=== PATIENT | female | born 1985 | race Caucasian/White ===

== ENCOUNTER 2022-12-09 09:26 | Outpatient (CLI) | payer OTHER, SELFPAY ==
[2022-12-09 10:37] LABS: Hematocrit 34.1 % (37.0-47.0); Hemoglobin 10.4 g/dL (12.0-15.0); Mean Corpuscular HGB Conc 30.5 g/dl (32-36); Mean Corpuscular Hemoglobin 26.2 pg (26-34); Mean Corpuscular Volume 85.9 fl (80-100); Mean Platelet Volume 10.3 fl (7.4-10.4); Platelet Count Result 277 k/mm3 (150-375); Red Blood Count 3.97 M/mm3 (4.2-5.4); Red Cell Distribution Width 14.1 % (11.5-14.5); White Blood Count 6.9 K/mm3 (4.5-10.0)
[2022-12-09 17:28] LABS: Rapid Plasma Reagin Non-Reactive (NonReactive)
== END 2022-12-09 09:27 | disposition home or self-care (01) ==
PROVIDERS: Visit Provider Obstetrics & Gynecology
DX: Z34.93 Encounter for supervision of normal pregnancy, unspecified, third trimester (principal); Z3A.00 Weeks of gestation of pregnancy not specified
CPT/HCPCS: 36415; 85027; 86592; 86850; 86900; 86901

== ENCOUNTER 2022-12-11 10:03 | Inpatient (IN) | payer OTHER, SELFPAY ==
--- NOTE | 2022-11-18 15:47 | PC.NURSE ---
Verified with OR schedule and patient--C/S with tubal ligation on 12/11/22 at 1200 Patient given requisition for lab draw on 12/09/22
[2022-12-11] VITALS (36 sets, daily range): BP systolic 96–128; BP diastolic 59–106; PULSE 52–133; RESP 12–17; TEMP 36.1–36.3; O2SAT 80–100; BMI 29.2
--- NOTE | 2022-12-11 10:03 | LDADM ---
This patient, Sheryl Kim, was admitted to [facility] Post [facility] on 12/11/22 at 10:03. Plans for labor, pain management and were discussed with patient. Patient/family oriented to hospital policies and general routines including ID bracelet, bed and alarms, visiting hours, pain management, procedures, bathroom and other care routines, personal items, smoking policy, room service/diet and guest tray routines, security routines, and visiting hours. Patient/Family are encouraged to report perceived risks to care and to ask questions if they do not understand what they are told or what they should do. See OBIX for further documentation.
--- NOTE | 2022-12-11 11:11 | P.PNAN_ITS ---
Anes - Initial Pre Proc Eval Procedure: Operation Date: 12/11/22 12:00 Proposed Procedures p Repeat Section with Bilateral Tubal Ligation - Bartolo Garnica MD Date/Time: 12/11/22 11:11 Surgeon: Bartolo Garnica MD Pre Op Diagnosis: Repeat C/S Patient Data Age: 37 Gender: F Height: Weight: Allergies Allergy/AdvReac Type Severity Reaction Status Date / Time No Known Allergies Allergy Verified 11/18/22 15:29 Patient hx anesthesia problems: none Family hx anesthesia problems: none Results Review: All pre-operative results and documents have been reviewed as part of the pre- operative evaluation. [facility] Family History Family History Mother Hodgkin disease Breast cancer in female Brain cancer Patient's mother is , Onset Age: 53 Lung cancer Cerebrovascular accident Father Acute myocardial infarction Social History Social History Substance use: never Spiritual care concerns: No Anes - Eval Final PreProcedure Day of Procedure 12/11/22 11:11 Patient weight: normal Heart: regular rate and rhythm Lungs: clear to auscultation Airway: Mallampati scale class II Neurological: alert and oriented Last oral intake: >/= 8 hours ASA classification: II Emergent: no Anesthetic plan: proceed Anesthesia type and monitoring: regional spinal and standard monitoring Results Review: All pre-operative results and documents have been reviewed as part of the pre- operative evaluation. Informed Consent: The patient's anesthetic plan and its attendant risks and benefits were discussed with the patient/family/POA. Questions were solicited and answers provided to the satisfaction of the patient/family/POA.
[2022-12-11] MEDS: LACTATED RINGERS 1,000 ML 125 ML IV CONT ×2 (11:52→13:15)
--- NOTE | 2022-12-11 12:12 | PM.IMHP ---
H&P: HPI History of Present Illness Date/Time: 12/11/22 12:12 Chief Complaint: Here for c section. Narrative: 37 y/o at 39 2/7 weeks here for repeat with concurrent tubal ligation. GBS neg. Review of Systems Review of Systems: All systems reviewed & are unremarkable except as noted in HPI and below PMFSH Surgical History Surgical History (Updated 12/11/22 @ 12:16 by Bartolo Garnica MD) History of augmentation mammoplasty History of delivery Family History Family History Mother Hodgkin disease Breast cancer in female Brain cancer Patient's mother is , Onset Age: 53 Lung cancer Cerebrovascular accident Father Acute myocardial infarction Social History Social History Smoking status: Never smoker Second hand tobacco smoke exposure: No Substance use: never Lack of Transportation: No Lack of Food: Never True Current Housing: I Have Housing Concerned About Future Housing: No Difficulty Paying Gas/Electric Bills: No Difficulty Paying for Meds: No Currently Unemployed: No Education: High School Diploma/GED Difficulty w/ Childcare or Family Care: No Spiritual care concerns: No Meds Home Medications and Allergies Allergies Allergy/AdvReac Type Severity Reaction Status Date / Time No Known Allergies Allergy Verified 11/18/22 15:29 Vital Signs Vital Signs - 24 hr 12/11/22 11:55 Oxygen Delivery Room Air Exam Const: Orientation/consciousness: patient oriented x3 Other: Well-developed, well-nourished female in no acute distress. Neck: Thyroid: thyroid normal Lymphatic: no lymphadenopathy noted (in neck, axilla or inguinal nodes) Resp: Effort & Inspection: normal respiratory effort Auscultation: clear to auscultation bilaterally Cardio: Rate: regular rate Rhythm: regular rhythm Heart sounds: S1 normal heart sound present and S2 normal heart sound present GI: Other: ABD: Soft, nontender, nondistended, gravid. NST reactive. TOCO: irregular contractions. No guarding or rebound tenderness. No hepatosplenomegaly. : General: Yes no CVA tenderness Other: Cervix closed, thick Back/Spine/Pelvis: Back: no CVA tenderness Skin: General skin exam: normal color and no rashes or lesions noted Neuro: General: patient oriented x3 Extrem: Other: Extremities: nontender with no edema Psych: Mental Status: mental status grossly normal Affect: normal affect Assessment and Plan Assessment and plan (1) Term : Code(s): Z34.90 - Encounter for supervision of normal , unspecified, unspecified trimester Status: Acute Assessment and Plan: A: IUP at 39 2/7 weeks here desiring repeat . Also does not desire future childbearing, would like concurrent tubal ligation. P: Offered repeat with concurrent bilateral tubal ligation. She understands there are temporary methods of contraception available to her. She understands that there are nonsurgical options as well as surgical options. She understands that tubal ligation will render her permanently sterile. She understands that there is a failure rate associated with tubal ligation, as well as an inherent ectopic gestation risk. Furthermore, she understands risks of surgery to include risks of anesthesia, risks of pain, infection, bleeding, blood products, thromboembolic phenomena and damage to adjacent structures such as bowel, bladder, ureters, blood vessels and nerves. She understands all these risks and elects to proceed with surgery. She has received the ACOG pamphlet on surgical sterilization. (2) History of delivery: Code(s): Z98.891 - History of uterine scar from previous surgery Status: Acute (3) Unwanted fertility: Code(s): Z30.09 - Encounter for other general couns
--- NOTE | 2022-12-11 12:17 | WPDHPUPDATE1 ---
History and Physical Update Update Date/Time: 12/11/22 12:17 History and Physical has been reviewed, including an updated exam of the patient. There are NO changes in the patient's condition. Risks, benefits, and alternatives have been discussed and questions answered. Patient agrees to proceed with procedure.
[2022-12-11] MEDS: ceFAZolin 2 GM/D5W 50 ML 2 GM/50 ML BAG IVPB (12:21)
--- NOTE | 2022-12-11 13:11 | PM.OBPRVD ---
OB - Delivery Note Procedure Delivery date: 12/11/22 Procedure: Procedures Operation Date: 12/11/22 12:00 <No data on this case meets the specified criteria> -Repeat low transverse delivery -Bilateral tubal ligation via modified Caryn technique Delivery monitor: External FHT and External Uterine Route of delivery: Specimen: Yes (Cord blood, segments of bilateral Fallopian tubes) Quantitative Blood Loss (ml): 985 Anesthesia type: Spinal Disposition: PACU Complications: None Narrative: Preop Dx: IUP at 39 2/7 weeks, prior , desired sterility Postop Dx: Same Findings: Fibroid uterus. Otherwise, unremarkable tubes and ovaries. Techniques: The patient was taken to the operating room where she was prepared and draped in the usual sterile fashion in dorsal supine position with a leftward tilt. She received cefazolin preoperatively. Spinal anesthesia was found to be adequate. A Pfannenstiel skin incision was made along the previous scar line and was carried through to the underlying layer of the fascia. The fascia was incised in the midline and the incision was extended laterally. The fascia was dissected free of the underlying rectus muscles. The rectus muscles were in the midline. The peritoneum was identified, tented up and entered sharply. The peritoneal incision was extended superiorly and inferiorly with good visualization of the bladder. The bladder blade was placed. The vesicouterine peritoneum was identified, tented up and entered sharply. The incision was extended laterally and the bladder flap was developed. The bladder blade was replaced. The uterus was then incised sharply in a transverse fashion along the lower uterine segment. The incision was extended laterally. The was found to be in transverse lie, with head to the maternal left. Internal version brought the infant's head to the incision. The infant's head was delivered atraumatically to the sterile field, followed by the body. The nose and mouth were bulb suctioned. After a delay, the cord was clamped and cut. The infant was handed off the field. Cord blood was collected. The placenta was removed manually and was passed off the field. The uterus was exteriorized and cleared of all clots and debris. The uterine incision was reapproximated using 0 Monocryl in a running, locked fashion. Excellent hemostasis resulted as did excellent reapproximation of the normal anatomy. The left fallopian tube was then identified by following it out to the fimbriated end. It was grasped in the midportion with a Solomon clamp and a loop of tube was ligated with a free tie of 0 plain gut. The tubal segment was then transected and the specimen was passed off to be sent to pathology. Hemostasis was excellent. Attention was turned to the right fallopian tube which was similarly identified, ligated and transected. Once again, excellent hemostasis resulted. The uterus was returned the abdomen. The pelvis was irrigated copiously with warmed normal saline. Rigorous hemostasis was assured. The fascial layer was reapproximated using 0 Vicryl in a running fashion. The skin was closed with a running, subcuticular stitch of 4 0 Vicryl. Dermaflex was applied externally. Sponge, lap, needle and instrument counts were correct. The patient was taken to the recovery room in stable condition. The infant went to the nursery in stable condition. I was present and scrubbed the entire procedure. Kenna Baby Date of : 12/11/22 Time of : 12:46 Weeks of gestation at delivery: 39 Infant gender: Female Weight (pounds): 8 presentation: transverse Placenta delivery description: Manual Removal and Normal Configuration Cord Vessel Description: 3 Vessels and Delayed Cord Clamping score one minute: 9 score five minutes: 9
--- NOTE | 2022-12-11 13:16 | PM.OBDSVD ---
DS: Admitting Diagnosis Discharge Date 12/13/22 Admitting Diagnosis IUP at 39 2/7 weeks Prior Desired sterility DS: Discharge Diagnosis Discharge Diagnosis (1) delivery delivered: Code(s): O82 - Encounter for delivery without indication Status: Acute (2) Unwanted fertility: Code(s): Z30.09 - Encounter for other general counseling and advice on contraception Status: Acute OB - DS: Summary OB Procedures : None OB Procedures Intrapartum: OB Procedures: : None Peripartum Data Procedures: Procedures Operation Date: 12/11/22 12:00 <No data on this case meets the specified criteria> Time Spent with Patient Time attestation: Total time spent providing and/or coordinating discharge services: Discharge Plan Discharge Attending physician on discharge: Bartolo Garnica Consulting providers: Hesham Ash; Arabella Sullivan Discharging Clinician: Bartolo Garnica Patient Disposition: Home, Self-Care Activity: may shower, may drive after 2 weeks and pelvic rest Diet: regular Wound Care Instructions: incision open to air Discharge Instructions: Education: Mom and Baby Guide Given to: Mother Follow-Up: Call your delivering provider's office for an appointment to be seen in: 4 Weeks Mom and baby should come to the [facility] for the follow-up appointment. Appointment Date/Time: November at 10:00 am What to expect at your follow-up visit: Physical Assessment Call [phone] if you are unable to keep your appointment time. BREAST CARE: * Wear a snug supportive bra. * For engorgement discomfort: Bottle Feeding: * May apply ice packs * For sore nipples: * Identify correct latch-on * Apply warm moist washcloths before and after nursing * Air dry nipples after nursing * May apply Lansinoh cream to nipples ABDOMINAL INCISION: (if applicable) * Allow incision to air dry * Do NOT use lotions for powders on your incision * When showering, allow soap and water to run over the incision, but do not wash incision PERINEAL CARE: * Until bleeding stops, use your trisha bottle after urinating * Change your pad frequently throughout the day * You may take sitz baths several times a day (fill your bathtub with warm water and soak for 20 minutes.) Do NOT bathe in the water * No tub baths until seen by your physician - You may shower ACTIVITY: * Rest as much as possible. * Do not exercise or lift anything heavier than your baby (such as laundry or other children.) * Avoid stairs or driving as much as possible. * Do not put anything into the vagina. No douching, tampons, or sexual activity until seen by physician. NOTIFY PHYSICIAN IF YOU HAVE ANY QUESTIONS OR IF ANY OF THE FOLLOWING SYMPTOMS OCCUR: * If your episiotomy or incision becomes red, swollen, or more painful than what you have experienced in the hospital. * If your vaginal bleeding becomes foul smelling. * If your vaginal bleeding becomes more heavy than a period or if your bleeding changes from pink to bright red. However, you may pass an occasional walnut-sized clot once or twice for the first week . * If you experience a sharp, shooting pain in you calves. * If you discover a hard, reddened area on your breast or if you experience flu-like symptoms. DIET: * Eat regular, well-balanced meals. * Drink plenty of fluids daily. If , drink to thirst.Call or return if temperature above 100.4? F, increased abdominal pain, increased vaginal bleeding or any new problems. Follow-up/Referrals: Bartolo Garnica MD [Physician] - 4 Weeks Discharge Medications: New ibuprofen 600 mg tablet 600 mg PO Q6H PRN (Reason: cramps) Qty: 30 0RF ferrous sulfate 325 mg (65 mg iron) tablet 325 mg PO DAILY Qty: 30 0RF hydrocodone-aceta
[2022-12-11] MEDS: KETOROLAC 15 MG/ML VIAL (*BKC) IV PUSH (15:00)
[2022-12-11] MEDS: ONDANSETRON INJ 4 MG/2 ML VIAL IV PUSH ×2 (15:14→21:06)
[2022-12-11] MEDS: MORPHINE SULFATE INJ (*CRX) 10 MG/ML AMP 3 MG IV PUSH (15:26)
--- NOTE | 2022-12-11 15:43 | PC.NURSE ---
Patient transferred to post room #279 via stretcher. Support person present. Oriented to unit, room, information board, rooming in, admission packet and security measures. Patient verbalizes understanding.
[2022-12-11] MEDS: OXYTOCIN 30 UNITS/NS 500 ML 30 UNITS/500 ML BAG 125 UNITS IV CONT (17:04)
[2022-12-11] MEDS: HYDROcodone/acetaminophen (*CRX) 5-325 MG TABLET 1 TAB PO (20:30)
[2022-12-11] MEDS: IBUPROFEN 600 MG TABLET PO (20:31)
[2022-12-11] MEDS: LANOLIN (LANSINOH) 7.5 GM CREAM 1 APPLIC TOPICAL (20:32)
[2022-12-11] MEDS: DEXTROSE 5%/0.45% SOD CHL 1,000 ML 125 ML IV CONT (21:20)
[2022-12-12 01:12] VITALS: BP 105/66; PULSE 57; RESP 16; TEMP 36.6; O2SAT 98
[2022-12-12 05:45] LABS: Basophils Absolute Auto 0.1 K/mm3 (0.0-0.1); Basophils Percent Auto 0.4 % (0.2-1.2); Eosinophils Percent Auto 0.3 % (0-4.4); Hematocrit 27.8 % (37.0-47.0); Hemoglobin 8.5 g/dL (12.0-15.0); Immature Granulocyte Absolute 0.06 K/mm3 (0.00-0.031); Immature Granulocyte Percent A 0.5 % (0-0.5); Lymphocytes Absolute Auto 1.13 K/mm3 (0.9-3.2); Lymphocytes Percent Auto 9.7 % (18.3-44.2); Mean Corpuscular HGB Conc 30.6 g/dl (32-36); Mean Corpuscular Hemoglobin 26.6 pg (26-34); Mean Corpuscular Volume 86.9 fl (80-100); Mean Platelet Volume 10.1 fl (7.4-10.4); Monocytes Percent Auto 8.6 % (2.6-8.5); Neutrophils Absolute Auto 9.4 K/mm3 (1.3-6.7); Neutrophils Percent Auto 80.5 % (45.5-73.1); Platelet Count Result 242 k/mm3 (150-375); Red Cell Distribution Width 14.6 % (11.5-14.5); White Blood Count 11.7 K/mm3 (4.5-10.0)
[2022-12-12 07:50] VITALS: BP 97/56; PULSE 62; RESP 18; TEMP 35.8; O2SAT 98
--- NOTE | 2022-12-12 08:50 | PM.OBPNVD ---
OB - PN: Subj Subjective Date/time seen: 12/12/22 08:50 Narrative: Pain OK. Tolerating diet. OB - PN: Obj Data Labs 12/12/22 05:38 Labs: Laboratory Results - last 24 hr 12/12/22 05:38 WBC 11.7 H RBC 3.20 L Hgb 8.5 L Hct 27.8 L MCV 86.9 MCH 26.6 MCHC 30.6 L RDW 14.6 H Plt Count 242 MPV 10.1 Immature Gran % (Auto) 0.5 Neut % (Auto) 80.5 H Lymph % (Auto) 9.7 L Sawyer % (Auto) 8.6 H Eos % (Auto) 0.3 Baso % (Auto) 0.4 Lymph # (Auto) 1.13 Sawyer # (Auto) 1.0 H Eos # (Auto) 0.0 Baso # (Auto) 0.1 Abs Immat Gran (auto) 0.06 H Absolute Neuts (auto) 9.4 H Absolute Nucleated RBC 0.0 Nucleated RBC % 0.0 OB - PN A/P Plan Comments: A: POD#1, doing well. P: Routine care. Exam Narrative: AVSS I/O OK ABD soft, nontender, fundus firm. Incision c/d/i. EXT nontender
[2022-12-12] MEDS: HYDROcodone/acetaminophen (*CRX) 5-325 MG TABLET 1 TAB PO ×3 (08:58→17:18)
[2022-12-12] MEDS: IBUPROFEN 600 MG TABLET PO ×3 (08:59→23:56)
[2022-12-12] MEDS: MULTIVIT/MIN/PREN/FOL AC/IRON TABLET 1 TAB PO (08:59)
[2022-12-12] MEDS: DOCUSATE SODIUM 100 MG CAPSULE PO ×2 (09:00→17:20)
[2022-12-12] MEDS: SIMETHICONE 80 MG TAB.CHEW PO (09:00)
[2022-12-12] MEDS: POLYSACCHARIDE IRON COMPLEX 150 MG CAPSULE PO ×2 (09:00→17:19)
[2022-12-12 11:50] VITALS: BP 104/65; PULSE 70; RESP 18; TEMP 36.1; O2SAT 100
--- NOTE | 2022-12-12 12:31 | PC.NURSE ---
0930 Introductions were made, then consulted with patient to assess needs related to . Mother led the conversation that the baby would not maintain a latch through the night and that baby received a few formula bottles. RN advised mother to put baby skin to skin before the next feeding and to call out for assistance with her next feeding. 1045 Mother called for assistance with . Mother had baby upright and skin to skin. RN assisted with waking baby up and helped the mother latch baby to her left breast in the football position, baby would open wide but not maintain a latch. Baby's last feeding was at 0630 per mother and she wanted to give her some of the formula bottle. Baby took 2 mls of formula and RN tried to latch baby to the right breast using cross cradle, baby would open wide, latch on but not suck. Mother wanted to stop and give additional formula, 5 mls given, baby burped and mother tried to latch baby to right breast herself without success. Mother wanted to go ahead and give a formula bottle at this time, baby took a total of 16mls. Mother encouraged to call out for assistance with her next feeding. Mother also inquired about a breast pump, the father of the baby, who the baby will have insurance under, thinks his insurance will cover a breast pump if the mother's won't, RN to check with RN and follow up with the father tomorrow. Reported to the primary RN.
--- NOTE | 2022-12-12 13:41 | WPDANLDPN2 ---
Anes-Prog Note L&D Date/Time: 12/12/22 13:41 Neuro status: Neuro function grossly intact. Vital Signs: Last Vital Signs Temp 36.1 C L 12/12/22 11:50 Pulse 70 12/12/22 11:50 Resp 18 12/12/22 11:50 BP 104/65 12/12/22 11:50 Pulse Ox 100 12/12/22 11:50 O2 Del Method Room Air 12/12/22 09:00 Pain score (VAS): 0 I/O: Intake & Output 12/11/22 12/12/22 12/12/22 23:59 07:59 15:59 Intake Total 550 120 Output Total 350 950 300 Balance -350 -400 -180 Patient feedback: Patient satisfied with anesthetic care.
--- NOTE | 2022-12-12 13:41 | WPDANLDNPN2 ---
Anes-Prog Note L&D-Neuraxial Date/Time: 12/12/22 13:41 Patient feedback: Patient satisfied with post-operative pain management.
[2022-12-12 18:50] VITALS: BP 112/62; PULSE 71; RESP 16; TEMP 36.4; O2SAT 97
[2022-12-12] MEDS: HYDROcodone/acetaminophen (*CRX) 10-325 MG TABLET 1 TAB PO ×2 (20:11→23:54)
[2022-12-13] MEDS: HYDROcodone/acetaminophen (*CRX) 5-325 MG TABLET 1 TAB PO ×2 (03:04→08:24)
[2022-12-13 08:15] VITALS: BP 113/79; PULSE 64; RESP 18; TEMP 36.8; O2SAT 100
[2022-12-13] MEDS: MULTIVIT/MIN/PREN/FOL AC/IRON TABLET 1 TAB PO (08:23)
[2022-12-13] MEDS: SIMETHICONE 80 MG TAB.CHEW PO (08:24)
[2022-12-13] MEDS: POLYSACCHARIDE IRON COMPLEX 150 MG CAPSULE PO (08:24)
[2022-12-13] MEDS: DOCUSATE SODIUM 100 MG CAPSULE PO (08:24)
[2022-12-13] MEDS: IBUPROFEN 600 MG TABLET PO (08:25)
--- NOTE | 2022-12-13 11:18 | PM.OBPNVD ---
OB - PN: Subj Subjective Date/time seen: 12/13/22 11:18 Patient comments: no complaints, pain well controlled, incisional pain, tolerating diet and flatus present OB - PN: Obj Data Labs 12/12/22 05:38 OB - PN A/P Plan day: 2 Plan: routine care Comments: POD#2 LTCS - no problems, to D/c Time Spent With Patient Time: Total time spent is greater than 50% in coordination of care (as documented) at patient's floor/unit and/or counseling patient: Exam Const: General: comfortable, no acute distress and alert Resp: Effort & Inspection: normal respiratory effort Auscultation: no crackles, no rales and no rhonchi Cardio: Rate: regular rate Heart sounds: no click, no murmurs and no rubs GI: Inspection: non-distended GI Palp: No Tenderness to palpation present (GI) Auscultation: normal bowel sounds Other: Incision - CDI Extrem: General: normal to inspection, no pedal edema and no calf tenderness
--- NOTE | 2022-12-13 11:19 | P.DS_ITS ---
DS: Admitting Diagnosis Discharge Date 12/13/22 Admitting Diagnosis term DS: Discharge Diagnosis Discharge Diagnosis (1) delivery delivered: Code(s): O82 - Encounter for delivery without indication Status: Acute OB - DS: Summary OB Procedures : None OB Procedures Intrapartum: OB Procedures: : None Peripartum Data Procedures: Procedures Operation Date: 12/11/22 12:00 Actual Procedure Side Surgeon p Section Bartolo Garnica MD Time Spent with Patient Time attestation: Total time spent providing and/or coordinating discharge services: DS: Data Data Completed and Pending Pending studies at discharge: Pending at discharge 12/11/22 12:55 Surgical [PTH] Routine Surgical [PTH] Routine Discharge Plan Discharge Attending physician on discharge: Bartolo Garnica Discharging Clinician: Bartolo Garnica Patient Disposition: Home, Self-Care Activity: may shower, may drive after 2 weeks and pelvic rest Diet: regular Wound Care Instructions: incision open to air Discharge Instructions: Call or return if temperature above 100.4? F, increased abdominal pain, increased vaginal bleeding or any new problems. Stand Alone Forms: General Discharge Information Follow-up/Referrals: Bartolo Garnica MD [Physician] - 4 Weeks Discharge Medications: New ibuprofen 600 mg tablet 600 mg PO Q6H PRN (Reason: cramps) Qty: 30 0RF ferrous sulfate 325 mg (65 mg iron) tablet 325 mg PO DAILY Qty: 30 0RF hydrocodone-acetaminophen 5-325 mg tablet 1 - 2 tablet PO Q6H PRN (Reason: pain) Qty: 30 0RF Date of admission: 12/11/22 10:03 Primary Care Provider: PHYSICIAN,POWDER MILL OPERATOR Admitting Provider: Bartolo Garnica Attending physician on admission: Bartolo Garnica Condition: Stable
--- NOTE | 2022-12-13 12:20 | PC.NURSE ---
1042 Reintroductions made, per mother she is only going to bottle feed formula. Offered assistance with a breast pump and mother declined, she would no longer like to pump. Encouraged mother to wear a snug supportive bra and use ice packs on her breasts as needed for comfort. Mother voiced understanding of information and will call if there is a request for assistance. Reported to the primary RN.
--- NOTE | 2022-12-13 13:57 | PC.NURSE ---
1100 Patient viewed the discharge video Mother & Baby Care, The First Two Weeks . Patient was given the opportunity and encouraged to ask questions. Patient verbalized understanding of information shared and has been given the mother/baby guide for home reference.
[2022-12-14 10:24] VITALS: BP 109/71; PULSE 68; RESP 18; TEMP 36.6; O2SAT 99
== END 2022-12-13 13:25 | disposition home or self-care (01) | DRG 785 ==
LOC: ANHOBPP 13:18 → ANHOB2 12-12 15:03 → ANHOBPP 12-14 10:14
PROVIDERS: Admitting Provider Obstetrics & Gynecology; Visit Provider Obstetrics & Gynecology
PROC: 10D00Z1 Extraction of Products of Conception, Low, Open Approach (ICD-10-PCS; CPT 59514; principal; 2022-12-11 12:00)
DX: O34.211 Maternal care for low transverse scar from previous cesarean delivery (principal); Z37.0 Single live birth; Z3A.39 39 weeks gestation of pregnancy; Z30.2 Encounter for sterilization
CPT/HCPCS: 36415; 85025; 85027; 86592; 86850; 86900; 86901; 88302; A9270; J0690; J1885; J2270; J2274; J2405; J2590; J7120

== ENCOUNTER 2024-04-30 16:07 | Emergency (ER) | payer OTHER, SELFPAY ==
[2024-04-30] VITALS (10 sets, daily range): BP systolic 105–141; BP diastolic 64–76; PULSE 55–91; RESP 11–19; TEMP 36.4; O2SAT 97–100
--- NOTE | ~2024-04-30 | XR_ITS ---
XR chest 2V Ordering provider: Suzanne Shepard PA-C History: 39 years Female with . r arm numbness/tingling headache/blurred vision . Comparison: None. FINDINGS: MEDIASTINUM: The cardiac silhouette is not enlarged. LUNGS: No infiltrates, effusions or pneumothorax. OTHER: No free air under the diaphragm. IMPRESSION: No acute cardiopulmonary pathology. Reviewed, dictated and finalized at location A. RANCE SALES MANAGER
--- NOTE | ~2024-04-30 | CT_ITS ---
CT brain wo con Ordering provider: Suzanne Shepard PA-C History: 39 years Female with . R arm numbness tingling, blurred vision, headache . Comparison: None. Technique: CT of the head without contrast. Radiation reduction technique utilized. The dose-length p roduct was 605.33 mGy-cm. FINDINGS: BRAIN PARENCHYMA AND CSF SPACES: No midline shift, mass effect or hemorrhage. The brain parenchyma a nd CSF spaces are otherwise normal. VISUALIZED PARANASAL SINUSES: Well aerated. MASTOIDS: Well aerated. BONES: The bones appear intact. SOFT TISSUES: Visualized nasopharynx is normal. Superficial soft tissues are normal. IMPRESSION: No acute intracranial findings. Reviewed, dictated and finalized at location A. ENT FINANCE SPECIALIST
--- NOTE | 2024-04-30 16:14 | ECG_ITS ---
Test Date: 2024-04-30 16:42:51 Measurements Intervals Endeavor Rate: 82 P: 29 SC: 142 QRS: 5 QRSD: 90 T: 39 QT: 345 QTc: 405 Interpretive Statements SINUS RHYTHM POSSIBLE ANTERIOR MYOCARDIAL INFARCTION , PROBABLY OLD [30 ms Q WAVE IN V3/V4, OR R < 0.2 mV IN V4] ABNORMAL ECG No previous ECG available for comparison Electronically Signed On 04-30-2024 16:46:06 OPERATIONS OFFICER by Trevor Sung M.D.
[2024-04-30 16:21] LABS: Glucose Point of Care 108 mg/dl (65-105)
--- NOTE | 2024-04-30 16:36 | ED.NEUROSD ---
HPI - Neuro Symptoms/Deficit General Chief Complaint: Neuro Symptoms/Deficit <NAVI Torres Last Filed: 04/30/24 16:43> Stated Complaint: migraine <NAVI Torres Last Filed: 04/30/24 16:43> Time Seen by Provider: 04/30/24 16:36 <NAVI Torres Last Filed: 04/30/24 16:43> Focused HPI: Patient is a 39 y/o female who presents to the ED with c/o CASILLAS and vision changes. Patient reports she was driving around 9 am this morning when her vision suddenly became decreased/blurry bilaterally. She then developed numbness/tingling in mayra arms. States vision was altered for approx 1 hour before returning to normal on its own. Numbness has continued to be intermittent throughout today. She also developed a diffuse frontal CASILLAS within an hour of these other symptoms. Present mostly throughout frontal region. Still having headache currently. Attempted taking Tylenol but states she vomited this up. C/o nausea currently. States she had a similar episode last Sunday, but CASILLAS only lasted a few hours before improving. Hx of migraines several years ago. Denies fevers, focal weakness, syncope. GENERAL: Well-appearing, well-nourished, and in no acute distress. HEAD: Normocephalic, atraumatic. CHEST: Clear to auscultation. ?No respiratory distress. HEART: Regular rate and rhythm.? NEURO: ?Alert and oriented x3. No focal deficits. Equal director radio strength bilaterally. No pronator drift. Sensation intact throughout extremities. Patient screened in triage and initial orders placed.? ?Additional care and disposition to be based upon?diagnostic testing and treatment. <NAVI Torres Last Filed: 04/30/24 16:43> Source: patient <NAVI Torres Last Filed: 04/30/24 16:43> Mode of arrival: ambulatory <NAVI Torres Last Filed: 04/30/24 16:43> Limitations: no limitations <NAVI Torres Last Filed: 04/30/24 16:43> Related Data Allergies/Adverse Reactions: Allergies Allergy/AdvReac Type Severity Reaction Status Date / Time No Known Allergies Allergy Verified 11/18/22 15:29 <Suzanne Shepard PA-C - Last Filed: 04/30/24 16:43> Review of Systems Review of Systems: CONSTITUTIONAL: Denies fever EYES: Reports blurry vision GASTROINTESTINAL: Reports nausea, vomiting NEUROLOGIC: Reports headache. Denies numbness, or weakness. <Dia Sharma PA-C - Last Filed: 04/30/24 19:23> All systems reviewed & are unremarkable except as noted in HPI and below <Dia Sharma PA-C - Last Filed: 04/30/24 19:23> PMFSH Past Medical History Medical History: Medical History (Updated 04/30/24 @ 19:23 by Dia Sharma PA-C) History of migraine <Suzanne Shepard PA-C - Last Filed: 04/30/24 16:43> Surgical History Surgical History: Surgical History (Updated 12/11/22 @ 12:16 by Bartolo Garnica MD) History of augmentation mammoplasty History of delivery <Suzanne Shepard PA-C - Last Filed: 04/30/24 16:43> Family History Family History: Family History Mother Hodgkin disease Breast cancer in female Brain cancer Patient's mother is , Onset Age: 53 Lung cancer Cerebrovascular accident Father Acute myocardial infarction <Suzanne Shepard PA-C - Last Filed: 04/30/24 16:43> Social History Social History: Social History Smoking status: Never smoker Second hand tobacco smoke exposure: No Substance use: never Lack of Transportation: No Lack of Food: Never True Current Housing: I Have Housing Concerned About Future Housing: No Difficulty Paying Gas/Electric Bills: No Difficulty Paying for Meds: No Currently Unemployed: No Education: High School Diploma/GED Difficulty w/ Childcare or Family Care: No Spiritual care concerns: No <Suzanne Shepard PA-C - Last Filed: 04/30/24 16:43> Exam Narrative: GENERAL: Well-appearing, well-nourished, and in no acute distress. HEAD: Normocephalic, atraumatic. EYES: PERRLA and EOMI. ENT: Nares clear, no rhinorrhea or epistaxis. Mucous membranes moist. Oropharynx without tonsillar hypertrophy exudate or other lesions. Bilateral TMs pearly pantoja non-bulging NECK: Supple. No adenopathy or masses. CHEST: Clear to auscultation. No respiratory distress. No wheezes rales or rhonchi HEART: Regular rate and rhythm. No murmur heard. Normal peripheral pulses. EXTREMITIES: Normal range of motion. No edema. Strength equal in bilateral upper and lower extremities (5/5) SKIN: Warm, dry, no rash. NEURO: No focal deficits. Alert and oriented x3. CN II-XII grossly intact PSYCH: Normal mood and affect <NAVI Pichardo Last Filed: 04/30/24 19:23> Course Course Emergency Course: Patient updated on her workup and agrees with plan of care. Reports feeling much better <NAVI Pichardo Last Filed: 04/30/24 19:23> Vital Signs Vital signs: Vital Signs Temperature 97.6 F 04/30/24 16:09 Pulse Rate 91 04/30/24 16:09 Respiratory Rate 17 04/30/24 16:09 Blood Pressure 141/76 H 04/30/24 16:09 Pulse Oximetry 100 04/30/24 16:09 Oxygen Delivery Room Air 04/30/24 16:09 Temperature 97.6 F 04/30/24 16:09 Pulse Rate 76 04/30/24 18:15 Respiratory Rate 19 04/30/24 18:15 Blood Pressure 110/69 04/30/24 18:15 Pulse Oximetry 97 04/30/24 18:15 Oxygen Delivery Room Air 04/30/24 16:09 <Suzanne Shepard PA-C - Last Filed: 04/30/24 16:43> Vital Signs Temperature 97.6 F 04/30/24 16:09 Pulse Rate 91 04/30/24 16:09 Respiratory Rate 17 04/30/24 16:09 Blood Pressure 141/76 H 04/30/24 16:09 Pulse Oximetry 100 04/30/24 16:09 Oxygen Delivery Room Air 04/30/24 16:09 Temperature 97.6 F 04/30/24 16:09 Pulse Rate 76 04/30/24 18:15 Respiratory Rate 19 04/30/24 18:15 Blood Pressure 110/69 04/30/24 18:15 Pulse Oximetry 97 04/30/24 18:15 Oxygen Delivery Room Air 04/30/24 16:09 <Dia Sharma PA-C - Last Filed: 04/30/24 19:23> MDM - Neuro Symptoms/Deficit MDM Narrative Medical decision making narrative: MSE by DAVE in triage. <NAVI Torres Last Filed: 04/30/24 16:43> MSE by DAVE in triage. Patient presents to the emergency department for a migraine headache. She is afebrile and nontoxic appearing. Her vitals are stable. CBC with leukocytosis to 13.3. Likely due to a of nausea and vomiting. Also shows hemoconcentration. Metabolic panel with some evidence of dehydration as well. Patient hydrated with a L fluids in the ED. test is negative. Chest x-ray without acute cardiopulmonary abnormality. CT brain without acute findings. Patient updated on her workup and agrees with plan of care. Reports feeling much better. She is to follow up with primary provider. She was given warnings to return to the ER <Dia Sharma PA-C - Last Filed: 04/30/24 19:23> Differential Diagnosis Differential diagnosis: Likely subarachnoid hemorrhage and other (Migraine, tension headache, brain mass, dehydration) <NAVI Pichardo Last Filed: 04/30/24 19:23> Lab Data Attestation: I reviewed the patient's lab results. <NAVI Pichardo Last Filed: 04/30/24 19:23> Result diagrams: 04/30/24 16:36 04/30/24 16:36 <NAVI Torres Last Filed: 04/30/24 16:43> Labs: Lab Results 04/30/24 04/30/24 04/30/24 Range/Units 16:17 16:30 16:36 WBC 13.3 H (4.5-10.0) K/mm3 RBC 5.29 (4.2-5.4) M/mm3 Hgb 15.6 H D (12.0-15.0) g/dL Hct 47.2 H (37.0-47.0) % MCV 89.2 (80-100) fl MCH 29.5 (26-34) pg MCHC 33.1 (32-36) g/dl RDW 12.1 (11.5-14.5) % Plt Count 454 H D (150-375) k/mm3 MPV 10.0 (7.4-10.4) fl Immature Gran % (Auto) 0.3 (0-0.5) % Neut % (Auto) 85.6 H (45.5-73.1) % Lymph % (Auto) 8.6 L (18.3-44.2) % [place] % (Auto) 4.8 (2.6-8.5) % Eos % (Auto) 0.2 (0-4.4) % Baso % (Auto) 0.5 (0.2-1.2) % Lymph # (Auto) 1.15 (0.9-3.2) K/mm3 [place] # (Auto) 0.6 (0.1-0.6) K/mm3 Eos # (Auto) 0.0 (0-0.3) K/mm3 Baso # (Auto) 0.1 (0.0-0.1) K/mm3 Abs Immat Gran (auto) 0.04 H (0.00-0.031) K/mm3 Absolute Neuts (auto) 11.4 H (1.3-6.7) K/mm3 Absolute Nucleated RBC 0.000 (0.0-0.012) K/mm3 Nucleated RBC % 0.0 (0.0-0.2) % PT 12.8 (11.1-14.7) Seconds INR 0.9 APTT 27.5 (22.3-36.8) Seconds Sodium 135 L (137-145) mmol/L Potassium 4.2 (3.4-5.0) mmol/L Chloride 100 (98-107) mmol/L Carbon Dioxide 27 (22-30) mmol/L Anion Gap 8 (4-12) mmol/L BUN 14 (7-17) mg/dL Creatinine 0.70 (0.7-1.0) mg/dL Estim Creat Clear Calc Not Reportable Estimated GFR > 60 (59 - ) Glucose 110 (65-110) mg/dL POC Capillary Glucose 108 H (65-105) mg/dl Calcium 9.2 (8.4-10.2) mg/dL Total Bilirubin 1.6 H (0.2-1.3) mg/dL AST 22 (14-36) U/L ALT 12 (6-35) U/L Alkaline Phosphatase 82 (38-126) U/L Troponin I < 0.012 (0.000-0.034) ng/mL Total Protein 8.0 (6.3-8.2) g/dL Albumin 4.8 (3.5-5.1) g/dL POC Urine HCG, Qual Negative (Negative) <Suzanne Shepard PA-C - Last Filed: 04/30/24 16:43> Lab Results 04/30/24 04/30/24 04/30/24 Range/Units 16:17 16:30 16:36 WBC 13.3 H (4.5-10.0) K/mm3 RBC 5.29 (4.2-5.4) M/mm3 Hgb 15.6 H D (12.0-15.0) g/dL Hct 47.2 H (37.0-47.0) % MCV 89.2 (80-100) fl MCH 29.5 (26-34) pg MCHC 33.1 (32-36) g/dl RDW 12.1 (11.5-14.5) % Plt Count 454 H D (150-375) k/mm3 MPV 10.0 (7.4-10.4) fl Immature Gran % (Auto) 0.3 (0-0.5) % Neut % (Auto) 85.6 H (45.5-73.1) % Lymph % (Auto) 8.6 L (18.3-44.2) % [place] % (Auto) 4.8 (2.6-8.5) % Eos % (Auto) 0.2 (0-4.4) % Baso % (Auto) 0.5 (0.2-1.2) % Lymph # (Auto) 1.15 (0.9-3.2) K/mm3 [place] # (Auto) 0.6 (0.1-0.6) K/mm3 Eos # (Auto) 0.0 (0-0.3) K/mm3 Baso # (Auto) 0.1 (0.0-0.1) K/mm3 Abs Immat Gran (auto) 0.04 H (0.00-0.031) K/mm3 Absolute Neuts (auto) 11.4 H (1.3-6.7) K/mm3 Absolute Nucleated RBC 0.000 (0.0-0.012) K/mm3 Nucleated RBC % 0.0 (0.0-0.2) % PT 12.8 (11.1-14.7) Seconds INR 0.9 APTT 27.5 (22.3-36.8) Seconds Sodium 135 L (137-145) mmol/L Potassium 4.2 (3.4-5.0) mmol/L Chloride 100 (98-107) mmol/L Carbon Dioxide 27 (22-30) mmol/L Anion Gap 8 (4-12) mmol/L BUN 14 (7-17) mg/dL Creatinine 0.70 (0.7-1.0) mg/dL Estim Creat Clear Calc Not Reportable Estimated GFR > 60 (59 - ) Glucose 110 (65-110) mg/dL POC Capillary Glucose 108 H (65-105) mg/dl Calcium 9.2 (8.4-10.2) mg/dL Total Bilirubin 1.6 H (0.2-1.3) mg/dL AST 22 (14-36) U/L ALT 12 (6-35) U/L Alkaline Phosphatase 82 (38-126) U/L Troponin I < 0.012 (0.000-0.034) ng/mL Total Protein 8.0 (6.3-8.2) g/dL Albumin 4.8 (3.5-5.1) g/dL POC Urine HCG, Qual Negative (Negative) <Dia Sharma PA-C - Last Filed: 04/30/24 19:23> Imaging Data Radiologist's impression: ITS Impressions Chest X-Ray 04/30/24 16:54 IMPRESSION: No acute cardiopulmonary pathology. Head CT 04/30/24 17:44 IMPRESSION: No acute intracranial findings. <NAVI Pichardo Last Filed: 04/30/24 19:23> Critical Care Time Critical Care Time Critical Care Time: No <NAVI Pichardo Last Filed: 04/30/24 19:23> Discharge Plan Discharge Clinical Impression: Dehydration Headache Qualifiers: Headache type: unspecified Headache chronicity pattern: acute headache Intractability: not intractable Qualified Code(s): R51.9 - Headache, unspecified <NAVI Torres Last Filed: 04/30/24 16:43> Patient Disposition: Home, Self-Care <NAVI Torres Last Filed: 04/30/24 16:43> Condition: Improved <NAVI Torres Last Filed: 04/30/24 16:43> Instructions: Dehydration (ED), Acute Headache (ED) <NAVI Torres Last Filed: 04/30/24 16:43> Additional Instructions: Return to the emergency department if you experience fever, chest pain, shortness of breath, abdominal pain with nausea and vomiting, sudden onset weakness, numbness, or any other symptoms that are concerning to you. Rest. Remain well hydrated. [id number] pain medication as needed Follow up with primary care doctor <NAVI Torres Last Filed: 04/30/24 16:43> Prescriptions: No Action ibuprofen 600 mg tablet 600 mg PO Q6H PRN (Reason: cramps) Qty: 30 0RF ferrous sulfate 325 mg (65 mg iron) tablet 325 mg PO DAILY Qty: 30 0RF hydrocodone-acetaminophen 5-325 mg tablet 1 - 2 tablet PO Q6H PRN (Reason: pain) Qty: 30 0RF <NAVI Torres Last Filed: 04/30/24 16:43> Follow-up/Referrals: PHYSICIAN,INTERNATIONAL PROJECT ENGINEER [Primary Care Provider] - Natanael Bull MD [Physician] - <NAVI Torres Last Filed: 04/30/24 16:43>
[2024-04-30 16:47] LABS: Basophils Absolute Auto 0.1 K/mm3 (0.0-0.1); Basophils Percent Auto 0.5 % (0.2-1.2); Eosinophils Percent Auto 0.2 % (0-4.4); Hematocrit 47.2 % (37.0-47.0); Hemoglobin 15.6 g/dL (12.0-15.0); Immature Granulocyte Absolute 0.04 K/mm3 (0.00-0.031); Immature Granulocyte Percent A 0.3 % (0-0.5); Lymphocytes Absolute Auto 1.15 K/mm3 (0.9-3.2); Lymphocytes Percent Auto 8.6 % (18.3-44.2); Mean Corpuscular HGB Conc 33.1 g/dl (32-36); Mean Corpuscular Hemoglobin 29.5 pg (26-34); Mean Corpuscular Volume 89.2 fl (80-100); Monocytes Absolute Auto 0.6 K/mm3 (0.1-0.6); Monocytes Percent Auto 4.8 % (2.6-8.5); Neutrophils Absolute Auto 11.4 K/mm3 (1.3-6.7); Neutrophils Percent Auto 85.6 % (45.5-73.1); Platelet Count Result 454 k/mm3 (150-375); Red Blood Count 5.29 M/mm3 (4.2-5.4); Red Cell Distribution Width 12.1 % (11.5-14.5); White Blood Count 13.3 K/mm3 (4.5-10.0)
[2024-04-30 16:53] LABS: BEDSIDEPREGUCG Negative (Negative)
[2024-04-30 17:00] LABS: Alanine Aminotransferase 12 U/L (6-35); Albumin Level 4.8 g/dL (3.5-5.1); Alkaline Phosphatase 82 U/L (38-126); Anion Gap 8 mmol/L (4-12); Aspartate Amino Transferase 22 U/L (14-36); Bilirubin,Total 1.6 mg/dL (0.2-1.3); Blood Urea Nitrogen 14 mg/dL (7-17); Calcium 9.2 mg/dL (8.4-10.2); Carbon Dioxide 27 mmol/L (22-30); Chloride 100 mmol/L (98-107); Estimated Glomerular Filt Rate > 60; Glucose 110 mg/dL (65-110); Potassium 4.2 mmol/L (3.4-5.0); Sodium 135 mmol/L (137-145)
[2024-04-30 17:05] LABS: INR 0.9; Prothrombin Time 12.8 Seconds (11.1-14.7)
[2024-04-30 17:06] LABS: Partial Thromboplastin Time 27.5 Seconds (22.3-36.8)
[2024-04-30 17:11] LABS: Troponin I < 0.012 ng/mL (0.000-0.034)
[2024-04-30] MEDS: SODIUM CHLORIDE 0.9% IV 1,000 ML 999 ML IV CONT (18:15)
[2024-04-30] MEDS: diphenhydrAMINE HCl INJ 50 MG/ML VIAL 25 MG IV PUSH (18:16)
[2024-04-30] MEDS: ACETAMINOPHEN 500 MG TABLET 1000 MG PO (18:16)
[2024-04-30] MEDS: METOCLOPRAMIDE HCL INJ 10 MG/2 ML VIAL IV PUSH (18:16)
[2024-04-30] MEDS: KETOROLAC 15 MG/ML VIAL (*BKC) IV PUSH (19:23)
== END 2024-04-30 20:19 | disposition home or self-care (01) ==
PROVIDERS: Physician Assistant; Emergency Provider Physician Assistant
DX: R51.9 Headache, unspecified (principal); E86.0 Dehydration
CPT/HCPCS: 36415; 70450; 71046; 80053; 81025; 82948; 84484; 85025; 85610; 85730; 93005; 96361; 96374; 96375; 99284; A9270; J1200; J1885; J2765; J7030

== ENCOUNTER 2024-06-02 15:32 | Emergency (ER) | payer BC, SELFPAY ==
--- NOTE | ~2024-06-02 | XR_ITS ---
HISTORY: swelling, injury COMPARISON: None TECHNIQUE: 3 views of the left elbow were performed. FINDINGS: No acute fracture is identified. No elevation of the anterior or posterior fat pads are identified to suggest a supracondylar fracture . Overlying soft tissues are unremarkable. Bone mineralization is age-appropriate. IMPRESSION: No acute fracture or dislocation. Reviewed, dictated and finalized at location A. HER AND CHARGER
[2024-06-02 16:14] VITALS: BP 144/76; PULSE 61; RESP 18; TEMP 36.5; O2SAT 97
--- NOTE | 2024-06-02 16:14 | ED_ITS ---
HPI - Extremity Injury (Upper) General Chief Complaint: Extremity Injury, Upper <NAVI Pichardo Last Filed: 06/03/24 14:45> Stated Complaint: L ELBOW INJURY S/P FALL ON ICY SURFACE <NAVI Pichardo Last Filed: 06/03/24 14:45> Time Seen by Provider: 06/02/24 16:16 <Dia Sharma PA-C - Last Filed: 06/03/24 14:45> Focused HPI: This is a 39 year old female that presents to the ER for a fall today with left elbow injury. Reports slipping and falling. She did not hit her head or lose consciousness. Reports swelling and pain since. Reports decreased ROM due to pain. GENERAL: Well-appearing, well-nourished, and in no acute distress. HEAD: Normocephalic, atraumatic. CHEST: Clear to auscultation. ?No respiratory distress. HEART: Regular rate and rhythm.? MUSCULOSKELETAL: Moderate edema about the left elbow posteriorly. Normal radial pulse NEURO: ?Alert and oriented x3. Patient screened in triage and initial orders placed.? ?Additional care and disposition to be based upon?diagnostic testing and treatment. <NAVI Pichardo Last Filed: 06/03/24 14:45> Source: patient <NAVI House Last Filed: 06/02/24 17:45> Mode of arrival: ambulatory <NAVI House Last Filed: 06/02/24 17:45> Limitations: no limitations <NAVI House Last Filed: 06/02/24 17:45> History of Present Illness HPI narrative: Agree with triage note above <NAVI House Last Filed: 06/02/24 17:45> Related Data Allergies/Adverse Reactions: Allergies Allergy/AdvReac Type Severity Reaction Status Date / Time No Known Allergies Allergy Verified 06/02/24 15:33 <NAVI Pichardo Last Filed: 06/03/24 14:45> Review of Systems Review of Systems: All systems as dictated in HPI <NAVI House Last Filed: 06/02/24 17:45> [facility] Past Medical History Medical History: Medical History (Updated 06/03/24 @ 14:45 by Dia Sharma PA-C) History of migraine <Dia Sharma PA-C - Last Filed: 06/03/24 14:45> Surgical History Surgical History: Surgical History (Updated 12/11/22 @ 12:16 by Bartolo Garnica MD) History of augmentation mammoplasty History of delivery <Dia Sharma PA-C - Last Filed: 06/03/24 14:45> Family History Family History: Family History Mother Hodgkin disease Breast cancer in female Brain cancer Patient's mother is , Onset Age: 53 Lung cancer Cerebrovascular accident Father Acute myocardial infarction <Dia Sharma PA-C - Last Filed: 06/03/24 14:45> Social History Social History: Social History Smoking status: Never smoker Second hand tobacco smoke exposure: No Substance use: never Lack of Transportation: No Lack of Food: Never True Current Housing: I Have Housing Concerned About Future Housing: No Difficulty Paying Gas/Electric Bills: No Difficulty Paying for Meds: No Currently Unemployed: No Education: High School Diploma/GED Difficulty w/ Childcare or Family Care: No Spiritual care concerns: No <NAVI Pichardo Last Filed: 06/03/24 14:45> Exam Narrative: GENERAL: Well-appearing, well-nourished, and in no acute distress. HEAD: Normocephalic, atraumatic. MSK: LUE: Focal swelling to the olecranon bursa. The area is tender posteriorly to the elbow. No crepitus, bruising or deformity. Is able to actively range the e lbow from 90? to 180?. Full active range of motion of the shoulder with no tenderness to the shoulder. No tenderness throughout the forearm or wrist. RUE: Benign SKIN: Warm, dry, no rash. NEURO: Alert and oriented x4. No focal deficits. PSYCH: Normal mood and affect. <Geovany Barrett PA-C - Last Filed: 06/02/24 17:45> Course Vital Signs Vital signs: Vital Signs Temperature 97.7 F 06/02/24 16:14 Pulse Rate 61 06/02/24 16:14 Respiratory Rate 18 06/02/24 16:14 Blood Pressure 144/76 H 06/02/24 16:14 Pulse Oximetry 97 06/02/24 16:14 Temperature 97.9 F 06/02/24 16:47 Pulse Rate 61 06/02/24 16:14 Respiratory Rate 18 06/02/24 16:14 Blood Pressure 144/76 H 06/02/24 16:14 Pulse Oximetry 97 06/02/24 16:14 <NAVI Pichardo Last Filed: 06/03/24 14:45> Vital Signs Temperature 97.7 F 06/02/24 16:14 Pulse Rate 61 06/02/24 16:14 Respiratory Rate 18 06/02/24 16:14 Blood Pressure 144/76 H 06/02/24 16:14 Pulse Oximetry 97 06/02/24 16:14 Temperature 97.9 F 06/02/24 16:47 Pulse Rate 61 06/02/24 16:14 Respiratory Rate 18 06/02/24 16:14 Blood Pressure 144/76 H 06/02/24 16:14 Pulse Oximetry 97 06/02/24 16:14 <NAVI House Last Filed: 06/02/24 17:45> MDM - Extremity Injury (Upper) MDM Narrative Medical decision making narrative: This is a 39-year-old female who presents to the ED for chief complaint of left elbow injury, slipping and falling on ice today. Vitals are normal. Exam remarkable for the above. She is able to actively range the elbow through 90? to 180? range of motion. There is marked olecranon bursa swelling but no deformity. Neurovascularly intact. Left elbow x-rays show no acute osseous findings. Low suspicion for occult fracture due to the good range of motion today. Patient was placed in Natanael wrap and sling. [place] was given here for pain. Patient will be discharged in stable condition. Supportive measures discussed and return precautions given. Patient is understanding and agreeable with plan for discharge with PCP follow-up. <NAVI House Last Filed: 06/02/24 17:45> Imaging Data Radiologist's impression: ITS Impressions Elbow X-Ray 06/02/24 17:17 IMPRESSION: No acute fracture or dislocation. <NAVI Pichardo Last Filed: 06/03/24 14:45> Critical Care Time Critical Care Time Critical Care Time: No <NAVI Pichardo Last Filed: 06/03/24 14:45> Discharge Plan Discharge Clinical Impression: Injury of elbow, left Qualifiers: Encounter type: initial encounter Qualified Code(s): S59.902A - Unspecified injury of left elbow, initial encounter <NAVI Pichardo Last Filed: 06/03/24 14:45> Patient Disposition: Home, Self-Care <NAVI Pichardo Last Filed: 06/03/24 14:45> Condition: Stable <NAVI Pichardo Last Filed: 06/03/24 14:45> Instructions: Antibiotic Form <NAVI Pichardo Last Filed: 06/03/24 14:45> Additional Instructions: Your seen in the ER today for elbow injury. The x-rays today are well- appearing and there is no fracture detected. This swelling to the elbow should resolve with anti-inflammatories and gentle compression. Please use Natanael wrap at home. Follow-up with PCP on this issue. If you have any new or worsening symptoms please return to the ER for further evaluation. <Dia Sharma PA-C - Last Filed: 06/03/24 14:45> Patient Language: Montenegrin <NAVI Pichardo Last Filed: 06/03/24 14:45> Prescriptions: No Action ibuprofen 600 mg tablet 600 mg PO Q6H PRN (Reason: cramps) Qty: 30 0RF ferrous sulfate 325 mg (65 mg iron) tablet 325 mg PO DAILY Qty: 30 0RF hydrocodone-acetaminophen 5-325 mg tablet 1 - 2 tablet PO Q6H PRN (Reason: pain) Qty: 30 0RF <NAVI Pichardo Last Filed: 06/03/24 14:45> Follow-up/Referrals: UNKNOWN,DOCTOR [Primary Care Provider] - <Dia Sharma PA-C - Last Filed: 06/03/24 14:45> Time of Disposition: 17:42 <Dia Sharma PA-C - Last Filed: 06/03/24 14:45> 17:42 <Geovany Barrett PA-C - Last Filed: 06/02/24 17:45>
[2024-06-02] MEDS: HYDROcodone/acetaminophen (*CRX) 5-325 MG TABLET 1 TAB PO (16:46)
[2024-06-02 16:47] VITALS: TEMP 36.6
--- OUTSIDE RECORDS SUMMARY | 2024-06-09 02:41 | XMS_ITS | Encounter Summary ---
Author Organization [facility] Address [address] [place] [address]. [place] [address] [place] [address] Care Team Providers Care Radiologic Technology Program Director Name Role Phone Tamiko Manzano NP Primary Care Provider [phone] Reason for Visit * Reason Comments Physical Encounter Details Date Type Department Care Team (Late st Contact Info) Description 02/21/2023 9:00 AM CDT Office Visit [facility] Family Medicine [facility] [address] [facility] [address] [place] [id number] Tamiko Manzano, FELL CUTTER [address] [place] [id number] Physical Social History Tobacco Use Types Packs/Day Years Used Date Smoking Tobacco: Never Smokeless Tobacco: Never Tobacco Cessation:Counseling Given: Not Answered Alcohol Use Standard Drinks/Week Comments Yes 3 (1 standard drink = 0.6 oz pur e alcohol) Just social, not weekly PHQ-2 Answer Date Recorded Patient Health Questionnaire-2 Score 0 02/21/2023 Comments No Sex and Gender Information Value Date Recorded Sex Assigned at Female 02/22/2024 10:26 AM CDT Legal Sex Female 10:03 AM CDT Gender Identity Female 02/22/2024 10:26 AM CDT Sexual Orientation Not on file documented as of this encounter Last Filed Vital Signs Vital Sign Reading Time Taken Comments Blood Pressure 90/63 02/21/2023 9:15 AM CDT Pulse 87 02/21/2023 9:15 AM CDT Temperature 35.8 ??C (96.4 ??F) 02/21/2023 9:15 AM CD T Respiratory Rate 14 02/21/2023 9:15 AM CDT Oxygen Saturation 98% 02/21/2023 9:15 AM CDT Inhaled Oxygen Concentration - - Weight 72 kg (158 lb 12.8 oz) 02/21/2023 9:15 AM CDT Height 165.1 cm (5' 5 ) 02/21/2023 9:15 AM CDT Body Mass Index 26.43 02/21/2023 9:15 AM CDT documented in this encounter Progress Notes * Tamiko Manzano NP - 02/21/2023 9:00 AM CDT Images from the original note were not included. Annual Health Maintenance Exam Encounter Date: 02/21/2023 Reason for Visit: Annual Health Maintenance Exam Physical History of Present Illness: Bushra Kim is a 38-year-old female here for her annual exam. Pt reports doing well without complaints. She is currently 2 months . Patient is not breast-feeding. Pt is needing a lipid panel checked required through her work. Reported Health: good Immunizations up to date: Yes Healthy Diet: Yes Regular Exercise: Yes Weight Concern: No Cancer Screening Up To Date: Yes Dr. Garnica now for her well woman care. Tobacco use: No Alcohol use: No Dental exam: No Eye exam: Yes ROS: Review of Systems Constitutional: Negative for chills, diaphoresis, fever, malaise/fatigue and weight loss. HENT: Negative for congestion, ear discharge, ear pain, hearing loss, nosebleeds, sinus pain, sore throat and tinnitus. Eyes: Negative for blurred vision, double vision, photophobia, pain, discharge and redness. Respiratory: Negative for cough, hemoptysis, sputum production, shortness of breath, wheezing and stridor. Cardiovascular: Negative for chest pain, palpitations, orthopnea, claudication, leg swelling and PND. Gastrointestinal: Negative for abdominal pain, blood in stool, constipation, diarrhea, heartburn, melena, nausea and vomiting. Genitourinary: Negative for dysuria, flank pain, frequency, hematuria and urgency. Musculoskeletal: Negative for back pain, falls, joint pain, myalgias and neck pain. Skin: Negative for itching and rash. Neurological: Negative for dizziness, tingling, tremors, sensory change, speech change, focal weakness, seizures, loss of consciousness, weakness and headaches. Endo/Heme/Allergies: Negative for environmental allergies and polydipsia. Does not bruise/bleed easily. Psychiatric/Behavioral: Negative for depression, hallucinations, memory loss, substance abuse and suicidal ideas. The patient is not nervous/anxious and does not have insomnia. Medications: No outpatient medications have been marked as taking for the 02/21/23 encounter (Office Visit) with Tamiko Manzano NP. Allergies: Review of patient's allergies indicates: No Known Allergies Medical History: Past Medical History: Diagnosis Date Migraine headache with aura Surgical History: Past Surgical History: Procedure Laterality Date SECTION 12/01/2020 SECTION 12/11/2022 COSMETIC SURGERY 10/2015 Breast implants FULL ROUT OBSTE CARE,VAGINAL DELIV 2011 Social History: Social History Tobacco Use Smoking status: Never Smokeless tobacco: Never Vaping Use Vaping Use: Never used Substance Use Topics Alcohol use: Yes Alcohol/week: 3.0 standard drinks Types: 3 Standard drinks or equivalent per week Comment: Just social, not weekly Drug use: Never Family History: Family History Problem Relation Name Age of Onset Cancer Mother Zahra Renae 12/2015 with brain and lung cancer, had breast cancer from radiation from [place] whenshe was younger, in 20/30s. Hypertension Father Mason renae PE: Vitals: 02/21/23 0915 Patient Position: Sitting BP Location: Right arm Cuff size: Adult Regular BP: 90/63 Pulse: 87 Body mass index is 26.43 kg/m??. Physical Exam Constitutional: General: She is not in acute distress. Appearance: Normal appearance. She is well-developed. She is not ill-appearing, toxic-appearing or diaphoretic. HENT: Head: Normocephalic and atraumatic. Right Ear: Hearing, tympanic membrane, ear canal and external ear normal. Left Ear: Hearing, tympanic membrane, ear canal and external ear normal. Nose: Nose normal. Mouth/Throat: Mouth: Mucous membranes are moist. Pharynx: Uvula midline. No oropharyngeal exudate or posterior oropharyngeal erythema. Eyes: General: Lids are normal. Lids are everted, no foreign bodies appreciated. No scleral icterus. Extraocular Movements: Extraocular movements intact. Pupils: Pupils are equal, round, and reactive to light. Neck: Thyroid: No thyromegaly. Vascular: No carotid bruit. Trachea: No tracheal deviation. Cardiovascular: Rate and Rhythm: Normal rate and regular rhythm. Pulses: Normal pulses. Heart sounds: Normal heart sounds. No murmur heard. Pulmonary: Effort: Pulmonary effort is normal. No respiratory distress. Breath sounds: Normal breath sounds. No wheezing or rales. Chest: Chest wall: No tenderness. Abdominal: General: Bowel sounds are normal. There is no distension. Palpations: Abdomen is soft. There is no mass. Tenderness: There is no abdominal tenderness. There is no guarding or rebound. Hernia: No hernia is present. Musculoskeletal: General: No tenderness or deformity. Cervical back: Normal range of motion and neck supple. No edema. Right lower leg: No edema. Left lower leg: No edema. Lymphadenopathy: Cervical: No cervical adenopathy. Skin: General: Skin is warm and dry. Capillary Refill: Capillary refill takes less than 2 seconds. Coloration: Skin is not pale. Findings: No erythema or rash. Neurological: General: No focal deficit present. Mental Status: She is alert and oriented to person, place, and time. Deep Tendon Reflexes: Reflexes are normal and symmetric. Psychiatric: Mood and Affect: Mood normal. Behavior: Behavior normal. Thought Content: Thought content normal. Judgment: Judgment normal. Screening forms: PHQ-9: PHQ-9: 02/15/2022 10:53 AM 02/21/2023 9:32 AM PHQ2/PHQ 9 DEPRESSION SCREEN QUESTIONAIRE Little interest or pleasure in doing things Not at all Feeling down, depressed, or hopeless Not at all Patient Health Questionnaire-2 Score 0 How difficult have these problems made it for you to do your work, take care of things at home, or get along with other people? Not difficult at all LITTLE INTEREST OR PLEASURE IN DOING THINGS 0-Not at All FEELING DOWN, DEPRESSSED,OR HOPELESS 0-Not at All PHQ2 DEPRESSION TOTAL SCORE 0 IF YOU CHECKED OFF ANY PROBLEMS Not difficult at all Diagnoses, Recommendations, and Plan 1. Annual physical exam 2. Screening for lipoid disorders LIPID PANEL Pt declined flu shot this fall season. 1. Medications/DME - Continue current medications. none 2. Lab/Diagnostics - See orders. 3. Education - Current treatment discussed and patient education given as appropriate. 4. Referrals - None needed. 5. RTC - 1 year(s) Encourage following a low fat, low carb diet, encorperate whole foods such as fresh fruits and vegetables and whole grains into your diet, encourage 5 small meals per day. Avoid sugar-sweetened beverages, added sugars, processed meats, refined grains and oils or other processed foods. Encourage to get at least 150 minutes of moderate aerobic activity or 75 minutes of vigorous aerobic activity a week, or a combination of moderate and vigorous activity.Discussed routine labs, preventative screenings, vaccinations, blood pressure, weight at today's visit. Encourage getting dental exam every 6 months and a yearly eye exam or as instructed to do so. Encourage getting at least 8 hours of restful sleep per night. TAMIKO MANZANO NP 02/21/2023 documented in this encounter Plan of Treatment Not on file documented as of this encounter Results * (ABNORMAL) LIPID PANEL (02/26/2023 9:09 AM CDT) [facility] CHOLESTEROL 248(H) <200 MG/DL 02/26/2023 4:16 PM CDT [facility] TRIGLYCERIDES 99 <150 MG/DL 02/26/2023 4:16 PM T [facility] HDL 72 >40 MG/DL 02/26/2023 4:16 PM CDT [facility] LDL-C 156(H) <100 MG/DL 02/26/2023 4:16 PM T [facility] VLDL CALCULATION 20 5 - 28 MG/DL 02/26/2023 4:16 PM CDT [facility] CHOL/HDL RATIO 3.4 0.0 - 4.0 02/26/2023 4:16 PM T [facility] LDL/HDL 2.2(H) 0.41 - 2.13 02/26/2023 4:16 PM T [facility] NON HDL CHOLESTEROL 176(H) <140 MG/DL 02/26/2023 4:16 PM CDT [facility] 02/26/2023 9:09 AM CDT Tamiko Manzano [employer] Final [facility] [address] [facility] [place] [address], documented in this encounter Visit Diagnoses Diagnosis Annual physical exam Routine general medical examination at a health care facility Screening for lipoid disorders documented in this encounter Care Teams Radiologic Technology Program Director Relationship Specialty Start Date End Date Tamiko Manzano NP [address] [place] [address] PCP - General NURSE PRACTITIONER 02/09/22 documented as of this encounter
--- OUTSIDE RECORDS SUMMARY | 2024-06-09 02:41 | XMS_ITS | Encounter Summary ---
Author Organization [facility] Address [address] [place] [address]. [place] [address] [place] [address] Care Team Providers Care Engineering Instructor Name Role Phone Tamiko Manzano NP Primary Care Provider [phone] Encounter Details Date Type Department Care Team (Latest Contact Info) Description 02/22/2022 Travel Social History Tobacco Use Types Packs/Day Years Used Date Smoking Tobacco: Never Smokeless Tobacco: Never Alcohol Use Standard Drinks/Week Comments Yes 3 (1 standard drink = 0.6 oz pur e alcohol) Just social, not weekly PHQ-2 Answer Date Recorded PHQ-2 Score - If the patient scores above 3, please move on to questions 3-9 0 02/15/2022 Comments No Sex and Gender Information Value Date Recorded Sex Assigned at Female 02/22/2024 10:26 AM CDT Legal Sex Female 10:03 AM CDT Gender Identity Female 02/22/2024 10:26 AM CDT Sexual Orientation Not on file COVID-19 Exposure Response Date Recorded In the last 10 days, have yo u been in contact with someone who was confirmed or suspected to have Coronavirus/COVID-19? No / Unsure 02/22/2022 1:03 PM CDT documented as of this encounter Plan of Treatment Not on file documented as of this encounter Visit Diagnoses Not on filedocumented in this encounter Care Teams Engineering Instructor Relationship Specialty Start Date End Date Tamiko Manzano, FAHEEM [address] [place], [place] [id number] PCP - General NURSE PRACTITIONER 02/09/22 documented as of this encounter
--- OUTSIDE RECORDS SUMMARY | 2024-06-09 02:41 | XMS_ITS | Encounter Summary ---
Author Organization [facility] Address [address] [place] [address]. [place] [address] [place] [address] Care Team Providers Care High Energy Forming Equipment Operator Name Role Phone Tamiko Manzano NP Primary Care Provider [phone] Reason for Visit * Reason Comments Meet and Greet Provider Patient presents for an adult routine exam Encounter Details Date Type Department Care Team (Late st Contact Info) Description 02/15/2022 11:00 AM CDT Office Visit [facility] [address] [id number] Tamiko Manzano, RESEARCH CENTER DIRECTOR [address] [id number] Meet and Greet Provider (Patient presents for an adult routine exam) Social History Tobacco Use Types Packs/Day Years Used Date Smoking Tobacco: Never Smokeless Tobacco: Never Tobacco Cessation:Counseling Given: No Alcohol Use Standard Drinks/Week Comments Yes 3 [...] suspected to have Coronavirus/COVID-19? No / Unsure 02/15/2022 10:33 AM CDT documented as of this encounter Last Filed Vital Signs Vital Sign Reading Time Taken Comments Blood Pressure 99/64 02/15/2022 10:54 AM CDT Pulse 66 02/15/2022 10:54 AM CDT Temperature 36.7 ??C (98.1 ??F) 02/15/2022 10:54 AM C DT Respiratory Rate 18 02/15/2022 10:54 AM CDT Oxygen Saturation 97% 02/15/2022 10:54 AM CDT Inhaled Oxygen Concentration - - Weight 70 kg (154 lb 6.4 oz) 02/15/2022 10:54 AM CDT Height 166.4 cm (5' 5.5 ) 02/15/2022 10:54 AM CD T Body Mass Index 25.3 02/15/2022 10:54 AM CDT documented in this encounter Patient Instructions * Patient Instructions* Tamiko Manzano NP - 02/15/2022 11:00 AM CDT For migraine prophylaxis may try Riboflavin B2 400 mg daily Magnesium 500 mg daily. Begin at lower dose and increase weekly if causes GI upset,diarrhea. Coenzyme-Q10 100 mg three times a day Vitamin E 400IU daily Vitamin C 1000 mg daily. documented in this encounter Progress Notes * Tamiko Manzano NP - 02/15/2022 11:00 AM CDT Reason for Visit: Meet and Greet Provider (Patient presents for an adult routine exam) History of Present Illness: Sheryl is a 37- year old female who presents to [facility] to establish care, annual physical examination. Recently moved to [place], [place] with her significant other and her two children. Pt has a 10 year old daughter and 1 year old son. Does have history of migraine headaches with aura. Reports her aura symptoms include blurred vision, numbness of her lips and also numbness and tingling in her extremities. Patient will get a migraine headache with aura approximately 1- 2 times per year. Did recently have a migraine headache when she was on vacation in [place]. Patient has not needed to take any abortive medications often and has not been on any preventative medications. Dental exam- up to date Eye exam-needs to schedule Diet- Healthy, well balanced Exercise- Stays active Sleep-well at night Follows with medical assistant dermatology for her well women care at [facility]. Will discuss with patient what preventive health screens and vaccinations are recommended for patient age. PMH, Social Hx, family hx reviewed. Medications: No current outpatient medications on file. No Known Allergies Past Medical History: Diagnosis Date ??? Migraine headache with aura OB History No obstetric history on file. Past Surgical History: Procedure Laterality Date ??? SECTION 12/01/2020 ??? COSMETIC SURGERY 10/2015 Breast implants ??? FULL ROUT OBSTE CARE,VAGINAL DELIV 2011 Social History Tobacco Use ??? Smoking status: Never Smoker ??? Smokeless tobacco: Never Used Vaping Use ??? Vaping Use: Never used Substance Use Topics ??? Alcohol use: Yes Alcohol/week: 3.0 standard drinks Types: 3 Standard drinks or equivalent per week Comment: Just social, not weekly ??? Drug use: Never Family History Problem Relation Name Age of Onset ??? Cancer Mother Zahra Renae 12/2015 with brain and lung cancer, had breast cancer from radiation from [place] whenshe was younger, in 20/30s. ??? Hypertension Father Mason renae ROS: Review of Systems Constitutional: Negative for [...] weakness, seizures, loss of consciousness, weakness and headaches (hx of migraine headaches. See HPI ). Endo/Heme/Allergies: Negative for environmental allergies and polydipsia. Does not bruise/bleed easily. Psychiatric/Behavioral: Negative for depression, hallucinations, memory loss, substance abuse and suicidal ideas. The patient is not nervous/anxious and does not have insomnia. Physical Exam Constitutional: General: She is not in acute distress. Appearance: She is well-developed. She is not ill-appearing, toxic-appearing or diaphoretic. HENT: Head: Normocephalic and atraumatic. Right Ear: Hearing, tympanic membrane, ear canal and external ear normal. Left Ear: Hearing, tympanic membrane, ear canal and external ear normal. Nose: Nose normal. Mouth/Throat: Pharynx: Uvula midline. No oropharyngeal exudate or [...] distress. Breath sounds: Normal breath sounds. No stridor. No wheezing, rhonchi or rales. Chest: Chest wall: No tenderness. Abdominal: General: Abdomen is flat. Bowel sounds are normal. There is no distension. Palpations: Abdomen is soft. There is no mass. Tenderness: There is no abdominal tenderness. There is no guarding or rebound. Hernia: No hernia is present. Musculoskeletal: General: No tenderness or deformity. Cervical back: Normal range of motion and neck supple. No edema. Lymphadenopathy: Cervical: No cervical adenopathy. Skin: General: Skin is warm and dry. Capillary Refill: Capillary refill takes less than 2 seconds. Coloration: Skin is not pale. Findings: No erythema or rash. Neurological: General: No focal deficit present. Mental Status: She is alert and oriented to person, place, and time. GCS: GCS eye subscore is 4. GCS verbal subscore is 5. GCS motor subscore is 6. Cranial Nerves: Cranial nerves are intact. Sensory: Sensation is intact. Motor: Motor function is intact. Coordination: Coordination is intact. Deep Tendon Reflexes: Reflexes are normal and symmetric. Psychiatric: Mood and Affect: Mood normal. Behavior: Behavior normal. Thought Content: Thought content normal. Judgment: Judgment normal. Filed Vitals: 02/15/22 1054 BP: 99/64 Pulse: 66 Resp: 18 Temp: 98.1 ??F (36.7 ??C) TempSrc: Temporal SpO2: 97% Weight: 70 kg (154 lb 6.4 oz) Height: 5' 5.5 (1.664 m) Screening forms: PHQ-9: PHQ-9: Over the last two weeks, how often have you been bothered by any of the following problems? 02/15/2022 LITTLE INTEREST OR PLEASURE IN DOING THINGS 0-Not at All FEELING DOWN, DEPRESSSED,OR HOPELESS 0-Not at All PHQ2 DEPRESSION TOTAL SCORE 0 IF YOU CHECKED OFF ANY PROBLEMS Not difficult at all Assessment/Recommendations/Plan 1. Annual physical exam - CBC W/DIFF AUTOMATED; Future - COMPREHENSIVE METABOLIC PANEL; Future - CBC W/DIFF AUTOMATED - COMPREHENSIVE METABOLIC PANEL 2. Screening for lipoid disorders - LIPID PANEL; Future - LIPID PANEL 3. Migraine with aura and without status migrainosus, not intractable - Pt does not get often, 1-2 a year usually. Educated pt on migraine prevention. -If symptoms occur more often, change in migraine symptoms, or worsen to follow up. -Avoid using abortive medications more than 3 x's a week to prevent medication overuse headaches. 4. Screening for thyroid disorder - TSH W/REFLEX; Future - TSH W/REFLEX 5. Need for hepatitis C screening test - HEPATITIS C AB ([facility] ONLY); Future Encourage following a low fat, low carb [...] vaccinations, blood pressure, weight at today's visit. Follow up: Annually or as needed, will notify pt through [employer]hart with test results Health Maintenance Topic Date Due ??? COVID-19 Vaccine (1) Never done ??? Annual Physical Never done ??? Hepatitis C Never done ??? Cervical Cancer Screening with HPV Never done ??? DTaP, Tdap and Td Vaccines (2 - Td or Tdap) 12/04/2030 ??? Meningococcal Vaccine Aged Out ??? Pneumococcal Vaccine: Pediatrics (0 to 5 Years) and At-Risk Patients (6 to 64 Years) Aged Out Pap- 01/21/21- follows with medical assistant dermatology at [facility] Routine labs- orders placed STI screen- declined TAMIKO MANZANO NP 02/15/2022 11:55 AM Cosigned by Ankit Hough MD at 02/16/2022 2:38 PM CDT documented in this encounter Plan of Treatment Not on file documented as of this encounter Procedures Procedure Name Priority Date/Time Associated Diagnosis Comments TSH W/REFLEX Routine 02/22/2022 1:04 PM CDT Screening for thyroid disorder COMPREHENSIVE METABOLIC PANEL Routine 02/22/2022 1:04 PM CDT Annual physical exam LIPID PANEL Routine 02/22/2022 1:04 PM CDT Screening for lipoid disorders CBC W/DIFF AUTOMATED Routine 02/22/2022 1:04 PM CDT Annual physical exam documented in this encounter Results * TSH W/REFLEX (02/22/2022 1:04 PM CDT) TSH 2.58 mIU/L [facility] Comment: ?Reference Range ?> or = 20 Years ??0.40-4.50 ? Ranges ?First trimester ?0.26-2.66 ?Second trimester ?? 0.55-2.73 ?Third trimester ?0.43-2.91 02/22/2022 1:04 PM CDT 02/23/2022 8:32 AM CDT us Tamiko Manzano RESEARCH CENTER DIRECTOR LABORATORY Final Res ult [facility] [address] [place] [phone] * (ABNORMAL) LIPID PANEL (02/22/2022 1:04 PM CDT) CHOLESTEROL 201(H) <200 mg/dL [facility] HDL 62 > OR = 50 mg/dL [facility] TRIGLYCERIDES 108 <150 mg/dL [facility] LDL (CALCULATED) 117(H) mg/dL (calc) [facility] Comment: Reference range: <100 Desirable range <100 mg/dL for primary prevention; ?? <70 mg/dL for patients with CHD or diabetic patients with > or = 2 CHD risk factors. LDL-C is now calculated using the Dion-Kan calculation, which is a validated novel method providing better accuracy than the Friedewald equation in the estimation of LDL-C. Dion ESTRADA et al. JORGE. 2013;310(19): 8065-1201 (http://education.BizXchange.Frogmetrics/faq/ZWK374) CHOL/HDL RATIO 3.2 <5.0 (calc) [facility] NON HDL CHOLESTEROL 139(H) <130 mg/dL (calc) [facility] Comment: For patients with diabetes plus 1 major ASCVD risk factor, treating to a non-HDL-C goal of <100 mg/dL (LDL-C of <70 mg/dL) is considered a therapeutic option. 02/22/2022 1:04 PM CDT 02/23/2022 8:32 AM CDT us Tamiko Manzano RESEARCH CENTER DIRECTOR LABORATORY Final Res ult [facility] [address] [place] [phone] * (ABNORMAL) COMPREHENSIVE METABOLIC PANEL (02/22/2022 1:04 PM CDT) GLUCOSE 86 65 - 99 mg/dL [facility] Comment: ? Fasting reference interval BUN 13 7 - 25 mg/dL [facility] CREATININE S/P/B 0.70 0.50 - 0.97 mg/dL [facility] GFR ESTIMATE 116 > OR = 60 mL/min/1. 73m2 [facility] Comment: The eGFR is based on the CKD-EPI 2020 equation. To calculate the new eGFR from a previous Creatinine or Cystatin C result, go to https://www.kidney.org/professionals/ kdoqi/gfr%5Fcalculator BUN CREATININE RATIO NOT APPLICABLE 6 - 22 (calc) [facility] SODIUM S/P/B 138 135 - 146 mmol/L [facility] POTASSIUM S/P/B 4.5 3.5 - 5.3 mmol/L [facility] CHLORIDE S/P/B 104 98 - 110 mmol/L [facility] CO2 27 20 - 32 mmol/L [facility] CALCIUM S/P/B 9.4 8.6 - 10.2 mg/dL [facility] TOTAL PROTEIN S/P/B 7.0 6.1 - 8.1 g/dL [facility] ALBUMIN S/P/B 4.7 3.6 - 5.1 g/dL [facility] GLOBULIN 2.3 1.9 - 3.7 g/dL (calc) [facility] ALBUMIN/GLOBULI N RATIO 2.0 1.0 - 2.5 (calc) [facility] BILIRUBIN TOTAL S/P/B 1.5(H) 0.2 - 1.2 mg/dL [facility] ALKALINE PHOSPHATASE S/P/B 60 31 - 125 U/L [facility] AST 13 10 - 30 U/L [facility] ALT 8 6 - 29 U/L [facility] 02/22/2022 1:04 PM CDT 02/23/2022 8:32 AM CDT us Tamiko Manzano RESEARCH CENTER DIRECTOR LABORATORY Final Res ult [facility] [address] [address] [place] [phone] * (ABNORMAL) CBC W/DIFF AUTOMATED (02/22/2022 1:04 PM CDT) WBC 5.5 3.8 - 10.8 Thousand/u L [facility] RBC 4.90 3.80 - 5.10 Million/uL [facility] HGB 13.9 11.7 - 15.5 g/dL [facility] HCT 43.5 35.0 - 45.0 % [facility] MCV 88.8 80.0 - 100.0 fL [facility] MCH 28.4 27.0 - 33.0 pg [facility] MCHC 32.0 32.0 - 36.0 g/dL [facility] RDW 12.4 11.0 - 15.0 % [facility] PLT 405(H) 140 - 400 Thousand/u L [facility] MPV 11.1 7.5 - 12.5 fL [facility] ABS. NEUTROPHILS 3,383 1,500 - 7,800 cells/uL [facility] ABS. LYMPHOCYTES 1,441 850 - 3,900 cells/uL [facility] ABS. MONOCYTES 567 200 - 950 cells/uL [facility] ABS. EOSINOPHILS 61 15 - 500 cells/uL [facility] ABS. BASOPHILS 50 0 - 200 cells/uL [facility] SEG NEUTROPHILS 61.5 % [facility] LYMPHOCYTES 26.2 % [facility] MONOCYTES 10.3 % [facility] EOSINOPHILS 1.1 % [facility] BASOPHILS 0.9 % [facility] 02/22/2022 1:04 PM CDT 02/23/2022 8:32 AM CDT us Tamiko Manzano NP LABORATORY Final Res ult [facility] [address] [place] [phone] documented in this encounter Visit Diagnoses Diagnosis Annual physical exam Routine general medical examination at a health care facility Screening for lipoid disorders Migraine with aura and without status migrainosus, not intractable Migraine with aura, without mention of intractable migraine without mention of status migrainosus Screening for thyroid disorder Need for hepatitis C screening test Special screening examination for other specified viral diseases documented in this encounter Care Teams High Energy Forming Equipment Operator Relationship Specialty Start Date End Date Tamiko Manzano NP [address] [place] [address] PCP - General NURSE PRACTITIONER 02/09/22 documented as of this encounter
--- OUTSIDE RECORDS SUMMARY | 2024-06-09 02:41 | XMS_ITS | Encounter Summary ---
Author Organization [facility] Address [address] [place] [address]. [place] [address] [place] [address] Care Team Providers Care Pre Fabricator Name Role Phone Tamiko Manzano BANDOLEER STRAIGHTENER STAMPER Primary Care Provider [phone] Encounter Details Date Type Department Care Team (Latest Contact Info) Description 02/26/2023 Travel Social History Tobacco Use Types Packs/Day [...] on file documented as of this encounter Plan of Treatment Not on file documented as of this encounter Visit Diagnoses Not on filedocumented in this encounter Care Teams Pre Fabricator Relationship Specialty Start Date End Date Tamiko Manzano NP [address] [place] [address] PCP - General NURSE PRACTITIONER 02/09/22 documented as of this encounter
--- OUTSIDE RECORDS SUMMARY | 2024-06-09 02:41 | XMS_ITS | Encounter Summary ---
Author Organization [facility] Address [address] [place] [address]. [place] [address] [place] [address] Care Team Providers Care Magneto Repairer Name Role Phone Tamiko Manzano NP Primary Care Provider [phone] Reason for Visit * Reason Comments Annual Patient presents for an adult routine exam Encounter Details Date Type Department Care Team (Late st Contact Info) Description 02/25/2024 10:40 AM CDT Office Visit [facility] [address] [facility] [address] [place] [id number] Tamiko Manzano, NUTRITION AIDE [address] [id number] Annual (Patient presents for an adult routine exam) Social History Tobacco Use Types Packs/Day Years Used Date Smoking Tobacco: Never Passive Smoke Exposure: Never Smokeless Tobacco: Never Tobacco Cessation:Counseling Given: No Alcohol Use Standard Drinks/Week Comments Yes 3 (1 standard drink = 0.6 oz pur e alcohol) Just social, not weekly PHQ-2 Answer Date Recorded Patient Health Questionnaire-2 Score 0 02/25/2024 Comments No Sex and Gender Information Value Date Recorded Sex Assigned at Female 02/22/2024 10:26 AM CDT Legal Sex Female 10:03 AM CDT Gender Identity Female 02/22/2024 10:26 AM CDT Sexual Orientation Not on file documented as of this encounter Last Filed Vital Signs Vital Sign Reading Time Taken Comments Blood Pressure 122/77 02/25/2024 10:36 AM CDT Pulse 77 02/25/2024 10:36 AM CDT Temperature 36.6 ??C (97.9 ??F) 02/25/2024 10:36 AM C DT Respiratory Rate 18 02/25/2024 10:36 AM CDT Oxygen Saturation 97% 02/25/2024 10:36 AM CDT Inhaled Oxygen Concentration - - Weight 73 kg (161 lb) 02/25/2024 10:36 AM CDT Height 165.1 cm (5' 5 ) 02/25/2024 10:36 AM CDT Body Mass Index 26.79 02/25/2024 10:36 AM CDT documented in this encounter Progress Notes * Tamiko Manzano NP - 02/25/2024 11:11 AM CDTAssociated Problem(s): Overweight (BMI 25.0-29.9) Encourage following a healthy well balance diet. Limit saturated and trans fats. Encourage to get plenty of lean meats in your diet and grilled fish. Recommend eating at least 2 servings of fruits and vegetables per day. Encourage to limit sugar, processed foods, and large amount of carbohydrates. * Tamiko Manzano NP - 02/25/2024 11:11 AM CDTAssociated Problem(s): Migraine with aura and without status migrainosus, not intractable Chronic condition, controlled. Discussed some supplements that can help with migraine prevention. * Tamiko Manzano NP - 02/25/2024 10:40 AM CDT Chief Complaint Patient presents with Annual Patient presents for an adult routine exam SUBJECTIVE: Bushra iKm is a 39-year-old female who presents for annual wellness examination. Is doing well without issues or concerns. She is getting in a couple weeks she tells me. Problem Overweight (Bmi 25.0-29.9) Migraine With Aura and Without Status Migrainosus, Not Intractable Is overall well controlled. Does not get often to discuss prescription abortive or preventative medication. Past medial history, social history, family history reviewed. No current outpatient medications on file. Review of patient's allergies indicates: No Known Allergies Past Medical History: Diagnosis Date Migraine headache with aura Past Surgical History: Procedure Laterality Date SECTION 12/01/2020 SECTION 12/11/2022 girl COSMETIC SURGERY 10/2015 Breast implants FULL ROUT OBSTE CARE,VAGINAL DELIV 2012 Family History Problem Relation Name Age of Onset Cancer Mother Zahra Renae 12/2015 with brain and lung cancer, had breast cancer from radiation from [place] whenshe was younger, in 20/30s. Hypertension Father Mason renae Social History Socioeconomic History Marital status: Spouse name: Not on file Number of children: Not on file Years of education: Not on file Highest education level: Not on file Occupational History Not on file Tobacco Use Smoking status: Never Passive exposure: Never Smokeless tobacco: Never Vaping Use Vaping status: Never Used Substance and Sexual Activity Alcohol use: Yes Alcohol/week: 3.0 standard drinks of alcohol Types: 3 Standard drinks or equivalent per week Comment: Just social, not weekly Drug use: Never Sexual activity: Yes Partners: Male control/protection: None Other Topics Concern Not on file Social History Narrative Not on file Social Determinants of Health Financial Resource Strain: Not on file Food Insecurity: Not on file Transportation Needs: Not on file Physical Activity: Not on file Stress: Not on file Social Connections: Not on file Intimate Partner Violence: Not on file Housing Stability: Not on file ROS: Review of Systems Constitutional: Negative. HENT: Negative. Eyes: Negative. Respiratory: Negative. Cardiovascular: Negative. Gastrointestinal: Negative. Endocrine: Negative. Genitourinary: Negative. Musculoskeletal: Negative. Skin: Negative. Allergic/Immunologic: Negative. Neurological: Positive for headaches (controlled). Hematological: Negative. Psychiatric/Behavioral: Negative. OBJECTIVE: Filed Vitals: 02/25/24 1036 BP: 122/77 Pulse: 77 Resp: 18 Temp: 97.9 ??F (36.6 ??C) TempSrc: Temporal SpO2: 97% Weight: 73 kg (161 lb) Height: 1.651 m (5' 5 ) Physical Exam Constitutional: General: She is not in acute distress. Appearance: She is well-developed. She is not ill-appearing, toxic-appearing or diaphoretic. HENT: Head: Normocephalic and atraumatic. Right Ear: Hearing, tympanic membrane, ear canal and external ear normal. Left Ear: Hearing, tympanic membrane, ear canal and external ear normal. Nose: Nose normal. Mouth/Throat: Pharynx: Uvula midline. No oropharyngeal exudate. Eyes: General: No scleral icterus. Pupils: Pupils are equal, round, and reactive to light. Neck: Thyroid: No thyromegaly. Vascular: No carotid bruit. Trachea: No tracheal deviation. Cardiovascular: Rate and Rhythm: Normal rate and regular rhythm. Heart sounds: Normal heart sounds. No murmur heard. Pulmonary: Effort: Pulmonary effort is normal. No respiratory distress. Breath sounds: Normal breath sounds. No wheezing or rales. Chest: Chest wall: No tenderness. Abdominal: General: Bowel sounds are normal. There is no distension. Palpations: Abdomen is soft. Tenderness: There is no abdominal tenderness. There is no guarding or rebound. Musculoskeletal: General: No tenderness or deformity. Cervical back: Normal range of motion and neck supple. Lymphadenopathy: Cervical: No cervical adenopathy. Skin: General: Skin is warm and dry. Capillary Refill: Capillary refill takes less than 2 seconds. Coloration: Skin is not pale. Findings: No erythema or rash. Neurological: Mental Status: She is alert and oriented to person, place, and time. Cranial Nerves: No cranial nerve deficit. Sensory: No sensory deficit. Deep Tendon Reflexes: Reflexes are normal and symmetric. Psychiatric: Speech: Speech normal. Behavior: Behavior normal. Thought Content: Thought content normal. Judgment: Judgment normal. PHQ-9: 02/21/2023 9:32 AM 02/25/2024 10:34 AM PHQ2/PHQ 9 DEPRESSION SCREEN QUESTIONAIRE Little interest or pleasure in doing things Not at all Not at all Feeling down, depressed, or hopeless Not at all Not at all Patient Health Questionnaire-2 Score 0 0 How difficult have these problems made it for you to do your work, take care of things at home, or get along with other people? Not difficult at all Not difficult at all ASSESSMENT AND PLAN Bushra Kim is a 39-year-old female Health Care Maintenance: Prevention: - Cervical cancer screening up to date, follows with obstetrics gynecology md Dr. Toledo 2022 pap completed last - STD screening declined/not indicated - Contraceptive management- none, had a tubal - Breast cancer screening encourage self breast exams - Colon cancer screening not yet indicated - Diabetes screening-order placed - Lipid panel screening-order placed The ASCVD Risk score (Veronique GUY, et al., 2019) failed to calculate for the following reasons: The 2019 ASCVD risk score is only valid for ages 40 to 79 - Discussed diet and lifestyle recommendations. -Encourage following a low fat, low carb diet, [...] or a combination of moderate and vigorous activity. -Discussed weight loss if appropriate to the patient. - Tobacco use does not smoke - Immunizations recommended and education given: Flu declined Problem List Items Addressed This Visit Migraine with aura and without status migrainosus, not intractable Chronic condition, controlled. Discussed some supplements that can help with migraine prevention. Overweight (BMI 25.0-29.9) Encourage following a healthy well balance diet. Limit saturated and trans fats. Encourage to get plenty of lean meats in your diet and grilled fish. Recommend eating at least 2 servings of fruits and vegetables per day. Encourage to limit sugar, processed foods, and large amount of carbohydrates. Other Visit Diagnoses Annual physical exam - Primary Elevated bilirubin elevated in the past, no current symptoms Relevant Orders COMPREHENSIVE METABOLIC PANEL Screening for endocrine, metabolic and immunity disorder Relevant Orders CBC W/DIFF AUTOMATED COMPREHENSIVE METABOLIC PANEL Screening for hyperlipidemia Relevant Orders LIPID PANEL Return in about 1 year (around 02/24/2025). TAMIKO MANZANO NP Family Practice documented in this encounter Plan of Treatment Not on file documented as of this encounter Results * (ABNORMAL) LIPID PANEL (03/06/2024 8:01 AM CDT) [facility] CHOLESTEROL 194 <200 MG/DL 03/06/2024 3:24 PM CDT [facility] TRIGLYCERIDES 138 <150 MG/DL 03/06/2024 3:24 PM CDT [facility] HDL 56 >40 MG/DL 03/06/2024 3:24 PM CDT [facility] LDL-C 110(H) <100 MG/DL 03/06/2024 3:24 PM CDT [facility] VLDL CALCULATION 28 5 - 28 MG/DL 03/06/2024 3:24 PM CDT [facility] CHOL/HDL RATIO 3.5 0.0 - 4.0 03/06/2024 3:24 PM CDT [facility] LDL/HDL 2.0 0.41 - 2.13 03/06/2024 3:24 PM CDT [facility] NON HDL CHOLESTEROL 138 <140 MG/DL 03/06/2024 3:24 PM CDT [facility] 03/06/2024 8:01 AM CDT us Tamiko Manzano NUTRITION AIDE LABORATORY Final Res ult [facility] [address] [place] [address], * (ABNORMAL) COMPREHENSIVE METABOLIC PANEL (03/06/2024 8:01 AM CDT) SODIUM S/P/B 141 136 - 145 MMOL/L 03/06/2024 3:24 PM CDT [facility] POTASSIUM S/P/B 5.0 3.5 - 5.1 MMOL/L 03/06/2024 3:24 PM CDT [facility] CHLORIDE S/P/B 105 98 - 107 MMOL/L 03/06/2024 3:24 PM CDT [facility] CO2 28.4 21 - 32 MMOL/L 03/06/2024 3:24 PM CDT [facility] GLUCOSE 91 70 - 99 MG/DL 03/06/2024 3:24 PM CDT [facility] BUN 15 7 - 18 MG/DL 03/06/2024 3:24 PM CDT [facility] CREATININE S/P/B 0.83 0.55 - 1.02 MG/DL 03/06/2024 3:24 PM CDT [facility] CALCIUM S/P/B 9.2 8.4 - 10.5 MG/DL 03/06/2024 3:24 PM CDT [facility] BILIRUBIN TOTAL S/P/B 1.3(H) 0.2 - 1.0 MG/DL 03/06/2024 3:24 PM CDT [facility] ALKALINE PHOSPHATASE S/P/B 72 37 - 98 U/L 03/06/2024 3:24 PM CDT [facility] AST 11(L) 15 - 37 U/L 03/06/2024 3:24 PM CDT [facility] ALT 15 14 - 59 U/L 03/06/2024 3:24 PM CDT [facility] TOTAL PROTEIN S/P/B 6.9 6.4 - 8.2 G/DL 03/06/2024 3:24 PM CDT [facility] ALBUMIN S/P/B 3.7 3.4 - 5.0 G/DL 03/06/2024 3:24 PM CDT [facility] ANION GAP 7.6 5 - 15 MMOL/L 03/06/2024 3:24 PM CDT [facility] Comment:REFERENCE RANGE NOT ESTABLISHED OSMOLALITY (CALC) 292 MOSM/KG 024 3:24 PM CDT [facility] Comment:REFERENCE RANGE NOT ESTABLISHED GFR ESTIMATE >90 >90 ML/MIN/1. 73 M2 03/06/2024 3:24 PM CDT [facility] GFR NOTES GFR REFERENCE S: 03/06/2024 3:24 PM T [facility] Comment: THE ESTIMATED GFR IS CALCULATED USING THE 2020 CKD-EPI EQUATION. THE FOLLOWING CATEGORIES FOR GRADING RENAL FUNCTION ARE RECOMMENDED BY THE INTERNATIONAL SOCIETY OF NEPHROLOGY (KDIGO 2012 CLINICAL PRACTICE GUIDELINE). G1,NORMAL OR HIGH: >89 ml/min/1.73 m2 G2,MILDLY DECREASED: 60-89 ml/min/1.73 m2 G3A,MILDLY TO MODERATELY DECREASED: 45-59 ml/min/1.73 m2 G3B,MODERATELY TO SEVERELY DECREASED: 30-44 ml/min/1.73 m2 G4,SEVERELY DECREASED: 15-29 ml/min/1.73 m2 G5,KIDNEY FAILURE: <15 ml/min/1.73 m2 03/06/2024 8:01 AM CDT us Tamiko Manzano NUTRITION AIDE LABORATORY Final Res ult [facility] [address] [place] [address], * (ABNORMAL) CBC W/DIFF AUTOMATED (03/06/2024 8:01 AM CDT) WBC 6.64 4.00 - 10.80 x10'3/uL 03/06/2024 2:51 PM CDT [facility] RBC 4.82 4.10 - 5.40 x10'6/uL 03/06/2024 2:51 PM CDT [facility] HGB 14.1 12.0 - 16.0 G/DL 03/06/2024 2:51 PM CDT [facility] HCT 43.2 36.0 - 47.0 % 03/06/2024 2:51 PM CDT [facility] MCV 89.6 78.0 - 100.0 FL 03/06/2024 2:51 PM CDT [facility] MCH 29.3 27.0 - 31.0 PG 03/06/2024 2:51 PM CDT [facility] MCHC 32.6(L) 33.0 - 36.0 G/DL 03/06/2024 2:51 PM CDT [facility] RDW 12.3 11.5 - 14.5 % 03/06/2024 2:51 PM CDT [facility] PLT 410(H) 150 - 350 x10'3/uL 03/06/2024 2:51 PM CDT [facility] MPV 10.7(H) 7.4 - 10.4 FL 03/06/2024 2:51 PM CDT [facility] DIFFERENTIAL TYPE AUTOMATED DIFFERENTIAL 03/06/2024 2:51 PM CDT [facility] NEUTROPH[facility] % 61.8 % 03/06/2024 2:51 PM CDT [facility] LYMPHOCYTES % 27.4 % 03/06/2024 2:51 PM CDT [facility] MONOCYTES % 8.6 % 03/06/2024 2:51 PM CDT [facility] EOSINOPH[facility] % 1.5 % 03/06/2024 2:51 PM CDT [facility] BASOPHILS % 0.5 % 03/06/2024 2:51 PM CDT [facility] IMMATURE GRANS % 0.2 % 03/06/2024 2:51 PM CDT -[facility] ABS. NEUTROPHILS 4.11 1.60 - 8.30 x10'3/uL 03/06/2024 2:51 PM CDT [facility] ABS. LYMPHOCYTES 1.82 0.80 - 4.70 x10'3/uL 03/06/2024 2:51 PM CDT [facility] ABS. MONOCYTES 0.57 0.00 - 1.50 x10'3/uL 03/06/2024 2:51 PM CDT [facility] ABS. EOSINOPHILS 0.10 0.00 - 0.40 x10'3/uL 03/06/2024 2:51 PM CDT [facility] ABS. BASOPHILS 0.03 0.00 - 0.20 x10'3/uL 03/06/2024 2:51 PM CDT [facility] ABS. IMMATURE GRANULOCYTES 0.01 0.00 - 0.03 x10'3/uL 03/06/2024 2:51 PM CDT [facility] 03/06/2024 8:01 AM CDT us Tamiko Manzano NUTRITION AIDE LABORATORY Final Res ult [facility] [address] [place] [address], documented in this encounter Visit Diagnoses Diagnosis Annual physical exam- Primary Routine general medical examination at a health care facility Elevated bilirubin Jaundice, unspecified, not of Screening for endocrine, metabolic and immunity disorder Screening for hyperlipidemia Screening for lipoid disorders Migraine with aura and without status migrainosus, not intractable Migraine with aura, without mention of intractable migraine without mention of status migrainosus Overweight (BMI 25.0-29.9) Overweight documented in this encounter Care Teams Magneto Repairer Relationship Specialty Start Date End Date Tamiko Manzano NP [address] [place] [address] PCP - General NURSE PRACTITIONER 02/09/22 documented as of this encounter
--- OUTSIDE RECORDS SUMMARY | 2024-06-09 02:41 | XMS_ITS | Continuity of Care Document ---
Author Organization [facility] Address [address] [place] [address] Care Team Providers Care Cowlman Name Role Phone PHYSICIAN, EAP SPECIALIST Primary Care Provider Unavail able Dia Sharma PA-C Emergency Provider Care Teams Patient Care Team Team Status: Active Member Role Status Dates EAP SPECIALIST PHYSICIAN Primary Care Provider Active Patient Care Team Team Status: Inactive Member Role Status Dates EAP SPECIALIST PHYSICIAN Primary Care Provider Active Dia Sharma PA-C Emergency Provider Active Chief Complaint and Reason for Visit Chief Complaint Admit Date migraine April 30, 2024 4 :07pm Allergies, Adverse Reactions, Alerts No known allergies Social History Smoking Status Status Start Date End Date Date of Observa tion Never smoked tobacco (finding) December 11, 2022 11:55am Observation Status Observation Response Date of Response Has Lack of Trans Kept You F rom Med Appts or Getting Meds? No December 11, 2022 10:55am In Past 12 Months, Were You Worried Your Food Would Run Out? Never True December 11, 2022 10:55am What is Your Housing Situati on Today? I Have Housing December 11, 2022 10:55am Are You Worried That in Next 2 Mo, You Won't Have Housing? No December 11, 2022 10:55am Do You Have Trouble Paying Y our Heating Or Electricity Bill? No December 11, 2022 10:55am Do You Have Trouble Paying F or Medicines? No December 11, 2022 10:55am Are You Currently Unemployed and Looking for Work? No December 11, 2022 10:55am Highest Level of Education Completed High School Diploma/GED December 11, 2022 10:55am Do You Have Trouble With Childcare/Care of a Family Member? No December 11, 2022 10: 55am Patient Sex Female April 30 8:19pm Assigned Sex Female January Family History Relationship Condition Age at Onset Recorded Date/T la[place] mother Hodgkin lymphoma Unknown Malignant neoplasm of female breast Unkno wn Malignant neoplasm of brain Unknown Patient's mother is 53 Malignant neoplasm of lung Unknown Cerebrovascular accident (CVA) Unknown father Acute myocardial infarction Unknown Problems Active Problems Medical Problem Onset Date Status delivery delivered Unknown Acti ve Unwanted fertility Unknown Active Headache Unknown Active Term Unknown Active History of delivery Unknown Act zulema Dehydration Unknown Active Medications Medication Status Dose Units Route Directions Qty Days St art Date Stop Date End Date Instructions Adherence Ibuprofen 600 mg tablet Active 600 MG PO Q6H as needed for cramps December 11, 2022 11:00p m Ferrous Sulfate 325 mg (65 mg iron) tablet Active 325 MG PO DAILY December 11, 2022 11:00p m Hydrocodone -Acetaminop hen 5-325 mg tablet Active 1 - 2 TABLET PO Q6H as needed for pain December 12, 2022 Relevant Diagnostic Tests and/or Laboratory Data Laboratory Results Test Date/Time Result Interpretation Reference Range Result Comment Performing Site White Blood Count April 30, 2024 4:36pm 13.3 K/mm3 Above high normal 4.5-10.0 [facility] [id number] [address] [place] [address] 74786 Red Blood Count April 30, 2024 4:36pm 5.29 M/mm3 4.2-5.4 [facility] [id number] [address] [place] [address] 13063 Hemoglobin April 30, 2024 4:36pm 15.6 g/dL Above high normal 12.0-15.0 Delta: 8.5 on 12/12/22 [facility] [id number] [address] [place] [address] 47457 Hematocrit April 30, 2024 4:36pm 47.2 % Above high normal 37.0-47.0 [facility] [id number] [address] [place] [address] 56685 Mean Corpuscular Volume April 30, 2024 4:36pm 89.2 fL 80-100 [facility] [id number] [address] [place] [address] 71830 Mean Corpuscular Hemoglobin April 30, 2024 4:36pm 29.5 pg 26-34 [facility] [id number] [address] [place] [address] 81617 Mean Corpuscular Hemoglobin Concent April 30, 2024 4:36pm 33.1 g/dL 32-36 [facility] [id number] [address] [place] [address] 54872 Red Cell Distribution Width April 30, 2024 4:36pm 12.1 % 11.5-14.5 [facility] [id number] [address] [place] [address] 45640 Platelet Count April 30, 2024 4:36pm 454 k/mm3 Above high normal 150-375 Delta: 242 on 12/12/22-0538 [facility] [id number] [address] [place] [address] 68498 Mean Platelet Volume April 30, 2024 4:36pm 10.0 fL 7.4-10.4 [facility] [id number] [address] [place] [address] 91609 Nucleated Red Blood Cells % April 30, 2024 4:36pm 0.0 % 0.0-0.2 [facility] [id number] [address] [place] [address] 01233 Immature Granulocyte % (Auto) April 30, 2024 4:36pm 0.3 % 0-0.5 [facility] [id number] [address] [place] [address] 36963 Neutrophils (%) (Auto) April 30, 2024 4:36pm 85.6 % Above high normal 45.5-73.1 [facility] [id number] [address] [place] [address] 80258 Lymphocytes (%) (Auto) April 30, 2024 4:36pm 8.6 % Below low normal 18.3-44.2 [facility] [id number] [address] [place] [address] 18232 Monocytes (%) (Auto) April 30, 2024 4:36pm 4.8 % 2.6-8.5 [facility] [id number] [address] [place] [address] 38096 Eosinophils (%) (Auto) April 30, 2024 4:36pm 0.2 % 0-4.4 [facility] [id number] [address] [place] [address] 26591 Basophils (%) (Auto) April 30, 2024 4:36pm 0.5 % 0.2-1.2 [facility] [id number] [address] [place] [address] 27647 Nucleated RBC Absolute Count (auto) April 30, 2024 4:36pm 0.000 K/mm3 0.0-0.012 [facility] [id number] [address] [place] [address] Absolute Immature Granulocyte (auto April 30, 2024 4:36pm 0.04 K/mm3 Above high normal 0.00-0.031 [facility] [id number] [address] [place] [address] Absolute Neutrophils (auto) April 30, 2024 4:36pm 11.4 K/mm3 Above high normal 1.3-6.7 [facility] [id number] [address] [place] [address] Lymphocytes # (Auto) April 30, 2024 4:36pm 1.15 K/mm3 0.9-3.2 [facility] [id number] [address] [place] [address] Monocytes # (Auto) April 30, 2024 4:36pm 0.6 K/mm3 0.1-0.6 [facility] [id number] [address] [place] [address] Eosinophils # (Auto) April 30, 2024 4:36pm 0.0 K/mm3 0-0.3 [facility] [id number] [address] [place] [address] Basophils # (Auto) April 30, 2024 4:36pm 0.1 K/mm3 0.0-0.1 [facility] [id number] [address] [place] [address] Prothrombin Time April 30, 2024 4:36pm 12.8 s 11.1-14.7 [facility] [id number] [address] [place] [address] Prothromb Time International Ratio April 30, 2024 4:36pm 0.9 INR Indication----- ---- --------0.9 - 1.1 Patients not on anticoagulant therapy.2.0 - 3.0 Routine therapy.2.5 - 3.5 Recurrent myocardial infarction or mechanical prosthetic valves. [facility] [id number] [address] [place] [address] Activated Partial Thromboplast Time April 30, 2024 4:36pm 27.5 s 22.3-36.8 [facility] [id number] [address] [address] Sodium Level April 30, 2024 4:36pm 135 mmol/L Below low normal 137-145 [facility] [id number] [facility] [address] [address] Potassium Level April 30, 2024 4:36pm 4.2 mmol/L 3.4-5.0 [facility] [id number] [address] [place] [address] 00849 Chloride Level April 30, 2024 4:36pm 100 mmol/L 98-107 [facility] [id number] [address] [place] [address] 70177 Carbon Dioxide Level April 30, 2024 4:36pm 27 mmol/L 22-30 [facility] [id number] [address] [place] [address] 54037 Anion Gap April 30, 2024 4:36pm 8 mmol/L 4-12 [facility] [id number] [address] [place] [address] 78105 Blood Urea Nitrogen April 30, 2024 4:36pm 14 mg/dL 7-17 [facility] [id number] [address] [place] [address] 28309 Creatinine April 30, 2024 4:36pm 0.70 mg/dL 0.7-1.0 [facility] [id number] [address] [place] [address] 52235 Estimat Glomerular Filtration Rate April 30, 2024 4:36pm > 60 >59 > OR = 60 ml/min/1.73 square metersThe MDRD formula used to calculate the eGFR result has not been validated in patients > 70 years of age. [facility] [id number] [address] [place] [address] 00493 Estimated Creatinine Clearance Calc April 30, 2024 4:36pm Not Reportable [facility] [id number] [address] [place] [address] 62422 Glucose Level April 30, 2024 4:36pm 110 mg/dL 65-110 [facility] [id number] [address] [place] [address] 63986 POC Capillary Glucose April 30, 2024 4:17pm 108 mg/dL Above high normal 65-105 Telcor POC Calcium Level April 30, 2024 4:36pm 9.2 mg/dL 8.4-10.2 [facility] [id number] [address] [place] [address] 44359 Total Bilirubin April 30, 2024 4:36pm 1.6 mg/dL Above high normal 0.2-1.3 [facility] [id number] [address] [place] [address] 75986 Aspartate Amino Transf (AST/SGOT) April 30, 2024 4:36pm 22 U/L 14-36 [facility] [id number] [address] [place] [address] 88525 Alanine Aminotransfer ase (ALT/SGPT) April 30, 2024 4:36pm 12 U/L 6-35 [facility] [id number] [address] [place] [address] 91747 Troponin I April 30, 2024 4:36pm < 0.012 ng/mL 0.000-0.03 4 Acute myocardial injury is indicated by:1. A troponin value of >0.034 ng/mL and/or2. A 20% change in troponin value.Specimens with biotin concentrations up to 2.5 ng/mL demonstrate a less than or equal to 10% change in results. Biotin concentrations greater than this falsely decrease Troponin results for patient samples. [facility] [id number] [address] [place] [address] 02055 Total Protein April 30, 2024 4:36pm 8.0 g/dL 6.3-8.2 [facility] [id number] [address] [place] [address] 75275 Albumin April 30, 2024 4:36pm 4.8 g/dL 3.5-5.1 [facility] [id number] [address] [place] [address] 61779 Alkaline Phosphatase April 30, 2024 4:36pm 82 U/L 38-126 [facility] [id number] [address] [place] [address] 82466 Bedside Urine HCG, Qualitative April 30, 2024 4:30pm Negative Negative Negative Telcor POC Diagnostic Imaging Reports Author Javi Gan [facility] Report Date/Time April 30, 2024 4 :54pm [address] [address] XRay Report Signed Patient: Sheryl Kim : 1985 MR#: [id number] Age: 39 Acct:[id number] Loc: [facility] ADM Date: 04/30/[address]: Ordering Physician: Suzanne Shepard PA-C Date of Service: 04/30/24 Procedure(s): XR chest 2V Accession Number(s): [id number] cc: Suzanne Shepard PA-C; EAP SPECIALIST PHYSICIAN~ XR chest 2V Ordering provider: Suzanne Shepard PA-C History: 39 years Female with . r arm numbness/tingling headache/blurred vision . Comparison: None. FINDINGS: MEDIASTINUM: The cardiac silhouette is not enlarged. LUNGS: No infiltrates, effusions or pneumothorax. OTHER: No free air under the diaphragm. IMPRESSION: No acute cardiopulmonary pathology. Reviewed, dictated and finalized at location A. R CLEANER Dictated By: Javi Gan MD 04/30/241653 Signed By: <Electronically signed by Javi Gan MD in OV> 04/30/241653 Author Javi Gan [facility] Report Date/Time April 30, 2024 5 :54pm [place] [address] [place] [address] CT Scan Report Signed Patient: Sheryl Kim : 1985 MR#: [id number] Age: 39 Acct:[id number] Loc: [facility] ADM Date: 04/30/[address]: Ordering Physician: Suzanne Shepard PA-C Date of Service: 04/30/24 Procedure(s): CT brain wo con Accession Number(s): [id number] cc: Suzanne Shepard PA-C; EAP SPECIALIST PHYSICIAN~ CT brain wo con Ordering provider: Suzanne Shepard PA-C History: 39 years Female with . R arm numbness tingling, blurred vision, headache . Comparison: None. Technique: CT of the head without contrast. Radiation reduction technique utilized. The dose-length product was 605.33 mGy-cm. FINDINGS: BRAIN PARENCHYMA AND CSF SPACES: No midline shift, mass effect or hemorrhage. The brain parenchyma and CSF spaces are otherwise normal. VISUALIZED PARANASAL SINUSES: Well aerated. MASTOIDS: Well aerated. BONES: The bones appear intact. SOFT TISSUES: Visualized nasopharynx is normal. Superficial soft tissues are normal. IMPRESSION: No acute intracranial findings. Reviewed, dictated and finalized at location A. R CLEANER Dictated By: Javi Gan MD 04/30/24 1744 Signed By: <Electronically signed by Javi Gan MD in OV> 04/30/24 1754 Cardiology Reports Author [facility] Report Date/Time April 30, 2024 4 :46pm [place] [address] Electrocardiograph Report Signed Patient: Sheryl Kim : 1985 MR#: [id number] Age: 39 Acct:[id number] Loc: [facility] ADM Date: 04/30/[address]: Ordering Physician: Suzanne Shepard PA-C Date of Service: 04/30/24 Procedure(s): CA 12 lead EKG Accession Number(s): [id number] cc: ~ Test Date: 2024-04-30 16:42:51 Measurements Intervals [place] Rate: 82 P: 29 FL: 142 QRS: 5 QRSD: 90 T: 39 QT: 345 QTc: 405 Interpretive Statements SINUS RHYTHM POSSIBLE ANTERIOR MYOCARDIAL INFARCTION , PROBABLY OLD [30 ms Q WAVE IN V3/V4, OR R < 0.2 mV IN V4] ABNORMAL ECG No previous ECG available for comparison Electronically Signed On 04-30-2024 16:46:06 PAPER CLEANER by Trevor Sung M.D. Dictated By: Trevor Sung MD 04/30/24 1642 Signed By: <Electronically signed by Trevor Sung MD in OV> 04/30/24 1646 Vital Signs Vital Reading Result Reference Range Collection Date/Time Weight 72.50 kg April 30, 2 024 4:09pm Body Temperature 97.6 [degF] 97.6-99.6 April 4:09pm Heart Rate 55 /min 60-100 April 30, 2 024 8:01pm Respiratory rate 15 /min -April 8:01pm Oxygen saturation by Pulse oximetry 98 % 90-100 April 30, 2024 8 :01pm BP Systolic 107 mm[Hg] 100-140 April 30, 2 024 8:01pm BP Diastolic 65 mm[Hg] 60-90 April 30, 2 024 8:01pm Insurance Providers Guarantor Sheryl Kim Address [address] [place] [address] [place] [address] Contact Info. Home Phone: Payer Policy Id Coverage Id Subscriber's Name Subscriber Id Effective Date Expiration Date [facility] [id number] Alejandro Richardson [id number] [facility] UMR [id number] Sheryl Kim [id number] Encounters Encounter Location(s) Arrival/Admit Date Discharge/Depart Date Provider(s) Departed [facility] Emergency Department April 30, 2024 4:07pm April 30, 2024 8:19pm Plan of Treatment Future Tests Future scheduled test information is unavailable Pending Tests Pending diagnostic test information is unavailable Future Visits Future appointment information is unavailable Referrals to Other Providers Reason for Referral Referral Start Date Provider Provider Contact Information Provider Address EAP SPECIALIST PHYSICIAN Natanael Bull MD Work Phone : [address] [place] [phone] Future Procedures Future procedure information is unavailable Future Medications Future medication information is unavailable Patient Instructions Instruction Admit Date Dehydration (ED) Acute Headache (ED) April 30, 2024 4:07pm Hospital Discharge Instructions Additional Instructions Return to the emergency department if you experience fever, chest pain, shortness of breath, abdominal pain with nausea and vomiting, sudden onset weakness, numbness, or any other symptoms that are concerning to you. Rest. Remain well hydrated. Vqom-[id number] pain medication as needed Follow up with primary care doctor
--- OUTSIDE RECORDS SUMMARY | 2024-06-09 02:41 | XMS_ITS | Encounter Summary ---
Author Organization [facility] Address [address] [place] [address]. [place] [address] [place] [address] Care Team Providers Care Slip Tender Name Role Phone Tamiko Manzano NP Primary Care Provider [phone] Encounter Details Date Type Department Care Team (Late st Contact Info) Description 02/26/2023 9:00 AM CDT Laboratory Only [facility] Family & Internal Medicine [address] [id number] Tamiko Manzano, FAHEEM [address] [facility] [address] [place], [place] [address] Social History Tobacco Use Types Packs/Day Years [...] Procedure Name Priority Date/Time Associated Diagnosis Comments COLLECTION VENOUS BLOOD VENIPUNCTURE Routine 02/26/2023 9:09 AM CDT Screening for lipoid disorders LIPID PANEL Routine 02/26/2023 9:09 AM CDT Screening for lipoid disorders documented in this encounter Results * (ABNORMAL) LIPID PANEL (02/26/2023 9:09 AM CDT) CHOLESTEROL 248(H) <200 MG/DL 02/26/2023 4:16 PM CDT [facility] TRIGLYCERIDES 99 <150 MG/DL 02/26/2023 4:16 PM CDT [facility] HDL 72 >40 MG/DL 02/26/2023 4:16 PM CDT [facility] LDL-C 156(H) <100 MG/DL 02/26/2023 4:16 PM CDT [facility] VLDL CALCULATION 20 5 - 28 MG/DL 02/26/2023 4:16 PM CDT [facility] CHOL/HDL RATIO 3.4 0.0 - 4.0 02/26/2023 4:16 PM CDT [facility] LDL/HDL 2.2(H) 0.41 - 2.13 02/26/2023 4:16 PM CDT [facility] NON HDL CHOLESTEROL 176(H) <140 MG/DL 02/26/2023 4:16 PM CDT [facility] 02/26/2023 9:09 AM CDT us Tamiko Manzano NP LABORATORY Final Res ult [facility] [address] [place] [address], [place] [phone] documented in this encounter Visit Diagnoses Diagnosis Screening for lipoid disorders documented in this encounter Care Teams Slip Tender Relationship Specialty Start Date End Date Tamiko Manzano NP [address] [place] [address] PCP - General NURSE PRACTITIONER 02/09/22 documented as of this encounter
--- OUTSIDE RECORDS SUMMARY | 2024-06-09 02:41 | XMS_ITS | Encounter Summary ---
Author Organization [facility] Address [address] [place] [address]. [place] [address] [place] [address] Care Team Providers Care Hims Clerk Name Role Phone Tamiko Manzano DIRECTOR OF PUBLICATIONS Primary Care Provider [phone] Encounter Details Date Type Department Care Team (Latest Contact Info) Description 03/06/2024 Travel Social History Tobacco Use Types Packs/Day Years Used Date Smoking Tobacco: Never Passive Smoke Exposure: Never Smokeless Tobacco: Never Alcohol Use Standard [...] on filedocumented in this encounter Care Teams Hims Clerk Relationship Specialty Start Date End Date Tamiko Manzano NP [address] [place] [address] PCP - General NURSE PRACTITIONER 02/09/22 documented as of this encounter
--- OUTSIDE RECORDS SUMMARY | 2024-06-09 02:41 | XMS_ITS | Clinical Summary ---
Author Organization [facility] Address [address] [place] [address]. [place] [address] [place] [address] Care Team Providers Care Zoo Veterinarian Name Role Phone Tamiko Manzano NP Primary Care Provider +1 -[phone] Allergies No known active allergies Medications rizatriptan (MAXALT) 5 MG tabletIndicatio ns:Migraine with aura and without status migrainosus, not intractable Take 1 tablet (5 mg total) by mouth as needed for Migraine. May repeat in 2 hours if needed times one dose 8 tablet 5 Active meloxicam (MOBIC) 7.5 MG tabletIndicatio ns:Left arm pain,Left elbow pain Take one to two tablets as needed for pain. 60 tablet 5 Active ibuprofen (MOTRIN) 200 MG tablet Take 1 tablet (200 mg total) by mouth every 6 (six) hours as needed for Pain. 025 Discontinued Active Problems Problem Noted Date Diagnosed Date Overweight (BMI 25.0-29.9) 02/25/2024 Assessment & Plan (02/25/2024 11:11 AM CDT): Encourage following a healthy well balance diet. Limit saturated and trans fats. Encourage to get plenty of lean meats in your diet and grilled fish. Recommend eating at least 2 servings of fruits and vegetables per day. Encourage to limit sugar, processed foods, and large amount of carbohydrates. Migraine with aura and witho ut status migrainosus, not intractable 02/15/2022 Overview (02/25/2024): Is overall well controlled. Does not get often to discuss prescription abortive or preventative medication. Assessment & Plan (02/25/2024 11:11 AM CDT): Chronic condition, controlled. Discussed some supplements that can help with migraine prevention. Encounters Date Type Department Care Team Description 06/04/2024 2:00 PM TRANSPORT COMPANY MANAGER Office Visit [facility] [address] [place] [address] [address] [place] [address] Tamiko Manzano NP ER F/U (Patient presents for an ER follow up, she fell 06/02/24 and hit left elbow) 06/04/2024 Travel 04/30/2024 Telephone [facility] [address] [facility] [address] [place] [address] Tamiko Manzano NP Headache from Last 3 Months Immunizations Name Administration Dates Next Due Tdap (Generic) 10/25/2022,12/04/2020 Family History Medical History Relation Comments Hypertension Father Cancer Mother 12/27 with brain and lung cancer, had breast cancer from radiation from [employer] when she was younger, in 20/30s. Relation Status Comments Father Mother Social History Tobacco Use Types Packs/Day Years Used Date Smoking Tobacco: Never Passive Smoke Exposure: Never Smokeless Tobacco: Never Tobacco Cessation:Counseling Given: No Alcohol Use Standard Drinks/Week Comments Yes 3 (1 standard drink = 0.6 oz pur e alcohol) Just social, not weekly PHQ-2 Answer Date Recorded Patient Health Questionnaire-2 Score 0 06/04/2024 Comments No Sex and Gender Information Value Date Recorded Sex Assigned at Female 02/22/2024 10:26 AM CDT Legal Sex Female 10:03 AM CDT Gender Identity Female 02/22/2024 10:26 AM CDT Sexual Orientation Not on file Last Filed Vital Signs Vital Sign Reading Time Taken Comments Blood Pressure 102/66 06/04/2024 1:57 PM TRANSPORT COMPANY MANAGER Pulse 80 06/04/2024 1:57 PM TRANSPORT COMPANY MANAGER Temperature 36.2 ??C (97.1 ??F) 06/04/2024 1:57 PM CS T Respiratory Rate 16 06/04/2024 1:57 PM TRANSPORT COMPANY MANAGER Oxygen Saturation 98% 06/04/2024 1:57 PM TRANSPORT COMPANY MANAGER Inhaled Oxygen Concentration - - Weight 74.8 kg (165 lb) 06/04/2024 1:57 PM TRANSPORT COMPANY MANAGER Height 165.1 cm (5' 5 ) 06/04/2024 1:57 PM TRANSPORT COMPANY MANAGER Body Mass Index 27.46 06/04/2024 1:57 PM TRANSPORT COMPANY MANAGER Plan of Treatment Health Maintenance Due Date Last Done Comments Cervical Cancer Screening Pa p Smear (Age 30 to 64) Every 3 Years 1987 Hepatitis B Vaccines (1 of 3 - 19+ 3-dose series) 2006 COVID-19 Vaccine (2023-2 5 season) 2024 Influenza Adult (#1) 2024 Annual Physical 02/24/2025 02/25/2024, 02/21/2023, 02/15/2022 Cervical Cancer Screening Pa p with HPV Testing (Age 30 to 64) Every 5 Years 01/21/2026 01/21/2021 Cervical Cancer Screening wi th HPV 01/21/2026 DTaP, Tdap and Td Vaccines ( 3 - Td or Tdap) 10/25/2032 10/25/2022, 12/04/2020 Hepatitis C Completed 02/22/2022 HPV Vaccines Aged Out No longer eligi ble based on patient's age to complete this topic Meningococcal Vaccine Aged Out No lee mango eligible based on patient's age to complete this topic Pneumococcal Vaccine: Pediatrics (0 to 5 Years) and At-Risk Patients (6 to 64 Years) Aged Out No longer eligible b ased on patient's age to complete this topic RSV Immunizations Under 20 Months Aged Out No longer eligible b ased on patient's age to complete this topic Procedures Procedure Name Priority Date/Time Associated Diagnosis Comments HEPATITIS C ANTIBODY W/RFX TO HCV RNA Routine 02/22/2022 1:05 PM CDT Need for hepatitis C screening test OUTSIDE CYTOPATH CERV/VAG INTERPRET (PAP) 01/21/2021 from Last 3 Months or Most Recently Relevant to Health Maintenance Results * HEPATITIS C ANTIBODY W/RFX TO HCV RNA ([facility] ONLY) (02/22/2022 1:05 PM CDT) HEPATITIS C AB NON-REACTI VE NON-REACT ERIK [facility] SIGNAL TO CUTOFF 0.01 <[address] [facility] Comment: HCV antibody was non-reactive. There is no laboratory evidence of HCV infection. In most cases, no further action is required. However, if recent HCV exposure is suspected, a test for HCV RNA (test code 65582) is suggested. For additional information please refer to http://education.Applitools/faq/FZE40u7 (This link is being provided for informational/ educational purposes only.) 02/22/2022 1:05 PM CDT 02/23/2022 9:06 PM CDT us Tamiko Manzano JAVA SECURITY ENGINEER LABORATORY Final Res ult [facility] [address] [place] [address] * PAP SMEAR WITH HPV (01/21/2021) 01/21/2021 Narrative 01/21/2021 Ordered by an unspecified provider. us Documents Scanned SCANNING Final Result from Last 3 Months or Most Recently Relevant to Health Maintenance [place] [address] [facility] Care Teams Zoo Veterinarian Relationship Specialty Start Date End Date Tamiko Manzano NP [address] [place] [address] [place] [address] PCP - General NURSE PRACTITIONER 02/09/22
--- OUTSIDE RECORDS SUMMARY | 2024-06-09 02:41 | XMS_ITS | Encounter Summary ---
Author Organization [facility] Address [address] [place] [address]. [place] [address] [place] [address] Care Team Providers Care Computer Repairer Name Role Phone Tamiko Manzano NP Primary Care Provider +1 [phone] Reason for Visit * Reason Comments Lab Draw Encounter Details Date Type Department Care Team (Late st Contact Info) Description 03/06/2024 8:40 AM CDT Allied Health/Nurse Visit [facility] Medical Group Family Medicine [facility] [address] [id number] Tamiko Manzano, FAHEEM [address] [address] Lab Draw Social History Tobacco Use Types Packs/Day Years [...] on file documented as of this encounter Progress Notes * Zeny Kaur MA - 03/06/2024 8:40 AM CDT My chart was opened and seen on 03/06 from patient. documented in this encounter Plan of Treatment Not on file documented as of this encounter Procedures Procedure Name Priority Date/Time Associated Diagnosis Comments COLLECTION VENOUS BLOOD VENIPUNCTURE Routine 03/06/2024 8:01 AM CDT Elevated bilirubin COMPREHENSIVE METABOLIC PANEL Routine 03/06/2024 8:01 AM CDT Elevated bilirubin Screening for endocrine, metabolic and immunity disorder LIPID PANEL Routine 03/06/2024 8:01 AM CDT Screening for hyperlipidemia CBC W/DIFF AUTOMATED Routine 03/06/2024 8:01 AM CDT Screening for endocrine, metabolic and immunity disorder documented in this encounter Results * (ABNORMAL) CBC W/DIFF AUTOMATED (03/06/2024 8:01 AM CDT) WBC 6.64 4.00 - 10.80 x10'3/uL 03/06/2024 2:51 PM CDT [facility] RBC 4.82 4.10 - 5.40 x10'6/uL 03/06/2024 2:51 PM CDT [facility] HGB 14.1 12.0 - 16.0 G/DL 03/06/2024 2:51 PM CDT [facility] HCT 43.2 36.0 - 47.0 % 03/06/2024 2:51 PM CDT [facility] MCV 89.6 78.0 - 100.0 FL 03/06/2024 2:51 PM CDT [facility] MCH 29.3 27.0 - 31.0 PG 03/06/2024 2:51 PM CDT [facility] MCHC 32.6(L) 33.0 - 36.0 G/DL 03/06/2024 2:51 PM CDT [facility] RDW 12.3 11.5 - 14.5 % 03/06/2024 2:51 PM CDT [facility] PLT 410(H) 150 - 350 x10'3/uL 03/06/2024 2:51 PM CDT -[facility] MPV 10.7(H) 7.4 - 10.4 FL 03/06/2024 2:51 PM CDT -[facility] DIFFERENTIAL TYPE AUTOMATED DIFFERENTIAL 03/06/2024 2:51 PM CDT [facility] NEUTROPHILS % 61.8 % 03/06/2024 2:51 PM CDT [facility] LYMPHOCYTES % 27.4 % 03/06/2024 2:51 PM CDT [facility] MONOCYTES % 8.6 % 03/06/2024 2:51 PM CDT [facility] EOSINOPHILS % 1.5 % 03/06/2024 2:51 PM CDT [facility] BASOPHILS % 0.5 % 03/06/2024 2:51 PM CDT [facility] IMMATURE GRANS % 0.2 % 03/06/2024 2:51 PM CDT [facility] ABS. NEUTROPHILS 4.11 1.60 - 8.30 x10'3/uL 03/06/2024 2:51 PM CDT [facility] ABS. LYMPHOCYTES 1.82 0.80 - 4.70 x10'3/uL 03/06/2024 2:51 PM [facility]. MONOCYTES 0.57 0.00 - 1.50 x10'3/uL 03/06/2024 2:51 PM CDT [facility] ABS. EOSINOPHILS 0.10 0.00 - 0.40 x10'3/uL 03/06/2024 2:51 PM CDT [facility] ABS. BASOPHILS 0.03 0.00 - 0.20 x10'3/uL 03/06/2024 2:51 PM CDT [facility] ABS. IMMATURE GRANULOCYTES 0.01 0.00 - 0.03 x10'3/uL 03/06/2024 2:51 PM [facility] 03/06/2024 8:01 AM CDT Tamiko Manzano SANDER OPERATOR LABORATORY Final Res ult -CINDY SCHUMACHER [facility] [address] [facility] [place] [address], * (ABNORMAL) COMPREHENSIVE METABOLIC PANEL (03/06/2024 8:01 AM CDT) Pathologist [facility] SODIUM S/P/B 141 136 - 145 MMOL/L 03/06/2024 3:24 PM CDT [facility] POTASSIUM S/P/B 5.0 3.5 - 5.1 MMOL/L 03/06/2024 3:24 PM CDT [facility] CHLORIDE S/P/B 105 98 - 107 MMOL/L 03/06/2024 3:24 PM CDT [facility] CO2 28.4 21 - 32 MMOL/L 03/06/2024 3:24 PM CDT -[facility] GLUCOSE 91 70 - 99 MG/DL 03/06/2024 3:24 PM CDT -[facility] BUN 15 7 - 18 MG/DL 03/06/2024 3:24 PM CDT -[facility] CREATININE S/P/B 0.83 0.55 - 1.02 MG/DL 03/06/2024 3:24 PM CDT [facility] CALCIUM S/P/B 9.2 8.4 - 10.5 MG/DL 03/06/2024 3:24 PM CDT [facility] BILIRUBIN TOTAL S/P/B 1.3(H) 0.2 - 1.0 MG/DL 03/06/2024 3:24 PM CDT [facility] ALKALINE PHOSPHATASE S/P/B 72 37 - 98 U/L 03/06/2024 3:24 PM CDT [facility] AST 11(L) 15 - 37 U/L 03/06/2024 3:24 PM CDT [facility] ALT 15 14 - 59 U/L 03/06/2024 3:24 PM CDT [facility] TOTAL PROTEIN S/P/B 6.9 6.4 - 8.2 G/DL 03/06/2024 3:24 PM CDT [facility] ALBUMIN S/P/B 3.7 3.4 - 5.0 G/DL 03/06/2024 3:24 PM CDT [facility] ANION GAP 7.6 5 - 15 MMOL/L 03/06/2024 3:24 PM CDT [facility] Comment:REFERENCE RANGE NOT ESTABLISHED OSMOLALITY (CALC) 292 MOSM/KG 024 3:24 PM CDT [facility] Comment:REFERENCE RANGE NOT ESTABLISHED GFR ESTIMATE >90 >90 ML/MIN/1. 73 M2 03/06/2024 3:24 PM T [facility] GFR NOTES GFR REFERENCE S: 03/06/2024 3:24 PM T [facility] Comment: THE ESTIMATED GFR IS CALCULATED USING [...] 03/06/2024 8:01 AM CDT us Tamiko Manzano NP LABORATORY Final Res ult [facility]UP[facility] [place] [address] [place] [address], [place] [phone] * (ABNORMAL) LIPID PANEL (03/06/2024 8:01 AM CDT) CHOLESTEROL 194 <200 MG/DL 03/06/2024 3:24 PM CDT [facility] TRIGLYCERIDES 138 <150 MG/DL 03/06/2024 3:24 PM CDT [facility] HDL 56 >40 MG/DL 03/06/2024 3:24 PM CDT [facility] LDL-C 110(H) <100 MG/DL 03/06/2024 3:24 PM CDT [facility] VLDL CALCULATION 28 5 - 28 MG/DL 03/06/2024 3:24 PM CDT [facility] CHOL/HDL RATIO 3.5 0.0 - 4.0 03/06/2024 3:24 PM CDT [facility] LDL/HDL 2.0 0.41 - 2.13 03/06/2024 3:24 PM CDT [facility] NON HDL CHOLESTEROL 138 <140 MG/DL 03/06/2024 3:24 PM CDT [facility] 03/06/2024 8:01 AM CDT Tamiko Mnazano NP LABORATORY Final Res ult RUP[facility] SCHUM[facility] [place] [address] [place] [address], [place] [phone] documented in this encounter Visit Diagnoses Diagnosis Screening for hyperlipidemia Screening for lipoid disorders Elevated bilirubin Jaundice, unspecified, not of Screening for endocrine, metabolic and immunity disorder documented in this encounter Care Teams Computer Repairer Relationship Specialty Start Date End Date Tamiko Manzano NP [address] [place] [address] [place] [address] PCP - General NURSE PRACTITIONER 02/09/22 documented as of this encounter
--- OUTSIDE RECORDS SUMMARY | 2024-06-09 02:41 | XMS_ITS | Encounter Summary ---
Author Organization [facility] Address [address] [place] [address]. [place] [address] [place] [address] Care Team Providers Care Choir Accompanist Name Role Phone Tamiko Manzano ADZING AND BORING MACHINE FEEDER Primary Care Provider +1 [phone] Encounter Details Date Type Department Care Team (Latest Contact Info) Description 02/25/2024 Travel Social History Tobacco Use Types Packs/Day [...] on filedocumented in this encounter Care Teams Choir Accompanist Relationship Specialty Start Date End Date Tamiko Manzano NP [address] [place] [address] [place] [address] PCP - General NURSE PRACTITIONER 02/09/22 documented as of this encounter
--- OUTSIDE RECORDS SUMMARY | 2024-06-09 02:41 | XMS_ITS | Encounter Summary ---
Author Organization [facility] Address [address] [place] [address]. [place] [address] [place] [address] Care Team Providers Care Human Services Professional Name Role Phone Tamiko Manzano NP Primary Care Provider +1 -[phone] Reason for Visit * Reason Onset Date Comments Headache 04/30/2024 Encounter Details Date Type Department Care Team (Late st Contact Info) Description 04/30/2024 Telephone [facility] Medical Group Family Medicine - [place] [address] [facility] [address] [place] [id number] Tamiko Manzano NP [address] [place] [address] [place] [phone] Headache Social History Tobacco Use Types Packs/Day Years [...] as of this encounter Progress Notes * Tamiko Manzano NP - 04/30/2024 3:43 PM CST Yes with these symptoms if not typical for her migraine will need to be seen and can be given proper treatment. NICAL INTERNSHIP * Sandra Zapata MA - 04/30/2024 3:10 PM CST Patient called in stating she has had a migraine since 9 am, it started with vision loss on and off, bilateral arm numbness, light sensitivity, nausea and vomiting. She has taken tylenol but she willjust vomit it back up. I advised patient to go to the ER and then follow up with us after to discuss migraine preventions. She voiced understanding NICAL INTERNSHIP documented in this encounter Plan of Treatment Not on file documented as of this encounter Visit Diagnoses Not on filedocumented in this encounter Care Teams Human Services Professional Relationship Specialty Start Date End Date Tamiko Manzano NP [address] [place] [address] PCP - General NURSE PRACTITIONER 02/09/22 documented as of this encounter
--- OUTSIDE RECORDS SUMMARY | 2024-06-09 02:41 | XMS_ITS | Encounter Summary ---
Author Organization [facility] Address [address] [place] [address]. [place] [address] [place] [address] Care Team Providers Care Cooper Helper Name Role Phone Tamiko Manzano NP Primary Care Provider [phone] [phone] Encounter Details Date Type Department Care Team (Late st Contact Info) Description 02/14/2022 Convertrot Message Enc [facility] Medical Group Family Medicine - [place] [address] [facility] [address] [place], [place] [id number] Tamiko Manzano, FAHEEM [address] [place], [place] [address] Physical Form Social History Tobacco Use Types Packs/Day Years Used Date Smoking Tobacco: Never Assessed PHQ-2 Answer Date Recorded PHQ-2 Score - If the patient scores above 3, please move on to questions 3-9 0 02/15/2022 Comments Unknown Sex and Gender Information Value Date Recorded [...] AM CDT documented as of this encounter Progress Notes * Sandra Zapata MA - 02/15/2022 9:57 AM CDT I printed form to be completed at [facility] documented in this encounter Plan of Treatment Not on file documented as of this encounter Visit Diagnoses Not on filedocumented in this encounter Care Teams Cooper Helper Relationship Specialty Start Date End Date Tamiko Manzano NP [address] [place] [address] PCP - General NURSE PRACTITIONER 02/09/22 documented as of this encounter
--- OUTSIDE RECORDS SUMMARY | 2024-06-09 02:41 | XMS_ITS | Encounter Summary ---
Author Organization [facility] Address [address] [place] [address]. [place] [address] [place] [address] Care Team Providers Care Sheet Metal Apprentice Name Role Phone Tamiko Manzano NP Primary Care Provider [phone] [phone] Encounter Details Date Type Department Care Team (Late st Contact Info) Description 02/22/2022 1:20 PM CDT Laboratory Only [facility] Medical Group Family & Internal Medicine [address] [address] Tamiko Manzano, FAHEEM [address] [place], [place] [address] Social History Tobacco Use Types Packs/Day Years [...] PM CDT documented as of this encounter Progress Notes * eNema Hagan MA - 02/22/2022 1:20 PM CDTAddended by: NEEMA HAGAN on: 02/22/2022 01:13 PM Modules accepted: Orders documented in this encounter Plan of Treatment Not on file documented as of this encounter Procedures Procedure Name Priority Date/Time Associated Diagnosis Comments COLLECTION VENOUS BLOOD VENIPUNCTURE Routine 02/22/2022 1:05 PM CDT Need for hepatitis C screening test Annual physical exam Screening for lipoid disorders Screening for thyroid disorder HEPATITIS C ANTIBODY W/RFX TO HCV RNA Routine 02/22/2022 1:05 PM CDT Need for hepatitis C screening test documented in this encounter Results * HEPATITIS C ANTIBODY W/RFX TO [...] a test for HCV RNA (test code 66265) is suggested. For additional information please refer to http://education.eEvent/faq/QXF83e3 (This link is being provided for informational/ educational purposes only.) 02/22/2022 1:05 PM CDT 02/23/2022 9:06 PM CDT us Tamiko Manzano NP LABORATORY Final Res ult [facility] [address] [place] [address] documented in this encounter Visit Diagnoses Diagnosis Need for hepatitis C screening test- Primary Special screening examination for other specified viral diseases Annual physical exam Routine general medical examination at a health care facility Screening for lipoid disorders Screening for thyroid disorder documented in this encounter Care Teams Sheet Metal Apprentice Relationship Specialty Start Date End Date Tamiko Manzano NP [address] [place] [address] [place] [address] PCP - General NURSE PRACTITIONER 02/09/22 documented as of this encounter
--- OUTSIDE RECORDS SUMMARY | 2024-06-09 02:41 | XMS_ITS | Encounter Summary ---
Author Organization [facility] Address [address] [place] [address]. [place] [address] [place] [address] Care Team Providers Care Gun Stock Checker Name Role Phone Tamiko Manzano NP Primary Care Provider [phone] [phone] Reason for Visit * Reason Onset Date Comments Record Request 03/01/2023 Encounter Details Date Type Department Care Team (Late st Contact Info) Description 03/01/2023 Telephone [facility] Medical Group Family Medicine - [place] [address] [address] Tamiko Manzano, BUSH AND VINE FRUIT CROP FARMER [address] [place] [address] [place] [phone] Record Request Social History Tobacco Use Types Packs/Day Years [...] as of this encounter Progress Notes * Haritha Pascual MA - 03/05/2023 9:14 AM CDT Incoming fax stating DICK is required * Haritha Pascual MA - 03/01/2023 1:28 PM CDT I have faxed Dr. Garnica for pap report documented in this encounter Plan of Treatment Not on file documented as of this encounter Visit Diagnoses Not on filedocumented in this encounter Care Teams Gun Stock Checker Relationship Specialty Start Date End Date Tamiko Manzano NP [address] [place] [address] PCP - General NURSE PRACTITIONER 02/09/22 documented as of this encounter
--- OUTSIDE RECORDS SUMMARY | 2024-06-09 02:41 | XMS_ITS | Encounter Summary ---
Author Organization [facility] Address [address] [place] [address]. [place] [address] [place] [address] Care Team Providers Care Granulating Machine Operator Name Role Phone Tamiko Manzano NP Primary Care Provider [phone] -[phone] Reason for Visit * Reason Comments Pathology (SCAN) Encounter Details Date Type Department Care Team ([facility] Contact Info) Description 01/21/2021 Scan HEALTH INFO SRVCS Scanned, Documents Pathology (SCAN) Social History Tobacco Use Types Packs/Day Years [...] AM CDT documented as of this encounter Plan of Treatment Not on file documented as of this encounter Procedures Procedure Name Priority Date/Time Associated Diagnosis Comments OUTSIDE CYTOPATH CERV/VAG INTERPRET (PAP) 01/21/2021 documented in this encounter Results * PAP SMEAR WITH HPV (01/21/2021) 01/21/2021 Narrative 01/21/2021 Ordered by an unspecified provider. us Documents Scanned SCANNING Final Result documented in this encounter Visit Diagnoses Not on filedocumented in this encounter Care Teams Granulating Machine Operator Relationship Specialty Start Date End Date Tamiko Manzano NP [address] [place] [address] PCP - General NURSE PRACTITIONER 02/09/22 documented as of this encounter
--- OUTSIDE RECORDS SUMMARY | 2024-06-09 02:41 | XMS_ITS | Encounter Summary ---
Author Organization [facility] Address [address] [place] [address]. [place] [address] [place] [address] Care Team Providers Care Rock Breaker Name Role Phone Tamiko Manzano ONLINE HEALTH AND FITNESS COACH Primary Care Provider [phone] [phone] Encounter Details Date Type Department Care Team (Latest Contact Info) Description 02/21/2023 Travel Social History Tobacco Use Types Packs/Day [...] on filedocumented in this encounter Care Teams Rock Breaker Relationship Specialty Start Date End Date Tamiko Manzano NP [address] [place] [address] PCP - General NURSE PRACTITIONER 02/09/22 documented as of this encounter
--- OUTSIDE RECORDS SUMMARY | 2024-06-09 02:41 | XMS_ITS | Encounter Summary ---
Author Organization [facility] Address [address] [place] [address]. [place] [address] [place] [address] Care Team Providers Care Animal Care Specialist Name Role Phone Tamiko Manzano NP Primary Care Provider +1 [phone] Encounter Details Date Type Department Care Team (Latest Contact Info) Description 02/15/2022 Travel Social History Tobacco Use Types Packs/Day [...] on filedocumented in this encounter Care Teams Animal Care Specialist Relationship Specialty Start Date End Date Tamiko Manzano, FAHEEM [address] [place], [place] [address] PCP - General NURSE PRACTITIONER 02/09/22 documented as of this encounter
--- OUTSIDE RECORDS SUMMARY | 2024-06-09 02:43 | XMS_ITS | Encounter Summary ---
Author Organization [facility] Address [address] Govea: Epic Prelude ADT RONNA GUZMAN [address] Care Team Providers Care Grade Checker Name Role Phone Unavailable Primary Care Provider Unavailabl e Encounter Details Date Type Department Care Team (Latest Contact Info) Description 09/23/2020 Travel Social History Tobacco Use Types Packs/Day Years Used Date Smoking Tobacco: Never Alcohol Use Standard Drinks/Week Comments Not Currently 0 (1 standard drink = 0.6 oz pur e alcohol) Comments Yes Sex and Gender Information Value Date Recorded Sex Assigned at Not on file Gender Identity Not on file Sexual Orientation Not on file COVID-19 Exposure Response Date Recorded In the last month, have you been in contact with someone who was confirmed or suspected to have Coronavirus / COVID-19? No / Unsure 09/23/2020 2:52 PM CDT documented as of this encounter Plan of Treatment Not on file documented as of this encounter Visit Diagnoses Not on filedocumented in this encounter
--- OUTSIDE RECORDS SUMMARY | 2024-06-09 02:43 | XMS_ITS | Encounter Summary ---
Author Organization [facility] Address [address] [place] [address] Care Team Providers Care Commercial Tire Service Technician Name Role Phone Unavailable Primary Care Provider Unavailabl e Encounter Details Date Type Department Care Team (Late st Contact Info) Description 09/28/2020 Orders Only [facility] CHARGE ENTRY CLERK - [id number] [id number] Izabella Juarez MD NO ADDRESS ON FILE Social History Tobacco Use Types Packs/Day Years [...] have Coronavirus / COVID-19? No / Unsure 09/28/2020 10:16 AM CDT documented as of this encounter Plan of Treatment Not on file documented as of this encounter Visit Diagnoses Not on filedocumented in this encounter
--- OUTSIDE RECORDS SUMMARY | 2024-06-09 02:43 | XMS_ITS | Encounter Summary ---
Author Organization [facility] Address [address] [place] [address] Care Team Providers Care Dean Of Admissions Name Role Phone Unavailable Primary Care Provider Unavailabl e Reason for Referral * Eval and Treat (Urgent) - Closed Specialty Diagnoses / Procedures Referred By Contac t Referred To Contact Neurology Diagnoses Syncope, unspecified syncope type Izabella Juarez MD NO ADDRESS ON FILE [facility] Neurology [facility] [id number] [place] [address] Referral ID Status Reason Start Date Expiration Date Visits Re quested Visits Authorized [id number] Closed 10/27/2020 10/27/2021 1 1 Encounter Details Date Type Department Care Team (Late st Contact Info) Description 10/27/2020 Orders Only [facility] BUILDING CONSTRUCTION SUPERVISOR - [id number] [address] Izabella Juarez MD NO ADDRESS ON FILE Syncope, unspecified syncope type (Primary Dx) Social History Tobacco Use Types Packs/Day Years [...] have Coronavirus / COVID-19? No / Unsure 10/26/2020 3:05 PM CDT documented as of this encounter Plan of Treatment Scheduled Referrals Name Type Priority Associated Diagnoses Orde r Schedule AMB REFERRAL TO NEUROLOGY Outpatient Referral Routine Syncope, unspecified syncope type Ordered: 10/27/2020 documented as of this encounter Visit Diagnoses Diagnosis Syncope, unspecified syncope type- Primary documented in this encounter
--- OUTSIDE RECORDS SUMMARY | 2024-06-09 02:43 | XMS_ITS | Encounter Summary ---
Author Organization [facility] Address [address] Govea: Epic Prelude ADT RONNA GUZMAN [address] Care Team Providers Care Manager Of Business Name Role Phone Unavailable Primary Care Provider Unavailabl e Encounter Details Date Type Department Care Team (Latest Contact Info) Description 10/23/2020 Travel Social History Tobacco Use Types Packs/Day [...] have Coronavirus / COVID-19? No / Unsure 10/23/2020 5:06 PM CDT documented as of this encounter Plan of Treatment Not on file documented as of this encounter Visit Diagnoses Not on filedocumented in this encounter
--- OUTSIDE RECORDS SUMMARY | 2024-06-09 02:43 | XMS_ITS | Encounter Summary ---
Author Organization [facility] Address [address] [place] [address] Care Team Providers Care Instrumentation Supervisor Name Role Phone Unavailable Primary Care Provider Unavailabl e Reason for Visit * Reason Comments Routine Visit Encounter Details Date Type Department Care Team (Latest Contact Info) Description 08/26/2020 11:00 AM CDT visit [facility] DOCKWORKER - [id number] [phone] Izabella Juarez MD NO ADDRESS ON FILE care, antepartum (Primary Dx) Social History Tobacco Use Types [...] have Coronavirus / COVID-19? No / Unsure 08/26/2020 10:51 AM CDT documented as of this encounter Last Filed Vital Signs Vital Sign Reading Time Taken Comments Blood Pressure 109/67 08/26/2020 11:11 AM CDT Pulse - - Temperature - - Respiratory Rate - - Oxygen Saturation - - Inhaled Oxygen Concentration - - Weight 69.4 kg (153 lb) 08/26/2020 11:11 AM CDT Height 167.6 cm (5' 6 ) 08/26/2020 11:11 AM CDT Body Mass Index 24.69 08/26/2020 11:11 AM CDT documented in this encounter Progress Notes * Izabella Juarez MD - 08/26/2020 11:34 AM CDT No complaints. Baby very active. Informed pt and her of finding of fibroid on pnc us and discussed fibroids in . We'll monitor size of fibroid, size of baby. Discussed that dependingon position, etc, it may increase chance of needing a . documented in this encounter Plan of Treatment Not on file documented as of this encounter Visit Diagnoses Diagnosis care, antepartum- Primary documented in this encounter
--- OUTSIDE RECORDS SUMMARY | 2024-06-09 02:43 | XMS_ITS | Encounter Summary ---
Author Organization [facility] Address [address] Govea: Epic Prelude ADT RONNA GUZMAN [address] Care Team Providers Care National Van Truck Driver Name Role Phone Unavailable Primary Care Provider Unavailabl e Encounter Details Date Type Department Care Team (Latest Contact Info) Description 01/21/2021 Travel Social History Tobacco Use Types Packs/Day Years Used Date Smoking Tobacco: Never Smokeless Tobacco: Never Alcohol Use Standard Drinks/Week Comments Not Currently 0 (1 standard drink = 0.6 oz pur e alcohol) Sex and Gender Information Value Date Recorded Sex Assigned at Not on file Gender Identity Not on file Sexual Orientation Not on file COVID-19 Exposure Response Date Recorded In the last month, have you been in contact with someone who was confirmed or suspected to have Coronavirus / COVID-19? No / Unsure 01/21/2021 2:34 PM CDT documented as of this encounter Plan of Treatment Not on file documented as of this encounter Visit Diagnoses Not on filedocumented in this encounter
--- OUTSIDE RECORDS SUMMARY | 2024-06-09 02:43 | XMS_ITS | Encounter Summary ---
Author Organization [facility] Address 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 - [id number] [address] Izabella Juarez MD NO ADDRESS ON FILE Routine follow-up (Primary Dx); Screening for cervical cancer; Special screening examination for human papillomavirus (HPV); Placental abnormality in third trimester Social History Tobacco Use Types Packs/Day Years [...] PM CDT documented as of this encounter Last Filed Vital Signs Vital Sign Reading Time Taken Comments Blood Pressure 115/72 01/21/2021 2:45 PM CDT Pulse - - Temperature - - Respiratory Rate - - Oxygen Saturation - - Inhaled Oxygen Concentration - - Weight 68 kg (150 lb) 01/21/2021 2:45 PM CDT Height 167.6 cm (5' 6 ) 01/21/2021 2:45 PM CDT Body Mass Index 24.21 01/21/2021 2:45 PM CDT documented in this encounter Progress Notes * Izabella Juarez MD - 01/21/2021 5:07 PM CDT Chief Complaint: Post Visi HPI: Sheryl Kim is a 35 y.o. who had a C section delivery 8 weeks ago. Patient deniesany specific problems since delivery. was complicated by vasa previa Patient overall feeling well. Patient is bottle feeding and baby is still kind of fussy and gasy. Patient has been sexually active once since delivery. Patient is not interested in contraception at this time. Denies any signs or symptoms of post depression. Physical Exam: Vitals: 01/21/21 1445 BP: 115/72 Weight: 68 kg (150 lb) Height: 5' 6 (1.676 m) General: Well appearing female in no acute distress Abdomen: Soft, non tender, non distended Incision: Well healed. No erythema or drainage. Extremities: No calf tenderness Pelvic: Normal appearing external genitalia. On bimanual exam no cervical motion tenderness noted. Uterus is normal sized. No adnexal masses or fulness noted bilaterally. Assessment and Plan: Sheryl Kim presented to the office today for her 6 week post visit. 1. Patient recovering well. 2. Plans to continue bottle feeding 3. Not interested in rx for contraception at this time. Informed recommended interpregnancy interval at least 1 year. 4. No signs of post depression 5. Patient instructed to follow up in 1 yr for well woman exam unless need arises prior. Pap done today documented in this encounter Miscellaneous Notes * Result Encounter Note - Suma Riley RN - 01/25/2021 1:41 PM CDT Normal pap. * Patient Instructions - Mary Morales RMA - 01/21/2021 2:39 PM CDT Images from the original note were not included. Pap Test: Care Instructions Overview The Pap test (also called a Pap smear) is a screening test for cancer of the cervix, which is the lower part of the uterus that opens into the vagina. The test can help your doctor find early changesin the cells that could lead to cancer. The sample of cells taken during your test has been sent to a lab so that an expert can look at thecells. It usually takes a week or two to get the results back. Follow-up care is a hoffman part of your treatment and safety. Be sure to make and go to all appointments, and call your doctor if you are having problems. It's also a good idea to know your test resultsand keep a list of the medicines you take. What do the results mean? ?? A normal result means that the test did not find any abnormal cells in the sample. ?? An abnormal result can mean many things. Most of these are not cancer. The results of your test may be abnormal because: ? You have an infection of the vagina or cervix, such as a yeast infection. ? You have an IUD (intrauterine device for control). ? You have low estrogen levels after menopause that are causing the cells to change. ? You have cell changes that may be a sign of precancer or cancer. The results are ranked based on how serious the changes might be. There are many other reasons why you might not get a normal result. If the results were abnormal, you may need to get another test within a few weeks or months. If the results show changes that couldbe a sign of cancer, you may need a test called a colposcopy, which provides a more complete view of the cervix. Sometimes the lab cannot use the sample because it does not contain enough cells or was not preserved well. If so, you may need to have the test again. This is not common, but it does happen from time to time. When should you call for help? Watch closely for changes in your health, and be sure to contact your doctor if: ? You have vaginal bleeding or pain for more than 2 days after the test. It is normal to have asmall amount of bleeding for a day or two after the test. Where can you learn more? Go to https://www.Logicalwarewise.net/patiented Enter U972 in the search box to learn more about Pap Test: Care Instructions. Current as of: May 13, 2020?Content Version: 12.8 ?? [employer]. Care instructions adapted under license by your healthcare professional. If you have questions about a medical condition or this instruction, always ask your healthcare professional. These instructions may not represent the values of this healthcare organization. [employer] disclaims any warranty or liability for your use of this information. After Your Delivery (the Period): Care Instructions Your Care Instructions Congratulations on the of your baby. Like , the period can be a time of excitement, norma, and exhaustion. You may look at your wondrous little baby and feel happy. You may also be overwhelmed by your new sleep hours and new responsibilities. At first, babies often sleep during the days and are awake at night. They do not have a pattern or routine. They may make sudden gasps, jerk themselves awake, or look like they have crossed eyes. These are all normal, and they may even make you smile. In these first weeks after delivery, try to take good care of yourself. It may take 4 to 6 weeks tofeel like yourself again, and possibly longer if you had a . You will likely feel very tired for several weeks. Your days will be full of ups and downs, but lots of norma as well. Follow-up care is a hoffman part of your treatment and safety. Be sure to make and go to all appointments, and call your doctor if you are having problems. It's also a good idea to know your test resultsand keep a list of the medicines you take. How can you care for yourself at home? Take care of your body after delivery ?? Use pads instead of tampons for the bloody flow that may last as long as 2 weeks. ?? Ease cramps with ibuprofen (Advil, Motrin). ?? Ease soreness of hemorrhoids and the area between your vagina and rectum with ice compresses or witch franck pads. ?? Ease constipation by drinking lots of fluid and eating high-fiber foods. Ask your doctor about izso-hzh-tnopqko stool softeners. ?? Cleanse yourself with a gentle squeeze of warm water from a bottle instead of wiping with toiletpaper. ?? Take a sitz bath in warm water several times a day. ?? Wear a good nursing bra. Ease sore and swollen breasts with warm, wet washcloths. ?? If you are not , use ice rather than heat for breast soreness. ?? Your period may not start for several months if you are . You may bleed more, and longer at first, than you did before you got . ?? Wait until you are healed (about 4 to 6 weeks) before you have sexual intercourse. Your doctor will tell you when it is okay to have sex. ?? Try not to travel with your baby for 5 or 6 weeks. If you take a long car trip, make frequent stops to walk around and stretch. Avoid exhaustion ?? Rest every day. Try to nap when your baby naps. ?? Ask another adult to be with you for a few days after delivery. ?? Plan for children's librarian if you have other children. ?? Stay flexible so you can eat at odd hours and sleep when you need to. Both you and your baby aremaking new schedules. ?? Plan small trips to get out of the house. Change can make you feel less tired. ?? Ask for help with housework, cooking, and shopping. Remind yourself that your job is to care foryour baby. Know about help for depression ?? Baby blues are common for the first 1 to 2 weeks after . You may cry or feel sad or irritable for no reason. ?? Rest whenever you can. Being tired makes it harder to handle your emotions. ?? Go for walks with your baby. ?? Talk to your partner, friends, and family about your feelings. ?? If your symptoms last for more than a few weeks, or if you feel very depressed, ask your doctor for help. ?? depression can be treated. Support groups and counseling can help. Sometimes medicinecan also help. Stay healthy ?? Eat healthy foods so you have more energy and lose extra baby pounds. ?? If you breastfeed, avoid drugs. If you quit smoking during , try to stay smoke-free. Ifyou choose to have a drink now and then, have only one drink, and limit the number of occasions that you have a drink. Wait to breastfeed at least 2 hours after you have a drink to reduce the amount of alcohol the baby may get in the milk. ?? Start daily exercise after 4 to 6 weeks, but rest when you feel tired. ?? Learn exercises to tone your belly. Do Kegel exercises to regain strength in your pelvic muscles. You can do these exercises while you stand or sit. ? Squeeze the same muscles you would use to stop your urine. Your belly and thighs should not move. ? Hold the squeeze for 3 seconds, and then relax for 3 seconds. ? Start with 3 seconds. Then add 1 second each week until you are able to squeeze for 10 seconds. ? Repeat the exercise 10 to 15 times for each session. Do three or more sessions each day. ?? Find a class for new mothers and new babies that has an exercise time. ?? If you had a , give yourself a bit more time before you exercise, and be careful. When should you call for help? Call 911 anytime you think you may need emergency care. For example, call if: ? You have thoughts of harming yourself, your baby, or another person. ? You passed out (lost consciousness). ? You have chest pain, are short of breath, or cough up blood. ? You have a seizure. Call your doctor now or seek immediate medical care if: ? You have severe vaginal bleeding. This means you are passing blood clots and soaking through a pad each hour for 2 or more hours. ? You are dizzy or lightheaded, or you feel like you may faint. ? You have a fever. ? You have new or more belly pain. ? You have signs of a blood clot in your leg (called a deep vein thrombosis), such as: ? Pain in the calf, back of the knee, thigh, or groin. ? Redness and swelling in your leg or groin. ? You have signs of preeclampsia, such as: ? Sudden swelling of your face, hands, or feet. ? New vision problems (such as dimness, blurring, or seeing spots). ? A severe headache. Watch closely for changes in your health, and be sure to contact your doctor if: ? Your vaginal bleeding seems to be getting heavier. ? You have new or worse vaginal discharge. ? You feel sad, anxious, or hopeless for more than a few days. ? You do not get better as expected. Where can you learn more? Go to https://www.[employer] News[employer].net/patiented Enter A461 in the search box to learn more about After Your Delivery (the Period): CareInstructions. Current as of: March 04, 2020?Content Version: 12.8 ?? [id number] [employer]. Care instructions adapted under license by your healthcare professional. If you have questions about a medical condition or this instruction, always ask your healthcare professional. These instructions may not represent the values of this healthcare organization. [employer] disclaims any warranty or liability for your use of this information. documented in this encounter Plan of Treatment Not on file documented as of this encounter Procedures Procedure Name Priority Date/Time Associated Diagnosis Comments CERV/VAG CYTO SCREEN PAP W/HPV Routine 01/21/2021 3:12 PM CDT Screening for cervical cancer Special screening examination for human papillomavirus (HPV) documented in this encounter Results * CERV/VAG CYTO SCREEN PAP W/HPV (01/21/2021 3:12 PM CDT) CLINICAL INFORMATION [facility] Comment: LAST MENSTRUAL PERIOD [facility] Comment:INFORMATION NOT PROV IDED PREV PAP: [facility] Comment:INFORMATION NOT PROV IDED PREV BX: [facility] Comment:INFORMATION NOT PROV IDED SOURCE [facility] Comment:Endocervix ADEQUACY: [facility] Comment: Satisfactory for evaluation. Endocervical/transformation zone component present. PAP INTERP [facility] Comment:Negative for intraep ithelial lesion or malignancy. COMMENT [facility] Comment: This Pap test has been evaluated with computer assisted technology. THEOLOGY PROFESSOR: [facility] Comment: DDS, CT(ASCP) CT screening location: [place] [address] [place] [address] EXPLANATORY NOTE [facility] Comment: EXPLANATORY NOTE: The Pap is a screening test for cervical cancer. It is not a diagnostic test and is subject to false negative and false positive results. It is most reliable when a satisfactory sample, regularly obtained, is submitted with relevant clinical findings and history, and when the Pap result is evaluated along with historic and current clinical information. HPV E6/E7 Not Detected Not Detected [facility] Comment: Methodology: Wardsperson-Mediated Amplification This assay detects E6/E7 viral messenger RNA (mRNA) from 14 high-risk HPV types (16,18,31,33,35,39,45,51,52,56,58,59,66,68). The analytical performance characteristics of this assay have been determined by [facility]. The modifications have not been cleared or approved by the FDA. This assay has been validated pursuant to the CLIA regulations and is used for clinical purposes. For additional information, please refer to http://education.Oonair.[employer]/faq/ZYP280s4 (This link if provided for information/ educational purposes only.) Test Performed at: [facility] [address] [place], [place] ??[address] Alin Kwan D.O., MPH SL Genital SWAB OF ENDOCERVIX / Unknown 01/21/2021 3:12 PM CDT 01/22/2021 12:37 AM CDT Izabella Juarez MD PATHOLOGY/CYTOLOGY ORDERABLES Performing Organization Address City/State/[facility] Co de Phone Number [facility] [address] [place] [address] documented in this encounter Visit Diagnoses Diagnosis Routine follow-up- Primary Screening for cervical cancer Screening for malignant neoplasm of the cervix Special screening examination for human papillomavirus (HPV) Placental abnormality in third trimester documented in this encounter
--- OUTSIDE RECORDS SUMMARY | 2024-06-09 02:43 | XMS_ITS | Encounter Summary ---
Author Organization [facility] Address 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 Mother Baby 5c [address] [place] [address] Referral ID Status Reason Start Date Expiration Date Visits Re quested Visits Authorized [id number] 1 1 Encounter Details Date Type Department Care Team (Latest Contact Info) Description 12/01/2020 11:57 AM CDT - 12/05/2020 2:22 PM CDT Hospital Encounter [facility] Mother/Baby 5C [address] [place] [address] Izabella Juarez MD NO ADDRESS ON FILE Intramural and submucous leiomyoma of uterus Discharge Disposition: Home or Self Care Social History Tobacco Use Types Packs/Day Years [...] have Coronavirus / COVID-19? No / Unsure 12/01/2020 12:24 PM CDT documented as of this encounter Last Filed Vital Signs Vital Sign Reading Time Taken Comments Blood Pressure 108/72 12/04/2020 9:42 PM CDT Pulse 72 12/04/2020 9:42 PM CDT Temperature 36.8 ??C (98.2 ??F) 12/04/2020 9:42 PM CD T Respiratory Rate 16 12/04/2020 9:42 PM CDT Oxygen Saturation 100% 12/01/2020 5:15 PM CDT Inhaled Oxygen Concentration - - Weight 76.2 kg (168 lb) 12/01/2020 12:27 PM CDT Height 167.6 cm (5' 6 ) 12/01/2020 12:27 PM CDT Body Mass Index 27.12 12/01/2020 12:27 PM CDT documented in this encounter Discharge Summaries * Izabella Juarez MD - 12/09/2020 5:39 PM CDT Admit:12/01/2020 Discharge:12/05/2020 Reason for admit:IUP at 37w1d for delivery by complications: umbilical cord varix Hospital course:primary , normal post Baby: Information for the patient's : Jimi Richardson [[id number]] male General diet Routine instructions. Medication List START taking these medications oxyCODONE 5 mg tablet Commonly known as: ROXICODONE Take 1 Tablet (5 mg) by mouth every 4 hours as needed for Pain. Max Daily Amount: 30 mg Signed by: Fabiola Sandoval MD Quantity: 25 Tablet Refills: 0 CONTINUE taking these medications ORAL Take by mouth. Refills: 0 STOP taking these medications aspirin 81 mg Tablet, Delayed Release (E.C.) Commonly known as: ECOTRIN EC Where to Get Your Medications [address] [place] [address] Hours: Retail 8 AM - 12 AM Daily / ED Service 10 AM - 12 AM Daily ?? oxyCODONE 5 mg tablet Discharged to home. Return to office in 2 weeks. C MD Larry documented in this encounter Discharge Instructions * Discharge Instructions* Juanita Quevedo RN - 12/05/2020 11:41 AM CDT Images from the original note were not included. When should you call for help? Call 911 if you have: ??? Pain in chest ??? Obstructed breathing or shortness of breath ??? Seizures ??? Thoughts of hurting yourself or baby Call you healthcare provider if you have: ??? Bleeding, soaking through one pad per hour, or blood clots, the size of an egg or bigger ??? Incision that is not healing ??? Red or swollen leg, that is painful or warm to touch ??? Temperature of 100.4 or higher ??? Headache that does not get better, even after taking medicine, or bad headache with vision changes ??? Frequency or burning with urination ??? Swelling, redness, tenderness in breasts Tell 911 or your healthcare provider: I had a baby on [date ] and I am having [ specific warning signs ]. PRESCRIPTIONS Prescriptions given? Sent to pharmacy Please bring an up-to-date list of medications every time you visit a doctor. ACTIVITY/EXERCISE Recovery is a progressive process. It may take 6 to 8 weeks to return to pre- activity levels. Take time to rest each day. Limit visitors for the first few weeks. If you smoke you are advised to quit. Avoid second-hand smoke exposure and do not let people smoke in your home. Ask your health care provider for advice if you need assistance to stop smoking. BREAST CARE Wear a well fitting support bra, day and night. IF : ?? Wash breasts with warm water only during your daily shower ?? Do not wash breast before or after each feeding as this may cause dry, cracked nipples ?? For sore nipples, apply colostrum or breast milk to promote healing. Purified lanolin may also be applied to nipple and cover with breast pad. Lanolin does not need to be washed off prior to next feeding. ?? If breasts are engorged, regularly remove milk from the breasts every 1 1/2 - 3 hours (via or use of a hospital grade pump). For additional comfort, apply cold compresses for 10 - 15minutes as needed. ?? If using breast pads, change with each feeding ?? For advice call: information line [phone] IF BOTTLE FEEDING ?? Avoid breast stimulation, such as showers and pumping breasts. ?? If breasts are painful and engorged, apply ice packs for 15 - 20 minutes to the breasts or underthe arms. VAGINAL DISCHARGE Bleeding diminishes in amount each day. The color will change from red to pink to yellow-white. Thedischarge may last 2 - 5 weeks. It may increase and become bright red with activity but rest shouldrelieve this. Do not douche or use tampons. HEMORRHOIDS If they appear in or at the time of delivery, they will slowly disappear. Use of Tucks, or local medication will give relief. Avoid constipation. ABDOMINAL CRAMPS After- pains may be felt when . Talk with your doctor about pain medication. MENSTRUATION You may start to menstruate in 6 - 10 weeks if you are not or within 6 months if you are . The first two periods are often irregular and may be very heavy with clots. It may take a few months to establish a regular cycle and it may be somewhat different in length from before . SEXUAL INTERCOURSE You may resume intercourse after approximately six weeks or when the perineal area is not tender and vaginal bleeding has subsided. control measures should be used when you resume sexual intercourse. You may shower daily. After every shower, pat incision dry. If you have strips of tape on the incision, leave until they fall off on their own. For ease of movement, hold a pillow against the incision when you get up from a lying or sitting position. You may wear an abdominal binder for your comfort. KNOW ABOUT HELP FOR DEPRESSION ?Baby blues?? are common for the first 1 to 2 weeks after . You may cry or feel sad or irritable for no reason. ??? Rest whenever you can. Being tired makes it harder to handle your emotions. ??? Go for walks with your baby. ??? Talk to your partner, friends, and family about your feelings. ??? If your symptoms last for more than a few weeks, or if you feel very depressed, ask your doctorfor help. ??? depression can be treated. Support groups and counseling can help. Sometimes medicine can also help [facility] offers an Intensive Outpatient Program for women with mood disorder and depression. This supportive environment gives mothers a chance to talk with other mothers who face similar challenges. Families and partners will also learn new ways to support you. For more information, please contact our Intake Office at [phone]. After hours: [phone]. NEED SUPPORT AFTER YOU ARE HOME? [facility] now offers outpatient consult appointments. An International Board-Certified Bit Grinder is available to help if you need support after you and your arehome. Appointments are approximately one hour long and take place in the Department of Ser vices (second floor of [facility] near the NICU) Many insurance plans offer coverage for this service. Please call [phone], our Information line, to schedule your appointment or to get support by phone. Same or next day appointments are often available. Where can you learn more? Go to https://www.blinkbox.net/patiented Enter G069 in the search box to learn more about Your at Home: Care Instructions. Enter Y708 in the search box to learn more about Learning About Rescue Breathing and CPR for Babies Under 1 Year. / Resources During Covid-19 Phone Consults & Visits Call [phone] to ask questions about . If needed, our team can schedule a video visit with you. Virtual with Confidence On Wednesdays, 1-2 pm., join us for a group meeting via videoconference facilitated by a professional. Ask questions, get advice! To register: Visit [email or web address] and select [facility] / View Classes / Support Once you register, you will be sent the link to join the meeting. Phone Calls You may receive a phone call the day after you are home from one of our nurses. This call is intended provide a check-in to see how you are doing. We can also answer some basic questions for you. If needed, you may leave a message for the nurse at [phone]. Please note these messages are picked up as time allows and are not intended to replace advise from your physician.If you need is urgent, please contact your or your baby's physician. documented in this encounter Medications at Time of Discharge Medication Sig Dispensed Refills Start Date End Date oxyCODONE (ROXICODONE) 5 mg tabletIndications:Intram ural and submucous leiomyoma of uterus,S/P section Take 1 Tablet (5 mg) by mouth every 4 hours as needed for Pain. Max Daily Amount: 30 mg 25 Tablet 12/05/2020 12/12/2020 documented as of this encounter Progress Notes * Fabiola Sandoval MD - 12/05/2020 7:19 AM CDT POD4 Afebrile Incision intact Bleeding stable Discharge today * Gifty Medina RN - 12/04/2020 2:54 PM CDT Into room to assess needs or concerns. Pt.VS,incsion and fundal check deferred per standard of care. Is currently going down to [facility] to visit Infant, significant other at side. * Izabella Juarez MD - 12/03/2020 8:02 AM CDT OB Progress Note Subjective: Pain well controlled. Tolerating regular diet and ambulation. Voiding without complaints. Denies flatus. Minimal lochia. Denies chest pain, shortness of breath, fevers, chills, or calf pain. No complaints this morning. Objective: Vitals: 12/02/20 1156 12/02/20 1850 12/02/20 2320 12/03/20 0355 BP: 112/69 108/66 100/56 117/76 BP Location: Left arm Left arm Patient Position (BP): Sitting Sitting Pulse: 60 66 Resp: 18 18 18 18 Temp: 97.6 ??F (36.4 ??C) 97.8 ??F (36.6 ??C) 97.9 ??F (36.6 ??C) 97.8 ??F (36.6 ??C) TempSrc: Oral Oral Oral Oral SpO2: Weight: Height: HEENT: NC, AT Abd: Soft, firm fundus below umbilicus, incision clean/dry/intact with steris Ext: No calf tenderness or erythema Active Problems: S/P section Intramural and submucous leiomyoma of uterus Assessment/Plan: POD# 2 s/p LTCS 1. Postop - Afebrile, VSS - Increase ambulation. -Tolerating general diet - Continue routine post-op care. Dia Chin DO OBGYN PGY1 Pager # [phone] C MD Larry * Savannah Pearson MD - 12/02/2020 6:06 AM CDT OB Progress Note Subjective: Pain well controlled. Patient endorses nausea and vomiting last night, but able to drink water this morning. Negative flatus. Minimal lochia. Denies chest pain, shortness of breath, fevers, chills, or calf pain. Objective: Vitals: 12/01/20 1813 12/01/20 2047 12/02/20 0006 12/02/20 0500 BP: 104/57 108/71 104/68 99/69 BP Location: Right arm Patient Position (BP): Sitting Pulse: (!) 51 Resp: 16 18 18 18 Temp: (!) 94.6 ??F (34.8 ??C) (!) 95.4 ??F (35.2 ??C) (!) 96 ??F (35.6 ??C) 97.6 ??F (36.4 ??C) TempSrc: Oral Oral Oral Oral SpO2: Weight: Height: HEENT: NC, AT Heart : RRR Lungs: CTAB Abd: Soft, firm fundus below umbilicus, bandage dry w/ minimal bleeding marked Ext: No calf tenderness Intake/Output Summary (Last 24 hours) at 12/02/2020 0607 Last data filed at 12/02/2020 0156 Gross per 24 hour Intake 5010 ml Output 3780 ml Net 1230 ml UOP in last 8 hours: 250cc charted + 400cc in mcallister = 650cc Active Problems: S/P section Intramural and submucous leiomyoma of uterus Assessment/Plan: POD# 1 s/p LTCS 1. Postop - Afebrile, VSS - UOP adequate, saline lock IV, discontinue Mcallister - Ambulate - Advance diet as tolerated - Continue routine post-op care - Bandage to be discontinued 24-48 hours s/p section Savannah Pearson MD PGY1 NET DEVELOPER CONSULTANT Pager: [phone] * Jazmín Kelsey RN - 12/01/2020 6:42 PM CDT Patient arrived to unit by stretcher after visiting baby in NICU. Patient oriented to room, call light. Patient tired, pericare provided, and sips of clears given. Patient became nauseated during pericare and moving in bed. Emesis of 325 mL clear green fluid. Zofran given. Patient now resting. Willgo over paperwork and pamphlet when patient symptoms improve. * Shaila Alvarez RN - 12/01/2020 5:[address] Dupree notified of low temp. Okay with pt transferring to post . Will continue to monitor. * Shaila Alvarez RN - 12/01/2020 2:08 PM CDT Time out performed, FHR reassuring. Pt taken off monitor and transferred to OR * Shaila Alvarez RN - 12/01/2020 12:54 PM CDT Pt admitted to [place] [address] for primary c/s. Dr Juarez notified of pt arrival. Orders received. Labs drawn and sent. [facility] notified that Dr Juarez would like them present for delivery * Teri Chavez RN - 11/30/2020 11:49 AM CDT Pre-Operative Patient Education: Today's Date: 11/30/2020 Patient: Sheryl Kim is a 35 y.o. female : 1985 Confirms understanding of the following patient education: [x] Date and time of scheduled procedure [x] Personal belongings policy-leave all jewelry at home [x] Arrival time and location [x] Oral intake instructions per OB Anesthesia [x] Showering instructions with antibacterial soap, and abdomen scrub x 3 minutes reviewed with patient NKA DENIES LATEX ALLERGY TAKES PNV AND BABY ASPIRIN Opportunity provided for questions. VOICED UNDERSTANDING. NEITHER PT NOR SO HAVE HAD COVID; NEITHER HAVE BEEN EXPOSED TO A CONFIRMED CASE IN THE PAST MONTH; NEITHER HAVE BEEN TESTED IN THE PAST 2 WEEKS; BOTH ARE FEELING WELL; NEITHER HAVE RECEIVED COVID VACCINATIONS Staff Engineer required: N/A Teri Chavez RN documented in this encounter H&P Notes * Izabella Juarez MD - 12/01/2020 2:00 PM CDT OB History & Physical HPI: Sheryl Kim is a 35 y.o. @ 37w1d who presents for primary C- section. Her has been complicated by suspected LGA and umbilical vein varix . In addition, patient with left lower lateral wall uterine fibroid, 7cm and unstable lie. Patient reports good movement, denies contractions, vaginal bleeding, or leakage of fluid. No complaints. Her primary OB is Izabella Juarez MD. ROS: As above. Denies nausea, vomiting, chest pain, shortness of breath, headache, or vision symptoms. OB Hx: OB History Para Term AB Living 2 1 1 1 SAB TAB Ectopic Multiple Live Births # Outcome Date GA Lbr Rodrigo/2nd Weight Sex Delivery Anes PTL Lv 2 Current 1 Term 12/10/11 40w0d 3345 g (7 lb 6 oz) F Vag-Spont EPI PMHx: Denies Medications: PNV Aspirin 81mg (d/c last night) Allergies: No Known Allergies PSHx: Past Surgical History: Procedure Laterality Date HX BREAST AUGMENTATION 2015 FHx: Negative for genetic tendencies, frequent miscarriage or bleeding disorders SHx: Denies tobacco, alcohol, or illicit drug use; feels safe at home Physical Exam: BP 113/82 Temp 97.9 ??F (36.6 ??C) (Oral) Resp 16 Ht 5' 6 (1.676 m) Wt 76.2 kg (168 lb) LMP 03/21/2020 No BMI 27.12 kg/m?? General: well-developed, well-nourished female in NAD HEENT: NCAT, moist mucus membranes Heart: acyanotic Lungs: unlabored respirations Abdomen: gravid, NT Extremities: no edema or calf tenderness FHR: 130, mod variability, +accels, isolated variable decel [place]: rare labs: O neg, Rub imm / HIV neg / RPR NR / HepB neg Assessment/Plan: 35 y.o. @ 37w1d admitted for primary 1. Delivery via : - Indication: - multiple, as above - status: NST reactive - Pre op antibiotics: 2g Ancef The physician has previously discussed the risks, benefits, indications, and alternatives of . All questions were answered. Will proceed with C- section as planned. RN discussed with attending physician. Dia Chin DO OBGYN PGY1 Pager # [phone] documented in this encounter OR Notes * Anesthesiology - Yeyo Talbot DO - 12/02/2020 10:35 AM CDT OB Anesthesia Post-Operative Assesment 12/02/2020 10:35 AM Sheryl Kim, status post regional anesthesia for section. Patient evaluated via phone call into room: Respiratory Function Resp: 18 (12/02/20 0500) SpO2: 100 % (12/01/20 1715) Able to breathe and cough freely Able to maintain O2 saturation greater than 92% on room air Cardiovascular Function Heart Rate: 57 bpm (12/02/20 0500) BP: 99/69 (12/02/20 0500) BP within 20% of preanesthetic level Mental Status, Neuro Fully awake Able to move 4 extremities voluntarily. No focal sensory deficits or weakness. Temperature Temp: 36.3 ??C (12/02/20 0813) Pain Pain Rating: Rest: 1 (12/02/20 0600) Presence of Pain: complains of pain/discomfort (12/02/20 0500) Postoperative Hydration Intake/Output Summary (Last 24 hours) at 12/02/2020 1035 Last data filed at 12/02/2020 0822 Gross per 24 hour Intake 6746.63 ml Output 4380 ml Net 2366.63 ml Nausea and Vomiting Signs/Symptoms: intermittent nausea (12/01/202046) Able to drink fluids, no nausea, no vomiting Narrative No apparent Anesthesia related complications Yeyo Talbot DO 12/02/2020 10:35 AM * Operative Report - Izabella Juarez MD - 12/01/2020 3:38 PM CDT Section Operative Note Date of Procedure: 12/01/2020 Procedure: primary low transverse section via Pfannenstiel incision Pre-operative Diagnosis: 1. 35 y.o. with IUP @ 37w1d 2. umbilical vein varix - delivery recommended early term by MFM 3. Uterine fibroid 4. Unstable lie - currently head in RUQ Post-operative Diagnosis: same OB Provider: Dr. Izabella Juarez MD Surgeon: Izabella Juarez MD Lead Massage Therapist: Dr. Colleen Belal MD PGY4, Dr. Dia Chin DO PGY1 Anesthesia: epidural EBL: 845 mL Urine Output: 200 mL clear urine in Mcallister bag after procedure Specimen(s): cord blood for ABO typing and placenta for pathology Antibiotics: 2g Ancef Operative Complications: none Indications: Please see pre-op diagnosis above, H&P and most recent progress notes for further details. Findings: Gestational Age: 37w1d Date of Delivery: 12/01/2020 Time of Delivery: 2:28 PM [place] Sex: Male Delivery Type: , Low Transverse Delayed Cord Clamping: Yes (Refer to Delivery Summary) Weight: 3390 g (7 lb 7.6 oz) 1 Minute: 8 5 Minutes: 8 Team present at delivery? yes Nuchal cord: 1 Placenta: spontaneous removal; complete, 3 vessel cord Maternal anatomy: Left lateral fibroid in the lower uterine segment proximately 7cm. Otherwise, tubes and ovaries appeared normal Procedure Details After informed consent, placement of Mcallister, SCDs, and appropriate anesthesia as listed above, the patient was prepped and draped in the usual fashion. A Pfannenstiel skin incision was made with the scalpel and carried down through the subcutaneous tissue to the fascia sharply. The fascia was then incised in the midline, and this incision was extended laterally. The fascia was from the underlying rectus tissue superiorly and inferiorly. The peritoneum was identified and entered. Peritoneal incision was extended with good visualization of bowel & bladder. A low transverse uterine incision was made with the scalpel. This incision was extended laterally digitally. was delivered as noted in the findings above. The umbilical cord was doubly clamped and cut & the infant was handed to the nurse. The placenta was removed as noted above. The uterus was exteriorized & cleared of clot & debris. The uterine incision was approximated with 0 chromic in a running, locking stitch in 2 layers. The posterior cul de sac was manually cleared of clot and blood. Hemostasiswas observed. The uterus was returned to anatomic position. The pericolic gutters were manually cleared of clot and blood. The uterine incision was re-inspected & noted to be hemostatic. . The rectus muscles were approximated with 2-0 chromic, interrupted, horizontal mattress sutures. The subfascial tissues were noted to be hemostatic. The fascia was then closed with 0 polysorb in a running stitch. The subcutaneous tissue was irrigated & made hemostatic with the Bovie. The skin was closed with 4-0 biosyn, followed by steri strips and a sterile dressing. Instrument, sponge, and needle counts were correct times three per nursing. Antibiotics were given prior to incision. The patient tolerated the procedure well and was taken to recovery in stable condition. Dia REDDY PGY1 Pager # [phone] documented in this encounter Miscellaneous Notes * Care Plan - Gifty Medina RN - 12/04/2020 6:12 PM CDT Patient up in room independent and is caring for self post . Patient has been down in NICU several times during shift. No concerns reported. Patient progressing towards discharge. * Note - Jenniffer Bush RN - 12/04/2020 9:25 AM CDT This note was copied from a baby's chart. follow up provided. ?? Mother has no questions or concerns at this time. Denies Pain. Reports she has breastfed and pumpeda couple of times in last 24 hours. is primarily bottle feeding at this time to help wean off IVF's while Mom's milk supply is increasing. Reviewed and discussed pumping goals, settings, pumping journal, and flange fit. ?? Support and encouragement provided. Mom provided breastmilk for sibling for 4- 6 weeks. Aware of contact information. Will follow up as needed. ?? Time 10 minutes ?? Jenniffer Bush RN, CBS * Note - Beckie Velez RN - 12/03/2020 3:45 PM CDT This note was copied from a baby's chart. follow up provided. ?? Mother has no questions or concerns at this time. Denies pain. Reports she has been some and offering supplement to wean infant's IVF. She has been pumping after feeding attempts, milk production increasing. assistance offered. ?? Support and encouragement provided. Aware of contact information. Will follow up as needed. ?? Time 10 minutes ?? Beckie Velez RN, IBCLC * Care Plan - Katlin Kendrick RN - 12/02/2020 2:36 PM CDT Chart review completed. Wyckoff scores are pending. Please consult Case Management/Social Work for any needs that arise for discharge planning especially if Wyckoff scores are a 10 or above. If so, a full assessment will be completed at that time. Day 1 - Current ([place] [facility]: Adult and Obstetrics) Patient, family, or healthcare designee is participating in individual care plan process Outcome: Met Problem: Discharge Planning Goal: Identify discharge needs upon admission and through discharge Description: Outcome: Progressing Katlin MCKEON, accounts receivable specialist II [phone] * Note - Venus Renae RN - 12/02/2020 12:57 PM CDT This note was copied from a baby's chart. Patient: Angela Kim Patient's mother: Sheryl Kim Mother's age: 33 y.o. Patient's :12/01/2018, Gestation Age: 37w1d Weight- There is no problem list on file for this patient. packet given-yes Breast pump rental information given-yes Breast pump-instructed to contact insurance for breast pump coverage, discussed hospital issued manual breast pump if needed prior to discharge Insurance-Payor: [facility] / Plan: [facility] [id number] / Product Type: PPO / General Information: Sheryl Kim is a 35 y.o. with a history of LGA, uterine fibroid, umbilical vein varix. Angela iKm born at 37w1d and delivered by section. Angela Kim admitted to the NICU for respiratory distress . Angela Kim is ad katiuska at this time. Given NICU packet. Instructed on proper hand expression. Mother is able to express drops to her nipple. Mother fitted for flange size; 21mm appears appropriate at this time. Assisted with pumping session. Educated on proper fit, comfort and LC contact information. Reinforced proper pump usage and cleaning, hand expression into medicine cups and syringes as available to provide colostrumfor oral care for (s). Phone number verified and entered into [employer]Next[employer]est system and hand outs given. Encouraged mother to continue hand expression and/or breast pumping every 2-4 hours for a minimum of 8 pump sessions per day. Reviewed NICU breastmilk labels and storage guidelines. Support and encouragement given. to follow as needed. Parents aware of how to contact staff for and breast pumping assistance as needed. Total time spent with patient: 30 minutes Venus Renae RN, IBCLC * Treatment Plan - Kae Lacey Winston - 12/01/2020 3:27 PM CDT Images from the original note were not included. ? [facility] Adult Influenza and Pneumococcal Vaccine Protocol [facility] Approved by: [facility] - Medical Executive Committee Approval Date: 02/12/2020 ORDERS ARE ENTERED ???PER PROTOCOL?? Enter the protocol in the patient's electronic health record using smartphrase: .flupneumoniavaccineprotocol Nursing Orders: ; Screening is performed on patients utilizing the best practice alert (BPA) in the electronic health record (EHR). ; Nurse will review BPA with patient and document accordingly ; Give a copy of the appropriate Vaccination Information Sheet (VIS) form to the patient. A vaccineinformation sheet (VIS) can be printed from the link within the eMAR. ; Order adult vaccine (as indicated below) in the EHR ; Document the attending physician as the ordering/authorizing provider. Medication Orders: o Influenza: 1. Adults 18 years through 64 years old: flu vaccine 60 mcg/0.5mL given IM one time only. OR 2. Adults 65 years old and greater: high dose flu vaccine 180mcg/0.5mL given IM one time only. o Pneumococcal: BPA will direct the correct vaccine regimen, any questions contact credentialed provider or pharmacist 1. Pneumovax 25 mcg/0.5mL IM one time OR Prevnar 13, 0.5 mL IM one timeSTL LB Pre-Operative Protocol [facility] Approved by: [facility] - Medical Executive Committee Approval Date: 11/19/2019 ORDERS ARE ENTERED ???PER PROTOCOL?? Follow this protocol for all section patients (scheduled and unscheduled). Enter the protocol in the patient's electronic health record using smartphrase: .cesareanbirthprotocol (NOTE: Pharmacy uses smartphrase: RXHEMORRHAGEPROTOCOL) Nursing Orders: Initiate the Pathway Notify physician upon admission In-patient anesthesia consult Full Code Vital signs per unit policy Electronic monitor Insert peripheral IV Lactated Ringer's solution at 125mL/hr Insert mcallister catheter to bedside drainage Position patient according to maternal and tolerance Verify informed consent Diet: strict NPO Education on smoking cessation and second-hand smoke avoidance Prep surgical site Confirm heart rate immediately prior to abdominal prep Place pneumatic compression devices (If calf circumference exceeds 26 inches, contact physician foralternative therapy. Laboratory Orders: Type and screen (antibody will be reflexively ordered on positive antibody screens) CBC with differential (Manual differential will be performed if appropriate) Medication Orders Lactated Ringer's solution at 125 mL/hr IV IV flush panel: Sodium chloride 0.9% (normal saline) flush 5mLs IV every 12 hours when locked Sodium chloride 0.9% (normal saline) flush 5mLs IV before and after medications or to verify line patency ceFAZolin (ANCEF) 2,000 mg, IV, PRE-PROCEDURE ONCE for patient weight less than 120 kg if NO ALLERGY ceFAZolin (ANCEF) 3,000 mg IV, PRE-PROCEDURE ONCE for patient weight greater than or equal to 120 kg if NO ALLERGY Azithromycin (ZITHROMAX) 500 mg IVPB, pre-procedure ONCE for failed labor or rupture of membranes For Post- hemorrhage (Physician consultation required before administration for appropriate medication selection): Oxytocin in sodium chloride (PITOCIN) 20 unit/1,000 ml infusion IV at 999mL/hr for excessive bleeding in the period Methylergonovine maleate (METHERGINE) 0.2 mg/ml (1ml) injection IM as needed for excessive bleedingin the immediate period after consultation with resident or attending physician. Maximumof 2 doses every 15 minutes PRN. Carboprost tromethamine (HEMABATE) 250 mcg/ml injection 1 ml IM as needed for excessive bleeding inthe immediate period after consultation with resident or attending physician. Maximum of8 doses. MISOPROSTOL (CYTOTEC) tablet 800 mcg per rectum ONE TIME, PRN for excessive bleeding in the period after consultation with resident or attending physician. Tranexamic Acid IVPB 1,000 mg, IV, ONE time PRN after physician consultation. ST[facility] Vaginal Protocol [facility] Approved by: [facility] - Medical Executive Committee Approval Date: 11/19/2019 ORDERS ARE ENTERED ???PER PROTOCOL?? Follow this protocol for all induction, augmentation and spontaneous labor patients. Enter the protocol in the patient's electronic health record using smartphrase: .vaginalbirthprotocol (NOTE: Pharmacy uses smartphrase: .RXHEMORRHAGEPROTOCOL) Orders for Care at Initial Presentation: Initiate Labor, Delivery and -vaginal pathway Notify provider after initial assessment Vital Signs per unit policy Evaluate cervical status vaginal examination Up ad [place] Continuous external electronic monitoring: Intake and output q 8 hours: Scale weight on admission Clear liquid diet as indicated Insert straight catheter for bladder distention if patient unable to void Verify informed consent Patient may assume a position according maternal and tolerance Complete hemorrhage risk assessment on admission Verify that patient is given antibiotics for group B strep if indicated Education on smoking cessation and second-hand smoke avoidance FULL CODE Laboratory Orders: Cord blood evaluation if mother's blood is O positive or Rh negative Blood bank draw and hold Medication Orders If not already in place, establish peripheral IV access and infuse Lactated Ringer's solution at 125 mL/hour IV Sodium chloride 0.9% (normal saline) flush 5 mLs every 12 hours when locked Sodium chloride 0.9% (normal saline) flush 5 mLs PRN before and after medication or to verify line patency Terbutaline (BRETHINE) 0.25 mg injection SQ, one time PRN, for tachysystole in the presence of Category 2 or Category 3 FHR tracing after consultation with provider Ondansetron (ZOFRAN) 4 mg IV, every 6 hours PRN Penicillin g potassium load dose 5 million units, IV, ONE TIME ONLY if GBS positive and NO ALLERGIES Penicillin g maintenance dose 2.5 million units, IV, EVERY 4 HOURS if GBS positive and NO ALLERGIES Lidocaine 2% (XYLOCAINE) injection ONE time, PRN for perineal repair For Post- hemorrhage (Physician consultation required before administration for appropriate medication selection): Oxytocin in sodium chloride (PITOCIN) 20 unit/1,000 ml infusion IV at 999mL/hr for excessive bleeding in the period Methylergonovine maleate (METHERGINE) 0.2 mg/ml (1ml) injection IM as needed for excessive bleedingin the immediate period after consultation with resident or attending physician. Maximumof 2 doses every 15 minutes PRN. Carboprost tromethamine (HEMABATE) 250 mcg/ml injection 1 ml IM as needed for excessive bleeding inthe immediate period after consultation with resident or attending physician. Maximum of8 doses. MISOPROSTOL (CYTOTEC) tablet 800 mcg per rectum ONE TIME, PRN for excessive bleeding in the period after consultation with resident or attending physician. Tranexamic Acid IVPB 1,000 mg, IV, ONE time PRN after physician consultation. Nursing Communication Orders: INTRAUTERINE RESUSCITATION If the heart rate (FHR) pattern is indeterminate (category II) or abnormal (category III), the following measures will be initiated based on maternal- response: Lateral positioning IV fluid bolus of 500 mL Lactated Ringer's solution Discontinuation of oxytocin if infusing Removal of Cervidil Modification of maternal pushing efforts during second stage labor TREATMENT OF TACHYSYSTOLE Normal (Category I) FHR Pattern Maternal repositioning (left or right lateral position) IV fluid bolus of approximately 500 mL lactated Ringer's solution If uterine activity has not returned to normal after 10 min, decrease oxytocin rate by at least half; if uterine activity has not returned to normal after 10 more min, discontinue oxytocin until uterine activity is no more than five contractions in 10 min. Indeterminate (Category II) or Abnormal (Category III) FHR Pattern Discontinue oxytocin Maternal repositioning (left or right lateral position) IV fluid bolus of approximately 500 mL of lactated Ringer's solution Resumption of Oxytocin Administration After Discontinuation Due to Indeterminate (Category II) or Abnormal (Category III) FHR Pattern and/or Tachysystole If the infusion has been discontinued for less than 30 minutes, the FHR is normal (Category I) and uterine activity has returned to normal, oxytocin may be restarted at no more than one half of the rate that resulted in the indeterminate (Category II) or abnormal (Category III) FHR and/or uterine ta chysystole and then increased at 2 milliunits or less per minute every 30 minutes as per protocol. If the infusion has been discontinued for more than 30 minutes, the FHR is normal (Category I) and uterine activity has returned to normal, oxytocin may be restarted if indicated at no more than 1 milliunit per minute and increased by 2 milliunits or less per minutes no sooner than every 30 minutesas per protocol. PRE-OPERATIVE CARE FOR FOLLOWING FAILED LABOR: In-patient Anesthesia consult Continuous monitoring via current method until abdominal prep Mcallister catheter if not already in place Patient may assume a position in bed according to maternal and tolerance Prep surgical site Verify informed consent Diet: strict NPO If not already in place, establish peripheral IV access and infuse lactated Ringer's solution at 125 mLs/hour Place intermittent pneumatic compression device Laboratory Orders for following Failed Labor: Type and screen CBC with differential 2. * Treatment Plan - Kae Lacey - 12/01/2020 1:04 PM CDT Images from the original note were not included. ? [facility] Adult Influenza and Pneumococcal Vaccine Protocol [facility] Approved by: [facility] - Medical Executive Committee Approval Date: 02/12/2020 ORDERS ARE ENTERED ???PER PROTOCOL?? Enter the protocol in the patient's electronic health record using smartphrase: .flupneumoniavaccineprotocol Nursing Orders: ; Screening is performed on patients utilizing the best practice alert (BPA) in the electronic health record (EHR). ; Nurse will review BPA with patient and document accordingly ; Give a copy of the appropriate Vaccination Information Sheet (VIS) form to the patient. A vaccineinformation sheet (VIS) can be printed from the link within the eMAR. ; Order adult vaccine (as indicated below) in the EHR ; Document the attending physician as the ordering/authorizing provider. Medication Orders: o Influenza: 1. Adults 18 years through 64 years old: flu vaccine 60 mcg/0.5mL given IM one time only. OR 2. Adults 65 years old and greater: high dose flu vaccine 180mcg/0.5mL given IM one time only. o Pneumococcal: BPA will direct the correct vaccine regimen, any questions contact credentialed provider or pharmacist 1. Pneumovax 25 mcg/0.5mL IM one time OR Prevnar 13, 0.5 mL IM one timeSTL LB Pre-Operative Protocol [facility] Approved by: [facility] - Medical Executive Committee Approval Date: 11/19/2019 ORDERS ARE ENTERED ???PER PROTOCOL?? Follow this protocol for all section patients (scheduled and unscheduled). Enter the protocol in the patient's electronic health record using smartphrase: .cesareanbirthprotocol (NOTE: Pharmacy uses smartphrase: RXHEMORRHAGEPROTOCOL) Nursing Orders: Initiate the Pathway Notify physician upon admission In-patient anesthesia consult Full Code Vital signs per unit policy Electronic monitor Insert peripheral IV Lactated Ringer's solution at 125mL/hr Insert mcallister catheter to bedside drainage Position patient according to maternal and tolerance Verify informed consent Diet: strict NPO Education on smoking cessation and second-hand smoke avoidance Prep surgical site Confirm heart rate immediately prior to abdominal prep Place pneumatic compression devices (If calf circumference exceeds 26 inches, contact physician foralternative therapy. Laboratory Orders: Type and screen (antibody will be reflexively ordered on positive antibody screens) CBC with differential (Manual differential will be performed if appropriate) Medication Orders Lactated Ringer's solution at 125 mL/hr IV IV flush panel: Sodium chloride 0.9% (normal saline) flush 5mLs IV every 12 hours when locked Sodium chloride 0.9% (normal saline) flush 5mLs IV before and after medications or to verify line patency ceFAZolin (ANCEF) 2,000 mg, IV, PRE-PROCEDURE ONCE for patient weight less than 120 kg if NO ALLERGY ceFAZolin (ANCEF) 3,000 mg IV, PRE-PROCEDURE ONCE for patient weight greater than or equal to 120 kg if NO ALLERGY Azithromycin (ZITHROMAX) 500 mg IVPB, pre-procedure ONCE for failed labor or rupture of membranes For Post- hemorrhage (Physician consultation required before administration for appropriate medication selection): Oxytocin in sodium chloride (PITOCIN) 20 unit/1,000 ml infusion IV at 999mL/hr for excessive bleeding in the period Methylergonovine maleate (METHERGINE) 0.2 mg/ml (1ml) injection IM as needed for excessive bleedingin the immediate period after consultation with resident or attending physician. Maximumof 2 doses every 15 minutes PRN. Carboprost tromethamine (HEMABATE) 250 mcg/ml injection 1 ml IM as needed for excessive bleeding inthe immediate period after consultation with resident or attending physician. Maximum of8 doses. MISOPROSTOL (CYTOTEC) tablet 800 mcg per rectum ONE TIME, PRN for excessive bleeding in the period after consultation with resident or attending physician. Tranexamic Acid IVPB 1,000 mg, IV, ONE time PRN after physician consultation. STL LB Vaginal Protocol [facility] Approved by: [facility] - Medical Executive Committee Approval Date: 11/19/2019 ORDERS ARE ENTERED ???PER PROTOCOL?? Follow this protocol for all induction, augmentation and spontaneous labor patients. Enter the protocol in the patient's electronic health record using smartphrase: .vaginalbirthprotocol (NOTE: Pharmacy uses smartphrase: .RXHEMORRHAGEPROTOCOL) Orders for Care at Initial Presentation: Initiate Labor, Delivery and -vaginal pathway Notify provider after initial assessment Vital Signs per unit policy Evaluate cervical status vaginal examination Up ad kat[place]ka Continuous external electronic monitoring: Intake and output q 8 hours: Scale weight on admission Clear liquid diet as indicated Insert straight catheter for bladder distention if patient unable to void Verify informed consent Patient may assume a position according maternal and tolerance Complete hemorrhage risk assessment on admission Verify that patient is given antibiotics for group B strep if indicated Education on smoking cessation and second-hand smoke avoidance FULL CODE Laboratory Orders: Cord blood evaluation if mother's blood is O positive or Rh negative Blood bank draw and hold Medication Orders If not already in place, establish peripheral IV access and infuse Lactated Ringer's solution at 125 mL/hour IV Sodium chloride 0.9% (normal saline) flush 5 mLs every 12 hours when locked Sodium chloride 0.9% (normal saline) flush 5 mLs PRN before and after medication or to verify line patency Terbutaline (BRETHINE) 0.25 mg injection SQ, one time PRN, for tachysystole in the presence of Category 2 or Category 3 FHR tracing after consultation with provider Ondansetron (ZOFRAN) 4 mg IV, every 6 hours PRN Penicillin g potassium load dose 5 million units, IV, ONE TIME ONLY if GBS positive and NO ALLERGIES Penicillin g maintenance dose 2.5 million units, IV, EVERY 4 HOURS if GBS positive and NO ALLERGIES Lidocaine 2% (XYLOCAINE) injection ONE time, PRN for perineal repair For Post- hemorrhage (Physician consultation required before administration for appropriate medication selection): Oxytocin in sodium chloride (PITOCIN) 20 unit/1,000 ml infusion IV at 999mL/hr for excessive bleeding in the period Methylergonovine maleate (METHERGINE) 0.2 mg/ml (1ml) injection IM as needed for excessive bleedingin the immediate period after consultation with resident or attending physician. Maximumof 2 doses every 15 minutes PRN. Carboprost tromethamine (HEMABATE) 250 mcg/ml injection 1 ml IM as needed for excessive bleeding inthe immediate period after consultation with resident or attending physician. Maximum of8 doses. MISOPROSTOL (CYTOTEC) tablet 800 mcg per rectum ONE TIME, PRN for excessive bleeding in the period after consultation with resident or attending physician. Tranexamic Acid IVPB 1,000 mg, IV, ONE time PRN after physician consultation. Nursing Communication Orders: INTRAUTERINE RESUSCITATION If the heart rate (FHR) pattern is indeterminate (category II) or abnormal (category III), the following measures will be initiated based on maternal- response: Lateral positioning IV fluid bolus of 500 mL Lactated Ringer's solution Discontinuation of oxytocin if infusing Removal of Cervidil Modification of maternal pushing efforts during second stage labor TREATMENT OF TACHYSYSTOLE Normal (Category I) FHR Pattern Maternal repositioning (left or right lateral position) IV fluid bolus of approximately 500 mL lactated Ringer's solution If uterine activity has not returned to normal after 10 min, decrease oxytocin rate by at least half; if uterine activity has not returned to normal after 10 more min, discontinue oxytocin until uterine activity is no more than five contractions in 10 min. Indeterminate (Category II) or Abnormal (Category III) FHR Pattern Discontinue oxytocin Maternal repositioning (left or right lateral position) IV fluid bolus of approximately 500 mL of lactated Ringer's solution Resumption of Oxytocin Administration After Discontinuation Due to Indeterminate (Category II) or Abnormal (Category III) FHR Pattern and/or Tachysystole If the infusion has been discontinued for less than 30 minutes, the FHR is normal (Category I) and uterine activity has returned to normal, oxytocin may be restarted at no more than one half of the rate that resulted in the indeterminate (Category II) or abnormal (Category III) FHR and/or uterine ta chysystole and then increased at 2 milliunits or less per minute every 30 minutes as per protocol. If the infusion has been discontinued for more than 30 minutes, the FHR is normal (Category I) and uterine activity has returned to normal, oxytocin may be restarted if indicated at no more than 1 milliunit per minute and increased by 2 milliunits or less per minutes no sooner than every 30 minutesas per protocol. PRE-OPERATIVE CARE FOR FOLLOWING FAILED LABOR: In-patient Anesthesia consult Continuous monitoring via current method until abdominal prep Mcallister catheter if not already in place Patient may assume a position in bed according to maternal and tolerance Prep surgical site Verify informed consent Diet: strict NPO If not already in place, establish peripheral IV access and infuse lactated Ringer's solution at 125 mLs/hour Place intermittent pneumatic compression device Laboratory Orders for following Failed Labor: Type and screen CBC with differential 2. documented in this encounter Plan of Treatment Not on file documented as of this encounter Procedures Procedure Name Priority Date/Time Associated Diagnosis Comments TELEMETRY REPORT 12/02/2020 1:57 PM CDT PATHOLOGY Pathology 12/01/2020 2:34 PM CDT SECTION 12/01/2020 2:00 PM CDT EDC: 12/21/20 Primary Breech Cord Varix MFM Recommendation CBC WITH DIFFERENTIAL Stat 12/01/2020 12:44 PM CDT TYPE AND SCREEN Stat 12/01/2020 12:44 PM CDT documented in this encounter Results * TELEMETRY REPORT (12/02/2020 1:57 PM CDT) Provider Scanning ECG ORDERABLES * PATHOLOGY (12/01/2020 2:34 PM CDT) CASE REPORT Surgical Pathology Report ? Case: [id number] ? Authorizing Provider: ??Izabella Juarez MD ? Collected: ? 12/01/2020 02:34 PM ? Ordering Location: ? [facility] ?Received: ?12/02/2020 09:39 AM ? Labor & ? Pathologist: ? Zoe Jaffe MD ? Specimen: ?Placenta, IUP @ 37w 1d uterine fibroid and umbilical cord varix ? 12/06/2020 5:44 PM T [facility] - [facility] FINAL DIAGNOSIS Placenta, section: -Third trimester placenta, 566 g. -Three-vessel umbilical cord with no pathologic diagnosis. -Chorioamnionic membranes with no pathologic diagnosis. -Intervillous thrombohematomas and infarction, approximately 2% of parenchyma. 12/06/2020 5:44 PM CDT [facility] S DESCRIPTION The specimen is received in a single container labeled Sheryl Kim , placenta. No tissue was obtained for microbiology. Received is a charlton placenta with an oval disc that is 20 x 16 x 4 cm and has a trimmed weight of 566 g. The 28 cm long by 1.8 cm in diameter umbilical cord displays normal torsion, scantly edematous, contains 3 vessels, and has a paracentral insertion that is 4.5 cm from the nearest placental margin. There is a loose piece of cord in the container that is 16.5 cm in length by 1.8 cm in diameter and is focally edematous. The iverson-pink, translucent, glistening membranes have a marginal insertion with a marginal point of rupture. The maternal surface is bluegray with a single, white, flat subchorionic lesion that is 1.5 x 0.8 cm, has a thickness of 0.4 cm, and a red, laminated lesion that is 1.8 cm in greatest dimension. The lesions occupy 1% of the parenchyma. The maternal surface appears complete. Sectioning reveals red, spongy parenchyma with 2 white-iverson to iverson-red, rubbery lesions that are 1.2 and 1.3 cm in greatest dimension. The lesions occupy 1% of the tissue. Lap Polisher sections are submitted as follows: A1-membrane; A2-umbilical cord; A3-subchorionic lesion; A4-parenchymal lesions; A5 through A7-central placenta. [facility] 12/06/2020 5:44 PM [facility] MICROSCOPIC DESCRIPTION The slides are labeled [id number] and Sheryl Kim. Sections of placenta reveal a three-vessel umbilical cord with no evidence of vasculitis or thrombosis. Sections of the chorioamnionic membranes reveal no evidence of acute inflammation. The chorionic villi are small, well vascularized and mature with intervillous thrombohematomas and an area of infarction with no evidence of acute villitis. 12/06/2020 5:44 PM [facility] OPERATIVE PROCEDURE 1: SECTION 12/06/2020 5:44 PM [facility] CLINICAL INFORMATION EDC: 12/21/20 Primary Breech Cord Varix MFM Recommendation 12/06/2020 5:44 PM [facility] COMMENT Special stain and/or immunohistochemical results are interpreted with controls that demonstrate appropriate staining reactions. Note on use of immunocytochemistry reagents: This test was developed and its performance characteristics determined by [facility], Department of Laboratory Medicine. It has not been cleared or approved by the U.S. Food and Drug Administration. The FDA has determined that such clearance or approval is not necessary. The test is used for clinical purposes. It should not be regarded as investigational or for research. This laboratory is certified to perform high complexity testing. Frozen section/operating room consultation, gross examination and dissection, and case sign out may have been performed in part or completely in the following laboratories: [facility], CLIA #[id number] [address] [place] [address] [facility], CLIA #[id number] [address] [place] [address] [facility], CLIA #[id number] [address] [place] [address] 12/06/2020 5:44 PM CDT [facility] Tissue SPECIMEN FROM PLACENTA / Unknown Collection / Unknown 12/01/2020 2:34 PM CDT 12/02/2020 9:39 AM CDT Izabella Juarez MD PATHOLOGY/CYTOLOGY ORDERABLES Performing Organization Address City/State/[facility] Co de Phone Number [facility] CLIA# [id number] [address] [place] [address] * (ABNORMAL) CBC WITH DIFFERENTIAL (12/01/2020 12:44 PM CDT) WBC 8.2 4.0 - 9.8 K/uL 12/01/2020 1:18 PM CDT [facility] RBC 3.85(L) 3.90 - 4.90 M/uL 12/01/2020 1:18 PM CDT [facility] HEMOGLOBIN 11.6(L) 11.8 - 14.8 g/dL 12/01/2020 1:18 PM CDT [facility] HEMATOCRIT 34.4(L) 35.5 - 44.0 % 12/01/2020 1:18 PM CDT [facility] MCV 89.4 82.0 - 99.0 fL 12/01/2020 1:18 PM CDT [facility] MCH 30.1 27.2 - 32.6 pg 12/01/2020 1:18 PM CDT [facility] MCHC 33.7 31.5 - 35.5 g/dL 12/01/2020 1:18 PM CDT [facility] RDW 13.4 11.5 - 14.5 % 12/01/2020 1:18 PM CDT [facility] RDW-STDEV 43.3 37.1 - 48.7 fL 12/01/2020 1:18 PM CDT [facility] PLATELETS 258 140 - 350 K/uL 12/01/2020 1:18 PM CDT [facility] MPV 10.6 9.3 - 12.4 fL 12/01/2020 1:18 PM CDT [facility] - . [facility] NEUTROPHILS 71 % 12/01/2020 1:18 PM CDT [facility] - . [facility] LYMPHOCYTES 16 % 12/01/2020 1:18 PM CDT [facility] - . [facility] MONOCYTES 11 % 12/01/2020 1:18 PM CDT [facility] - . [facility] EOSINOPHILS 1 % 12/01/2020 1:18 PM CDT [facility] - . [facility] BASOPHILS 1 % 12/01/2020 1:18 PM CDT [facility] - . [facility] IMMATURE GRANULOCYTES 1 % 12/01/2020 1:18 PM CDT [facility] - . [facility] Comment:IG (Immature Granulo cyte) count includes Metamyelocytes, Myelocytes, and Promyelocytes NEUTROPHIL ABSOLUTE 5.85 1.90 - 7.00 K/uL 12/01/2020 1:18 PM CDT [facility] - . [facility] LYMPHOCYTE ABSOLUTE 1.33 0.70 - 4.50 K/uL 12/01/2020 1:18 PM CDT [facility] - . [facility] MONOCYTE ABSOLUTE 0.86 0.10 - 1.30 K/uL 12/01/2020 1:18 PM CDT [facility] - [facility] EOSINOPHIL ABSOLUTE 0.05 0.00 - 0.70 K/uL 12/01/2020 1:18 PM CDT [facility] - . [place] BASOPHILS ABSOLUTE 0.06 0.00 - 0.20 K/uL 12/01/2020 1:18 PM CDT [facility] - . [facility] IMMATURE GRANULOCYTES ABSOLUTE 0.07(H) 0.00 - 0.03 K/uL 12/01/2020 1:18 PM CDT [facility] - [facility] Blood Venipuncture / Unknown 12/01/2020 12:44 PM CDT 12/01/2020 12:53 PM CDT Izabella Juarez MD HEMATOLOGY ORDERABL ES [facility] - [facility] CLIA# [id number] [address] [place] [address] * TYPE AND SCREEN (12/01/2020 12:44 PM CDT) ABO GROUP O 12/01/2020 2:04 PM CDT [facility] -- [facility] RH (D) TYPE Negative 12/01/2020 2:04 PM CDT [facility] -- [facility] ANTIBODY SCREEN Negative 12/01/2020 2:04 PM CDT [facility] -- [facility] Blood Venipuncture / Unknown 12/01/2020 12:44 PM CDT 12/01/2020 12:53 PM CDT Izabella Juarez MD BLOOD BANK ORDERABL ES [facility] -- [facility] CLIA# [id number] [address] [place] [address] documented in this encounter Visit Diagnoses Diagnosis Encounter for blood typing- Primary Intramural and submucous leiomyoma of uterus S/P section Other postprocedural status Breech presentation, antepartum Breech presentation without mention of version, antepartum S/P section Other postprocedural status Intramural and submucous leiomyoma of uterus documented in this encounter Administered Medications Inactive Administered Medications - up to 3 most recent administrations Medication Order MAR Action Action Date Dose Rate Site acetaminophen (TYLENOL) tablet 650 mg 650 mg, Oral, ONE TIME ONLY, 1 dose, On Sun12/01/20 at 1445, Routine, PACU Given 12/01/2020 4:15 PM CDT 650 mg acetaminophen (TYLENOL) tablet 650 mg 650 mg, Oral, EVERY 6 HOURS, First dose on Sun12/01/20 at 1815, Until Discontinued, Routine, Post-op - Floor Given 12/05/2020 1:22 PM CDT 650 mg Given 12/05/2020 5:37 AM CDT 650 mg Given 12/05/2020 12:05 AM CDT 650 mg carboprost tromethamine (HEMABATE) 250 mcg/mL injection 1 mL 1 mL (250 mcg), IM, EVERY 15 MINUTES PRN, 8 doses, Starting on Sun12/01/20 at 1216, Until Sun12/05/20 at 1622, Other (See Comment), for excessive bleeding in the immediate period as needed after consultation with resident or attending physician - Maximum of 8 doses, Routine ceFAZolin (ANCEF) 2,000 mg in dextrose (iso-osmotic) 100 mL IVPB (PREMIX) 2,000 mg, IV, PRE-PROCEDURE ONCE, 1 dose, Starting on Sun12/01/20 at 1216, Until Sun12/01/20 at 1428, Routine, Pre-op, Antibiotic Indication: Surgical prophylaxis 12/01/2020 1:58 PM CDT 2,000 mg 200 mL/hr ceFAZolin (ANCEF) 2,000 mg in dextrose (iso-osmotic) 100 mL IVPB (PREMIX) 2,000 mg, IV, POST-PROCEDURE Q 8 HOURS, 2 doses, First dose on Gilda 12/02/20 at 0000, Last dose on Sun12/02/20 at 0800, Routine, Antibiotic Indication: Surgical prophylaxis 12/02/2020 7:49 AM CDT 2,000 mg 200 mL/hr 12/02/2020 12:04 AM CDT 2,000 mg 200 mL/hr ibuprofen (MOTRIN) tablet 600 mg 600 mg, Oral, EVERY 6 HOURS, First dose on Sun12/01/20 at 1815, Until Discontinued, Routine, Post-op - Floor Given 12/05/2020 1:22 PM CDT 600 mg Given 12/05/2020 5:37 AM CDT 600 mg Given 12/05/2020 12:05 AM CDT 600 mg lactated ringers infusion IV, at 125 mL/hr, PRE-PROCEDURE CONTINUOUS, Starting on Sun12/01/20 at 1230, Until Sun12/01/20 at 1536, Routine, Pre-op Continue from Pre-Op 12/01/2020 2:11 PM CDT 1 25 mL/hr New Bag 12/01/2020 12:45 PM CDT 125 mL/hr lactated ringers infusion IV, at 125 mL/hr, CONTINUOUS, Starting on Sun12/01/20 at 1815, Until Gilda 12/02/20 at 1814, Routine, Post-op - Floor New Bag 12/02/2020 1:54 AM CDT 125 mL/hr magnesium hydroxide (MILK OF MAGNESIA) oral suspension 30 mL 30 mL, Oral, NIGHTLY PRN, Starting on Sun12/01/20 at 1807, Until 12/05/20 at 1622, Constipation, Routine, Post-op - Floor Given 12/05/2020 12:07 AM CDT 30 mL Given 12/03/2020 8:54 PM CDT 30 mL methylergonovine maleate (METHERGINE) 0.2 mg/mL (1 mL) injection 0.2 mg 0.2 mg, IM, EVERY 2 HOURS PRN, 2 doses, Starting on Sun12/01/20 at 1216, Until Sun12/05/20 at 1622, Other (See Comment), for excessive bleeding in the immediate period as needed after consultation with resident or attending physician - Maximum of 2 doses, Routine metoclopramide (REGLAN) 5 mg/mL injection 10 mg 10 mg, IV, EVERY 6 HOURS PRN, Starting on Sun12/01/20 at 1807, Until Sun12/05/20 at 1622, Nausea/Emesis, Routine, Post-op - Floor Given 12/01/2020 10:26 PM CDT 10 mg miSOPROStoL (CYTOTEC) tablet 800 mcg 800 mcg, Rectal, ONE TIME PRN, 1 dose, Starting on Sun12/01/20 at 1216, Until Sun12/05/20 at 1622, Other (See Comment), Physician consultation required before administration for appropriate medication selection, Routine naloxone (NARCAN) 0.4 mg/mL injection 0.1 mg 0.1 mg, IV, SEE ADMIN INSTRUCTIONS, Starting on Sun12/01/20 at 1553, Until Sun12/05/20 at 1622, Routine ondansetron (ZOFRAN) 4 mg/2 mL injection 4 mg 4 mg, IV, EVERY 6 HOURS PRN, Starting on Sun12/01/20 at 1807, Until Sun12/05/20 at 1622, Nausea/Emesis, Routine, Post-op - Floor Given 12/01/2020 6:29 PM CDT 4 mg oxyCODONE (ROXICODONE) tablet 5 mg 5 mg, Oral, EVERY 4 HOURS PRN, Starting on Sun12/02/20 at 1400, Until Sun12/05/20 at 1622, Pain (See admin instructions), Routine, Post-op - Floor Given 12/05/2020 6:08 AM CDT 5 mg Given 12/05/2020 2:07 AM CDT 5 mg Given 12/04/2020 9:42 PM CDT 5 mg oxyCODONE (ROXICODONE) tablet 5 mg 5 mg, Oral, EVERY 4 HOURS PRN, Starting on Sun12/01/20 at 1807, Until Sun12/05/20 at 1622, Pain (See admin instructions), Routine, Post-op - Floor Given 12/05/2020 1:22 PM CDT 5 mg Given 12/04/2020 6:48 AM CDT 5 mg Given 12/04/2020 1:17 AM CDT 5 mg oxytocin in sodium chloride 0.9 % (PITOCIN) 20 units in 1,000 mL infusion IV, at 999 mL/hr, CONTINUOUS PRN, Starting on Sun12/01/20 at 1216, Until Sun12/05/20 at 1622, Other (See Comment), excessive bleeding in the immediate period, Routine oxytocin in sodium chloride 0.9 % (PITOCIN) 20 units in 1,000 mL infusion IV, at 125 mL/hr, CONTINUOUS, Starting on Sun12/01/20 at 1815, Until Gilda 12/02/20 at 0214, Routine, Post-op - Floor New Bag 12/01/2020 6:07 PM CDT 125 mL/hr 125 mL /hr vit-iron fumarate-fa () 28 mg iron- 800 mcg per tablet 1 Tablet 1 Tablet, Oral, DAILY, First dose on Gilda 12/02/20 at 0900, Until Discontinued, Routine, Post-op - Floor Given 12/05/2020 8:24 AM CDT 1 Tablet Given 12/04/2020 9:05 AM CDT 1 Tablet Given 12/03/2020 8:59 AM CDT 1 Tablet sennosides-docusate sodium (SENNA-S) 8.6-50 mg per tablet 1 Tablet 1 Tablet, Oral, DAILY AT BEDTIME, First dose on Sun12/01/20 at 2100, Until Discontinued, Routine, Post-op - Floor Given 12/04/2020 9:42 PM CDT 1 Tab let Given 12/03/2020 8:53 PM CDT 1 Tablet Given 12/03/2020 2:16 PM CDT 1 Tablet simethicone chewable tablet 80 mg 80 mg, Oral, EVERY 6 HOURS PRN, Starting on Sun12/01/20 at 1807, Until 12/05/20 at 1622, Gas, Routine, Post-op - Floor Given 12/04/2020 12:45 AM CDT 80 mg Given 12/03/2020 9:04 AM CDT 80 mg tranexamic acid (CYKLOKAPRON) 1,000 mg in sodium chloride (iso-osmotic) 100 mL IVPB 1,000 mg, IV, ONE TIME PRN, 1 dose, Starting on Sun12/01/20 at 1216, Until Sun12/05/20 at 1622, Other (See Comment), Physician consultation required before administration for appropriate medication selection, Routine documented in this encounter Active and Recently Administered Medications Times are shown in CDT. Scheduled Medication Order 12/03/2020 12/04/2020 12/05/2020 acetaminophen (TYLENOL) tablet 650 mg 650 mg, Oral, EVERY 6 HOURS, First dose on Sun12/01/20 at 1815, Until Discontinued, Routine, Post-op - Floor 0634 (Given - Provider: Akosua Chilel RN)1410 (Given - Provider: Ivory Romero RN)2009 (Given - Provider: Yajaira Cotter RN) 011 (Given - Provider: Yajaira Cotter RN)0647 (Given - Provider: Yajaira Cotter RN)1230 (Given - Provider: Gifty Medina, EMILY)1835 (Given - Provider: Gifty Medina RN) 0005 (Given - Provider: Shanti Tobias, EMILY)0537 (Given - Provider: Shanti Tobias RN)1322 (Given - Provider: Juanita Quevedo, EMILY) ibuprofen (MOTRIN) tablet 600 mg 600 mg, Oral, EVERY 6 HOURS, First dose on Sun12/01/20 at 1815, Until Discontinued, Routine, Post-op - Floor 0634 (Given - Provider: Aksoua Chilel RN)1411 (Given - Provider: Ivory Romero RN)2008 (Given - Provider: Yajaira Cotter RN) 011 (Given - Provider: Yajaira Cotter RN)0648 (Given - Provider: Yajaira Cotter RN)1229 (Given - Provider: Gifty Medina RN)1835 (Given - Provider: Gifty Medina RN) 0005 (Given - Provider: Shanti Tobias RN)0537 (Given - Provider: Shanti Tobias RN)1322 (Given - Provider: Juanita Quevedo, EMILY) lanolin (LANSINOH) 100 % topical ointment Topical, SEE ADMIN INSTRUCTIONS, Starting on Sun12/01/20 at 1807, Until 12/05/20 at 1622, Routine, Post-op - Floor naloxone (NARCAN) 0.4 mg/mL injection 0.1 mg 0.1 mg, IV, SEE ADMIN INSTRUCTIONS, Starting on Sun12/01/20 at 1807, Until 12/05/20 at 1622, Routine, Post-op - Floor naloxone (NARCAN) 0.4 mg/mL injection 0.1 mg 0.1 mg, IV, SEE ADMIN INSTRUCTIONS, Starting on Sun12/01/20 at 1553, Until 12/05/20 at 1622, Routine vit-iron fumarate-fa () 28 mg iron- 800 mcg per tablet 1 Tablet 1 Tablet, Oral, DAILY, First dose on Gilda 12/02/20 at 0900, Until Discontinued, Routine, Post-op - Floor 0859 (Given - Provider: Ivory Romero, RN) 09 (Given - Provider: Gifty Medina RN) 08 (Given - Provider: Juanita Quevedo RN) sennosides-docusate sodium (SENNA-S) 8.6-50 mg per tablet 1 Tablet 1 Tablet, Oral, DAILY AT BEDTIME, First dose on Sun12/01/20 at 2100, Until Discontinued, Routine, Post-op - Floor 141 (Given - Provider: Ivory Romero, RN)2052 (Given - Provider: Yajaira Cotter, RN) 2141 (Given - Provider: Shanti Tobias, RN) Continuous Medication Order 12/03/2020 12/04/2020 12/05/2020 oxytocin in sodium chloride 0.9 % (PITOCIN) 20 units in 1,000 mL infusion IV, at 125 mL/hr, CONTINUOUS, Starting on Sun12/01/20 at 1815, Until Gilda 12/02/20 at 0214, Routine, Post-op - Floor PRN Medication Order 12/03/2020 12/04/2020 12/05/2020 carboprost tromethamine (HEMABATE) 250 mcg/mL injection 1 mL 1 mL (250 mcg), IM, EVERY 15 MINUTES PRN, 8 doses, Starting on Sun12/01/20 at 1216, Until 12/05/20 at 1622, Other (See Comment), for excessive bleeding in the immediate period as needed after consultation with resident or attending physician - Maximum of 8 doses, Routine magnesium hydroxide (MILK OF MAGNESIA) oral suspension 30 mL 30 mL, Oral, NIGHTLY PRN, Starting on Sun12/01/20 at 1807, Until 12/05/20 at 1622, Constipation, Routine, Post-op - Floor 2053 (Given - Provider: Yajaira Cotter, EMILY) 000 (Given - Provider: Shanti Tobias, EMILY) methylergonovine maleate (METHERGINE) 0.2 mg/mL (1 mL) injection 0.2 mg 0.2 mg, IM, EVERY 2 HOURS PRN, 2 doses, Starting on Sun12/01/20 at 1216, Until Sun12/05/20 at 1622, Other (See Comment), for excessive bleeding in the immediate period as needed after consultation with resident or attending physician - Maximum of 2 doses, Routine metoclopramide (REGLAN) 5 mg/mL injection 10 mg 10 mg, IV, EVERY 6 HOURS PRN, Starting on Sun12/01/20 at 1807, Until Sun12/05/20 at 1622, Nausea/Emesis, Routine, Post-op - Floor miSOPROStoL (CYTOTEC) tablet 800 mcg 800 mcg, Rectal, ONE TIME PRN, 1 dose, Starting on Sun12/01/20 at 1216, Until Sun12/05/20 at 1622, Other (See Comment), Physician consultation required before administration for appropriate medication selection, Routine ondansetron (ZOFRAN ODT) tablet 4 mg 4 mg, Oral, EVERY 6 HOURS PRN, Starting on Sun12/01/20 at 1807, Until Sun12/05/20 at 1622, Nausea/Emesis, Routine, Post-op - Floor ondansetron (ZOFRAN) 4 mg/2 mL injection 4 mg 4 mg, IV, EVERY 6 HOURS PRN, Starting on Sun12/01/20 at 1807, Until Sun12/05/20 at 1622, Nausea/Emesis, Routine, Post-op - Floor oxyCODONE (ROXICODONE) tablet 5 mg 5 mg, Oral, EVERY 4 HOURS PRN, Starting on Sun12/02/20 at 1400, Until Sun12/05/20 at 1622, Pain (See admin instructions), Routine, Post-op - Floor 1414 (Given - Provider: Ivory Romero RN)2046 (Given - Provider: Yajaira Cotter RN) 0020 (Given - Provider: Yajaira Cotter RN)1229 (Given - Provider: Gifty Medina, EMILY)1604 (Given - Provider: Gifty Medina, EMILY)2142 (Given - Provider: Shanti Tobias, RN) 0207 (Given - Provider: Shanti Tobias, RN)0608 (Given - Provider: Shanti Tobias, EMILY) oxyCODONE (ROXICODONE) tablet 5 mg 5 mg, Oral, EVERY 4 HOURS PRN, Starting on Sun12/01/20 at 1807, Until 12/05/20 at 1622, Pain (See admin instructions), Routine, Post-op - Floor 0117 (Given - Provider: Yajaira Cotter RN)0648 (Given - Provider: Yajaira Cotter RN) 1322 (Given - Provider: Juanita Quevedo RN) oxytocin in sodium chloride 0.9 % (PITOCIN) 20 units in 1,000 mL infusion IV, at 999 mL/hr, CONTINUOUS PRN, Starting on Sun12/01/20 at 1216, Until 12/05/20 at 1622, Other (See Comment), excessive bleeding in the immediate period, Routine simethicone chewable tablet 80 mg 80 mg, Oral, EVERY 6 HOURS PRN, Starting on Sun12/01/20 at 1807, Until 12/05/20 at 1622, Gas, Routine, Post-op - Floor 0904 (Given - Provider: Ivory Romero RN) 0045 (Given - Provider: Yajaira Cotter RN) tranexamic acid (CYKLOKAPRON) 1,000 mg in sodium chloride (iso-osmotic) 100 mL IVPB 1,000 mg, IV, ONE TIME PRN, 1 dose, Starting on Sun12/01/20 at 1216, Until 12/05/20 at 1622, Other (See Comment), Physician consultation required before administration for appropriate medication selection, Routine documented in this encounter
--- OUTSIDE RECORDS SUMMARY | 2024-06-09 02:43 | XMS_ITS | Encounter Summary ---
Author Organization [facility] Address [address] [place]: Epic Prelude ADT [place] [id number] Care Team Providers Care Sports Intern Name Role Phone Unavailable Primary Care Provider Unavailabl e Encounter Details Date Type Department Care Team (Latest Contact Info) Description 11/22/2020 Travel Social History Tobacco Use Types Packs/Day [...] have Coronavirus / COVID-19? No / Unsure 11/19/2020 10:49 PM CDT documented as of this encounter Plan of Treatment Not on file documented as of this encounter Visit Diagnoses Not on filedocumented in this encounter
--- OUTSIDE RECORDS SUMMARY | 2024-06-09 02:43 | XMS_ITS | Encounter Summary ---
Author Organization [facility] Address 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 Procedures US OB FOLLOW UP PER FETUS Gifty Medrano MD [address] [place] [address] Referral ID Status Reason Start Date Expiration Date Visits Re quested Visits Authorized [id number] Closed 10/26/2020 11/26/2021 1 1 Reason for Visit * Auth/Cert Specialty Diagnoses / Procedures Referred By Contac t Referred To Contact Radiology [facility] Maternal And Hc Ground Fl [address] [place] [address] Referral ID Status Reason Start Date Expiration Date Visits Re quested Visits Authorized [id number] 1 1 Encounter Details Date Type Department Care Team (Latest Contact Info) Description 11/03/2020 12:44 PM CDT - 11/03/2020 11:59 PM CDT Hospital Encounter [facility] Maternal and Ground Floor [address] [place] [address] Gifty Medrano MD [address] [place] [address] Discharge Disposition: Home or Self Care Social [...] have Coronavirus / COVID-19? No / Unsure 11/03/2020 12:43 PM CDT documented as of this encounter Medications at Time of Discharge Medication Sig Dispensed Refills Start Date End Date oxyCODONE (ROXICODONE) 5 mg tabletIndications:Intram ural and submucous leiomyoma of uterus,S/P section Take 1 Tablet (5 mg) by mouth every 4 hours as needed for Pain. Max Daily Amount: 30 mg 25 Tablet 12/05/2020 12/12/2020 aspirin (ECOTRIN EC) 81 mg Tablet, Delayed Release (E.C.) Take 81 mg by mouth daily. 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 Patient here today for targeted ultrasound with NST. Transverse presentation Normal amniotic fluid volume Umbilical vein is mildly dilated measuring 12 mm transverse diameter. Umbilical vein is straight and not torturous. There appears to be normal laminar flow without evidence of thrombosis. Umbilical vein varix is associated with an increased risk of stillbirth. The risks of adverse outcome are greater with large umbilical veins which have a tortuous course and more prone to developing thromboembolic phenomena. Early delivery at 37-38 weeks gestation it is generally recommended. Given the current ultrasound findings it may be reasonable to allow to progress to 38+ weeks gestation. More definitive recommendations in regards to timing of delivery can be made at time of subsequent ultrasounds performed closer to term. Narrative 11/03/2020 1:26 PM CDT [facility] ----- Pat. Name: SHERYL KIM Study Date: 11/03/2020 12:53pm Pat. NO: [id number] Referring ??: LARA VIDAL MD Site: [facility] Chief Of Police: Lauren Tobias : 1985 Age: 35 ----- INDICATION ----- Known or Suspected anomaly ? Umbilical Vein Varix Maternal Fibroids Suspected Macrosomia/Large for Dates CODING ----- Diagnoses ? O35.8XX0: Maternal care for suspected abnormality. Unspecified Fetus ?O34.13: Maternal care for benign tumor of corpus uteri ?Z3A.32: Weeks Gestation of ?O36.63X0: Maternal care for excessive growth. Unspecified Fetus Procedures ?23952: OB follow-up/Target per fetus HISTORY ----- OB History ? 2. Para 1 MATERNAL ASSESSMENT ----- Physical Exam ? Weight 73 kg. BMI 26.15 kg/m? METHOD ----- Transabdominal ultrasound examination ----- [place] . Number of fetuses: 1 DATING ----- LMP on: 03/21/2020 Cycle: regular cycle GA by LMP 32 w + 3 d JAMEEL by LMP: 12/26/2020 GA by prior assessment 32 w + 3 d JAMEEL by prior assessment: 12/26/2020 Method of dating: Restore dating from previous exam Assigned: Dating performed on 08/02/2020, based on the LMP Assigned GA 32 w + 3 d Assigned JAMEEL: 12/26/2020 GENERAL EVALUATION ----- Cardiac activity present. FHR 140 bpm. movements: present. Presentation: transverse Placenta: Placental site: anterior Umbilical cord: Insertion site: placental insertion: normal Amniotic fluid: Amount of AF: normal amount. MVP 6.3 cm. FRIDA 15.4 cm. Q1 6.3 cm, Q2 2.2 cm, Q3 3.9 cm, Q4 3.0 cm ANATOMY ----- The following structures appear normal: Face ?Profile. Heart / Thorax ?Cardiac rhythm. Abdomen ? Stomach. Bladder. sex: male. Impression: Umbilical Vein Varix measuring 1.28 cm COMMENT ----- Patient's name and date of were verified by the jordan man prior to the exam Procedure Note Eduardo Kern MD - 11/03/2020 [facility] ----- Pat. Name:Jennifer KIM Date:11/03/2020 12:53pm Pat. NO: [id number] MD:LARA VIDAL MD [facility]:Lauren Tobias :1985Age:35 ----- INDICATION ----- Known or Suspected anomaly Umbilical VeinVarix Maternal Fibroids Suspected Macrosomia/Large for Dates CODING ----- Diagnoses O35.8XX0: Maternal care for suspected fetalabnormality. Unspecified Fetus O34.13: Maternal care for benign tumor of corpusuteri Z3A.32: Weeks Gestation of O36.63X0: Maternal care for excessive fetalgrowth. Unspecified Fetus Procedures 45598: OB follow-up/Target per fetus HISTORY ----- OB History 2. Para 1 MATERNAL ASSESSMENT ----- Physical Exam Weight 73 kg. BMI 26.15 kg/m? METHOD ----- Transabdominal ultrasound examination ----- [place] . Number of fetuses: 1 DATING ----- LMP on:03/21/2020 Cycle:regular cycle GA by LMP32 w + 3 d JAMEEL by LMP:12/26/2020 GA by prior [id number] w + 3 d JAMEEL by prior assessment:12/26/2020 Method of dating:Restore dating from previous exam Assigned:Dating performed on 08/02/2020, based on the LMP Assigned GA32 w + 3 d Assigned JAMEEL:12/26/2020 GENERAL EVALUATION ----- Cardiac activity present. FHR 140 bpm. movements: present.Presentation: transverse Placenta: Placental site: anterior Umbilical cord: Insertion site: placental insertion: normal Amniotic fluid: Amount of AF: normal amount. MVP 6.3 cm. FRIDA 15.4 cm. Q16.3 cm, Q2 2.2 cm, Q3 3.9 cm, Q4 3.0 cm ANATOMY ----- The following structures appear normal: Face Profile. Heart / Thorax Cardiac rhythm. Abdomen Stomach. Bladder. sex: male. Impression: Umbilical Vein Varix measuring 1.28 cm COMMENT ----- Patient's name and date of were verified by the jordan man prior tothe exam IMPRESSION ----- Viable at 32 weeks 3 days gestation complicated by umbilicalvein varix, maternal fibroids and LGA growth pattern. Patient here today for targeted ultrasound with NST. Transverse presentation Normal amniotic fluid volume Umbilical vein is mildly dilated measuring 12 mm transverse diameter.Umbilical vein is straight and not torturous. There appears to be normal laminar flow without evidence of thrombosis. Umbilical vein varix is associated with an increased risk of fetalstillbirth. The risks of adverse outcome are greater with large umbilical veins which have a tortuous course and more prone todeveloping thromboembolic phenomena. Early delivery at 37-38 weeks gestation it is generally recommended. Given the current ultrasoundfindings it may be reasonable to allow to progress to 38+ weeks gestation. More definitive recommendations inregards to timing of delivery can be made at time of subsequent ultrasounds performed closer to term. 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
--- OUTSIDE RECORDS SUMMARY | 2024-06-09 02:43 | XMS_ITS | Encounter Summary ---
Author Organization [facility] Address [address] [place] [address] Care Team Providers Care Linen Attendant Name Role Phone Unavailable Primary Care Provider Unavailabl e Reason for Visit * Auth/Cert Specialty Diagnoses / Procedures Referred By Contac t Referred To Contact Radiology [facility] Maternal And Hc Ground Fl [address] [place] [address] Referral ID Status Reason Start Date Expiration Date Visits Re quested Visits Authorized [id number] 1 1 Encounter Details Date Type Department Care Team (Latest Contact Info) Description 11/03/2020 12:44 PM CDT - 11/03/2020 11:59 PM CDT Hospital Encounter [facility] Maternal and Ground Floor S [facility] [address] [place] [address] Gifty Medrano MD [address] [facility] [address] [place] [address] Discharge Disposition: Home or Self Care Social [...] Name Priority Date/Time Associated Diagnosis Comments US BIOPHYSICAL PROF W NST Routine 11/03/2020 2:23 PM CDT 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 Name: SHERYL KIM Study Date: 11/03/2020 1:45pm Pat. NO: [id number] Referring ??MD: LARA VIDAL MD Site: [facility] Client Retention Specialist: : 1985 Age: 35 ----- INDICATION ----- Known or Suspected anomaly ? Umbilical Vein Varix Maternal Fibroids Suspected Macrosomia/Large for Dates ? 96% CODING ----- Diagnoses ? O35.8XX0: Maternal care for suspected abnormality. Unspecified Fetus ?O34.13: Maternal care for benign tumor of corpus uteri ?Z3A.32: Weeks Gestation of ?O36.63X0: Maternal care for excessive growth. Unspecified Fetus Procedures ?98294: BPP with NST HISTORY ----- OB History ? 2. Para 1 MATERNAL ASSESSMENT ----- Physical Exam ? Weight 73 kg. BMI 26.15 kg/m?. Blood pressure 104/69 mmHg. Heart rate 96 bpm METHOD ----- EFM, EFM, Transabdominal ultrasound examination. View: Good view ----- [place] . Number of fetuses: 1 DATING ----- LMP on: 03/21/2020 Cycle: regular cycle, regular cycle GA by LMP 32 w + 3 d JAMEEL by LMP: 12/26/2020 GA by prior assessment 32 w + 3 d JAMEEL by prior assessment: 12/26/2020 Method of dating: Restore dating from previous exam Assigned: Dating performed on 08/02/2020, based on the LMP Assigned GA 32 w + 3 d Assigned JAMEEL: 12/26/2020 GENERAL EVALUATION ----- Cardiac activity present. FHR 138 bpm. movements: visualized. Presentation: transverse, head maternal left NON STRESS TEST ----- NST interpretation: non-reactive. Test duration 45 min. Baseline FHR 135 bpm. Baseline variability: moderate. Accelerations: Present. Decelerations: absent. Uterine activity: absent AMNIOTIC FLUID ASSESSMENT ----- Amount of AF: normal amount MVP 6.3 cm. FRIDA 15.4 cm. Q1 6.3 cm, Q2 2.2 cm, Q3 3.9 cm, Q4 3.0 cm FRIDA per Lauren Tobias [facility], see Target ultrasound report BIOPHYSICAL PROFILE ----- 2: breathing movements 2: Gross body movements 2: tone 2: Amniotic fluid volume NST: non-reactive 01/04 Biophysical profile score COMMENT ----- Nursing notes: Patient reports + movement and no bleeding, leaking or tommy. Patient scheduled twice weekly. [facility] specialist, Dr. Kern, reviewed findings prior to discharge. BPP ordered and completed. [facility] instructions given to patient. Procedure Note Eduardo Kern MD - 11/03/2020 BPP WITH NST STUDY ----- Pat. Name:Jennifer KIM Date:11/03/2020 1:45pm Pat. NO: [id number] MD:LARA VIDAL MD [facility]1985Age:35 ----- INDICATION ----- Known or Suspected anomaly Umbilical VeinVarix Maternal Fibroids Suspected Macrosomia/Large for Dates 96% CODING ----- Diagnoses O35.8XX0: Maternal care for suspected fetalabnormality. Unspecified Fetus O34.13: Maternal care for benign tumor of corpusuteri Z3A.32: Weeks Gestation of O36.63X0: Maternal care for excessive fetalgrowth. Unspecified Fetus Procedures 61433: BPP with NST HISTORY ----- OB History 2. Para 1 MATERNAL ASSESSMENT ----- Physical Exam Weight 73 kg. BMI 26.15 kg/m?. Blood ivxeywuq516/69 mmHg. Heart rate 96 bpm METHOD ----- EFM, EFM, Transabdominal ultrasound examination. View: Good view ----- [place] . Number of fetuses: 1 DATING ----- LMP on:03/21/2020 Cycle:regular cycle, regular cycle GA by LMP32 w + 3 d JAMEEL by LMP:12/26/2020 GA by prior [email or web address] w + 3 d JAMEEL by prior assessment:12/26/2020 Method of dating:Restore dating from previous exam Assigned:Dating performed on 08/02/2020, based on the LMP Assigned GA32 w + 3 d Assigned JAMEEL:12/26/2020 GENERAL EVALUATION ----- Cardiac activity present. FHR 138 bpm. movements: visualized.Presentation: transverse, head maternal left NON STRESS TEST ----- NST interpretation: non-reactive. Test duration 45 min. Baseline FHR 135bpm. Baseline variability: moderate. Accelerations: Present. Decelerations: absent. Uterine activity: absent AMNIOTIC FLUID ASSESSMENT ----- Amount of AF: normal amount MVP 6.3 cm. FRIDA 15.4 cm. Q1 6.3 cm, Q2 2.2 cm, Q3 3.9 cm, Q4 3.0 cm FRIDA per Lauren Tobias [facility], see Target ultrasound report BIOPHYSICAL PROFILE ----- 2: breathing movements 2: Gross body movements 2: tone 2: Amniotic fluid volume NST: non-reactive 01/04 Biophysical profile score COMMENT ----- Nursing notes: Patient reports + movement and no bleeding, leakingor tommy. Patient scheduled twice weekly. [facility] specialist, Dr. Kern, reviewed findings prior to discharge. BPPordered and completed. [facility] instructions given to patient. 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
--- OUTSIDE RECORDS SUMMARY | 2024-06-09 02:43 | XMS_ITS | Encounter Summary ---
Author Organization [facility] Address [address] [place]: Epic Prelude ADT [place] [address] Care Team Providers Care Oil Expeller Operator Name Role Phone Unavailable Primary Care Provider Unavailabl e Encounter Details Date Type Department Care Team (Latest Contact Info) Description 11/12/2020 Travel Social History Tobacco Use Types Packs/Day [...] have Coronavirus / COVID-19? No / Unsure 11/12/2020 8:00 AM CDT documented as of this encounter Plan of Treatment Not on file documented as of this encounter Visit Diagnoses Not on filedocumented in this encounter
--- OUTSIDE RECORDS SUMMARY | 2024-06-09 02:43 | XMS_ITS | Encounter Summary ---
Author Organization [facility] Address [address] [place]: Epic Prelude ADT [place] [address] Care Team Providers Care Farm Rancher Name Role Phone Unavailable Primary Care Provider Unavailabl e Encounter Details Date Type Department Care Team (Latest Contact Info) Description 09/26/2020 Travel Social History Tobacco Use Types Packs/Day [...] have Coronavirus / COVID-19? No / Unsure 09/26/2020 8:16 PM CDT documented as of this encounter Plan of Treatment Not on file documented as of this encounter Visit Diagnoses Not on filedocumented in this encounter
--- OUTSIDE RECORDS SUMMARY | 2024-06-09 02:43 | XMS_ITS | Encounter Summary ---
Author Organization [facility] Address 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 Procedures US MONITORING NST Gifty Medrano MD [address] [place] [address] Referral ID Status Reason Start Date Expiration Date Visits Re quested Visits Authorized [id number] Closed 10/26/2020 11/26/2021 1 1 Reason for Visit * Auth/Cert Specialty Diagnoses / Procedures Referred By Contac t Referred To Contact Radiology [facility] Maternal And Hc Ground Fl [address] [place] [address] Referral ID Status Reason Start Date Expiration Date Visits Re quested Visits Authorized [id number] 1 1 Encounter Details Date Type Department Care Team (Latest Contact Info) Description 11/22/2020 10:15 AM CDT - 11/22/2020 11:59 PM CDT Hospital Encounter [facility] Maternal and Ground Floor [address] [place] [address] Gifty Medrano MD [address] [place] [address] Discharge Disposition: Home or Self Care Social [...] Name Priority Date/Time Associated Diagnosis Comments US MONITORING NST Routine 11/22/2020 10:58 AM CDT 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 Hamilton living fetus with a gestational age of 35w1d, based on the reported clinical dates. 2. NST reactive; reassuring for gestational age. Continue current surveillance plan. Thank you for allowing us to participate in the care of this patient. Narrative 11/22/2020 11:03 AM CDT [facility] NST ----- Dinorah. Name: SHERYL KIM Study Date: 11/22/2020 10:32am Pat. NO: [id number] Referring ??MD: LARA VIDAL MD Site: [facility] Chocolatier: : 1985 Age: 35 ----- INDICATION ----- Maternal Fibroids Macrosomia-Large for Dates Abnormal US Findings ? umbilical vein varix CODING ----- Diagnoses ? O34.13: Maternal care for benign tumor of corpus uteri ?O36.63X0: Maternal care for excessive growth. Unspecified Fetus ?R93.8: Abnormal US Findings ?Z3A.35: Weeks Gestation of Procedures ?23081: NST/ monitoring HISTORY ----- OB History ? 2. Para 1 MATERNAL ASSESSMENT ----- Physical Exam ? Weight 76 kg. BMI 27.12 kg/m?. Blood pressure 117/77 mmHg. Heart rate 84 bpm METHOD ----- EFM ----- [place] . Number of fetuses: 1 DATING ----- LMP on: 03/21/2020 Cycle: regular cycle, regular cycle GA by LMP 35 w + 1 d JAMEEL by LMP: 12/26/2020 GA by prior assessment 35 w + 1 d JAMEEL by prior assessment: 12/26/2020 Method of dating: Restore dating from previous exam Assigned: based on stated JAMEEL, selected on 11/15/2020 Assigned GA 35 w + 1 d Assigned JAMEEL: 12/26/2020 NON STRESS TEST ----- NST interpretation: reactive. Test duration 24 min. Baseline FHR 140 bpm. Baseline variability: moderate. Accelerations: Present. Decelerations: absent. Uterine activity: present, x2 ANATOMY ----- sex: male COMMENT ----- Nursing notes: Patient reports + movement and no bleeding, leaking or tommy. Pt is scheduled for delivery next week, and here twice weekly for testing. Procedure Note Xochitl Hagan MD - 11/22/2020 [facility] ----- Pat. Name:Jennifer KIM Date:11/22/2020 10:32am Pat. NO: [id number] :LARA VIDAL MD [facility]1985Age:35 ----- INDICATION ----- Maternal Fibroids Macrosomia-Large for Dates Abnormal US Findings umbilical veinvarix CODING ----- Diagnoses O34.13: Maternal care for benign tumor of corpusuteri O36.63X0: Maternal care for excessive fetalgrowth. Unspecified Fetus R93.8: Abnormal US Findings Z3A.35: Weeks Gestation of Procedures 21724: NST/ monitoring HISTORY ----- OB History 2. Para 1 MATERNAL ASSESSMENT ----- Physical Exam Weight 76 kg. BMI 27.12 kg/m?. Blood rzrvezub364/77 mmHg. Heart rate 84 bpm METHOD ----- EFM ----- [place] . Number of fetuses: 1 DATING ----- LMP on:03/21/2020 Cycle:regular cycle, regular cycle GA by LMP35 w + 1 d JAMEEL by LMP:12/26/2020 GA by prior [id number] w + 1 d JAMEEL by prior assessment:12/26/2020 Method of dating:Restore dating from previous exam Assigned:based on stated JAMEEL, selected on 11/15/2020 Assigned GA35 w + 1 d Assigned JAMEEL:12/26/2020 NON STRESS TEST ----- NST interpretation: reactive. Test duration 24 min. Baseline FHR 140 bpm.Baseline variability: moderate. Accelerations: Present. Decelerations: absent. Uterine activity: present, mike ANATOMY ----- sex: male COMMENT ----- Nursing notes: Patient reports + movement and no bleeding, leakingor tommy. Pt is scheduled for delivery next week, and here twice weekly for testing. IMPRESSION ----- 1. Hamilton living fetus with a gestational age of 35w1d, based on thereported clinical dates. 2. NST reactive; reassuring for gestational age. Continue current surveillance plan. Thank you for allowing us to participate in the care of this patient. 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
--- OUTSIDE RECORDS SUMMARY | 2024-06-09 02:43 | XMS_ITS | Encounter Summary ---
Author Organization [facility] Address [address] [place] [address] Care Team Providers Care Metal Mold Dresser Name Role Phone Unavailable Primary Care Provider Unavailabl e Reason for Visit * Reason Onset Date Comments follow up 11/19/2020 Encounter Details Date Type Department Care Team (Late st Contact Info) Description 11/19/2020 Telephone [facility] LEAN SPECIALIST - [id number] [address] Izabella Juarez MD NO ADDRESS ON FILE follow up Social History Tobacco Use Types Packs/Day Years [...] have Coronavirus / COVID-19? No / Unsure 11/18/2020 12:57 PM CDT documented as of this encounter Miscellaneous Notes * Telephone Encounter - Devi Argueta RN - 11/19/2020 10:05 AM CDT ----- Message from Izabella Juarez MD sent at 11/18/2020 6:01 PM CDT ----- Please make sure that pt will get growth measurements at her next appt at [facility] on 11/22. Thanks. Confirmed with [facility] staff that growth measurements will be done. documented in this encounter Plan of Treatment Not on file documented as of this encounter Visit Diagnoses Not on filedocumented in this encounter
--- OUTSIDE RECORDS SUMMARY | 2024-06-09 02:43 | XMS_ITS | Encounter Summary ---
Author Organization [facility] Address [address] [place] [address] Care Team Providers Care Experimental Mechanic Name Role Phone Unavailable Primary Care Provider Unavailabl e Reason for Visit * Reason Comments Routine Visit On sunday she h ad some issues where she passed out and her arms went numb. Encounter Details Date Type Department Care Team (Latest Contact Info) Description 10/26/2020 3:00 PM CDT visit [facility] [address] - [id number] [place] [address] Izabella Juarez MD NO ADDRESS ON FILE Abnormal ultrasound; Excessive growth affecting management of in second trimester, single or unspecified fetus; complicated by umbilical cord varix, antepartum Social History Tobacco Use Types Packs/Day Years [...] Sign Reading Time Taken Comments Blood Pressure 109/66 10/26/2020 3:11 PM CDT Pulse - - Temperature - - Respiratory Rate - - Oxygen Saturation - - Inhaled Oxygen Concentration - - Weight 73.5 kg (162 lb) 10/26/2020 3:11 PM CDT Height 167.6 cm (5' 6 ) 10/26/2020 3:11 PM CDT Body Mass Index 26.15 10/26/2020 3:11 PM CDT documented in this encounter Progress Notes * Izabella Juarez MD - 10/27/2020 1:38 PM CDT Pt is following up from her recent ED visit. She had 2 episodes of possible loss of consciousness which were unexplained by ED eval. She described them to me in detail. I recommend that she have cardiac and neuro eval. Helped her obtain appointments. I advised her not to drive and not to travel forwork. I advised her not to go anywhere to which there is no medical care nearby. I advised her to check her health insurance to see what her coverage is if she goes out of town. She doesn't have any c/o per se. She has an appt now at [facility] and well-being will be confirmed there. Umbilical cord varix again seen, 11-14 mm with no sign of thrombosis. LGA. Fibroid stable. documented in this encounter Plan of Treatment Not on file documented as of this encounter Visit Diagnoses Diagnosis Abnormal ultrasound Abnormal findings on screening Excessive growth affecting management of in second trimester, single or unspecified fetus complicated by umbilical cord varix, antepartum documented in this encounter
--- OUTSIDE RECORDS SUMMARY | 2024-06-09 02:43 | XMS_ITS | Encounter Summary ---
Author Organization [facility] Address [address] [place]: Epic Prelude ADT [place] [address] Care Team Providers Care Lifts And Cranes Inspector Name Role Phone Unavailable Primary Care Provider Unavailabl e Encounter Details Date Type Department Care Team (Latest Contact Info) Description 11/01/2020 Travel Social History Tobacco Use Types Packs/Day [...] have Coronavirus / COVID-19? No / Unsure 10/31/2020 10:20 AM CDT documented as of this encounter Plan of Treatment Not on file documented as of this encounter Visit Diagnoses Not on filedocumented in this encounter
--- OUTSIDE RECORDS SUMMARY | 2024-06-09 02:43 | XMS_ITS | Encounter Summary ---
Author Organization [facility] Address [address] [place] [address] Care Team Providers Care Jet Handler Name Role Phone Unavailable Primary Care Provider Unavailabl e Reason for Referral * Radiology Services (Routine) - Closed Specialty Diagnoses / Procedures Referred By Contac t Referred To Contact Diagnoses complicated by umbilical cord varix, antepartum Fibroid Procedures US OB FOLLOW UP PER FETUS Eduardo Kern MD [address] [place] [address] Referral ID Status Reason Start Date Expiration Date V isits Requested Visits Authorized [id number] Closed [facility] 09/27/2020 10/28/2020 1 1 Reason for Visit * Auth/Cert Specialty Diagnoses / Procedures Referred By Contac t Referred To Contact [facility]iology [facility] [address] [place] [address] Referral ID Status Reason Start Date Expiration Date Visits Re quested Visits Authorized [id number] 1 1 Encounter Details Date Type Department Care Team (Latest Contact Info) Description 10/11/2020 3:10 PM CDT - 10/11/2020 11:59 PM CDT Hospital Encounter [facility] [address] [place] [address] Eduardo Kern MD [address] [place] [id number] Discharge Disposition: Home or Self Care Social [...] have Coronavirus / COVID-19? No / Unsure 10/11/2020 3:09 PM CDT documented as of this encounter Plan of Treatment Not on file documented as of this encounter Procedures Procedure Name Priority Date/Time Associated Diagnosis Comments US OB FOLLOW UP PER FETUS Routine 10/11/2020 3:35 PM CDT complicated by umbilical cord varix, antepartum Fibroid documented in this encounter Results * US OB FOLLOW UP PER FETUS (10/11/2020 3:35 PM CDT) Anatomical Region Laterality Modality Pelvis Ultrasound 10/11/2020 3:18 PM CDT Impressions 10/11/2020 3:53 PM CDT IMPRESSION ----- Hamilton intrauterine with positive cardiac activity. The fetus is in a cephalic presentation. The amniotic fluid volume is mildly increased with an amniotic fluid index of 27.9 cm and a maximum vertical pocket of 8.5 cm. The etiology and clinical significance of this finding is unclear at this time. The previously identified umbilical vein varix measuring approximately 1.3 cm. It is challenging to definitively determine whether or not this is a change. There are interobserver variation in the measurement of sonographic parameters. This is likely within the interobserver variation. The appearance is essentially unchanged from the previous sonogram. Laminar flow is identified. Discussion: The sonographic findings were reviewed with the patient and her partner. At this time, I have explained that the umbilical vein varix is essentially unchanged. The patient's questions were addressed. At this time, this finding is stable. The unknowns regarding an umbilical vein varix were reviewed with the patient and her today. I have also explained to the patient that the amniotic fluid volume does appear to be mildly increased today. The etiology and clinical significance is unclear. An umbilical vein varix is not usually associated with polyhydramnios. The patient did have a glucose screening test which returned within normal limits. A follow-up sonogram is suggested in approximately 2 weeks to reassess growth and reassess the amniotic fluid volume as well as the umbilical vein varix. At that time, further recommendations may follow. Precautions and warnings were reviewed with the patient. Patient verbalized understanding and is amenable to this plan. Recommendations: 1. Consider a follow-up in approximately 2 weeks to reassess growth, reassess the amniotic fluid volume, and reassess the umbilical vein varix. Narrative 10/11/2020 3:53 PM CDT [facility] TARGET ----- Pat. Name: CAROL HUSAIN Study Date: 10/11/2020 3:18pm Pat. NO: [id number] Referring ??: LARA VIDAL MD Site: [facility] Medical Doctor: [id number] : 1985 Age: 35 ----- INDICATION ----- Known or Suspected anomaly ? umbilical vein varix Maternal Fibroids ?left lateral CODING ----- Diagnoses ? O35.8XX0: Maternal care for suspected abnormality. Unspecified Fetus ?O34.13: Maternal care for benign tumor of corpus uteri ?Z3A.29: Weeks Gestation of Procedures ?70599: OB follow-up/Target per fetus HISTORY ----- OB History ? 2. Para 1 MATERNAL ASSESSMENT ----- Physical Exam ? Weight 72 kg. BMI 25.66 kg/m? METHOD ----- Transabdominal ultrasound examination ----- Hamilton . Number of fetuses: 1 DATING ----- LMP on: 03/21/2020 Cycle: regular cycle GA by LMP 29 w + 1 d JAMEEL by LMP: 12/26/2020 Method of dating: Restore dating from previous exam Assigned: Dating performed on 08/02/2020, based on the LMP Assigned GA 29 w + 1 d Assigned JAMEEL: 12/26/2020 GENERAL EVALUATION ----- Cardiac activity present. FHR 148 bpm. movements: present. Presentation: cephalic Placenta: Placental site: anterior Umbilical cord: Cord vessels: 3 vessel cord. Insertion site: placental insertion: normal Amniotic fluid: Amount of AF: normal amount. MVP 8.5 cm. FRIDA 27.9 cm. Q1 6.9 cm, Q2 8.5 cm, Q3 5.2 cm, Q4 7.3 cm ANATOMY ----- The following structures appear normal: Heart / Thorax ?Cardiac rhythm. Abdomen ? Stomach. Kidneys. Bladder. sex: male. umbilical vein varix : 1.30 cm COMMENT ----- Patient's name and date of were verified by the gastroenterology professor prior to the exam FOLLOW-UP ----- see above. Procedure Note Ayla Lambert MD - 10/11/2020 [facility] T[facility] ----- Pat. Name:Jennifer HUSAIN Date:10/11/2020 3:18pm Pat. NO: [id number] :LARA VIDAL MD Site:[facility]:[id number] :1985Age:35 ----- INDICATION ----- Known or Suspected anomaly umbilical veinvarix Maternal Fibroids left lateral CODING ----- Diagnoses O35.8XX0: Maternal care for suspected fetalabnormality. Unspecified Fetus O34.13: Maternal care for benign tumor of corpusuteri Z3A.29: Weeks Gestation of Procedures 80105: OB follow-up/Target per fetus HISTORY ----- OB History 2. Para 1 MATERNAL ASSESSMENT ----- Physical Exam Weight 72 kg. BMI 25.66 kg/m? METHOD ----- Transabdominal ultrasound examination ----- Hamilton . Number of fetuses: 1 DATING ----- LMP on:03/21/2020 Cycle:regular cycle GA by LMP29 w + 1 d JAMEEL by LMP:12/26/2020 Method of dating:Restore dating from previous exam Assigned:Dating performed on 08/02/2020, based on the LMP Assigned GA29 w + 1 d Assigned JAMEEL:12/26/2020 GENERAL EVALUATION ----- Cardiac activity present. FHR 148 bpm. movements: present.Presentation: cephalic Placenta: Placental site: anterior Umbilical cord: Cord vessels: 3 vessel cord. Insertion site: placentalinsertion: normal Amniotic fluid: Amount of AF: normal amount. MVP 8.5 cm. FRIDA 27.9 cm. Q16.9 cm, Q2 8.5 cm, Q3 5.2 cm, Q4 7.3 cm ANATOMY ----- The following structures appear normal: Heart / Thorax Cardiac rhythm. Abdomen Stomach. Kidneys. Bladder. sex: male. umbilical vein varix : 1.30 cm COMMENT ----- Patient's name and date of were verified by the gastroenterology professor prior tothe exam FOLLOW-UP ----- see above. IMPRESSION ----- Hamilton intrauterine with positive cardiac activity. The fetus is in a cephalic presentation. The amniotic fluid volume is mildly increased with an amniotic fluid indexof 27.9 cm and a maximum vertical pocket of 8.5 cm. The etiology and clinical significance of this finding is unclear at thistime. The previously identified umbilical vein varix measuring approximately 1.3cm. It is challenging to definitively determine whether or not this is a change. There are interobserver variation in themeasurement of sonographic parameters. This is likely within the interobserver variation. The appearance is essentiallyunchanged from the previous sonogram. Laminar flow is identified. Discussion: The sonographic findings were reviewed with the patient and her partner.At this time, I have explained that the umbilical vein varix is essentially unchanged. The patient's questions were addressed. Atthis time, this finding is stable. The unknowns regarding an umbilical vein varix were reviewed with thepatient and her today. I have also explained to the patient that the amniotic fluid volume doesappear to be mildly increased today. The etiology and clinical significance is unclear. An umbilical vein varix is not usuallyassociated with polyhydramnios. The patient did have a glucose screening test which returned within normal limits. A follow-up sonogram is suggested in approximately 2 weeks to reassessfetal growth and reassess the amniotic fluid volume as well as the umbilical vein varix. At that time, further recommendationsmay follow. Precautions and warnings were reviewed with the patient. Patient verbalized understanding and is amenable to this plan. Recommendations: 1. Consider a follow-up in approximately 2 weeks to reassess growth,reassess the amniotic fluid volume, and reassess the umbilical vein varix. Eduardo Kern MD US ORDERABLES documented in this encounter Visit Diagnoses Diagnosis complicated by umbilical cord varix, antepartum Fibroid Leiomyoma of uterus, unspecified documented in this encounter
--- OUTSIDE RECORDS SUMMARY | 2024-06-09 02:43 | XMS_ITS | Encounter Summary ---
Author Organization [facility] Address [address] [place]: Epic Prelude ADT RON[place]ZMAN [address] Care Team Providers Care Casino Floor Runner Name Role Phone Unavailable Primary Care Provider Unavailabl e Encounter Details Date Type Department Care Team (Latest Contact Info) Description 09/27/2020 Travel Social History Tobacco Use Types Packs/Day [...] have Coronavirus / COVID-19? No / Unsure 09/27/2020 9:57 AM CDT documented as of this encounter Plan of Treatment Not on file documented as of this encounter Visit Diagnoses Not on filedocumented in this encounter
--- OUTSIDE RECORDS SUMMARY | 2024-06-09 02:43 | XMS_ITS | Encounter Summary ---
Author Organization [facility] Address [address] [place] [address] Care Team Providers Care Research Chef Name Role Phone Unavailable Primary Care Provider Unavailabl e Reason for Visit * Auth/Cert Specialty Diagnoses / Procedures Referred By Contac t Referred To Contact Obstetrics Diagnoses EDC: 12/21/20 Primary Breech Cord verix MFM Recommendation Procedures SECTION Stlo Mother Baby 5c [address] [place] [address] Referral ID Status Reason Start Date Expiration Date Visits Re quested Visits Authorized [id number] 1 1 Encounter Details Date Type Department Care Team (Late st Contact Info) Description 12/01/2020 2:11 PM CDT Anesthesia Event [facility] Labor & [address] [place] [address] Heraclio Dupree DO [address] [facility] [address] [place] [address] Anesthesia Record Procedure Summary Procedure Name Responsible Anesthesiologist Anesthesia Start Time Anesthesia Stop Time SECTION (Abdomen) Heraclio Dupree DO 12/01/20 1411 12/01/20 1525 Events Date Time Event Comment 12/01/2020 1334 1410 In Room This event disp lays the In Room time documented in the Surgical Log. Deleting this event will not remove it from the log but will remove it from the Grid and Graph timeline. 1411 An Start 1413 AN Equip Check Anesthesia eq uipment and materials checked in accordance with local policy. 1413 An Start Data 1415 Pre-Induction Immediate pre- induction anesthetic assessment performed. Vital signs as noted on graphic. 1416 Rapid Seq Induction 1423 Anesthesia Ready 1423 Patient Comfortable 1423 Quick Note Bilateral anest hesia block up to T4 level 1427 Procedure Start This event d isplays the Procedure Start time documented in the Surgical Log. Deleting this event will not remove it from the log but will remove it from the Grid and Graph timeline. 1428 an jona now Delivery of via ble baby boy 1512 Procedure Stop This event di splays the Procedure Stop time documented in the Surgical Log. Deleting this event will not remove it from the log but will remove it from the Grid and Graph timeline. 1520 an stop data 1521 Out of Room This event disp lays the Out of Room time documented in the Surgical Log. Deleting this event will not remove it from the log but will remove it from the Grid and Graph timeline. 1525 An Stop Meds Name Total famotidine (pf) (PEPCID) 20 mg/2 mL inje ction 20 mg ondansetron (ZOFRAN) 4??mg/2 mL injectio n 4 mg bupivacaine 0.75% in dextros e 8.25% PF (MARCAINE SPINAL) injection solution 1.6 mL phenylephrine (AMRITA-SYNEPHRIN E) 20 mg/250 mL in 0.9% sodium chloride infusion (INTRA-OP USE ONLY) 1,821.18 mcg morphine PF (ASTRAMORPH,DURAMORPH) 1 mg/ mL injection 0.15 mg 150 mcg fentaNYL PF (SUBLIMAZE) 15 mcg/0.3 mL sy ringe 15 mcg 15 mcg ketorolac (TORADOL) injection 30 mg 30 m g oxytocin (PITOCIN) 10 Units in sodium ch loride PF 0.9 % 9 mL solution 6 Units lactated ringers infusion 1,000 mL oxytocin in sodium chloride 0.9 % (PITOCIN) 20 units in 1,000 mL infusion 0 mL * Agents Name O2 Inspired O2 N2O Inspired N2O * Blood No blood administrations on file. Lines, Drains, and Airways Type Details Placement Removal Peripheral IV Pre-Hospital Start: No; Orientation: Right; Location: Arm; Needle Length: 1.25 in length; Insertion Attempts: 2; Patient Tolerance: tolerated well; Removal Indication: no longer indicated 12/01/20 1243 by Shaila Avlarez RN 12/02/20 1455 by Ivory Holcomb RN Indwelling Urethral Catheter 12/01/20; 1415; Indwelling double lumen catheter; 16 Fr; inserted; 1; 12/02/20; 0630 12/01/20 1415 by Katelyn Garland RN 12/02/20 0630 by Dania Benavides RN Incision 12/01/20; 1507; surgical incision; Bilateral; abdomen; 12/06/20; 0222 12/01/20 1507 by Katelyn Garland RN 12/06/20 0222 by PROVIDER, DISCHARGE PATIENT documented in this encounter Social History Tobacco Use Types Packs/Day Years [...] PM CDT documented as of this encounter OR Notes * Anesthesia Postprocedure Evaluation - Heraclio Dupree DO - 12/01/2020 5:38 PM CDT Pain Ratin Anesthesia Post Evaluation Patient location during evaluation: OB Patient participation: patient was able to participate in the post op evaluation Level of consciousness: 0 = alert, responsive, answers simple questions appropriately, able to perform simple tasks Pain management: adequate Multimodal analgesia pain management approach Airway patency: patent Nausea or Vomiting: none Anesthetic complications: no Cardiovascular status: regular rate and rhythm Respiratory status: no respiratory symptoms Hydration status: well hydrated Comments: Jacqui Modified Cassandra Score: Score: 19 (12/01/20 1730) Heraclio Dupree DO * Anesthesia Handoff - Yeyo Talbot DO - 12/01/2020 3:30 PM CDT Post-Anesthetic transfer of care report elements to appropriate post-anesthesia recovery environment completed in accordance with procedure. I completed my handoff to the receiving nurse during which we: 1. Identified the patient 2. Identified the responsible provider 3. Reviewed the pertinent medical history 4. Discussed the surgical course 5. Reviewed intra-op anesthesia management and issues during anesthesia 6. Set expectations for post-procedure period 7. Orders as necessary and appropriate for continuation of care are present in Epic. 8. Allowed opportunity for questions and acknowledgement of understanding. Vital Signs: BP: 113/82 (12/01/2020 12:23 PM) Temp: 36.6 ??C (12/01/2020 12:27 PM) Resp: 16 (12/01/2020 12:27 PM) 3:30 PM Yeyo Talbot DO * Anesthesia Procedure Notes - Shila Baker CRNA - 12/01/2020 2:47 PM CDT Associated Order(s): Spinal Block Spinal Block Patient location during procedure: OR Reason for block: primary anesthetic Staffing Performed by: Shila Baker CRNA Preanesthetic Checklist Completed: patient identified, IV checked, risks and benefits discussed, surgical consent, monitorsand equipment checked, pre-op evaluation and timeout performed Spinal Hand hygiene performed prior to procedure Patient was prepped and draped in usual sterile fashion Time out performed Mask worn Patient position: Sitting Prep: Betadine and site prepped and draped Local Anesthetic: Lidocaine 1% without epinephrine Patient monitoring: Continuous pulse oximetry, Heart rate and Non-invasive blood pressure Approach: Midline Location: L3-4 Injection Technique: Single-shot Number of Attempts: 1 Spinal Needle Needle type: Pencil-tip Needle gauge: 25 G Needle length: 10 cmCSF visualized Assessment Sensory Level: T5 Events: easy and well tolerated * Anesthesia Preprocedure Evaluation - Heraclio Dupree DO - 12/01/2020 1:21 PM CDT Relevant Problems No relevant active problems Anesthesia Evaluation Patient summary reviewed Airway Mallampati: II TM distance: >3 FB Neck ROM: full Dental - normal exam Pulmonary - negative ROS and normal exam breath sounds clear to auscultation (-) sleep apnea Cardiovascular - negative ROS and normal exam Rhythm: regular Rate: normal Neuro/Psych - negative ROS GI/Hepatic/Renal - negative ROS Endo/Other - negative ROS Abdominal Anesthesia History Anesthesia Plan ASA Final: 2 Spinal N/A induction NPO status > 6 hours Anesthetic plan and risks discussed with Patient and Spouse. Plan discussed with Nurse Community Facilitator and Resident. Post-op Pain Control Plan to use Block for post-op pain control. Spinal Plan for postoperative opioid use (Duramorph) Smoking Compliance Patient did not smoke on day of surgery assessment indications: unstable lie, para: Gestational age: 37w1d Temp: 36.6 ??C (12/01/201226) Temp src: Oral (12/01/201226) Pertinent interval changes in the patient's history or review of systems: None Recommendations: GI prophylaxis Choice of Anesthesia/Anesthesia Plan: Regional Postop pain management discussed History reviewed, patient seen and examined prior to induction of anesthesia. Regional anesthesia and general anesthesia if circumstances warrant discussed, including risks, benefits, and alternatives. Questions solicited and answered. Patient understands and wishes to proceed. documented in this encounter Plan of Treatment Not on file documented as of this encounter Procedures Procedure Name Priority Date/Time Associated Diagnosis Comments CA ANESTHESIA BLOCK PB PLACEHOLDER CHARGE Routine 12/01/2020 2:47 PM CDT documented in this encounter Results * CA ANESTHESIA BLOCK PB PLACEHOLDER CHARGE (12/01/2020 2:47 PM CDT) Narrative Shila Baker CRNA - 12/01/2020 2:47 PM CDT Shila Baker CRNA ? 12/01/2020 ??2:47 PM Spinal Block Patient location during procedure: OR Reason for block: primary anesthetic Staffing Performed by: Shila Baker CRNA ?? Preanesthetic Checklist Completed: patient identified, IV checked, risks and benefits discussed, surgical consent, monitors and equipment checked, pre-op evaluation and timeout performed Spinal Hand hygiene performed prior to procedure Patient was prepped and draped in usual sterile fashion Time out performed Mask worn Patient position: Sitting Prep: Betadine and site prepped and draped Local Anesthetic: Lidocaine 1% without epinephrine Patient monitoring: Continuous pulse oximetry, Heart rate and Non-invasive blood pressure Approach: Midline Location: L3-4 Injection Technique: Single-shot Number of Attempts: 1 Spinal Needle Needle type: Pencil-tip Needle gauge: 25 G Needle length: 10 cmCSF visualized Assessment Sensory Level: T5 Events: easy and well tolerated Heraclio Dupree DO PROCEDURE/MINOR SURG ICAL ORDERABLES documented in this encounter Visit Diagnoses Not on filedocumented in this encounter Administered Medications Inactive Administered Medications - up to 3 most recent administrations Medication Order MAR Action Action Date Dose Rate Site bupivacaine-dextrose (PF) (MARCAINE SPINAL, SENSORCAINE-MPF) injection IntraTHEcal, INTRA-PROCEDURE PRN, Starting on Sun12/01/20 at 1416, Until Sun12/01/20 at 1838, Routine, Anesthesia Intra-op Given 12/01/2020 2:16 PM CDT 1.6 mL famotidine PF (PEPCID) 20 mg/2 mL injection IV, INTRA-PROCEDURE PRN, Starting on Sun12/01/20 at 1351, Until Sun12/01/20 at 1838, Routine, Anesthesia Intra-op Given 12/01/2020 1:51 PM CDT 20 mg fentaNYL PF (SUBLIMAZE) 15 mcg/0.3 mL syringe 15 mcg 15 mcg, See Admin Instructions, INTRA-PROCEDURE ONCE, 1 dose, Starting on Sun12/01/20 at 1350, Until Sun12/01/20 at 1416, Routine Given 12/01/2020 2:16 PM CDT 15 mcg ketorolac (TORADOL) injection 30 mg 30 mg, IV, ONE TIME ONLY, 1 dose, On Sun12/01/20 at 1400, Routine, (OB POST-OP PAIN SERVICE) Given 12/01/2020 3:03 PM CDT 30 mg lactated ringers infusion IV, at 125 mL/hr, PRE-PROCEDURE CONTINUOUS, Starting on Sun12/01/20 at 1230, Until Sun12/01/20 at 1536, Routine, Pre-op Continue from Pre-Op 12/01/2020 2:11 PM CDT 125 mL/hr New Bag 12/01/2020 12:45 PM CDT 125 mL/hr morphine PF (ASTRAMORPH,DURAMORPH) 1 mg/mL injection 0.15 mg 0.15 mg (150 mcg), IntraTHEcal, INTRA-PROCEDURE ONCE, 1 dose, Starting on Sun12/01/20 at 1350, Until Sun12/01/20 at 1416, Routine Given 12/01/2020 2:16 PM CDT 150 mcg ondansetron (ZOFRAN) 4 mg/2 mL injection IV, INTRA-PROCEDURE PRN, Starting on Sun12/01/20 at 1351, Until Sun12/01/20 at 1838, Routine, Anesthesia Intra-op Given 12/01/2020 1:51 PM CDT 4 mg oxytocin (PITOCIN) 10 Units in sodium chloride PF 0.9 % 9 mL solution IV, INTRA-PROCEDURE CONTINUOUS PRN, Starting on Sun12/01/20 at 1429, Until Sun12/01/20 at 1806, Routine, Anesthesia Intra-op Bolus 12/01/2020 2:33 PM CDT 3 Units New Bag 12/01/2020 2:29 PM CDT 3 Units oxytocin in sodium chloride 0.9 % (PITOCIN) 20 units in 1,000 mL infusion IV, at 500 mL/hr, CONTINUOUS, Starting on Sun12/01/20 at 1400, Until Sun12/01/20 at 1536, Routine Rate Change 12/01/2020 3:17 PM CDT 400 mL/hr New Bag 12/01/2020 2:29 PM CDT 500 mL/hr phenylephrine (AMRITA-SYNEPHRINE) 20 mg/250 mL in 0.9% sodium chloride infusion (INTRA-OP USE ONLY) 0-0.1 mcg/kg/min ? 76.2 kg (0-5.715 mL/hr, rounded to 0-5.7 mL/hr), IV, INTRA-PROCEDURE CONTINUOUS, Starting on Sun12/01/20 at 1400, Until Sun12/01/20 at 1536 Rate Change 12/01/2020 2:55 PM CDT 0.1 mcg/kg/min 5.715 mL/hr Rate Change 12/01/2020 2:52 PM CDT 0.2 mcg/kg/min 11.43 mL /hr Rate Change 12/01/2020 2:46 PM CDT 0.3 mcg/kg/min 17.145 m L/hr documented in this encounter
--- OUTSIDE RECORDS SUMMARY | 2024-06-09 02:43 | XMS_ITS | Encounter Summary ---
Author Organization [facility] Address 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 Procedures US OB LIMITED + NST SC NON-STRESS TEST CHG US, UTERUS,LIMITED, 1/> FETUSES Gifty Medrano MD [address] [facility] [place] [address] Referral ID Status Reason Start Date Expiration Date Visits Re quested Visits Authorized [id number] Closed 10/26/2020 11/26/2021 1 1 Reason for Visit * Auth/Cert Specialty Diagnoses / Procedures Referred By Contac t Referred To Contact Radiology [facility] Maternal [facility] Ground Fl [address] [place] [address] Referral ID Status Reason Start Date Expiration Date Visits Re quested Visits Authorized [id number] 1 1 Encounter Details Date Type Department Care Team (Latest Contact Info) Description 11/18/2020 12:57 PM CDT - 11/18/2020 11:59 PM CDT Hospital Encounter [facility] Maternal and Ground Floor [address] [facility] [address] [place] [address] Gifty Medrano MD [address] [facility] [address] [place] [address] Discharge Disposition: Home or Self Care Social [...] Priority Date/Time Associated Diagnosis Comments US OB LIMITED + NST Routine 11/18/2020 2 :41 PM CDT 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 -NST reactive. Continue current surveillance plan. Thank you for allowing us to participate in the care of this patient. Narrative 11/18/2020 2:44 PM CDT MODIFIED BPP STUDY ----- Pat. Name: SHERYL KIM Study Date: 11/18/2020 1:10pm Pat. NO: [id number] Referring ??MD: LARA VIDAL MD Site: [facility] Card Stripper: : 1985 Age: 35 ----- INDICATION ----- Known or Suspected anomaly ? Umbilical vein varix Fibroids Large for Dates CODING ----- Diagnoses ? O35.8XX0: Maternal care for suspected abnormality. Unspecified Fetus ?O34.13: Maternal care for benign tumor of corpus uteri ?O36.63X0: Maternal care for excessive growth. Unspecified Fetus ?Z3A.34: Weeks Gestation of Procedures ?50635: NST/ monitoring ?10932: Limited 1 or more - FRIDA, FHR, position (modifier 59 for MBPP) HISTORY ----- OB History ? 2. Para 1 MATERNAL ASSESSMENT ----- Physical Exam ? Weight 73 kg. Blood pressure 111/72 mmHg. Heart rate 110 bpm METHOD ----- EFM, Transabdominal ultrasound examination. View: Good view ----- [place] . Number of fetuses: 1 DATING ----- LMP on: 03/21/2020 Cycle: regular cycle, regular cycle GA by LMP 34 w + 4 d JAMEEL by LMP: 12/26/2020 GA by prior assessment 34 w + 4 d JAMEEL by prior assessment: 12/26/2020 Method of dating: Restore dating from previous exam Assigned: based on stated JAMEEL, selected on 11/15/2020 Assigned GA 34 w + 4 d Assigned JAMEEL: 12/26/2020 GENERAL EVALUATION ----- Cardiac activity present. movements: visualized. Presentation: cephalic NON STRESS TEST ----- NST interpretation: reactive. Test duration 30 min. Baseline FHR 135 bpm. Baseline variability: moderate. Accelerations: Present. Decelerations: absent. Uterine activity: absent AMNIOTIC FLUID ASSESSMENT ----- MVP 4.5 cm. FRIDA 14.8 cm. Q1 4.5 cm, Q2 4.2 cm, Q3 4.1 cm, Q4 1.9 cm COMMENT ----- Nursing notes: Reports positive movement. Denies feeling contractions, leaking of fluid or vaginal bleeding. NST reviewed per Dr. Jovel. Patient scheduled twice weekly. Procedure Note Nuzhat Jovel MD - 11/18/2020 MODIFIED BPP STUDY ----- Pat. Name:Jennifer KIM Date:11/18/2020 1:10pm Pat. NO: [id number] MD:LARA VIDAL [facility]1985Age:35 ----- INDICATION ----- Known or Suspected anomaly Umbilical veinvarix Fibroids Large for Dates CODING ----- Diagnoses O35.8XX0: Maternal care for suspected fetalabnormality. Unspecified Fetus O34.13: Maternal care for benign tumor of corpusuteri O36.63X0: Maternal care for excessive fetalgrowth. Unspecified Fetus Z3A.34: Weeks Gestation of Procedures 75877: NST/ monitoring 55694: Limited 1 or more - FRIDA, FHR, position(modifier 59 for MBPP) HISTORY ----- OB History 2. Para 1 MATERNAL ASSESSMENT ----- Physical Exam Weight 73 kg. Blood pressure 111/72 mmHg. Heartrate 110 bpm METHOD ----- EFM, Transabdominal ultrasound examination. View: Good view ----- [place] . Number of fetuses: 1 DATING ----- LMP on:03/21/2020 Cycle:regular cycle, regular cycle GA by LMP34 w + 4 d JAMEEL by LMP:12/26/2020 GA by prior [id number] w + 4 d JAMEEL by prior assessment:12/26/2020 Method of dating:Restore dating from previous exam Assigned:based on stated JAMEEL, selected on 11/15/2020 Assigned GA34 w + 4 d Assigned JAMEEL:12/26/2020 GENERAL EVALUATION ----- Cardiac activity present. movements: visualized. Presentation:cephalic NON STRESS TEST ----- NST interpretation: reactive. Test duration 30 min. Baseline FHR 135 bpm.Baseline variability: moderate. Accelerations: Present. Decelerations: absent. Uterine activity: absent AMNIOTIC FLUID ASSESSMENT ----- MVP 4.5 cm. FRIDA 14.8 cm. Q1 4.5 cm, Q2 4.2 cm, Q3 4.1 cm, Q4 1.9 cm COMMENT ----- Nursing notes: Reports positive movement. Denies feelingcontractions, leaking of fluid or vaginal bleeding. NST reviewed per Dr. Jovel. Patient scheduled twice weekly. IMPRESSION ----- -Amniotic fluid volume is normal for gestational age. -NST reactive. Continue current surveillance plan. Thank you for allowing us to participate in the care of this patient. 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
--- OUTSIDE RECORDS SUMMARY | 2024-06-09 02:43 | XMS_ITS | Encounter Summary ---
Author Organization [facility] Address [address] [place] [address] Care Team Providers Care Hospital Fellow Name Role Phone Unavailable Primary Care Provider Unavailabl e Reason for Visit * Reason Comments Post- Care Del:12/01/2020, C-se ction, 3Weeks PP Encounter Details Date Type Department Care Team (Late st Contact Info) Description 12/21/2020 10:45 AM CDT Office Visit [facility] LITIGATION LEGAL SECRETARY - [address] [facility] [address] [address] Izabella Juarez MD NO ADDRESS ON FILE care following delivery (Primary Dx) Social History Tobacco Use Types [...] have Coronavirus / COVID-19? No / Unsure 12/21/2020 10:51 AM CDT documented as of this encounter Last Filed Vital Signs Vital Sign Reading Time Taken Comments Blood Pressure 105/71 12/21/2020 10:54 AM CDT Pulse - - Temperature - - Respiratory Rate - - Oxygen Saturation - - Inhaled Oxygen Concentration - - Weight 66.7 kg (147 lb) 12/21/2020 10:54 AM CDT Height 167.6 cm (5' 6 ) 12/21/2020 10:54 AM CDT Body Mass Index 23.73 12/21/2020 10:54 AM CDT documented in this encounter Progress Notes * Izabella Juarez MD - 12/21/2020 11:21 AM CDT Chief Complaint: section incision inspection Subjective: Bushra Kim is a 35 y.o. who delivered by section 2 week(s) ago. Patient has been doing well and presents today for inspection of her incision. Denies drainage, erythema at incision site, or fevers. Overall recovering well. She does have some sharp pains when trying to have a bowel movement. Sometimes a poking pain at left corner. Physical Exam: BP 105/71 Ht 5' 6 (1.676 m) Wt 66.7 kg (147 lb) BMI 23.73 kg/m?? Appears well Abdomen: Soft, non tender, non distended. No rebound or guarding. Incision: Clean, dry, intact. Skin edges well approximated. No erythema, drainage or induration. Assessment and Plan: Patient is a 35 y.o. who is here for 2 week post-op visit 1. Patient recovering well 2. Reviewed instructions. 3. Incision healing well 4. Return to office in 4 weeks for post visit or earlier prn. documented in this encounter Plan of Treatment Not on file documented as of this encounter Visit Diagnoses Diagnosis care following delivery- Primary Routine follow-up documented in this encounter
--- OUTSIDE RECORDS SUMMARY | 2024-06-09 02:43 | XMS_ITS | Encounter Summary ---
Author Organization [facility] Address [address] [place]: Epic Prelude ADT [place]MAN [address] Care Team Providers Care Issue Clerk Name Role Phone Unavailable Primary Care Provider Unavailabl e Encounter Details Date Type Department Care Team (Latest Contact Info) Description 10/26/2020 Travel Social History Tobacco Use Types Packs/Day [...]
--- OUTSIDE RECORDS SUMMARY | 2024-06-09 02:43 | XMS_ITS | Encounter Summary ---
Author Organization [facility] Address [address] [place] [address] Care Team Providers Care Mental Health Professional Name Role Phone Unavailable Primary Care Provider Unavailabl e Reason for Visit * Reason Onset Date Comments Results 08/05/2020 lab work Encounter Details Date Type Department Care Team (Late st Contact Info) Description 08/05/2020 Telephone [facility] PSYCHIATRIC CLINICIAN - [address] [facility] [address] [facility] [address] [id number] Izabella Juarez MD NO ADDRESS ON FILE Results (lab work) Social History Tobacco Use Types Packs/Day Years [...] have Coronavirus / COVID-19? No / Unsure 08/02/2020 10:37 AM FOLDER OPERATOR documented as of this encounter Miscellaneous Notes * Telephone Encounter - Devi Argueta RN - 08/05/2020 9:43 AM FOLDER OPERATOR ----- Message from Izabella Juarez MD sent at 08/04/2020 4:20 PM FOLDER OPERATOR ----- Notify int ob labs show that she's O neg, so she should receive rhogam (explain). Also, she's mildly anemic, so she should start slowfe one daily. LM Pt advised. States she takes one daily already. Advised to start BID with stool softener. ER OPERATOR documented in this encounter Plan of Treatment Not on file documented as of this encounter Visit Diagnoses Not on filedocumented in this encounter
--- OUTSIDE RECORDS SUMMARY | 2024-06-09 02:43 | XMS_ITS | Encounter Summary ---
Author Organization [facility] Address [address] [place] [address] Care Team Providers Care Operating Room Surgical Technician Name Role Phone Unavailable Primary Care Provider Unavailabl e Reason for Visit * Auth/Cert Specialty Diagnoses / Procedures Referred By Tad t Referred To Contact Obstetrics Diagnoses blacked out [facility] Ob Triage [address] [place] [address] Referral ID Status Reason Start Date Expiration Date Visits Re quested Visits Authorized [id number] 1 1 Encounter Details Date Type Department Care Team (Latest Contact Info) Description 10/23/2020 1:17 PM CDT - 10/23/2020 5:10 PM CDT Hospital Encounter [facility] OB Triage [address] [place] [address] Izabella Juarez MD NO ADDRESS ON FILE Discharge Disposition: Home or Self Care Social [...] Sign Reading Time Taken Comments Blood Pressure 111/69 10/23/2020 1:38 PM CDT Pulse 82 10/23/2020 1:23 PM CDT Temperature 36.4 ??C (97.6 ??F) 10/23/2020 1:23 PM CD T Respiratory Rate 16 10/23/2020 1:23 PM CDT Oxygen Saturation - - Inhaled Oxygen Concentration - - Weight 73 kg (161 lb) 10/23/2020 1:23 PM CDT Height 167.6 cm (5' 6 ) 10/23/2020 1:23 PM CDT Body Mass Index 25.99 10/23/2020 1:23 PM CDT documented in this encounter Medications at Time [...] daily. 12/05/2020 documented as of this encounter Progress Notes * Rita Horne RN - 10/23/2020 5:[address] Weiss, Patient transferred to ED. * Rita Horne RN - 10/23/2020 3:37 PM CDT 12 lead ekg ordered * Rita Horne RN - 10/23/2020 3:[address] Weiss took patient off monitor. Okay to keep patient off. * Rita Horne RN - 10/23/2020 2:19 PM CDT Continuing to adjust monitors. * Rita Horne RN - 10/23/2020 1:51 PM CDT Patient reports to OB Triage with the complaint of dizzy, black out spells that happened twice thismorning. Patient feeling like baby is moving less. When these spells happen, her face gets hot, arms and head get heavy, and things go black for a second per the patient. Paged Dr. Weiss. Orders received. documented in this encounter H&P Notes * Anyi Weiss MD - 10/23/2020 4:03 PM CDT OB History & Physical CC: possible syncopal episode HPI: Sheryl Kim is a 35 y.o. @ 31w4d who presents after having both a near-syncopal episode at home and a syncopal episode. She reports that on two occasions this AM she felt her arms get numb, her face get flushed, and her vision change. She did not lose consciousness the first time,but thinks she may have lost consciousness for 5 seconds or so on the second time. She had been up to the restroom, noticed the symptoms, and made it back to bed before this occurred. She did not have any trauma or falls. She does also report a headache, which has been unimproved by Tylenol during this admission. It is not the worst headache she has ever had. It came on immediately after the possible syncopal episode. She reports good movement, denies leakage of fluid, contractions or vaginal bleeding. Her has been uncomplicated. Her primary OB is Izabella Juarez MD. ROS: As above. Denies fever, nausea, vomiting, chest pain, or shortness of breath. 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 Denies STIs. PMHx: Denies PSHx: Breast augmentation FHx: Negative for genetic tendencies, frequent miscarriage or bleeding disorders SHx: Denies tobacco, alcohol, or illicit drug use Medications: PNV Vit D Fe bASA No Known Allergies Physical Exam: Vitals: 10/23/20 1323 10/23/20 1327 10/23/20 1338 BP: 120/64 114/66 111/69 Pulse: 82 Resp: 16 Temp: 97.6 ??F (36.4 ??C) TempSrc: Oral Weight: 73 kg (161 lb) Height: 5' 6 (1.676 m) General: Well-developed, well-nourished female in NAD HEENT: NCAT, moist mucus membranes Heart: RRR, no murmurs/rubs/gallops Lungs: CTAB Abdomen: Gravid, NT Extremities: No clubbing, cyanosis, or edema. No calf tenderness. Moving all extremities with equalstrength and sensation. Assessment: FHR: 140, mod variability, +accels, no decels Darden: quiet Bedside US: vtx, 1966g (66%), ant placenta, DVP 7.3 cm Recent Labs 10/23/20 1406 WBC 11.1* HGB 11.3* HCT 34.7* PLT 283 NA 134* K 3.8 CREAT 0.59 AST 15 ALT 10 URICACID 5.0 LD 164 P/C 0.12 UA with 2+ LE Assessment/Plan: 35 y.o. @ 31w4d with possible syncopal versus near syncopal episode 1. Syncope versus near syncope - Afebrile, VSS - Exam unremarkable, no evidence of neuro deficit or arrhythmia - Labs as above, unremarkable - EKG preliminary read: normal sinus, consider anterior infarct - CASILLAS unresolved with Tylenol - Given persistent CASILLAS, possible syncopal episode, and concern for EKG changes, patient advised to go to the ER for further work-up and possible head CT - She agrees to be transported to the ER at this time - We discussed most likely etiology being a vasovagal episode versus an ocular migraine, but patient reports when this has happened in the past, she did not have a headache to follow 2. status: - NST reactive - BSUS: AGA, AFV wnl Discussed with Dr. Paniagua. Given persistent CASILLAS and possible syncopal episode as well as possible EKG changes, orders received to send patient to ER for further evaluation. ER called and madeaware of patient en route. RN to transport. Routine labor/SROM/DFM/VB precautions discussed. Anyi Weiss M.D. PGY-2 OBGYN Resident Pager #: documented in this encounter Miscellaneous Notes * Result Encounter Note - Izabella Juarez MD - 10/27/2020 2:18 PM CDT WNL per Dr. Tafoya who interpreted it in the ED documented in this encounter Plan of Treatment Not on file documented as of this encounter Procedures Procedure Name Priority Date/Time Associated Diagnosis Comments EKG 12-LEAD Stat 10/23/2020 4:09 PM CDT URINALYSIS WITH REFLEX CULTURE Stat 10/23/2020 2:06 PM CDT CBC WITH DIFFERENTIAL Stat 10/23/2020 2:06 PM CDT PROTEIN , RANDOM URINE Stat 2:06 PM CDT URINE CULTURE Routine 10/23/2020 2:06 PM CDT URIC ACID Stat 10/23/2020 2:06 PM CDT LACTATE DEHYDROGENASE Stat 10/23/2020 2:06 PM CDT COMPREHENSIVE METABOLIC PANEL Stat 10/23/2020 2:06 PM CDT documented in this encounter Results * EKG 12-LEAD (10/23/2020 4:09 PM CDT) 10/23/2020 4:09 PM CDT Narrative INTERFACE SYSTEM - 10/23/2020 10:10 PM CDT ? Stationary ECG Study ? [facility] ? Test Date: ?10/23/2020 4:09 PM Pat Name: ? SHERYL KIM ? Department: ?? 45 ?Room: ? 1288 1 Gender: ? 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 earle2 : ?1985 ? Requested By: IZABELLA Velazquez Order Number: [id number] ?Reading MD: ?? Mitul Hardy ? Measurements Intervals ?[place] ? Rate: ? 68 ? P: ?-14 ID: ? [id number] ?QRS: ?-8 QRSD: ? 85 ? T: ?2 QT: ? 379 ? QTc: ?404 ? Interpretive Statements ? Sinus rhythm Low voltage, precordial leads Abnormal R wave across precordium, late transition Electronically Signed On 10-23-2020 22:10:13 CDT by Mitul Hardy Procedure Note Mitul Hardy MD - 10/23/2020 Stationary ECG Study [facility] Test Date: 10/23/2020 4:09 PM Pat Name: SHERYL KIM Department: 45 Room: 1288 1 Gender: F [employer] Club Assembler: avani : 1985 Requested By: IZABELLA Velazquez Order Number: [id number] Reading MD: Mitul Hardy Measurements Intervals [place] Rate: 68 P: -14 ID: [id number] QRS: -8 QRSD: 85 T: 2 QT: 379 QTc: 404 Interpretive Statements Sinus rhythm Low voltage, precordial leads Abnormal R wave across precordium, late transition Electronically Signed On 10-23-2020 22:10:13 CDT by Mitul Hardy Izabella Juarez MD ECG ORDERABLES Performing Organization Address City/[facility]/ZIP Co de Phone Number INTERFACE SYSTEM Refer to clinic/hospital department * URINE CULTURE (10/23/2020 2:06 PM CDT) CULTURE No growth at 24 hours 10/24/2020 11:55 AM CDT [facility] Urine URINE SPECIMEN OBTAINED BY CLEAN CATCH PROCEDURE / Unknown Collection / Unknown 10/23/2020 2:06 PM CDT 10/23/2020 2:40 PM CDT Izabella Juarez MD MICROBIOLOGY - GENE RAL ORDERABLES Performing Organization Address [facility] Co de Phone Number [facility] LABORATORY SERVICES [facility] CLKS# [id number] [address] [facility] [place] [address] * (ABNORMAL) URINALYSIS WITH REFLEX CULTURE (10/23/2020 2:06 PM CDT) COLOR UA Yellow Pale to Dark Yellow 10/23/2020 2:41 PM CDT [facility] CLARITY UA Slightly Cloudy(A) Clear 10/23/2020 2:41 PM CDT [facility] SPECIFIC GRAVITY UA 1.013 1.003 - 1.035 10/23/2020 2:41 PM CDT [facility] PH UA 6.0 5.0 - 8.0 10/23/2020 2:41 PM CDT [facility] LEUKOCYTE ESTERASE UA 2+(A) Negative 10/23/2020 2:41 PM CDT [facility] NITRITE UA Negative Negative 10/23/2020 2:41 PM CDT [facility] PROTEIN UA Negative Negative 10/23/2020 2:41 PM CDT [facility] GLUCOSE UA Negative Negative 10/23/2020 2:41 PM CDT [facility] KETONES UA Negative Negative 10/23/2020 2:41 PM CDT [facility] UROBILINOGEN UA Normal <2.0 mg/dL 2:41 PM CDT [facility] BILIRUBIN UA Negative Negative 10/23/2020 2:41 PM CDT [facility] BLOOD UA Negative Negative 10/23/2020 2:41 PM CDT [facility] Comment:Ascorbic acid may ca use false negative results for blood. A microscopic review was reflexed to rule out this interference. WBC UA 11-25(A) 0 - 2 /hpf 10/23/2020 2:41 PM CDT [facility] RBC UA 0-2 0 - 2 /hpf 10/23/2020 2:41 PM CDT [facility] BACTERIA UA 1+(A) Negative /hpf 10/23/2020 2:41 PM CDT [facility] EPITHELIAL CELLS, URINE 6-10(A) 0 - 5 /hpf 10/23/2020 2:41 PM CDT [facility] Ascorbic Acid UA Positive(A) Negative 021 2:41 PM T [facility] Urine URINE SPECIMEN OBTAINED BY CLEAN CATCH PROCEDURE / Unknown Collection / Unknown 10/23/2020 2:06 PM CDT 10/23/2020 2:14 PM CDT Narrative [facility] - 10/23/2020 2:41 PM CDT Based on results, a urine culture has been reflexed. Izabella Juarez MD URINE ORDERABLES [facility] CLIA# [id number] [address] [facility] [place] [address] * PROTEIN/CREATININE RATIO, URINE (10/23/2020 2:06 PM CDT) PROTEIN CONCENTRATION 11 0 - 20 mg/dL 10/23/2020 2:51 PM CDT [facility] LABORATORY [facility] CREATININE, URINE 91.4 29.0 - 226.0 mg/dL 10/23/2020 2:51 PM CDT [facility] Comment:Reference Range vari es with fluid intake and diet. PROTEIN/CREAT RATIO, URINE 0.12 0.00 - 0.19 mg/mg Creatinine 10/23/2020 2:51 PM CDT [facility] Urine URINE SPECIMEN OBTAINED BY CLEAN CATCH PROCEDURE / Unknown Collection / Unknown 10/23/2020 2:06 PM CDT 10/23/2020 2:14 PM CDT Narrative [facility] - 10/23/2020 2:51 PM CDT The ACOG 2013 Guidelines recommend using a cutoff of >/= 0.30 protein/creatinine ratio for the diagnosis and management of preeclampsia. Izabella Juarez MD [facility]INE [facility]ABLES [id number] [address] [place] [address] * LACTATE DEHYDROGENASE (10/23/2020 2:06 PM CDT) Pathologist [facility] LD (LACTATE DEHYDROGENASE) 164 135 - 214 U/L 10/23/2020 3:20 PM CDT [facility] Blood Venipuncture / Unknown 10/23/2020 2:06 PM CDT 10/23/2020 2:14 PM CDT Izabella Juarez MD CHEMISTRY ORDERABLE S [facility] [id number] [address] [place] [address] * URIC ACID (10/23/2020 2:06 PM CDT) Pathologist [facility] URIC ACID 5.0 2.4 - 5.7 mg/dL 10/23/2020 3:18 PM CDT [facility] - [facility] Blood Venipuncture / Unknown 10/23/2020 2:06 PM CDT 10/23/2020 2:14 PM CDT Izabella Juarez MD CHEMISTRY ORDERABLE S [facility] - [facility] CLIA# [id number] [address] [facility] [place] [address] * (ABNORMAL) COMPREHENSIVE METABOLIC PANEL (10/23/2020 2:06 PM CDT) SODIUM 134(L) 136 - 145 mmol/L 10/23/2020 3:18 PM CDT [facility] - [facility] POTASSIUM 3.8 3.5 - 5.0 mmol/L 10/23/2020 3:18 PM CDT [facility] CHLORIDE 101 98 - 107 mmol/L 10/23/2020 3:18 PM CDT [facility] CO2 22 22 - 29 mmol/L 10/23/2020 3:18 PM CDT [facility] CALCIUM 9.3 8.6 - 10.2 mg/dL 10/23/2020 3:18 PM CDT [facility] - [facility] BUN 9 6 - 20 mg/dL 10/23/2020 3:18 PM CDT [facility] CREATININE 0.59 0.51 - 0.95 mg/dL 10/23/2020 3:18 PM CDT [facility] GLUCOSE 103(H) 74 - 99 mg/dL 10/23/2020 3:18 PM CDT [facility] TOTAL PROTEIN 6.1(L) 6.7 - 8.6 g/dL 10/23/2020 3:18 PM CDT [facility] ALBUMIN 3.5 3.5 - 5.2 g/dL 10/23/2020 3:18 PM CDT [facility] BILIRUBIN TOTAL 0.7 0.3 - 1.2 mg/dL 10/23/2020 3:18 PM CDT [facility] LABORATORY [facility] ALKALINE PHOSPHATASE 100 35 - 104 U/L 10/23/2020 3:18 PM CDT [facility] LAB[facility] AST 15 <33 U/L 10/23/2020 3:18 PM CDT [facility] ALT 10 <34 U/L 10/23/2020 3:18 PM CDT [facility] GFR >60 mL/min/1.7 3 sq meter 10/23/2020 3:18 PM CDT [facility] Comment: eGFR has not been validated for use in the elderly (> 70 years of age), women, patients with serious co-morbid conditions, or persons with extremes of body size or muscle mass and should also be interpreted with caution in patients with acute kidney failure, dialysis dependent patients, patients reporting exceptional dietary intake (e.g. vegetarian diet, high protein diets, creatine supplementation), and patients with severe liver disease. Based on National Kidney Disease Education Program If patient is , please refer to the GFR result. GFR, >60 mL/min/1.7 3 sq meter 10/23/2020 3:18 PM CDT [facility] ANION GAP 11 8 - 16 mmol/L 10/23/2020 3:18 PM CDT [facility] Blood Venipuncture / Unknown 10/23/2020 2:06 PM CDT 10/23/2020 2:14 PM CDT Narrative [facility] - 10/23/2020 3:18 PM CDT Samples containing indocyanine green cause interferences on Total and/or Direct Bilirubin and must not be measured. Izabella Juarez MD CHEMISTRY ORDERABLE S [facility] [id number] [address] [facility] [place] [address] * (ABNORMAL) CBC WITH DIFFERENTIAL (10/23/2020 2:06 PM CDT) WBC 11.1(H) 4.0 - 9.8 K/uL 10/23/2020 3:04 PM CDT [facility] RBC 3.83(L) 3.90 - 4.90 M/uL 10/23/2020 3:04 PM CDT [facility] HEMOGLOBIN 11.3(L) 11.8 - 14.8 g/dL 10/23/2020 3:04 PM CDT [facility] HEMATOCRIT 34.7(L) 35.5 - 44.0 % 10/23/2020 3:04 PM CDT [facility] MCV 90.6 82.0 - 99.0 fL 10/23/2020 3:04 PM CDT [facility] MCH 29.5 27.2 - 32.6 pg 10/23/2020 3:04 PM CDT [facility] MCHC 32.6 31.5 - 35.5 g/dL 10/23/2020 3:04 PM CDT [facility] RDW 13.5 11.5 - 14.5 % 10/23/2020 3:04 PM CDT [facility] RDW-STDEV 44.8 37.1 - 48.7 fL 10/23/2020 3:04 PM CDT [facility] PLATELETS 283 140 - 350 K/uL 10/23/2020 3:04 PM CDT [facility] MPV 10.3 9.3 - 12.4 fL 10/23/2020 3:04 PM CDT [facility] NEUTROPHILS 78 % 10/23/2020 3:04 PM CDT [facility] LYMPHOCYTES 11 % 10/23/2020 3:04 PM CDT [facility] MONOCYTES 9 % 10/23/2020 3:04 PM CDT [facility] EOSINOPHILS 1 % 10/23/2020 3:04 PM CDT [facility] BASOPHILS 1 % 10/23/2020 3:04 PM CDT [facility] IMMATURE GRANULOCYTES 2 % 10/23/2020 3:04 PM CDT [facility] Comment:IG (Immature Granulo cyte) count includes Metamyelocytes, Myelocytes, and Promyelocytes NEUTROPHIL ABSOLUTE 8.65(H) 1.90 - 7.00 K/uL 10/23/2020 3:04 PM CDT [facility] LAB[facility] LYMPHOCYTE ABSOLUTE 1.17 0.70 - 4.50 K/uL 10/23/2020 3:04 PM CDT [facility] LABORATORY [facility] MONOCYTE ABSOLUTE 0.97 0.10 - 1.30 K/uL 10/23/2020 3:04 PM CDT [facility] LABORATORY [facility]. [facility] EOSINOPHIL ABSOLUTE 0.06 0.00 - 0.70 K/uL 10/23/2020 3:04 PM CDT [facility] LABORATORY [facility]. [facility] BASOPHILS ABSOLUTE 0.05 0.00 - 0.20 K/uL 10/23/2020 3:04 PM CDT [facility] IMMATURE GRANULOCYTES ABSOLUTE 0.21(H) 0.00 - 0.03 K/uL 10/23/2020 3:04 PM CDT [facility] Blood Venipuncture / Unknown 10/23/2020 2:06 PM CDT 10/23/2020 2:14 PM CDT Izabella Juarez MD HEMATOLOGY ORDERABL ES [facility]# [id number] [facility] [place] [address] documented in this encounter Visit Diagnoses Not on filedocumented in this encounter Administered Medications Inactive Administered Medications - up to 3 most recent administrations Medication Order MAR Action Action Date Dose Rate Site acetaminophen (TYLENOL) tablet 1,000 mg 1,000 mg, Oral, ONE TIME ONLY, 1 dose, On 10/23/20 at 1415, Routine Given 10/23/2020 2:11 PM CDT 1,000 mg documented in this encounter Active and Recently Administered Medications Times are shown in CDT. Scheduled Medication Order 10/21/2020 10/22/2020 10/23/2020 acetaminophen (TYLENOL) tablet 1,000 mg (COMPLETED) 1,000 mg, Oral, ONE TIME ONLY, 1 dose, On 10/23/20 at 1415, Routine 1411 (Given - Provid er: Rita Horne RN) documented in this encounter
--- OUTSIDE RECORDS SUMMARY | 2024-06-09 02:43 | XMS_ITS | Encounter Summary ---
[facility] Organization [facility] Address [address] [place] [address] Care Team Providers Care Public Message Service Supervisor Name Role Phone Unavailable Primary Care Provider Unavailabl e Reason for Visit * Auth/Cert Specialty Diagnoses / Procedures Referred By Contac t Referred To Contact Radiology [facility] Maternal And Hc Ground Fl [address] [place] [address] Referral ID Status Reason Start Date Expiration Date Visits Re quested Visits Authorized [id number] 1 1 Encounter Details Date Type Department Care Team (Latest Contact Info) Description 11/15/2020 2:01 PM CDT - 11/15/2020 11:59 PM CDT Hospital Encounter [facility] Maternal and Ground Floor S [facility] [address] [place] [address] Gifty Medrano MD [address] [facility] [address] [place] [address] Discharge Disposition: Home or Self [...] have Coronavirus / COVID-19? 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 Overall the nonstress test is reassuring. A biophysical profile was ordered. Please see that report under separate cover for review the findings and any further recommendations. Recommendations: Continue surveillance as clinically indicated for this patient's comorbidities. Narrative 11/15/2020 3:[address] [facility] NST ----- Pat. Name: SHERYL KIM Study Date: 11/15/2020 2:27pm Pat. 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 O35.8XX0: Maternal care for suspected abnormality. Unspecified Fetus ?O34.13: Maternal care for benign tumor of corpus uteri ?Z3A.34: Weeks Gestation of ?O36.63X0: Maternal care for excessive growth. Unspecified Fetus Procedures ?17867: NST/ monitoring HISTORY ----- OB History ? 2. Para 1 MATERNAL ASSESSMENT ----- Physical Exam ? Blood pressure 109/64 mmHg. Heart rate 81 bpm METHOD ----- EFM. ----- [place] . Number of fetuses: 1 DATING ----- LMP on: 03/21/2020 Cycle: regular cycle, regular cycle GA by LMP 34 w + 1 d JAMEEL by LMP: 12/26/2020 Method of dating: based on stated JAMEEL GA by prior assessment 34 w + 1 d JAMEEL by prior assessment: 12/26/2020 Assigned: based on stated JAMEEL, selected on 11/15/2020 Assigned GA 34 w + 1 d Assigned JAMEEL: 12/26/2020 NON STRESS TEST ----- NST interpretation: non-reactive. Test duration 28 min. Baseline FHR 130 bpm. Baseline variability: moderate. Accelerations: Absent. Decelerations: absent. Uterine activity: absent ANATOMY ----- sex: male COMMENT ----- Nursing notes: Patient states fetus is active. Patient denies vaginal bleeding or leaking of amniotic fluid. Pt. feeling an occasional mild contraction. NST non-reactive. To U/S for BPP and target. See U/S report. Patient scheduled twice weekly FOLLOW-UP ----- see above. Procedure Note Ayla Lambert MD - 11/15/2020 [facility] NST ----- Pat. Name:Jennifer KIM Date:11/15/2020 2:27pm Pat. 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 Unspecified Fetus O34.13: Maternal care for benign tumor of corpusuteri Z3A.34: Weeks Gestation of O36.63X0: Maternal care for excessive fetalgrowth. Unspecified Fetus Procedures 80395: NST/ monitoring HISTORY ----- OB History 2. Para 1 MATERNAL ASSESSMENT ----- Physical Exam Blood pressure 109/64 mmHg. Heart rate 81 bpm METHOD ----- EFM. ----- Hamilton . Number of fetuses: 1 DATING ----- LMP on:03/21/2020 Cycle:regular cycle, regular cycle GA by LMP34 w + 1 d JAMEEL by LMP:12/26/2020 Method of dating:based on stated JAMEEL GA by prior [id number] w + 1 d JAMEEL by prior assessment:12/26/2020 Assigned:based on stated JAMEEL, selected on 11/15/2020 Assigned GA34 w + 1 d Assigned JAMEEL:12/26/2020 NON STRESS TEST ----- NST interpretation: non-reactive. Test duration 28 min. Baseline FHR 130bpm. Baseline variability: moderate. Accelerations: Absent. Decelerations: absent. Uterine activity: absent ANATOMY ----- sex: male COMMENT ----- Nursing notes: Patient states fetus is active. Patient denies vaginalbleeding or leaking of amniotic fluid. Pt. feeling an occasional mild contraction. NST non-reactive. To U/S for BPP and target.See U/S report. Patient scheduled twice weekly FOLLOW-UP ----- see above. IMPRESSION ----- The nonstress test does not meet criteria for reactivity. Overall thenonstress test is reassuring. A biophysical profile was ordered. Please see that report under separatecover for review the findings and any further recommendations. Recommendations: Continue surveillance as clinically indicated for thispatient's comorbidities. 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
--- OUTSIDE RECORDS SUMMARY | 2024-06-09 02:43 | XMS_ITS | Encounter Summary ---
Author Organization [facility] Address [address] 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
--- OUTSIDE RECORDS SUMMARY | 2024-06-09 02:43 | XMS_ITS | Encounter Summary ---
Author Organization [facility] Address [address] [place]: Epic Prelude ADT [place] [address] Care Team Providers Care Irrigation Engineer Name Role Phone Unavailable Primary Care Provider Unavailabl e Encounter Details Date Type Department Care Team (Latest Contact Info) Description 11/26/2020 Travel Social History Tobacco Use Types Packs/Day [...] have Coronavirus / COVID-19? No / Unsure 11/26/2020 9:37 AM CDT documented as of this encounter Plan of Treatment Not on file documented as of this encounter Visit Diagnoses Not on filedocumented in this encounter
--- OUTSIDE RECORDS SUMMARY | 2024-06-09 02:43 | XMS_ITS | Clinical Summary ---
Author Organization [facility] Address [address] [place] [address] Phone Care Team Providers Care Bread And Pastry Baker Name Role Phone Unavailable Primary Care Provider Unavailabl e Allergies No known active allergies Medications Medication Sig Dispensed Refills Start Date End Date Status fluconazole (DIFLUCAN) 150 mg tablet Take 1 Tablet (150 mg) by mouth see administration instructions for 2 doses. 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 Advised low dose aspirin with future pregnancies. Intramural and submucous leiomyoma of uterus 11/2020 Resolved Problems Problem Noted Date Diagnosed Date Resolved Date S/P section 12/01/2020 021 Breech presentation, antepartum 11/16/2020 12/01/2020 Overview (11/22/2020): C-sec 12/01 2 PM complicated by umb ilical cord varix, antepartum 10/27/2020 01/21/2021 Overview (11/16/2020): Delivery advised at 37 wks by MFM (or earlier prn). Abnormal ultrasound - mildly enlarged umbilical vein. Pt to start 81 mg aspirin daily and have follow up ultrasounds at center. 09/29/2020 11/16/2020 Overview (11/03/2020): Early October - rec delivery at 37-38 wk Excessive growth affec ting management of in second trimester 09/27/2020 021 care, antepartum 08/07/2020 Overview (11/30/2020): edc 12/21/2020 Type O blood, Rh negative 08/04/2020 Fibroid - 8 x 5 x 5 cm left lateral uterine wall at 20 wks 08/04/2020 12/01/2020 Overview (09/27/2020): 7 cm left lower lateral early September Immunizations Name Administration Dates Next Due (ADACEL/BOOSTRIX)(10 YR UP) TDAP VACCINE, 0.5ML, IM 12/04/2020 Family History Medical History Relation Name Comments Breast Cancer Mother Hodgkin's lymphoma Mother Colon Cancer Neg Hx Ovarian Cancer Neg Hx Relation Name Status Comments Father Alive Mother Alive Social History Tobacco Use Types Packs/Day Years Used Date Smoking Tobacco: Never Smokeless Tobacco: Never Alcohol Use Standard Drinks/Week Comments Not Currently 0 (1 standard drink = 0.6 oz pur e alcohol) Sex and Gender Information Value Date Recorded Sex Assigned at Not on file Gender Identity Not on file Sexual Orientation Not on file Last Filed Vital Signs Vital Sign Reading Time Taken Comments Blood Pressure 115/72 01/21/2021 2:45 PM CDT Pulse 72 12/04/2020 9:42 PM CDT Temperature 36.8 ??C (98.2 ??F) 12/04/2020 9:42 PM CD T Respiratory Rate 16 12/04/2020 9:42 PM CDT Oxygen Saturation 100% 12/01/2020 5:15 PM CDT Inhaled Oxygen Concentration - - Weight 68 kg (150 lb) 01/21/2021 2:45 PM CDT Height 167.6 cm (5' 6 ) 01/21/2021 2:45 PM CDT Body Mass Index 24.21 01/21/2021 2:45 PM CDT Plan of Treatment Health Maintenance Due Date Last Done Comments HEPATITIS B VACCINES (1 of 3 - 19+ 3-dose series) 2006 INFLUENZA VACCINE (#1) 2023 CERVICAL CANCER SCREENING 01/22/2024 01/21/2021 DTAP/TDAP/TD VACCINES (2 - T d or Tdap) 12/04/2030 12/04/2020 HPV VACCINES Aged Out No longer eligi ble based on patient's age to complete this topic PNEUMOCOCCAL VACCINE 0-64 YEARS Aged Out No longer eligible based on patient's age to complete this topic Procedures Procedure Name Priority Date/Time Associated Diagnosis Comments CERV/VAG CYTO SCREEN PAP W/HPV Routine 01/21/2021 3:12 PM CDT Screening for cervical cancer Special screening examination for human papillomavirus (HPV) from Last 3 Months or Most Recently Relevant to Health Maintenance Results * CERV/VAG CYTO SCREEN PAP W/HPV (01/21/2021 3:12 PM CDT) CLINICAL INFORMATION [facility] Comment: LAST MENSTRUAL PERIOD [facility] Comment:INFORMATION NOT PROV IDED PREV PAP: [facility] Comment:INFORMATION NOT PROV IDED PREV BX: [facility] Comment:INFORMATION NOT PROV IDED SOURCE [facility] Comment:Endocervix ADEQUACY: [facility] Comment: Satisfactory for evaluation. Endocervical/transformation zone component present. PAP INTERP [facility] Comment:Negative for intraep ithelial lesion or malignancy. COMMENT [facility] Comment: This Pap test has been evaluated with computer assisted technology. CENTER RECEPTIONIST: [facility] Comment: DDS, CT(ASCP) CT screening location: [place] [address] [place] [address] EXPLANATORY NOTE [facility] Comment: EXPLANATORY NOTE: The Pap is a [...] information. HPV E6/E7 Not Detected Not Detected [facility] Comment: Methodology: Laser Systems Engineer-Mediated Amplification This assay detects E6/E7 viral messenger RNA (mRNA) from 14 high-risk HPV types (16,18,31,33,35,39,45,51,52,56,58,59,66,68). The analytical performance characteristics of this assay have been determined by [employer]. The modifications have not been cleared or approved by the FDA. This assay has been validated pursuant to the CLIA regulations and is used for clinical purposes. For additional information, please refer to http://education.Adapteva/faq/BKO708x0 (This link if provided for information/ educational purposes only.) [facility] [address] [place], [place] ??[address] Alin Kwan D.O., MPH SL Genital SWAB OF ENDOCERVIX / Unknown 01/21/2021 3:12 PM CDT 01/22/2021 12:37 AM CDT Izabella Juarez MD PATHOLOGY/CYTOLOGY ORDERABLES Performing Organization Address City/State/[facility] Co de Phone Number [facility] [address] [place] [address] from Last 3 Months or Most Recently Relevant to Health Maintenance Advance Directives For more information, please contact: [phone] * Full Code (Latest Code Status on File) Date Activated Date Inactivated Comments 12/01/2020 6:07 PM 12/05/2020 4:27 PM * Full Code Date Activated Date Inactivated Comments 12/01/2020 12:16 PM 12/01/2020 3:36 PM
--- OUTSIDE RECORDS SUMMARY | 2024-06-09 02:43 | XMS_ITS | Encounter Summary ---
Author Organization [facility] Address [address] [place] [address] Care Team Providers Care Hop Weigher Name Role Phone Unavailable Primary Care Provider Unavailabl e Reason for Visit * Auth/Cert Specialty Diagnoses / Procedures Referred By Contac t Referred To Contact Obstetrics Diagnoses EDC: 12/21/20 Primary Breech Cord verix MFM Recommendation Procedures SECTION [facility] Mother Baby 5c [address] [place] [address] Referral ID Status Reason Start Date Expiration Date Visits Re quested Visits Authorized [id number] 1 1 Encounter Details Date Type Department Care Team (Late st Contact Info) Description 12/01/2020 2:00 PM CDT - 12/01/2020 3:30 PM CDT Surgery [facility] Labor & [address] [place] [address] Izabella Juarez MD NO ADDRESS ON FILE SECTION Surgery Details Date/Time Status Location OR Service Patient Class Case Class Case Type Trauma Case? 12/01/2020 2:[address] L&D C-S C Obstetrics Surgery Admit Elective No Panel 1 Procedure LRB Anes Op Region Wound Class Comments SECTION N/A Epidural Abdomen Clean Contami nated-II Surgeon Surgeon Role Service Panel Izabella Juarez MD Primary Obstetrics 1 documented in this encounter Social History Tobacco [...] Sign Reading Time Taken Comments Blood Pressure 113/82 12/01/2020 12:23 PM CDT Pulse - - Temperature 36.6 ??C (97.9 ??F) 12/01/2020 12:27 PM C DT Respiratory Rate 16 12/01/2020 3:23 PM CDT Oxygen Saturation - - Inhaled Oxygen Concentration - - Weight 76.2 [...] Information for the patient's : Jimi Richardson [[id number]] male General diet Routine instructions. Medication List [...] Your Medications These medications were sent to [address], [facility] [address] Hours: Retail 8 AM - 12 AM Daily / ED Service 10 AM - 12 AM Daily ?? oxyCODONE 5 mg tablet Discharged to home. Return to office in 2 weeks. Morris Juarez MD documented in this encounter Discharge Instructions * [...] feeding ?? For advice call: information line [phone] IF BOTTLE FEEDING ?? Avoid breast stimulation, [...] can help. Sometimes medicine can also help [facility] offers an Intensive Outpatient Program for women with mood disorder and depression. This supportive environment gives mothers a chance to talk with other mothers who face similar challenges. Families and partners will also learn new ways to support you. For more information, please contact our Intake Office at [phone]. After hours: [phone]. NEED SUPPORT AFTER YOU ARE HOME? [facility] now offers outpatient consult appointments. An International Board-Certified Car Washer is available to help if you need support after you and your arehome. Appointments are approximately one hour long and take place in the Department of Ser vices (second floor of [facility] near the NICU) Many insurance plans offer coverage for this service. Please call [phone], our Information line, to schedule your appointment or to get support by phone. Same or next day appointments are often available. Where can you learn more? Go to https://www.numberFire.net/patiented Enter G069 in the search box to learn more about Your at Home: Care Instructions. Enter Y708 in the search box to learn more about Learning About Rescue Breathing and CPR for Babies Under 1 Year. / Resources During Covid-19 Phone Consults & Visits Call [phone] to ask questions about . If needed, our team can schedule a video visit with you. Virtual with Confidence On Wednesdays, 1-2 pm., join us for a group meeting via videoconference facilitated by a professional. Ask questions, get advice! To register: Visit [employer]/stbeata and select [facility] Birth[facility] / View Classes / Support Once [...] leave a message for the nurse at [phone]. Please note these messages are picked up [...] Dia Chin DO OBGYN PGY1 Pager # [phone] C MD Larry * Savannah Pearson MD [...] hours s/p section Savannah Pearson MD PGY1 [employer]TER Pager: [phone] * Jazmín Kelsey RN - 12/01/2020 6:42 PM CDT Patient arrived to unit by stretcher after visiting baby in NICU. Patient oriented to room, call light. Patient tired, pericare provided, and sips of clears given. Patient became nauseated during pericare and moving in bed. Emesis of 325 mL clear green fluid. Zofran given. Patient now resting. Will go over paperwork and pamphlet when patient symptoms [...] 12/01/2020 12:54 PM CDT Pt admitted to 7219 for primary c/s. Dr Juarez notified of [...] FEELING WELL; NEITHER HAVE RECEIVED COVID VACCINATIONS Glove Printer required: N/A Teri Chavez RN documented in [...] 130, mod variability, +accels, isolated variable decel [place]: rare labs: O neg, Rub imm / [...] Dia Chin DO OBGYN PGY1 Pager # [phone] documented in this encounter OR Notes * Anesthesiology - Yeyo Talbot, - 12/02/2020 10:35 AM CDT OB Anesthesia Post-Operative Assesment 12/02/2020 10:35 AM Shreyl Kim, status post regional anesthesia for section. [...] Presence of Pain: complains of pain/discomfort (12/02/20 050) Postoperative Hydration Intake/Output Summary (Last 24 hours) [...] Izabella Juarez MD Surgeon: Izabella Juarez MD Clinical Nurse Occupational Medicine: Dr. Colleen Bella MD PGY4, Dr. Dia Chin DO PGY1 [...] Delivery: 12/01/2020 Time of Delivery: 2:28 PM Sex: Male Delivery Type: , Low Transverse [...] was doubly clamped and cut & the was handed to the nurse. The placenta [...] taken to recovery in stable condition. Dia Chin DO MAYATIAGOMary PGY1 Pager # [phone] documented in this encounter Miscellaneous Notes * [...] Time 10 minutes ?? Jenniffer Bush RN, [facility] * Note - Beckie Velez RN - [...] 12/02/2020 2:36 PM CDT Chart review completed. [place] scores are pending. Please consult Case Management/Social Work for any needs that arise for discharge planning especially if [place] scores are a 10 or above. If so, a full assessment will be completed at that time. Day 1 - Current ([place] Pathway: Adult and Obstetrics) Patient, family, or healthcare designee is participating in individual care plan process Outcome: Met Problem: Discharge Planning Goal: Identify discharge needs upon admission and through discharge Description: Outcome: Progressing Katlin MCKEON, planisher II [phone] * Note - Venus Renae RN - [...] pump if needed prior to discharge Insurance-Payor: [facility] / Plan: [facility] CHOICE [id number] / Product Type: PPO / General Information: Sheryl Kim is a 35 y.o. with a history of LGA, uterine fibroid, umbilical vein varix. Angela Kim born at 37w1d and delivered by section. [...] (s). Phone number verified and entered into [employer] system and hand outs given. Encouraged mother [...] the original note were not included. ? [facility] Adult Influenza and Pneumococcal Vaccine Protocol [facility] Approved by: [facility] - Medical Executive Committee Approval Date: 02/12/2020 [...] mL IM one timeSTL LB Pre-Operative Protocol [facility] Approved by: [facility] - Medical Executive Committee Approval Date: 11/19/2019 [...] after physician consultation. STL LB Vaginal Protocol [facility] Approved by: [facility] - Medical Executive Committee Approval Date: 11/19/2019 [...] [facility] Adult Influenza and Pneumococcal Vaccine Protocol [facility] Approved by: [facility] - Medical Executive Committee Approval Date: 02/12/2020 [...] mL IM one timeSTL LB Pre-Operative Protocol [facility] Approved by: [facility] - Medical Executive Committee Approval Date: 11/19/2019 [...] after physician consultation. STL LB Vaginal Protocol [facility] Approved by: [facility] - Medical Executive Committee Approval Date: 11/19/2019 [...] CASE REPORT Surgical Pathology Report ? Case: [id number] ? Authorizing Provider: ??Izabella Juarez MD ? Collected: ? 12/01/2020 02:34 PM ? Ordering Location: ? [facility] ?Received: ?12/02/2020 09:39 AM ? Labor & ? Pathologist: ? Zoe Jaffe MD ? Specimen: ?Placenta, IUP @ 37w 1d uterine fibroid and umbilical cord varix ? 12/06/2020 5:44 PM CDT [facility] FINAL DIAGNOSIS Placenta, section: -Third trimester placenta, 566 g. -Three-vessel umbilical cord with no pathologic diagnosis. -Chorioamnionic membranes with no pathologic diagnosis. -Intervillous thrombohematomas and infarction, approximately 2% of parenchyma. 12/06/2020 5:44 PM [facility] S DESCRIPTION The specimen is received in [...] The lesions occupy 1% of the tissue. Agile Test Lead sections are submitted as follows: A1-membrane; A2-umbilical cord; A3-subchorionic lesion; A4-parenchymal lesions; A5 through A7-central placenta. [facility] 12/06/2020 5:44 PM [facility] MICROSCOPIC DESCRIPTION The slides are labeled [id number] and Sheryl Kim. Sections of placenta reveal a three-vessel umbilical cord with no evidence of vasculitis or thrombosis. Sections of the chorioamnionic membranes reveal no evidence of acute inflammation. The chorionic villi are small, well vascularized and mature with intervillous thrombohematomas and an area of infarction with no evidence of acute villitis. 12/06/2020 5:44 PM [facility] OPERATIVE PROCEDURE 1: SECTION 12/06/2020 5:44 PM [facility] CLINICAL INFORMATION EDC: 12/21/20 Primary Breech Cord Varix MFM Recommendation 12/06/2020 5:44 PM CDT [facility] COMMENT Special stain and/or immunohistochemical results are interpreted with controls that demonstrate appropriate staining reactions. Note on use of immunocytochemistry reagents: This test was developed and its performance characteristics determined by [facility], Department of Laboratory Medicine. It has not [...] part or completely in the following laboratories: [facility], CLIA #[id number] [address] [place] [address] [facility] CLIA #[id number] [address] [place] [address] [facility], CLIA #[id number] [address] [place] [address] 12/06/2020 5:44 PM CDT [facility] Tissue SPECIMEN FROM PLACENTA / Unknown Collection / Unknown 12/01/2020 2:34 PM CDT 12/02/2020 9:39 AM CDT Izabella Juarez MD PATHOLOGY/CYTOLOGY ORDERABLES Performing Organization Address [facility] Co de Phone Number [facility] CLIA# [id number] [address] [place] [address] * (ABNORMAL) CBC WITH DIFFERENTIAL (12/01/2020 12:44 PM CDT) WBC 8.2 4.0 - 9.8 K/uL 12/01/2020 1:18 PM CDT [facility] RBC 3.85(L) 3.90 - 4.90 M/uL 12/01/2020 1:18 PM CDT [facility] HEMOGLOBIN 11.6(L) 11.8 - 14.8 g/dL 12/01/2020 1:18 PM CDT [facility] HEMATOCRIT 34.4(L) 35.5 - 44.0 % 12/01/2020 1:18 PM CDT [facility] MCV 89.4 82.0 - 99.0 fL 12/01/2020 1:18 PM CDT [facility] MCH 30.1 27.2 - 32.6 pg 12/01/2020 1:18 PM CDT [facility] MCHC 33.7 31.5 - 35.5 g/dL 12/01/2020 1:18 PM CDT [facility] RDW 13.4 11.5 - 14.5 % 12/01/2020 1:18 PM CDT [facility] RDW-STDEV 43.3 37.1 - 48.7 fL 12/01/2020 1:18 PM CDT [facility] PLATELETS 258 140 - 350 K/uL 12/01/2020 1:18 PM CDT [facility] MPV 10.6 9.3 - 12.4 fL 12/01/2020 1:18 PM CDT [facility] - . [facility] NEUTROPHILS 71 % 12/01/2020 1:18 PM CDT [facility] . [facility] LYMPHOCYTES 16 % 12/01/2020 1:18 PM CDT [facility] . [facility] MONOCYTES 11 % 12/01/2020 1:18 PM CDT [facility] - . [place] EOSINOPHILS 1 % 12/01/2020 1:18 PM CDT [facility] - . [place] BASOPHILS 1 % 12/01/2020 1:18 PM CDT [facility] . [facility] IMMATURE GRANULOCYTES 1 % 12/01/2020 1:18 PM CDT [facility] - . [facility] Comment:IG (Immature Granulo cyte) count includes Metamyelocytes, Myelocytes, and Promyelocytes NEUTROPHIL ABSOLUTE 5.85 1.90 - 7.00 K/uL 12/01/2020 1:18 PM CDT [facility] - . [facility] LYMPHOCYTE ABSOLUTE 1.33 0.70 - 4.50 K/uL 12/01/2020 1:18 PM CDT [facility] - [facility] MONOCYTE ABSOLUTE 0.86 0.10 - 1.30 K/uL 12/01/2020 1:18 PM CDT [facility] [place] EOSINOPHIL ABSOLUTE 0.05 0.00 - 0.70 K/uL 12/01/2020 1:18 PM CDT [facility] - . [place] BASOPHILS ABSOLUTE 0.06 0.00 - 0.20 K/uL 12/01/2020 1:18 PM CDT [facility] - . [facility] IMMATURE GRANULOCYTES ABSOLUTE 0.07(H) 0.00 - 0.03 K/uL 12/01/2020 1:18 PM CDT [facility] Blood Venipuncture / Unknown 12/01/2020 12:44 PM CDT 12/01/2020 12:53 PM CDT Izabella Juarez MD HEMATOLOGY ORDERABL ES [facility] - [facility] CLIA# [id number] [address] [place] [address] * TYPE AND SCREEN (12/01/2020 12:44 PM CDT) ABO GROUP O 12/01/2020 2:04 PM CDT [facility] RH (D) TYPE Negative 12/01/2020 2:04 PM CDT [facility] ANTIBODY SCREEN Negative 12/01/2020 2:04 PM CDT [facility] Blood Venipuncture / Unknown 12/01/2020 12:44 PM CDT 12/01/2020 12:53 PM CDT Izabella Juarez MD BLOOD BANK ORDERABL ES [facility] -- [facility] CLIA# [id number] [address] [place] [address] documented in this encounter Visit Diagnoses Not [...] physician - Maximum of 8 doses, Routine ibuprofen (MOTRIN) tablet 600 mg 600 mg, Oral, EVERY 6 HOURS, First dose on Sun12/01/20 at 1815, Until Discontinued, Routine, Post-op - Floor Given 12/05/2020 1:22 PM CDT 600 mg Given 12/05/2020 5:37 AM CDT 600 mg Given 12/05/2020 12:05 AM CDT 600 mg magnesium hydroxide (MILK OF MAGNESIA) oral suspension 30 mL 30 mL, Oral, NIGHTLY PRN, Starting on Sun12/01/20 at 1807, Until Sun12/05/20 at 1622, Constipation, Routine, Post-op - Floor Given 12/05/2020 12:07 AM CDT 30 m L Given 12/03/2020 8:54 PM CDT 30 mL [...] excessive bleeding in the immediate period, Routine vit-iron fumarate-fa () 28 mg iron- [...] Yajaira Cotter RN)1230 (Given - Provider: Gifty Medina RN)1835 (Given - Provider: Gifty Medina RN) 0005 (Given - Provider: Shanti Tobias, EMILY)0537 (Given - Provider: Shanti Tobias RN)1322 (Given - Provider: Juanita Quevedo, EMILY) ibuprofen (MOTRIN) tablet 600 mg 600 mg, Oral, EVERY 6 HOURS, First dose on Sun12/01/20 at 1815, Until Discontinued, Routine, Post-op - Floor 0634 (Given - Provider: Akosua Chilel RN)1411 (Given - Provider: Ivory Romero RN)2008 (Given - Provider: Yajaira Cotter RN) 011 (Given - Provider: Yajaira Cotter RN)0648 (Given - Provider: Yajaira Cotter RN)1229 (Given - Provider: Gifty Medina RN)1835 (Given - Provider: Gifty Medina RN) 0005 (Given - Provider: Shanti Tobias RN)0537 (Given - Provider: Shanti Tobias RN)1322 (Given - Provider: Juanita Quevedo RN) lanolin (LANSINOH) 100 % topical ointment Topical, [...] - Floor 2053 (Given - Provider: Yajaira Cotter RN) 000 (Given - Provider: Shanti Tobias, EMILY) methylergonovine maleate (METHERGINE) 0.2 mg/mL (1 mL) injection 0.2 mg 0.2 mg, IM, EVERY 2 HOURS PRN, 2 doses, Starting on Sun12/01/20 at 1216, Until Sun /11/21 at 1622, Other (See Comment), for excessive bleeding in the immediate period as needed after consultation with resident or attending physician - Maximum of 2 doses, Routine metoclopramide (REGLAN) 5 mg/mL injection 10 mg 10 mg, IV, EVERY 6 HOURS PRN, Starting on Sun12/01/20 at 1807, Until 12/05/20 at 1622, Nausea/Emesis, Routine, Post-op - Floor [...] Ivory Romero RN)2046 (Given - Provider: Yajaira Cotter, EMILY) 0020 (Given - Provider: Yajaira Cotter RN)1229 [...]
--- OUTSIDE RECORDS SUMMARY | 2024-06-09 02:43 | XMS_ITS | Encounter Summary ---
Author Organization [facility] Address [address] [place]: Epic Prelude ADT [place] [address] Care Team Providers Care Per Diem Physical Therapist Assistant Name Role Phone Unavailable Primary Care Provider Unavailabl e Encounter Details Date Type Department Care Team (Latest Contact Info) Description 10/27/2020 Travel Social History Tobacco Use Types Packs/Day [...]
--- OUTSIDE RECORDS SUMMARY | 2024-06-09 02:43 | XMS_ITS | Encounter Summary ---
Author Organization [facility] Address [address] [place]: Epic Prelude ADT [place] [address] Care Team Providers Care Surgical Endoscopist Name Role Phone Unavailable Primary Care Provider Unavailabl e Encounter Details Date Type Department Care Team (Latest Contact Info) Description 11/18/2020 Travel Social History Tobacco Use Types Packs/Day [...]
--- OUTSIDE RECORDS SUMMARY | 2024-06-09 02:43 | XMS_ITS | Encounter Summary ---
Author Organization [facility] Address [address] [place]: Epic Prelude ADT [place] [address] Care Team Providers Care Baseball Glove Stuffer Name Role Phone Unavailable Primary Care Provider Unavailabl e Encounter Details Date Type Department Care Team (Latest Contact Info) Description 12/21/2020 Travel Social History Tobacco Use Types Packs/Day [...]
--- OUTSIDE RECORDS SUMMARY | 2024-06-09 02:43 | XMS_ITS | Encounter Summary ---
Author Organization [facility] Address [address] [place] [address] Care Team Providers Care Boat Builder Name Role Phone Unavailable Primary Care Provider Unavailabl e Encounter Details Date Type Department Care Team (Late st Contact Info) Description 10/14/2020 Chart Note [facility] RIVET THROWER - [address] [id number] Izabella Juarez MD NO ADDRESS ON FILE [...] as of this encounter Progress Notes * Izabella Juarez MD - 10/14/2020 3:11 PM CDT Pt was unable to make appt today because her reflux got bad and she had to stop to vomit on the waya couple of times. Then she got stuck in very bad traffic. I recommended that she increase the pepcid to twice daily. BA. No cramping/ctx/bleeding/LOF. GCT was normal. Discussed US showing possible um bilical cord varix and increased FRIDA. I agree with Ms recommendation to continue to follow up. I gave movement and labor precautions. Discussed their suggestion of delivery at early term. Pt has next US on 10/26. She'll make her next appt with me that day. documented in this encounter Plan of Treatment Not on file documented as of this encounter Visit Diagnoses Not on filedocumented in this encounter
--- OUTSIDE RECORDS SUMMARY | 2024-06-09 02:43 | XMS_ITS | Encounter Summary ---
Author Organization [facility] Address [address] [place]: Epic Prelude ADT [place] [address] Care Team Providers Care Risk Consultant Name Role Phone Unavailable Primary Care Provider Unavailabl e Encounter Details Date Type Department Care Team (Latest Contact Info) Description 10/10/2020 Travel Social History Tobacco Use Types Packs/Day [...] have Coronavirus / COVID-19? No / Unsure 10/10/2020 12:23 PM CDT documented as of this encounter Plan of Treatment Not on file documented as of this encounter Visit Diagnoses Not on filedocumented in this encounter
--- OUTSIDE RECORDS SUMMARY | 2024-06-09 02:43 | XMS_ITS | Encounter Summary ---
Author Organization [facility] Address [address] [place] [address] Care Team Providers Care Shipping Clerk Name Role Phone Unavailable Primary Care Provider Unavailabl e Reason for Visit * Reason Comments Routine Visit Encounter Details Date Type Department Care Team (Latest Contact Info) Description 09/23/2020 3:00 PM CDT visit [facility] DIESEL ENGINE I PIPE FITTER - [address] [address] Izabella Juarez MD NO ADDRESS ON FILE care in second trimester (Primary Dx) Social History Tobacco Use Types [...] Sign Reading Time Taken Comments Blood Pressure 118/72 09/23/2020 2:58 PM CDT Pulse - - Temperature - - Respiratory Rate - - Oxygen Saturation - - Inhaled Oxygen Concentration - - Weight 72.1 kg (159 lb) 09/23/2020 2:58 PM CDT Height 167.6 cm (5' 6 ) 09/23/2020 2:58 PM CDT Body Mass Index 25.66 09/23/2020 2:58 PM CDT documented in this encounter Progress Notes * Izabella Juarez MD - 09/23/2020 3:21 PM CDT Has heartburn. Instructions given. Otherwise doing well. Labs next. Discussed rhogam. Father of baby reports that he and pt are both O negative. documented in this encounter Plan of Treatment Not on file documented as of this encounter Results * (ABNORMAL) HEMOGLOBIN AND HEMATOCRIT (09/28/2020 11:27 AM CDT) HEMOGLOBIN 11.2(L) 11.8 - 14.8 g/dL 09/28/2020 11:47 AM CDT [facility] HEMATOCRIT 35.8 35.5 - 44.0 % 09/28/2020 11:47 AM CDT [facility] Blood Venipuncture / Unknown 09/28/2020 11:27 AM CDT 09/28/2020 11:33 AM CDT Izabella Juarez MD HEMATOLOGY ORDERABL ES [facility] [employer] [facility]# [id number] [address] [place] [address] * GLUCOSE TOLERANCE 1 HR GESTATIONAL (09/28/2020 11:27 AM CDT) GLUCOSE DOSE 50 Gram 09/28/2020 12:14 PM CDT [facility] GLUCOSE 1 HR OBSTETRIC 112 65 - 139 mg/dL 09/28/2020 12:14 PM CDT [facility] Blood Venipuncture / Unknown 09/28/2020 11:27 AM CDT 09/28/2020 11:32 AM CDT Izabella Juarez MD CHEMISTRY ORDERABLE S [facility] [employer] [facility] CLIA# [id number] [address] [place] [address] documented in this encounter Visit Diagnoses Diagnosis care in second trimester- Primary documented in this encounter
--- OUTSIDE RECORDS SUMMARY | 2024-06-09 02:43 | XMS_ITS | Encounter Summary ---
Author Organization [employer] [facility] Address 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 Procedures US OB FOLLOW UP PER FETUS Gifty Medrano MD [address] [place] [address] Referral ID Status Reason Start Date Expiration Date Visits Re quested Visits Authorized [id number] Closed 10/26/2020 11/26/2021 1 1 Reason for Visit * Auth/Cert Specialty Diagnoses / Procedures Referred By Contac t Referred To Contact Radiology [facility] Ground Fl [address] [place] [address] Referral ID Status Reason Start Date Expiration Date Visits Re quested Visits Authorized [id number] 1 1 Encounter Details Date Type Department Care Team (Latest Contact Info) Description 11/15/2020 2:01 PM CDT - 11/15/2020 11:59 PM CDT Hospital Encounter [facility] Maternal and Ground Floor [address] [place] [address] Gifty Medrano MD [address] [place] [address] Discharge Disposition: Home or Self Care Social [...] daily. 12/05/2020 documented as of this encounter Miscellaneous Notes * Result Encounter Note - Lara Juarez MD - 11/15/2020 2:15 PM CDT Del at 37 wk per MFM. 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 The fetus is in a breech presentation. The amniotic fluid volume appears normal for gestational age with an amniotic fluid index of 12.7 cm. The sonographic portion of the biophysical profile is 8/8 for total of 8/10 which is consistent with reassuring wellbeing. The umbilical vein varix is again noted. No turbulence and flow is identified. Minimal turbulence and flow is identified during breathing. This is physiologic and within normal limits. This patient did undergo a nonstress test. The nonstress test was reassuring but did not meet criteria for reactivity. Please see that report under separate cover for review the findings and any further recommendations. Discussion: The patient had questions regarding timing of delivery. I explained to the patient that the literature suggest that with an umbilical vein varix delivery be considered at approximately 37 weeks of gestational age or earlier if clinically indicated. I have asked the patient to discuss this further with her primary obstetrical care provider. Recommendations: Continue surveillance and sonograms as clinically indicated for this patient's comorbidities. Narrative 11/15/2020 3:52 PM CDT [facility] ----- Pat. Name: SHERYL KIM Study Date: 11/15/2020 2:53pm Pat. NO: [id number] Referring ??MD: LARA JUAREZ MD Site: [facility] Sewer And Inspector: Lauren Tobias : 1985 Age: 35 ----- INDICATION ----- Abnormal Heart Tracing Known or Suspected anomaly ? Varix Fibroids CODING ----- Diagnoses ? O77.8: Labor and delivery complicated by stress ?O35.8XX0: Maternal care for suspected abnormality. Unspecified Fetus ?O34.13: Maternal care for benign tumor of corpus uteri ?Z3A.34: Weeks Gestation of Procedures ?51077: OB follow-up/Target per fetus ?40400: BPP without NST HISTORY ----- OB History ? 2. [...] GENERAL EVALUATION ----- Cardiac activity present. FHR 142 bpm. movements: present. Presentation: breech Placenta: Placental site: anterior Umbilical cord: Cord vessels: 3 vessel cord. Insertion site: placental insertion: normal Amniotic fluid: Amount of AF: normal amount. MVP 5.5 cm. FRIDA 12.7 cm. Q1 5.5 cm, Q2 3.5 cm, Q3 3.7 cm, Q4 0.0 cm BIOPHYSICAL PROFILE ----- 2: breathing movements 2: Gross body movements 2: tone 2: Amniotic fluid volume /8 Biophysical profile score ANATOMY ----- The following structures appear normal: Heart / Thorax ?Cardiac rhythm. Abdomen ? Stomach. Bladder. sex: male. Impression: Varix measuring 1.25 cm COMMENT ----- Patient's name and date of were verified by the clarity specialists prior to the exam FOLLOW-UP ----- see above. Procedure Note Ayla Lambert MD - 11/15/2020 [facility] ----- Pat. Name:Jennifer KIM Date:11/15/2020 2:53pm Pat. NO: [id number] MD:LARA JUAREZ [facility] Tobias :1985Age:35 ----- INDICATION ----- Abnormal Heart Tracing Known or Suspected anomaly Varix Fibroids CODING ----- Diagnoses O77.8: Labor and delivery complicated by fetalstress O35.8XX0: Maternal care for suspected fetalabnormality. Unspecified Fetus O34.13: Maternal care for benign tumor of corpusuteri Z3A.34: Weeks Gestation of Procedures 26358: OB follow-up/Target per fetus 80079: BPP without NST HISTORY ----- OB History 2. Para 1 MATERNAL ASSESSMENT ----- Physical Exam Weight 73 kg. BMI 26.15 kg/m? METHOD ----- Transabdominal ultrasound examination ----- Hamilton . Number of fetuses: 1 DATING ----- LMP on:03/21/2020 Cycle:regular cycle, regular cycle GA by [id number] w + 1 d JAMEEL by LMP:12/26/2020 GA by prior [id number] w + 1 d JAMEEL by prior assessment:12/26/2020 Method of dating:Restore dating from previous exam Assigned:based on stated JAMEEL, selected on 11/15/2020 Assigned GA34 w + 1 d Assigned JAMEEL:12/26/2020 GENERAL EVALUATION ----- Cardiac activity present. FHR 142 bpm. movements: present.Presentation: breech Placenta: Placental site: anterior Umbilical cord: Cord vessels: 3 vessel cord. Insertion site: placentalinsertion: normal Amniotic fluid: Amount of AF: normal amount. MVP 5.5 cm. FRIDA 12.7 cm. Q15.5 cm, Q2 3.5 cm, Q3 3.7 cm, Q4 0.0 cm BIOPHYSICAL PROFILE ----- 2: breathing movements 2: Gross body movements 2: tone 2: Amniotic fluid volume 8/8 Biophysical profile score ANATOMY ----- The following structures appear normal: Heart / Thorax Cardiac rhythm. Abdomen Stomach. Bladder. sex: male. Impression: Varix measuring 1.25 cm COMMENT ----- Patient's name and date of were verified by the clarity specialists prior tothe exam FOLLOW-UP ----- see above. IMPRESSION ----- Hamilton intrauterine with positive cardiac activity. The fetus is in a breech presentation. The amniotic fluid volume appears normal for gestational age with anamniotic fluid index of 12.7 cm. The sonographic portion of the biophysical profile is 8/8 for total of8/10 which is consistent with reassuring wellbeing. The umbilical vein varix is again noted. No turbulence and flow isidentified. Minimal turbulence and flow is identified during breathing. This is physiologic and within normal limits. This patient did undergo a nonstress test. The nonstress test wasreassuring but did not meet criteria for reactivity. Please see that report under separate cover for review the findings and any furtherrecommendations. Discussion: The patient had questions regarding timing of delivery. I explained to thepatient that the literature suggest that with an umbilical vein varix delivery be considered at approximately 37 weeks ofgestational age or earlier if clinically indicated. I have asked the patient to discuss this further with her primaryobstetrical care provider. Recommendations: Continue surveillance and sonograms as clinicallyindicated for this patient's comorbidities. 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
--- OUTSIDE RECORDS SUMMARY | 2024-06-09 02:43 | XMS_ITS | Encounter Summary ---
Author Organization [facility] Address [address] Govea: Epic Prelude ADT [place] [address] Care Team Providers Care Plasterer Spot Name Role Phone Unavailable Primary Care Provider Unavailabl e Encounter Details Date Type Department Care Team (Latest Contact Info) Description 11/19/2020 Travel Social History Tobacco Use Types Packs/Day [...]
--- OUTSIDE RECORDS SUMMARY | 2024-06-09 02:43 | XMS_ITS | Encounter Summary ---
Author Organization [facility] Address [address] Govea: Epic Prelude ADT [place] [address] Care Team Providers Care Radio Antenna Installer Name Role Phone Unavailable Primary Care Provider Unavailabl e Encounter Details Date Type Department Care Team (Latest Contact Info) Description 11/15/2020 Travel Social History Tobacco Use Types Packs/Day [...]
--- OUTSIDE RECORDS SUMMARY | 2024-06-09 02:43 | XMS_ITS | Encounter Summary ---
Author Organization [facility] Address [address] [place] [address] Care Team Providers Care Instructor Apparel Manufacture Name Role Phone Unavailable Primary Care Provider Unavailabl e Encounter Details Date Type Department Care Team (Late st Contact Info) Description 09/01/2020 Abstract [facility] REAL ESTATE ASSISTANT - [address] [address] Nadia Levin Social History Tobacco Use Types Packs/Day Years [...]
--- OUTSIDE RECORDS SUMMARY | 2024-06-09 02:43 | XMS_ITS | Encounter Summary ---
Author Organization [facility] Address [address] Govea: Epic Prelude ADT [place] [address] Care Team Providers Care Drapery And Upholstery Measurer Name Role Phone Unavailable Primary Care Provider Unavailabl e Encounter Details Date Type Department Care Team (Latest Contact Info) Description 11/23/2020 Travel Social History Tobacco Use Types Packs/Day [...] have Coronavirus / COVID-19? No / Unsure 11/23/2020 3:42 PM CDT documented as of this encounter Plan of Treatment Not on file documented as of this encounter Visit Diagnoses Not on filedocumented in this encounter
--- OUTSIDE RECORDS SUMMARY | 2024-06-09 02:43 | XMS_ITS | Encounter Summary ---
Author Organization [facility] Address [address] [place] [address] Care Team Providers Care Presser Hand Name Role Phone Unavailable Primary Care Provider Unavailabl e Encounter Details Date Type Department Care Team (Late st Contact Info) Description 09/28/2020 Orders Only [facility] SUPERVISOR WHEEL SHOP - [address] [address] Izabella Juarez MD NO ADDRESS ON FILE Social History Tobacco Use Types Packs/Day Years Used Date Smoking Tobacco: Never Assessed Comments Yes Sex and Gender Information Value [...]
--- OUTSIDE RECORDS SUMMARY | 2024-06-09 02:43 | XMS_ITS | Encounter Summary ---
Author Organization [facility] Address [address] Govea: Epic Prelude ADT [place] [address] Care Team Providers Care Pharmacy Informaticist Name Role Phone Unavailable Primary Care Provider Unavailabl e Encounter Details Date Type Department Care Team (Latest Contact Info) Description 10/31/2020 Travel Social History Tobacco Use Types Packs/Day [...]
--- OUTSIDE RECORDS SUMMARY | 2024-06-09 02:43 | XMS_ITS | Encounter Summary ---
Author Organization [facility] Address [address] [place] [address] Care Team Providers Care Primary Education Professor Name Role Phone Unavailable Primary Care Provider Unavailabl e Reason for Visit * Reason Comments Routine Visit Soem cramping and swelling Encounter Details Date Type Department Care Team (Latest Contact Info) Description 11/18/2020 3:15 PM CDT visit [facility] AUTOMOTIVE LOT ATTENDANT - [address] [address] Izabella Juarez MD NO ADDRESS ON FILE care, antepartum (Primary Dx); Breech presentation with problem, single or unspecified fetus; complicated by umbilical cord varix, antepartum; Excessive growth affecting management of in second trimester, single or unspecified fetus Social History Tobacco Use Types Packs/Day Years [...] Sign Reading Time Taken Comments Blood Pressure 110/73 11/18/2020 3:32 PM CDT Pulse - - Temperature - - Respiratory Rate - - Oxygen Saturation - - Inhaled Oxygen Concentration - - Weight 76.2 kg (168 lb) 11/18/2020 3:32 PM CDT Height 167.6 cm (5' 6 ) 11/18/2020 3:32 PM CDT Body Mass Index 27.12 11/18/2020 3:32 PM CDT documented in this encounter Progress Notes * Izabella Juarez MD - 11/18/2020 5:58 PM CDT Mbpp today normal with cephalic presentation. Pt has had some cramping. No bleeding or abnl dc. Cervix posterior. Sent GBS. Will plan delivery at 37 wks. Pt wants to try for vaginal delivery. Discussed possible need for c/section. Next testing at [facility] on 11/22. I'll request growth at that time. Scheduled MIL for 11/30 afternoon if MFM agreeable with DINH. documented in this encounter Miscellaneous Notes * Result Encounter Note - Suma Riley RN - 11/23/2020 3:44 PM CDT Neg GBS culture documented in this encounter Plan of Treatment Not on file documented as of this encounter Procedures Procedure Name Priority Date/Time Associated Diagnosis Comments (BROTH-ENRICHED) GROUP B STREP DETECTION Routine 11/18/2020 4:40 PM CDT care, antepartum documented in this encounter Results * (BROTH-ENRICHED) GROUP B STREP DETECTION (11/18/2020 4:40 PM CDT) SOURCE *VAG/RECTAL [facility] GROUP B STREP BY PCR NOT DETECTED NOT DETECTED [facility] Comment: This assay was performed by [employer] GeneXpert(R) PCR. Note per CDC guidelines optimal recovery is achieved by swabbing both the lower vagina and rectum (through the anal sphincter). Test Performed at: [facility] [address] [place], [place] ??[address] Alin Kwan D.O., MPH Genital (Vaginal/rectal) 11/18/2020 4:40 PM CDT Izabella Juarez MD MICROBIOLOGY - GENE RAL ORDERABLES [facility] [address] [place] [address] documented in this encounter Visit Diagnoses Diagnosis care, antepartum- Primary Breech presentation with problem, single or unspecified fetus complicated by umbilical cord varix, antepartum Excessive growth affecting management of in second trimester, single or unspecified fetus documented in this encounter
--- OUTSIDE RECORDS SUMMARY | 2024-06-09 02:43 | XMS_ITS | Encounter Summary ---
Author Organization [facility] Address [address] Govea: Epic Prelude ADT [place] [address] Care Team Providers Care Comedian Name Role Phone Unavailable Primary Care Provider Unavailabl e Encounter Details Date Type Department Care Team (Latest Contact Info) Description 09/28/2020 Travel Social History Tobacco Use Types Packs/Day [...]
--- OUTSIDE RECORDS SUMMARY | 2024-06-09 02:43 | XMS_ITS | Encounter Summary ---
Author Organization [facility] Address [address] [place] [address] Care Team Providers Care Csr Technician Name Role Phone Unavailable Primary Care Provider Unavailabl e Reason for Visit * Reason Comments Routine Visit Encounter Details Date Type Department Care Team (Latest Contact Info) Description 11/23/2020 4:15 PM CDT visit [facility] STOCK HANGER - [address] [phone] Izabella Juarez MD NO ADDRESS ON FILE Breech presentation with problem, single or unspecified [...] Sign Reading Time Taken Comments Blood Pressure 111/73 11/23/2020 4:18 PM CDT Pulse - - Temperature - - Respiratory Rate - - Oxygen Saturation - - Inhaled Oxygen Concentration - - Weight 77.1 kg (170 lb) 11/23/2020 4:18 PM CDT Height 167.6 cm (5' 6 ) 11/23/2020 4:18 PM CDT Body Mass Index 27.44 11/23/2020 4:18 PM CDT documented in this encounter Progress Notes * Izabella Juarez MD - 11/24/2020 5:12 PM CDT Pt had US yesterday. We discussed results. I recommend primary due to multiple risk factors, including breech. Pt is poor candidate for external cephalic version. Discussed potential risks/benefits DINH versus CS if baby were to spontaneously turn. Pt wants to proceed with . Scheduled for next week at 37 wks. MFM aware of 37 wks GA and approved by MFM. Process and post-op discussed. Discussed that baby will be evaluated by NICU and may need support due to early term. All of patient and her 's questions were answered. documented in this encounter Plan of Treatment Not on file documented as of this encounter Visit Diagnoses Diagnosis Breech presentation with problem, single or unspecified fetus complicated by umbilical cord varix, antepartum Excessive growth affecting management of in second trimester, single or unspecified fetus documented in this encounter
--- OUTSIDE RECORDS SUMMARY | 2024-06-09 02:43 | XMS_ITS | Encounter Summary ---
Author Organization [email or web address] Address [address] [place] [address] Care Team Providers Care Media Relations Associate Name Role Phone Unavailable Primary Care Provider Unavailabl e Encounter Details Date Type Department Care Team (Latest Contact Info) Description 09/28/2020 10:17 AM CDT - 09/28/2020 11:59 PM CDT Hospital Encounter [facility] Services [facility] [place] [address], [place] [address] Izabella Juarez MD NO ADDRESS ON FILE [...] AM CDT documented as of this encounter Miscellaneous Notes * Result Encounter Note - Izabella Juarez MD - 09/28/2020 10:20 AM CDT Notify 28 week labs are fine. documented in this encounter Plan of Treatment Not on file documented as of this encounter Procedures Procedure Name Priority Date/Time Associated Diagnosis Comments GLUCOSE TOLERANCE 1 HR GESTATIONAL Routine 09/28/2020 11:27 AM CDT care in second trimester HEMOGLOBIN AND HEMATOCRIT Routine 09/28/2020 11:27 AM CDT care in second trimester documented in this encounter Results * (ABNORMAL) HEMOGLOBIN AND HEMATOCRIT (09/28/2020 11:27 AM CDT) HEMOGLOBIN 11.2(L) 11.8 - 14.8 g/dL 09/28/2020 11:47 AM CDT [facility] HEMATOCRIT 35.8 35.5 - 44.0 % 09/28/2020 11:47 AM CDT [facility] Blood Venipuncture / Unknown 09/28/2020 11:27 AM CDT 09/28/2020 11:33 AM CDT Izabella Juarez MD HEMATOLOGY ORDERABL ES [facility]# [id number] [address] [place] [address] * GLUCOSE TOLERANCE 1 HR GESTATIONAL (09/28/2020 11:27 AM CDT) GLUCOSE DOSE 50 Gram 09/28/2020 12:14 PM CDT [facility] GLUCOSE 1 HR OBSTETRIC 112 65 - 139 mg/dL 09/28/2020 12:14 PM CDT [email or web address] Blood Venipuncture / Unknown 09/28/2020 11:27 AM CDT 09/28/2020 11:32 AM CDT Izabella Juarez MD CHEMISTRY ORDERABLE S [facility]# [id number] [address] [place] [address] documented in this encounter Visit Diagnoses Diagnosis care in second trimester documented in this encounter
--- OUTSIDE RECORDS SUMMARY | 2024-06-09 02:43 | XMS_ITS | Encounter Summary ---
Author Organization [facility] Address [address] Govea: Epic Prelude ADT [place] [address] Care Team Providers Care [id number] Armor Crewman Name Role Phone Unavailable Primary Care Provider Unavailabl e Encounter Details Date Type Department Care Team (Latest Contact Info) Description 10/25/2020 Travel Social History Tobacco Use Types Packs/Day [...] have Coronavirus / COVID-19? No / Unsure 10/25/2020 10:22 PM CDT documented as of this encounter Plan of Treatment Not on file documented as of this encounter Visit Diagnoses Not on filedocumented in this encounter
--- OUTSIDE RECORDS SUMMARY | 2024-06-09 02:43 | XMS_ITS | Encounter Summary ---
Author Organization [facility] Address [address] Govea: Epic Prelude ADT [place] [address] Care Team Providers Care Job Placement Specialist Name Role Phone Unavailable Primary Care Provider Unavailabl e Encounter Details Date Type Department Care Team (Latest Contact Info) Description 11/03/2020 Travel Social History Tobacco Use Types Packs/Day [...]
--- OUTSIDE RECORDS SUMMARY | 2024-06-09 02:43 | XMS_ITS | Encounter Summary ---
Author Organization [facility] Address [address] [place] [address] Care Team Providers Care House Detective Name Role Phone Unavailable Primary Care Provider Unavailabl e Reason for Visit * Reason Comments syncope Pt is 31 weeks pregn ant from the [facility]. Pt reports she has 2 brief passing out episodes today. Pt now has a CASILLAS and nausea. Pt became dizzy prior to syncope. Pt does feel movement. Encounter Details Date Type Department Care Team (Late st Contact Info) Description 10/23/2020 5:33 PM CDT - 10/23/2020 8:[address] [facility] Emergency Department [address] [place] [address] Jaswinder Tafoya MD [address] [facility] [place] [address] Syncope, unspecified syncope type (Primary Dx); with 31 completed weeks gestation; Nonintractable headache, unspecified chronicity pattern, unspecified headache type Discharge Disposition: Home or Self Care Social [...] Sign Reading Time Taken Comments Blood Pressure 101/57 10/23/2020 7:40 PM CDT Pulse 88 10/23/2020 7:40 PM CDT Temperature 37 ??C (98.6 ??F) 10/23/2020 5:07 PM CDT Respiratory Rate 16 10/23/2020 7:40 PM CDT Oxygen Saturation 98% 10/23/2020 7:40 PM CDT Inhaled Oxygen Concentration - - Weight 73 kg (161 lb) 10/23/2020 5:07 PM CDT Height 167.6 cm (5' 6 ) 10/23/2020 5:07 PM CDT Body Mass Index 25.99 10/23/2020 5:07 PM CDT documented in this encounter Discharge Instructions * Attachments The following attachments cannot be sent through Care Everywhere. * Fainting (Danish) documented in this encounter Medications at Time [...] daily. 12/05/2020 documented as of this encounter ED Notes * Macy Musa RN - 10/23/2020 7:58 PM CDT Pt educated on discharge instructions, verbalizes understanding. No further questions or concerns * Macy Musa RN - 10/23/2020 7:25 PM CDT Pt resting in stretcher, NAD. RR even and unlabored. No questions or concerns at this time. Husbandremains at bedside. Bed low and locked, rails up x2. Call light within reach * Macy Musa RN - 10/23/2020 7:17 PM CDT Assumed care of patient at this time, report received from Vanda DIAZ * Ashlee Cotto RN - 10/23/2020 6:53 PM CDT Pt provided with crackers and peanut butter. * Ashlee Cotto RN - 10/23/2020 6:23 PM CDT Pt to ED from U d/t dizziness that started today. Pt reports 'blacking out' twice while feeling flushed and Heavy. Pt reports decreased movements when episodes happen. Pt denies CP or SOB. Pt is A&Ox4, RR are even and unlabored, skin is PWD. Pt placed on full cardiopulmonary monitor,VS as charted. Stretcher in low and locked position and call light within reach. * Jaswinder Tafoya MD - 10/23/2020 5:02 PM CDT HISTORY OF PRESENT ILLNESS Sheryl Kim, a 35 y.o. female presents to the ED with a Chief Complaint of syncope Subjective Documented Triage Chief Complaint: Syncope 5:42 PM: Sheryl Kim is a 35 y.o. female with a history of nutritional anemia, who presents 31weeks to the Emergency Department with complaints two mild syncopal episodes today. Patient reports she remembers a similar episode about five years ago while at work where she had anonset of hot sensations and felt like she was going to pass out. Patient admits the episode was followed by a headache that she described as a migraine. Today patient reports the first episode was near-syncopal and occurred around 10:00 AM and states she felt an onset of bilateral arm numbness and tingling and felt like she could not do anything for about five seconds. Around 10:20 AM patient reports she was walking from her bathroom to her bedroomwhen she blacked out for approximately five seconds along with arm tingling and unusual head sensations. Patient reports she felt flushed following the episode and noticed a sudden onset of a headache around 12:00 PM. Patient reports the episodes were not witnessed but denies urinary incontinence or signs of tongue bite. Patient denies chest pain, vomiting, diarrhea, neck pain, back pain or any other symptoms. Patient admits current headache but states she took Tylenol prior to arrival in the ED. Physician(s): No primary care provider on file. History provided by: The patient Arrived by: Private vehicle Arrived from: Home syncope Episode history: Multiple Most recent episode: Today Duration: 5 seconds Timing: Intermittent Progression: Worsening Chronicity: New Witnessed: no Relieved by: None tried Worsened by: Nothing tried Ineffective treatments: None tried Associated symptoms: headaches Associated symptoms: no chest pain, no dizziness, no fever, no nausea, no palpitations, no seizures, no shortness of breath, no visual change, no vomiting and no weakness REVIEW OF SYSTEMS Review of Systems Constitutional: Negative for fever. Respiratory: Negative for shortness of breath. Cardiovascular: Positive for syncope. Negative for chest pain, palpitations and leg swelling. Gastrointestinal: Negative for nausea and vomiting. Neurological: Positive for syncope, numbness (tingling to arms bilaterally during syncopal episode)and headaches. Negative for dizziness, seizures, weakness and light-headedness. All other systems reviewed and are negative. PAST MEDICAL HISTORY REVIEWED MEDICAL: Patient has a past medical history of Nutritional anemia, unspecified and Type O blood, Rh negative(08/04/2020). SURGICAL: Patient has a past surgical history that includes breast augmentation. FAMILY: Patient's family history includes Breast Cancer in her mother; Hodgkin's lymphoma in her mother. SOCIAL: reports that she has never smoked. She has never used smokeless tobacco. She reports previous alcohol use. She reports previous drug use. She reports being sexually active and has had partner(s) who are Male. She reports using the following method of control/protection: None. No history on file. Social History Other Topics Concern ??? Not on file ALLERGIES Patient has no known allergies. HOME MEDICATIONS Discharge Medication List as of 10/23/2020 7:56 PM CONTINUE these medications which have NOT CHANGED Details aspirin (ECOTRIN EC) 81 mg Tablet, Delayed Release (E.C.) Take 81 mg by mouth daily. IRON ORAL Take by mouth. ergocalciferol, vitamin D2, (VITAMIN D ORAL) Take by mouth. PNV no.133/ferrous fum/folic ( ORAL) Take by mouth. Objective PHYSICAL EXAM INITIAL VS BP: 110/59 (10/23/201706), Heart Rate: 75 bpm (10/23/201706), Resp: 16 (10/23/201706), Pulse: 84(10/23/20 1900), Temp: 98.6 ??F (37 ??C) (10/23/201706), Temp src: Oral (10/23/201706), SpO2: 100% (10/23/201706), Height: 5' 6 (167.6 cm) (10/23/201706), Weight: 73 kg (161 lb) (10/23/201706), BMI (Calculated): 26 (10/23/201706) Patient's last menstrual period was 03/21/2020. Physical Exam Vitals and nursing note reviewed. Constitutional: General: She is not in acute distress. HENT: Head: Normocephalic and atraumatic. Comments: Head non tender Eyes: General: Lids are normal. Conjunctiva/sclera: Conjunctivae normal. Cardiovascular: Rate and Rhythm: Normal rate and regular rhythm. Heart sounds: No murmur heard. No friction rub. No gallop. Pulmonary: Effort: Pulmonary effort is normal. No accessory muscle usage. Breath sounds: Normal breath sounds. No decreased breath sounds or rhonchi. Abdominal: General: Bowel sounds are normal. Palpations: Abdomen is soft. Tenderness: There is no abdominal tenderness. Comments: Abdomen is gravid, soft and non tender Musculoskeletal: General: Normal range of motion. Cervical back: Full passive range of motion without pain, normal range of motion and neck supple. No spinous process tenderness or muscular tenderness. Right lower leg: No edema. Left lower leg: No edema. Skin: General: Skin is warm and dry. Neurological: General: No focal deficit present. Mental Status: She is alert. Cranial Nerves: Cranial nerves are intact. Sensory: No sensory deficit. Comments: Speech intact, normal sensations DIAGNOSTICS LAB: No data to display RADIOLOGY: CT HEAD WO CONTRAST Radiologist Impression IMPRESSION: No acute intracranial hemorrhage DICTATION LOCATION: Location 1 - [facility] The examination was performed with the adjustment of mA according to the patient size and/or the use of Iterative Reconstruction Technique. EKG: Sinus rhythm rate 67, low voltage precordial leads, no delta wave, QTC of 393. PROCEDURES Procedures MEDICAL DECISION MAKING AND PLAN OF CARE --On initial encounter discussed plan for EKG, CT head and bedside ultra sound with patient to check for fluid around patients heart. 6:00 PM: Patients bedside ultra sound showed no pericardial fluid around the heart and normal left ventricular function. 7:07 PM: I re-evaluated patient who reports she is feeling fine. 7:33 PM: I spoke with Dr. Mtz (INSURANCE SOLICITOR on-call for Dr. Juarez) who agrees with plan for discharge and PCP follow up. 7:33 PM: Patient's symptoms have improved. Updated pt on their lab and imaging results. Recommendedfollow up with PCP. RTER with worsening sx. Pt understands and agrees with the plan. All questions and concerns addressed. The patient is stable for discharge. ED provider and ED nurse verbally discussed patient plan of care at this time. MDM Summary Statement: 35-year-old female who is coming in with 2 episodes of near syncope Differential would include arrhythmia seizure vasovagal pulmonary embolism subarachnoid hemorrhage.Patient's already been to the we you with a valuated a baby. They did some laboratory work-up whichI reviewed and this appears to be normal. Her EKG is within normal limits. I did a bedside echo to evaluate for pericardial fluid it was unremarkable. Since she has had a headache I recommended a CT scan of her head which was also unremarkable. Patient reports similar spell about 5 years ago. Perhaps this is a vasovagal event could be a complex migraine. Overall she looks fine I think she is safefor discharge home. She will follow-up with her INSURANCE SOLICITOR but also recommend getting a primary care doc tor to see if further testing is needed return instructions were discussed the patient. I have reviewed previous: notes I have reviewed current: labs, ECG and imaging I have reviewed nursing notes related to past medical history, social history, and review of systems and agree, unless otherwise noted. Consults: INSURANCE SOLICITOR Discharge Medication List as of 10/23/2020 7:56 PM CONTINUE these medications which have NOT CHANGED Details aspirin (ECOTRIN EC) 81 mg Tablet, Delayed Release (E.C.) Take 81 mg by mouth daily. IRON ORAL Take by mouth. ergocalciferol, vitamin D2, (VITAMIN D ORAL) Take by mouth. PNV no.133/ferrous fum/folic ( ORAL) Take by mouth. LAST VS BP: 101/57 (10/23/201939), Heart Rate: 76 bpm (10/23/201939), Resp: 16 (10/23/201939), Pulse: 88(10/23/201939), Temp: 98.6 ??F (37 ??C) (10/23/201706), Temp src: Oral (10/23/201706), SpO2: 98 % (10/23/201939) CLINICAL IMPRESSION Final diagnoses: [R55] Syncope, unspecified syncope type (Primary) [Z3A.31] with 31 completed weeks gestation [R51.9] Nonintractable headache, unspecified chronicity pattern, unspecified headache type DISPOSITION, EDUCATION AND MEDICATION RECONCILIATION Medications reconciled. See after visit summary for patient education on discharged patients. ED Disposition ED Disposition Condition User Date/Time Comment Discharge Stable Jaswinder Tafoya MD Sat October 23, 2020 7:33 PM ATTESTATION STATEMENTS This note has been prepared by Dia Carballo acting as a scribe for Dr. Jaswinder Tafoya on 10/23/2020 at 7:49 PM. The scribe's documentation has been prepared under my direction and personally reviewed by me, [email or web address], in its entirety on 10/23/20 at 8:24 PM. I confirm that the note above accurately reflects all work, treatment, procedures, and medical decision making performed by me. documented in this encounter Miscellaneous Notes * ED Bed Hold Comment Note - Craig Burks RN - 10/23/2020 5:33 PM CDT Bed: 02 Expected date: Expected time: Means of arrival: Comments: Sheryl Kim documented in this encounter Plan of Treatment Not on file documented as of this encounter Procedures Procedure Name Priority Date/Time Associated Diagnosis Comments CT HEAD WO CONTRAST Stat 10/23/2020 6 :31 PM CDT EKG 12-LEAD Stat 10/23/2020 5:18 PM CDT documented in this encounter Results * CT HEAD WO CONTRAST (10/23/2020 6:31 PM CDT) Anatomical Region Laterality Modality Head Computed Tomogra phy 10/23/2020 6:48 PM CDT Impressions 10/23/2020 6:55 PM CDT IMPRESSION: ??No acute intracranial hemorrhage DICTATION LOCATION: Location [address] [place] [address] The examination was performed with the adjustment of mA according to the patient size and/or the use of Iterative Reconstruction Technique. Narrative 10/23/2020 6:[address] HEAD WITHOUT IV CONTRAST DATE: 10/23/2020 6:31 PM HISTORY: , near/syncope x2 today and now casillas. ??eval for sah.. ?? See Reason for Exam COMPARISON: None. ?? TECHNIQUE: Computed tomography was performed at the standard reference planes at 5 mm thickness without intravenous contrast material. FINDINGS: The ventricular system is within normal limits. ??There is no evidence of midline shift, focal area of abnormal attenuation, acute intracranial hemorrhage. ??The mastoid air cells and paranasal sinuses are unremarkable. The orbits are grossly unremarkable. INCIDENTAL FINDINGS: ??None. Procedure Note Leatha Garza MD - 10/23/2020 CT HEAD WITHOUT IV CONTRAST DATE: 10/23/2020 6:31 PM HISTORY: , near/syncope x2 today and now casillas. eval for sah.. See Reason for Exam COMPARISON: None. TECHNIQUE: Computed tomography was performed at the standard reference planes at 5 mm thickness without intravenous contrast material. FINDINGS: The ventricular system is within normal limits. There is no evidence of midline shift, focal area of abnormal attenuation, acute intracranial hemorrhage. The mastoid air cells and paranasal sinuses are unremarkable. The orbits are grossly unremarkable. INCIDENTAL FINDINGS: None. IMPRESSION: No acute intracranial hemorrhage DICTATION LOCATION: Location 1 [facility] The examination was performed with the adjustment of mA according to the patient size and/or the use of Iterative Reconstruction Technique. Jaswinder Tafoya MD CT ORDERABLES * EKG 12-LEAD (10/23/2020 5:18 PM CDT) 10/23/2020 5:18 PM CDT Narrative INTERFACE SYSTEM - 10/23/2020 10:10 PM CDT ? Stationary ECG Study ? [facility] ? Test Date: ?10/23/2020 5:18 PM Pat Name: ? SHERYL KIM ? Department: ?? 37 ?Room: ? H03 Gender: ? F ?Players Assistant: ?? [email or web address] : ?1985 ? Requested By: ?? Order Number: [id number] ?Reading MD: ?? Mitul Hardy ? Measurements Intervals ?[place] ? Rate: ? 67 ? P: ?2 FL: ? 149 ?QRS: ?0 QRSD: ? 88 ? T: ?14 QT: ? 372 ? QTc: ?393 ? Interpretive Statements ? Sinus rhythm Low voltage, precordial leads Electronically Signed On 10-23-2020 22:10:36 CDT by Mitul Hardy Procedure Note Mitul Hardy MD - 10/23/2020 Stationary ECG Study [facility] Test Date: 10/23/2020 5:18 PM Pat Name: SHERYL KIM Department: 37 Room: H03 Gender: F Players Assistant: [email or web address] : 1985 Requested By: Order Number: [id number] Reading MD: Mitul Hardy Measurements Intervals [place] Rate: 67 P: 2 FL: 149 QRS: 0 QRSD: 88 T: 14 QT: 372 QTc: 393 Interpretive Statements Sinus rhythm Low voltage, precordial leads Electronically Signed On 10-23-2020 22:10:36 CDT by Mitul Hardy Jaswinder Tafoya MD ECG ORDERABLES INTERFACE SYSTEM Refer to clinic/hospital department documented in this encounter Visit Diagnoses Diagnosis Syncope, unspecified syncope type- Primary with 31 completed weeks gestation Nonintractable headache, unspecified chronicity pattern, unspecified headache type documented in this encounter
--- OUTSIDE RECORDS SUMMARY | 2024-06-09 02:43 | XMS_ITS | Encounter Summary ---
Author Organization [facility] Address [address] [place]: Epic Prelude ADT [place] [address] Care Team Providers Care Jockey Agent Name Role Phone Unavailable Primary Care Provider Unavailabl e Encounter Details Date Type Department Care Team (Latest Contact Info) Description 11/16/2020 Travel Social History Tobacco Use Types Packs/Day [...]
--- OUTSIDE RECORDS SUMMARY | 2024-06-09 02:43 | XMS_ITS | Encounter Summary ---
Author Organization [facility] Address [address] [place]: Epic Prelude ADT [place] [address] Care Team Providers Care Traveling Electrician Name Role Phone Unavailable Primary Care Provider Unavailabl e Encounter Details Date Type Department Care Team (Latest Contact Info) Description 08/26/2020 Travel Social History Tobacco Use Types Packs/Day [...]
--- OUTSIDE RECORDS SUMMARY | 2024-06-09 02:43 | XMS_ITS | Encounter Summary ---
Author Organization [facility] Address 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 Procedures US OB LIMITED + NST IL NON-STRESS TEST CHG US, UTERUS,LIMITED, 1/> FETUSES Gifty Medrano MD [address] [facility] [place] [address] Referral ID Status Reason Start Date Expiration Date Visits Re quested Visits Authorized [id number] Closed 10/26/2020 11/26/2021 1 1 Reason for Visit * Auth/Cert Specialty Diagnoses / Procedures Referred By Contac t Referred To Contact Radiology [facility] Maternal And H[facility] Ground Fl [address] [place] [address] Referral ID Status Reason Start Date Expiration Date Visits Re quested Visits Authorized [id number] 1 1 Encounter Details Date Type Department Care Team (Latest Contact Info) Description 11/26/2020 9:39 AM CDT - 11/26/2020 11:59 PM CDT Hospital Encounter [facility] Maternal and Ground Floor S [facility] [address] [place] [address] Gifty Medrano MD [address] [place] [address] Discharge Disposition: Home or Self Care Social [...] AM CDT documented as of this encounter Medications [...] Comments US OB LIMITED + NST Routine 11/26/2020 1 0:53 AM CDT 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 Name: SHERYL KIM Study Date: 11/26/2020 10:04am Pat. NO: [id number] Referring ??MD: LARA VIDAL MD Site: [facility] Drop Forger: : 1985 Age: 35 ----- INDICATION ----- Known or Suspected anomaly ? Umbilical Vein Varix Fibroids Large for Dates CODING ----- Diagnoses ? O35.8XX0: Maternal care for suspected abnormality. Unspecified Fetus ?O34.13: Maternal care for benign tumor of corpus uteri ?O36.63X0: Maternal care for excessive growth. Unspecified Fetus ?Z3A.35: Weeks Gestation of Procedures ?04800: Limited 1 or more - FRIDA, FHR, position (modifier 59 for MBPP) ?23720: NST/ monitoring HISTORY ----- OB History ? 2. Para 1 MATERNAL ASSESSMENT ----- Physical Exam ? Weight 77 kg. BMI 27.44 kg/m??. Blood pressure 109/75 mmHg. Heart rate 102 bpm METHOD ----- EFM; Transabdominal ultrasound examination ----- Hamilton . Number of fetuses: 1 DATING ----- LMP on: 03/21/2020 Cycle: regular cycle, regular cycle GA by LMP 35 w + 5 d JAMEEL by LMP: 12/26/2020 GA by prior assessment 35 w + 5 d JAMEEL by prior assessment: 12/26/2020 Method of dating: Restore dating from previous exam Assigned: based on stated JAMEEL, selected on 11/15/2020 Assigned GA 35 w + 5 d Assigned JAMEEL: 12/26/2020 GENERAL EVALUATION ----- Cardiac activity present. movements: visualized. Presentation: cephalic NON STRESS TEST ----- NST interpretation: reactive. Test duration 27 min. Baseline FHR 155 bpm. Baseline variability: moderate. Accelerations: Present. Decelerations: Not present. Uterine activity: present, irritability AMNIOTIC FLUID ASSESSMENT ----- MVP 6.9 cm. FRIDA 17.7 cm. Q1 3.4 cm, Q2 6.0 cm, Q3 1.4 cm, Q4 6.9 cm COMMENT ----- Nursing Notes: Pt denies bleeding, leaking of amniotic fluid, contractions. Pt states positive movement. Twice weekly testing. Primary C/S scheduled for 12/01/20. IMPRESSION ----- NST reactive AFV normal FBM, FM's and normal tone noted during ultrasound Procedure Note Eduardo Kern MD - 11/30/2020 MODIFIED BPP STUDY ----- Pat. Name:Jennifer KIM Date:11/26/2020 10:04am Pat. NO: [id number] MD:LARA VIDAL [facility]1985Age:35 ----- INDICATION ----- Known or Suspected anomaly Umbilical VeinVarix Fibroids Large for Dates CODING ----- Diagnoses O35.8XX0: Maternal care for suspected fetalabnormality. Unspecified Fetus O34.13: Maternal care for benign tumor of corpusuteri O36.63X0: Maternal care for excessive fetalgrowth. Unspecified Fetus Z3A.35: Weeks Gestation of Procedures 68858: Limited 1 or more - FRIDA, FHR, position(modifier 59 for MBPP) 18534: NST/ monitoring HISTORY ----- OB History 2. Para 1 MATERNAL ASSESSMENT ----- Physical Exam Weight 77 kg. BMI 27.44 kg/m??. Blood /75 mmHg. Heart rate 102 bpm METHOD ----- EFM; Transabdominal ultrasound examination ----- [place] . Number of fetuses: 1 DATING ----- LMP on:03/21/2020 Cycle:regular cycle, regular cycle GA by LMP35 w + 5 d JAMEEL by LMP:12/26/2020 GA by prior [id number] w + 5 d JAMEEL by prior assessment:12/26/2020 Method of dating:Restore dating from previous exam Assigned:based on stated JAMEEL, selected on 11/15/2020 Assigned GA35 w + 5 d Assigned JAMEEL:12/26/2020 GENERAL EVALUATION ----- Cardiac activity present. movements: visualized. Presentation:cephalic NON STRESS TEST ----- NST interpretation: reactive. Test duration 27 min. Baseline FHR 155 bpm.Baseline variability: moderate. Accelerations: Present. Decelerations: Not present. Uterine activity: present, irritability AMNIOTIC FLUID ASSESSMENT ----- MVP 6.9 cm. FRIDA 17.7 cm. Q1 3.4 cm, Q2 6.0 cm, Q3 1.4 cm, Q4 6.9 cm COMMENT ----- Nursing Notes: Pt denies bleeding, leaking of amniotic fluid,contractions. Pt states positive movement. Twice weekly testing. Primary C/S scheduled for 12/01/20. 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
--- OUTSIDE RECORDS SUMMARY | 2024-06-09 02:43 | XMS_ITS | Encounter Summary ---
Author Organization [facility] Address [address] [place]: Epic Prelude ADT [place] [address] Care Team Providers Care Field Account Director Name Role Phone Unavailable Primary Care Provider Unavailabl e Encounter Details Date Type Department Care Team (Latest Contact Info) Description 12/01/2020 Travel Social History Tobacco Use Types Packs/Day [...]
--- OUTSIDE RECORDS SUMMARY | 2024-06-09 02:43 | XMS_ITS | Encounter Summary ---
Author Organization [facility] Address [address] [place] [address] Care Team Providers Care Ehs Manager Name Role Phone Unavailable Primary Care Provider Unavailabl e Reason for Referral * Radiology Services (Routine) - Closed Specialty Diagnoses / Procedures Referred By Contac t Referred To Contact Diagnoses Fibroids Procedures US OB FOLLOW UP PER FETUS Evelyn Gaston MD [address] [place] [address] Referral ID Status Reason Start Date Expiration Date V isits Requested Visits Authorized [id number] Closed [facility] CTS 08/02/2020 09/02/2021 1 1 Reason for Visit * Auth/Cert Specialty Diagnoses / Procedures Referred By Contac t Referred To Contact Radiology [facility] [address] [place] [address] Referral ID Status Reason Start Date Expiration Date Visits Re quested Visits Authorized [id number] 1 1 Encounter Details Date Type Department Care Team (Latest Contact Info) Description 09/27/2020 9:57 AM CDT - 09/27/2020 11:59 PM CDT Hospital Encounter [facility] Maternal and Ground Floor [address] [place] [address] Evelyn Gaston MD [address] [place] [address] Discharge Disposition: Home or Self [...] US OB FOLLOW UP PER FETUS Routine 09/27/2020 10:26 AM CDT Fibroids documented in this encounter Results * US OB FOLLOW UP PER FETUS (09/27/2020 10:26 AM CDT) Anatomical Region Laterality Modality Pelvis Ultrasound 09/27/2020 10:0 7 AM CDT Impressions 09/27/2020 10:41 AM CDT IMPRESSION ----- at 27 weeks 1 day gestation. complicated by maternal fibroid. Accelerated growth Estimated weight is at the 96th percentile with abdominal circumference at the 95th percentile The intra-abdominal portion of the umbilical vein is slightly increased in size measuring 11 to 12 mm in transverse diameter. Umbilical vein is not torturous. Flow within umbilical vein appears normal. No other structural malformations identified. Cardiac anatomy appears normal. Amniotic fluid volume is normal Anterior placenta which does not appear to be low-lying Presence of an enlarged intra-abdominal portion of the umbilical vein was discussed with patient. 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 However, because the size of vein is only slightly greater than the normal threshold to 10 mm and the vein is not tortuous in its course prognosis is good. Single left lateral uterine fibroid noted. Fibroid has not grown in size since last ultrasound. This fibroid does not appear to be obstructing and is likely not to be clinically significant Recommendations: -A targeted ultrasound to assess umbilical vein scheduled in 2 weeks -A follow-up ultrasound to assess growth scheduled in 4 weeks -Recommend screening for gestational diabetes Narrative 09/27/2020 10:41 AM CDT ST[facility] Follow Up ----- Pat. Name: CAROL KIM Study Date: 09/27/2020 10:07am Pat. NO: [id number] Referring ??MD: LARA VIDAL MD Site: [facility] Bathhouse Keeper: Shila Stewart : 1985 Age: 35 ----- INDICATION ----- Maternal Fibroids ?left low lateral CODING ----- Diagnosis ? O34.12: Maternal care for benign tumor of corpus uteri ?Z3A.27: Weeks Gestation of Procedures ?96496: OB follow-up/Target per fetus HISTORY ----- OB History ? 2. Para 1 MATERNAL ASSESSMENT ----- Physical Exam ? Weight 72 kg. BMI 25.66 kg/m?. METHOD ----- Transabdominal ultrasound examination ----- Hamilton . Number of fetuses: 1. DATING ----- LMP on: 03/21/2020 Cycle: regular cycle GA by LMP 27 w + 1 d JAMEEL by LMP: 12/26/2020 Ultrasound examination on: 09/27/2020 GA by U/S based upon: AC, BPD, EFW, Femur, HC GA by U/S 28 w + 6 d JAMEEL by U/S: 12/14/2020 Method of dating: Restore dating from previous exam Assigned: Dating performed on 08/02/2020, based on the LMP Assigned GA 27 w + 1 d Assigned JAMEEL: 12/26/2020 BIOMETRY ----- Main Biometry: BPD ? 72.2 ? mm ? 29w 0d ?90% ? Hadlock OFD ? 92.1 ? mm ? 29w 5d ?98% ? Raul HC ?261.7 ?mm ? 28w 3d ?66% ? Hadlock AC ?253.1 ?mm ? 29w 4d ?95% ? Hadlock Femur ? 53.7 ? mm ? 28w 3d ?74% ? Hadlock HC / AC ? 1.03 ?11% ? Nicolaides Weight Calculation: EFW ? 1,323 ?g ?28w 5d ?96% ? Hadlock EFW (lb,oz) ? 2 lb 15 ?oz EFW by ? Hadlock ([id number]) Head / Face / Neck Biometry: Cephalic index ?0.78 ?46% ? Nicolaides Extremities / Bony Struc Biometry: FL / BPD ?0.74 ? FL / HC ? 0.21 ? FL / AC ? 0.21 ? Other Structures Biometry: AF MVP ?7.7 ?cm ? FRIDA ? 18.6 ? cm ? 80% ? Solomon FHR ? 142 ?bpm ? GENERAL EVALUATION ----- Cardiac activity present. FHR 142 bpm. movements present. Presentation breech. Placenta Placental site: anterior. Umbilical cord Cord vessels: 3 vessel cord. Amniotic fluid Amount of AF: normal amount. MVP 7.7 cm. FRIDA 18.6 cm. Q1 7.7 cm, Q2 5.7 cm, Q3 0.0 cm, Q4 5.2 cm. MATERNAL STRUCTURES ----- Uterus ?Fibroid(s) Left lateral wall low. Size 70 mm x 70 mm x 63 mm. Mean 67.7 mm. Vol 161,635 mm? ANATOMY ----- The following structures appear normal: Head / Neck ? Cranium. Lateral ventricles. Choroid plexus. Midline falx. Cavum septi pellucidi. Cerebellum. Cisterna ?magna. Heart / Thorax ?4-chamber view. RVOT view. LVOT view. ?Diaphragm. Abdomen ? Stomach. Kidneys. Bladder. Gender: male. umbilical vein varix : 1.02 cm COMMENT ----- Patient's name and date of were verified by the metallurgical lab technician prior to the exam Procedure Note Eduardo Kern MD - 09/27/2020 [facility] Follow Up ----- Pat. Name:Jennifer KIM Date:09/27/2020 10:07am Pat. NO: [id number] MD:LARA VIDAL [facility] :1985Age:35 ----- INDICATION ----- Maternal Fibroids left low lateral CODING ----- Diagnosis O34.12: Maternal care for benign tumor of corpusuteri Z3A.27: Weeks Gestation of Procedures 64398: OB follow-up/Target per fetus HISTORY ----- OB History 2. Para 1 MATERNAL ASSESSMENT ----- Physical Exam Weight 72 kg. BMI 25.66 kg/m?. METHOD ----- Transabdominal ultrasound examination ----- Hamilton . Number of fetuses: 1. DATING ----- LMP on:03/21/2020 Cycle:regular cycle GA by LMP27 w + 1 d JAMEEL by LMP:12/26/2020 Ultrasound examination on:09/27/2020 GA by U/S based upon:AC, BPD, EFW, Femur, HC GA by U/S28 w + 6 d JAMEEL by U/S:12/14/2020 Method of dating:Restore dating from previous exam Assigned:Dating performed on 08/02/2020, based on the LMP Assigned GA27 w + 1 d Assigned JAMEEL:12/26/2020 BIOMETRY ----- Main Biometry: BPD 72.2 mm 29w 0d90% Hadlock OFD 92.1 mm 29w 5d98% Raul HC 261.7 mm 28w 3d66% Hadlock AC 253.1 mm 29w 4d95% Hadlock Femur 53.7 mm 28w 3d74% Hadlock HC / AC 1.0311% Nicolaides Weight Calculation: EFW 1,323 g 28w 5d96% Hadlock EFW (lb,oz) 2 lb 15 oz EFW by Hadlock ([id number]-FL) Head / Face / Neck Biometry: Cephalic index 0.7846% Nicolaides Extremities / Bony Struc Biometry: FL / BPD 0.74 FL / HC 0.21 FL / AC 0.21 Other Structures Biometry: AF MVP 7.7 cm FRIDA 18.6 cm80% Solomon FHR 142 bpm GENERAL EVALUATION ----- Cardiac activity present. FHR 142 bpm. movements present. Presentation breech. Placenta Placental site: anterior. Umbilical cord Cord vessels: 3 vessel cord. Amniotic fluid Amount of AF: normal amount. MVP 7.7 cm. FRIDA 18.6 cm. Q17.7 cm, Q2 5.7 cm, Q3 0.0 cm, Q4 5.2 cm. MATERNAL STRUCTURES ----- Uterus Fibroid(s) Left lateral wall low. Size 70 mm x 70mm x 63 mm. Mean 67.7 mm. Vol 161,385 mm? ANATOMY ----- The following structures appear normal: Head / Neck Cranium. Lateral ventricles. Choroid plexus.Midline falx. Cavum septi pellucidi. Cerebellum. Cisterna magna. Heart / Thorax 4-chamber view. RVOT view. LVOT view. Diaphragm. Abdomen Stomach. Kidneys. Bladder. Gender: male. umbilical vein varix : 1.02 cm COMMENT ----- Patient's name and date of were verified by the metallurgical lab technician prior tothe exam IMPRESSION ----- at 27 weeks 1 day gestation. complicated by maternalfibroid. Accelerated growth Estimated weight is at the 96th percentile with abdominalcircumference at the 95th percentile The intra-abdominal portion of the umbilical vein is slightly increased insize measuring 11 to 12 mm in transverse diameter. Umbilical vein is not torturous. Flow within umbilical vein appearsnormal. No other structural malformations identified. Cardiac anatomy appearsnormal. Amniotic fluid volume is normal Anterior placenta which does not appear to be low-lying Presence of an enlarged intra-abdominal portion of the umbilical vein wasdiscussed with patient. 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 However, because the size of veinis only slightly greater than the normal threshold to 10 mm and the vein is not tortuous in its course prognosis is good. Single left lateral uterine fibroid noted. Fibroid has not grown in sizesince last ultrasound. This fibroid does not appear to be obstructing and is likely not to be clinically significant Recommendations: -A targeted ultrasound to assess umbilical vein scheduled in 2 weeks -A follow-up ultrasound to assess growth scheduled in 4 weeks -Recommend screening for gestational diabetes Evelyn Gaston MD US ORDERABLES documented in this encounter Visit Diagnoses Diagnosis Fibroids Leiomyoma of uterus, unspecified documented in this encounter
--- OUTSIDE RECORDS SUMMARY | 2024-06-09 02:43 | XMS_ITS | Encounter Summary ---
Author Organization [facility] Address [address] [place] [address] Care Team Providers Care Orthopedic Podiatrist Name Role Phone Unavailable Primary Care Provider Unavailabl e Reason for Referral * Radiology Services (Routine) - Closed Specialty Diagnoses / Procedures Referred By Contac t Referred To Contact Diagnoses complicated by umbilical cord varix, antepartum Fibroid Procedures US OB FOLLOW UP PER FETUS Eduardo Kern MD [address] [place] [address] Referral ID Status Reason Start Date Expiration Date V isits Requested Visits Authorized [id number] Closed [facility] CTS 09/27/2020 10/28/2020 1 1 Reason for Visit * Auth/Cert Specialty Diagnoses / Procedures Referred By Contac t Referred To Contact Radiology [facility] [address] [place] [address] Referral ID Status Reason Start Date Expiration Date Visits Re quested Visits Authorized [id number] 1 1 Encounter Details Date Type Department Care Team (Latest Contact Info) Description 10/26/2020 3:30 PM CDT - 10/26/2020 11:59 PM CDT Hospital Encounter [facility] Maternal and Ground Floor [address] [place] [address] Eduardo Kern MD [address] [place] [phone] Discharge Disposition: Home or Self Care Social [...] US OB FOLLOW UP PER FETUS Routine 10/26/2020 4:22 PM CDT complicated by umbilical cord varix, antepartum Fibroid documented in this encounter Results * US OB FOLLOW UP PER FETUS (10/26/2020 4:22 PM CDT) Anatomical Region Laterality Modality Pelvis Ultrasound 10/26/2020 4:03 PM CDT Impressions 10/26/2020 4:42 PM CDT IMPRESSION ----- Hamilton @ 31w2d complicated by umbilical vein varix and fibroid uterus. - The biometry is ahead of dates with the EFW at the 96th percentile. - Amniotic fluid indices are within normal limits. - Limited anatomy is notable for the umbilical vein varix. It has not grown appreciably in size. There is flow seen within the varix and no evidence of thrombosis. - The uterine fibroid is seen, similar in size to the last ultrasound. It is non-obstructing. testing and targeted ultrasounds will begin next week. A follow up is scheduled in 4 weeks to follow growth. Thank you for allowing us to participate in the care of this patient. Narrative 10/26/2020 4:42 PM CDT STL FOLLOW UP ----- Pat. Name: CAROL HUSAIN Study Date: 10/26/2020 4:03pm Pat. NO: [id number] Referring ??MD: LARA VIDAL MD Site: [facility] Zigzag Tunnel Elastic Operator: Rhiannon Osorio : 1985 Age: 35 ----- INDICATION ----- Known or Suspected anomaly ? Umbilical vein varix Maternal Fibroids ?Left lateral Suspected Macrosomia/Large for Dates CODING ----- Diagnoses ? O35.8XX0: Maternal care for suspected abnormality. Unspecified Fetus ?O34.13: Maternal care for benign tumor of corpus uteri ?Z3A.31: Weeks Gestation of ?O36.63X0: Maternal care for excessive growth. Unspecified Fetus Procedures ?18454: OB follow-up/Target per fetus HISTORY ----- OB History ? 2. Para 1 MATERNAL ASSESSMENT ----- Physical Exam ? Weight 73 kg. BMI 26.15 kg/m? METHOD ----- Transabdominal ultrasound examination ----- Hamilton . Number of fetuses: 1 DATING ----- LMP on: 03/21/2020 Cycle: regular cycle GA by LMP 31 w + 2 d JAMEEL by LMP: 12/26/2020 GA by prior assessment 31 w + 2 d JAMEEL by prior assessment: 12/26/2020 Ultrasound examination on: 10/26/2020 GA by U/S based upon: AC, BPD, EFW, Femur, HC GA by U/S 33 w + 5 d JAMEEL by U/S: 12/09/2020 Method of dating: Restore dating from previous exam Assigned: Dating performed on 08/02/2020, based on the LMP Assigned GA 31 w + 2 d Assigned JAMEEL: 12/26/2020 BIOMETRY ----- BPD ?83.4 ? mm ?33w 4d ?94% ?Hadlock OFD ?112.4 ?mm ?38w 1d ?>99% ?Raul HC ? 313.7 ?mm ?35w 1d ?97% ?Hadlock AC ? 294.6 ?mm ?33w 3d ?95% ?Hadlock Femur ?64.6 ? mm ?33w 2d ?87% ?Hadlock HC / AC ?1.06 ? 45% ?Nicolaides Weight Calculation: EFW ? 2,232 ? g ? 33w 2d ?96% ?Hadlock EFW (lb,oz) ? 4 lb 15 ? oz EFW by ?Hadlock ([id number]-FL) Head / Face / Neck Biometry: Cephalic index ?0.74 ? 6% ?Nicolaides Extremities / Bony Struc Biometry: FL / BPD ?0.77 FL / HC ? 0.21 FL / AC ? 0.22 GENERAL EVALUATION ----- Cardiac activity present. FHR 141 bpm. movements: present. Presentation: transverse head to maternal left Placenta: Placental site: anterior Umbilical cord: Cord vessels: 3 vessel cord. Insertion site: placental insertion: normal Amniotic fluid: Amount of AF: normal amount. MVP 7.9 cm. FRIDA 23.8 cm. Q1 6.0 cm, Q2 5.4 cm, Q3 4.5 cm, Q4 7.9 cm MATERNAL STRUCTURES ----- Uterus ?Fibroid(s) Size 73 mm x 55 mm x 70 mm. Mean 66.1 mm. Vol 148.025 cm? ANATOMY ----- The following structures appear abnormal: Abdomen ? Cord insertion: 11-14 mm. The following structures appear normal: Head / Neck ? Cranium. Heart / Thorax ?4-chamber view. RVOT view. LVOT view. ?Diaphragm. Abdomen ? Stomach. Kidneys. Bladder. sex: male. COMMENT ----- Patient's name and date of were verified by the wind energy engineer prior to the exam Procedure Note Gifty Medrano MD - 10/26/2020 [facility] FOLLOW UP ----- Pat. Name:Jennifer HUSAIN Date:10/26/2020 4:03pm Pat. NO: [id number] MD:LARA VIDAL MD [facility]iannon Osorio :1985Age:35 ----- INDICATION ----- Known or Suspected anomaly Umbilical veinvarix Maternal Fibroids Left lateral Suspected Macrosomia/Large for Dates CODING ----- Diagnoses O35.8XX0: Maternal care for suspected fetalabnormality. Unspecified Fetus O34.13: Maternal care for benign tumor of corpusuteri Z3A.31: Weeks Gestation of O36.63X0: Maternal care for excessive fetalgrowth. Unspecified Fetus Procedures 13854: OB follow-up/Target per fetus HISTORY ----- OB History 2. Para 1 MATERNAL ASSESSMENT ----- Physical Exam Weight 73 kg. BMI 26.15 kg/m? METHOD ----- Transabdominal ultrasound examination ----- Hamilton . Number of fetuses: 1 DATING ----- LMP on:03/21/2020 Cycle:regular cycle GA by LMP31 w + 2 d JAMEEL by LMP:12/26/2020 GA by prior digiefclpr01 w + 2 d JAMEEL by prior assessment:12/26/2020 Ultrasound examination on:10/26/2020 GA by U/S based upon:AC, BPD, EFW, Femur, HC GA by U/S33 w + 5 d JAMEEL by U/S:12/09/2020 Method of dating:Restore dating from previous exam Assigned:Dating performed on 08/02/2020, based on the LMP Assigned GA31 w + 2 d Assigned JAMEEL:12/26/2020 BIOMETRY ----- BPD 83.4 mm 33w 4d 94%Hadlock OFD 112.4 mm 38w 1d >99%Raul HC 313.7 mm 35w 1d 97%Hadlock AC 294.6 mm 33w 3d 95%Hadlock Femur 64.6 mm 33w 2d 87%Hadlock HC / AC 1.06 45%Nicolaides Weight Calculation: EFW 2,232 g 33w 2d96% Hadlock EFW (lb,oz) 4 lb 15 oz EFW by Hadlock ([id number]) Head / Face / Neck Biometry: Cephalic index 0.74 6%Nicolaides Extremities / Bony Struc Biometry: FL / BPD 0.77 FL / HC 0.21 FL / AC 0.22 GENERAL EVALUATION ----- Cardiac activity present. FHR 141 bpm. movements: present.Presentation: transverse head to maternal left Placenta: Placental site: anterior Umbilical cord: Cord vessels: 3 vessel cord. Insertion site: placentalinsertion: normal Amniotic fluid: Amount of AF: normal amount. MVP 7.9 cm. FRIDA 23.8 cm. Q16.0 cm, Q2 5.4 cm, Q3 4.5 cm, Q4 7.9 cm MATERNAL STRUCTURES ----- Uterus Fibroid(s) Size 73 mm x 55 mm x 70 mm. Mean 66.1mm. Vol 148.025 cm? ANATOMY ----- The following structures appear abnormal: Abdomen Cord insertion: 11-14 mm. The following structures appear normal: Head / Neck Cranium. Heart / Thorax 4-chamber view. RVOT view. LVOT view. Diaphragm. Abdomen Stomach. Kidneys. Bladder. sex: male. COMMENT ----- Patient's name and date of were verified by the wind energy engineer prior tothe exam IMPRESSION ----- Hamilton @ 31w2d complicated by umbilical vein varix andfibroid uterus. - The biometry is ahead of dates with the EFW at the 96thpercentile. - Amniotic fluid indices are within normal limits. - Limited anatomy is notable for the umbilical vein varix. It hasnot grown appreciably in size. There is flow seen within the varix and no evidence of thrombosis. - The uterine fibroid is seen, similar in size to the last ultrasound. Itis non-obstructing. testing and targeted ultrasounds will begin next week. A follow up is scheduled in 4 weeks to follow growth. Thank you for allowing us to participate in the care of this patient. Eduardo Kern MD US ORDERABLES documented in this encounter Visit Diagnoses Diagnosis complicated by umbilical cord varix, antepartum Fibroid Leiomyoma of uterus, unspecified documented in this encounter
--- OUTSIDE RECORDS SUMMARY | 2024-06-09 02:44 | XMS_ITS | Encounter Summary ---
Author Organization [facility] Address [address] [place]: Epic Prelude ADT [place] [address] Care Team Providers Care Topology Professor Name Role Phone Unavailable Primary Care Provider Unavailabl e Encounter Details Date Type Department Care Team (Latest Contact Info) Description 07/29/2020 Travel Social History Tobacco Use Types Packs/Day Years Used Date Smoking Tobacco: Never Assessed Sex and Gender Information Value Date Recorded Sex Assigned at Not on file Gender Identity Not on file Sexual Orientation Not on file COVID-19 Exposure Response Date Recorded In the last month, have you been in contact with someone who was confirmed or suspected to have Coronavirus / COVID-19? No / Unsure 07/29/2020 1:44 PM CONSULTING PROJECT DIRECTOR documented as of this encounter Plan of Treatment Not on file documented as of this encounter Visit Diagnoses Not on filedocumented in this encounter
--- OUTSIDE RECORDS SUMMARY | 2024-06-09 02:44 | XMS_ITS | Encounter Summary ---
Author Organization [facility] Address [address] [place] [address] Care Team Providers Care Plan Manager Name Role Phone Unavailable Primary Care Provider Unavailabl e Reason for Visit * Reason Comments Initial Visit Encounter Details Date Type Department Care Team (Latest Contact Info) Description 08/02/2020 1:30 PM ACCOUNT EXECUTIVE Initial [facility] SOLAR SALES REPRESENTATIVE - [id number] [id number] Izabella Juarez MD NO ADDRESS ON FILE Missed menses (Primary Dx); care in second trimester; care, antepartum Social History Tobacco Use Types Packs/Day [...] COVID-19? No / Unsure 08/02/2020 10:37 AM ACCOUNT EXECUTIVE documented as of this encounter Last Filed Vital Signs Vital Sign Reading Time Taken Comments Blood Pressure 115/71 08/02/2020 1:41 PM ACCOUNT EXECUTIVE Pulse - - Temperature - - Respiratory Rate - - Oxygen Saturation - - Inhaled Oxygen Concentration - - Weight 68.5 kg (151 lb) 08/02/2020 1:41 PM ACCOUNT EXECUTIVE Height 167.6 cm (5' 6 ) 08/02/2020 1:41 PM ACCOUNT EXECUTIVE Body Mass Index 24.37 08/02/2020 1:41 PM ACCOUNT EXECUTIVE documented in this encounter Progress Notes * Izabella Juarez MD - 08/07/2020 8:58 PM CST Initial OB. Instructions given. On pnv ad iron. Will need pap at post visit. Had US at [facility] which confirmed edc. Normal anatomic survey. Maternal fibroid on left. Scheduled to repeat US in 8 wks. INT OB labs today. Discussed covid vaccine and precautions. UNT EXECUTIVE documented in this encounter Plan of Treatment Not on file documented as of this encounter Results * GC/CHLAMYDIA, URINE (08/02/2020 2:37 PM ACCOUNT EXECUTIVE) Pathologist [facility] CHLAMYDIA DNA AMPLIFICATION NOT DETECTED Not Detected 08/03/2020 12:24 PM ACCOUNT EXECUTIVE [facility] GC DNA AMPLIFICATION NOT DETECTED Not Detected 08/03/2020 12:24 PM ACCOUNT EXECUTIVE [facility] Urine URINE SPECIMEN / Unknown Collection / Unknown 08/02/2020 2:37 PM ACCOUNT EXECUTIVE 08/02/2020 2:43 PM ACCOUNT EXECUTIVE Narrative [facility] - 08/03/2020 12:24 PM ACCOUNT EXECUTIVE Results should not be used for the evaluation of suspected sexual abuse or for other medico-legal indications. The only legally accepted results are from culture. Results cannot be used to assess therapeutic success or failure since nucleic acids may persist following antimicrobial therapy. Izabella Juarez MD URINE ORDERABLES CO [facility]# [id number] [address] [facility] [place] [id number] * URINE CULTURE (08/02/2020 2:37 PM ACCOUNT EXECUTIVE) Pathologist [facility] CULTURE No growth 08/03/2020 12:39 PM ACCOUNT EXECUTIVE [facility] Urine URINE SPECIMEN OBTAINED BY CLEAN CATCH PROCEDURE / Unknown Collection / Unknown 08/02/2020 2:37 PM ACCOUNT EXECUTIVE 08/02/2020 2:43 PM ACCOUNT EXECUTIVE Izabella Juarez MD MICROBIOLOGY - GENE RAL ORDERABLES [facility]# [id number] [address] [place] [address] * TSH REFLEXIVE (08/02/2020 2:31 PM ACCOUNT EXECUTIVE) Pathologist [facility] TSH 1.61 0.27 - 4.20 uIU/mL 08/02/2020 3:54 PM ACCOUNT EXECUTIVE [facility] Blood Venipuncture / Unknown 08/02/2020 2:31 PM ACCOUNT EXECUTIVE 08/02/2020 2:42 PM ACCOUNT EXECUTIVE Izabella Juarez MD CHEMISTRY ORDERABLE S Performing Organization Address [facility] Co ks Phone Number [facility]# [id number] [address] [place] [address] * HEPATITIS C ANTIBODY W REFLEX (08/02/2020 2:31 PM ACCOUNT EXECUTIVE) Pathologist [facility] HEPATITIS C AB NON-REACTI VE Non-react zulema 08/02/2020 4:01 PM ACCOUNT EXECUTIVE [facility] Comment:If a patient is know n to be at high risk for HCV infection, or is symptomatic, and the physician's suspicion of HCV infection is high, HCV RNA testing is often employed and is of diagnostic value, even after an initial negative anti-HCV test result. Signal to cutoff index is <1.00. Blood Venipuncture / Unknown 08/02/2020 2:31 PM ACCOUNT EXECUTIVE 08/02/2020 2:42 PM ACCOUNT EXECUTIVE Izabella Juarez MD CHEMISTRY ORDERABLE S Performing Organization Address City/[facility]/ZIP Co de Phone Number [facility]# [id number] [address] [place] [address] documented in this encounter Visit Diagnoses Diagnosis Missed menses- Primary Absence of menstruation care in second trimester care, antepartum documented in this encounter
--- OUTSIDE RECORDS SUMMARY | 2024-06-09 02:44 | XMS_ITS | Encounter Summary ---
Author Organization [facility] Address [address] [place] [address] Care Team Providers Care Grape Cutter Name Role Phone Unavailable Primary Care Provider Unavailabl e Encounter Details Date Type Department Care Team (Latest Contact Info) Description 08/02/2020 2:23 PM GREASE MAN - 08/02/2020 11:59 PM GREASE MAN Hospital Encounter [facility] Laboratory Services Medical [place] [address], [place] [address] Izabella Juarez MD NO ADDRESS [...] COVID-19? No / Unsure 08/02/2020 10:37 AM GREASE MAN documented as of this encounter Miscellaneous Notes * Result Encounter Note - Izabella Juarez MD - 08/02/2020 2:25 PM GREASE MAN Notify int ob labs show that she's O neg, so she should receive rhogam (explain). Also, she's mildly anemic, so she should start slowfe one daily. SE MAN documented in this encounter Plan of Treatment Not on file documented as of this encounter Procedures Procedure Name Priority Date/Time Associated Diagnosis Comments TRICHOMONAS VAGINALIS BY NUCLEIC ACID AMP Routine 08/02/2020 2:37 PM GREASE MAN Missed menses care in second trimester TRICHOMONAS VAGINALIS BY NUCLEIC ACID AMP (FEMALE) Routine 08/02/2020 2:37 PM GREASE MAN Missed menses care in second trimester GC/CHLAMYDIA, URINE Routine 08/02/2020 2 :37 PM GREASE MAN Missed menses care in second trimester URINE CULTURE Routine 08/02/2020 2:37 PM GREASE MAN Missed menses care in second trimester HIV DETECTION W/REFLX CONFIRMATION Routine 08/02/2020 2:31 PM GREASE MAN Missed menses care in second trimester TYPE AND SCREEN, Routine 08/02/2020 2:31 PM GREASE MAN Missed menses care in second trimester TSH REFLEXIVE Routine 08/02/2020 2:31 PM GREASE MAN Missed menses care in second trimester HEPATITIS B SURFACE ANTIGEN Routine 08/02/2020 2:31 PM GREASE MAN Missed menses care in second trimester RUBELLA IGG Routine 08/02/2020 2:31 PM GREASE MAN Missed menses care in second trimester HEPATITIS C ANTIBODY Routine 08/02/2020 2:31 PM GREASE MAN Missed menses care in second trimester CBC WITH DIFFERENTIAL Routine 08/02/2020 2:31 PM GREASE MAN Missed menses care in second trimester RPR Routine 08/02/2020 2:31 PM GREASE MAN Missed menses care in second trimester OBSTETRIC PANEL Routine 08/02/2020 2:31 PM GREASE MAN Missed menses care in second trimester documented in this encounter Results * TRICHOMONAS VAGINALIS BY NUCLEIC ACID AMP (FEMALE) (08/02/2020 2:37 PM GREASE MAN) TRICHOMONAS VAGINALIS BY PCR Not Detected Not Detected 08/02/2020 4:39 PM GREASE MAN [facility] Other, specify URINE SPECIMEN / Unknown Collection / Unknown 08/02/2020 2:37 PM GREASE MAN 08/02/2020 2:43 PM GREASE MAN Izabella Juarez MD MICROBIOLOGY - GENE RAL ORDERABLES [id number] [address] [place] [place] [address] * GC/CHLAMYDIA, URINE (08/02/2020 2:37 PM GREASE MAN) Pathologist [facility] CHLAMYDIA DNA AMPLIFICATION NOT DETECTED Not Detected 08/03/2020 12:24 PM GREASE MAN [facility] GC DNA AMPLIFICATION NOT DETECTED Not Detected 08/03/2020 12:24 PM GREASE MAN [facility] Urine URINE SPECIMEN / Unknown Collection / Unknown 08/02/2020 2:37 PM GREASE MAN 08/02/2020 2:43 PM GREASE MAN Narrative [facility] - 08/03/2020 12:24 PM GREASE MAN Results should not be used for the evaluation of suspected sexual abuse or for other medico-legal indications. The only legally accepted results are from culture. Results cannot be used to assess therapeutic success or failure since nucleic acids may persist following antimicrobial therapy. Izabella Juarez MD URINE ORDERABLES CO M [facility]# [id number] [address] [place] [address] * URINE CULTURE (08/02/2020 2:37 PM GREASE MAN) CULTURE No growth 08/03/2020 12:39 PM GREASE MAN [facility] Urine URINE SPECIMEN OBTAINED BY CLEAN CATCH PROCEDURE / Unknown Collection / Unknown 08/02/2020 2:37 PM GREASE MAN 08/02/2020 2:43 PM GREASE MAN Izabella Juarez MD MICROBIOLOGY - GENE RAL ORDERABLES [facility]# [id number] [address] [place] [address] * HIV DETECTION W/REFLX CONFIRMATION (08/02/2020 2:31 PM GREASE MAN) HIV-1 AND 2 ABS AND HIV-1 AG Non-reacti ve Non-reacti ve 08/03/2020 5:47 PM GREASE MAN [facility]OR[facility]ORY SERVICES - [facility] Blood Venipuncture / Unknown 08/02/2020 2:31 PM GREASE MAN 08/02/2020 2:42 PM GREASE MAN Narrative [facility]ORY SERVICES - [facility] - 08/03/2020 5:47 PM GREASE MAN Initial HIV testing was performed by [employer] on the Katelin Juarez e602 module. Values obtained with different assay methods cannot be used interchangeably. Non- Reactive results does not rule out HIV infection. If acute HIV-1 infection is suspected, submit plasma specimen for HIV-1 RNA quantification test (HIVQU). Izabella Juarez MD CHEMISTRY ORDERABLE S Performing Organization Address City/[facility]/ZIP Co de Phone Number [facility] Netli [facility]# [id number] [address] [place] [address] * TYPE AND SCREEN, (08/02/2020 2:31 PM GREASE MAN) ABO GROUP O 08/02/2020 5:20 PM GREASE MAN [facility] SERVICES -- [facility] RH (D) TYPE Negative 08/02/2020 5:20 PM GREASE MAN [facility] ANTIBODY SCREEN Negative 08/02/2020 5:20 PM GREASE MAN [facility]ORY SERVICES -- [facility] Blood Venipuncture / Unknown 08/02/2020 2:31 PM GREASE MAN 08/02/2020 2:42 PM GREASE MAN Izabella Juarez MD BLOOD BANK ORDERABL ES Performing Organization Address [facility] Co de Phone Number [facility] CLIA# [id number] [address] [place], [place] [address] * RUBELLA IGG (08/02/2020 2:31 PM GREASE MAN) RUBELLA IGG IMMUNE Immune - Positive 08/02/2020 3:54 PM GREASE MAN [facility] Blood Venipuncture / Unknown 08/02/2020 2:31 PM GREASE MAN 08/02/2020 2:42 PM GREASE MAN Narrative [facility] - 08/02/2020 3:54 PM GREASE MAN A positive result suggests response to immunization or prior exposure to the virus. Izabella Juarez MD CHEMISTRY ORDERABLE S Performing Organization Address [facility] Co de Phone Number [facility] CLKY# [id number] [address] [place], [place] [address] * RPR (08/02/2020 2:31 PM GREASE MAN) Pathologist [facility] RPR NON-REACTI VE Non-Reacti ve 08/03/2020 8:13 AM GREASE MAN [facility] Blood Venipuncture / Unknown 08/02/2020 2:31 PM GREASE MAN 08/02/2020 2:42 PM GREASE MAN Izabella Juarez MD CHEMISTRY ORDERABLE S Performing Organization Address [facility] Co de Phone Number [facility] [id number] [address] [place] [address] * HEPATITIS B SURFACE ANTIGEN (08/02/2020 2:31 PM GREASE MAN) Pathologist [facility] HEPATITIS B SURFACE AG NON-REACTI VE Non-reacti ve 08/02/2020 4:01 PM GREASE MAN [facility] LABORATORY SERVICES - [facility] Blood Venipuncture / Unknown 08/02/2020 2:31 PM GREASE MAN 08/02/2020 2:42 PM GREASE MAN Izabella Juarez MD CHEMISTRY ORDERABLE S [facility] SERVICES [facility] CLIA# [id number] [address] [facility] [place] [place] [address] * (ABNORMAL) CBC WITH DIFFERENTIAL (08/02/2020 2:31 PM GREASE MAN) WBC 10.2(H) 4.0 - 9.8 K/uL 08/02/2020 3:16 PM GREASE MAN [facility] LABORATORY SERVICES - [facility] RBC 3.92 3.90 - 4.90 M/uL 08/02/2020 3:16 PM [facility] LABORATORY SERVICES - [facility] HEMOGLOBIN 11.3(L) 11.8 - 14.8 g/dL 08/02/2020 3:16 PM [facility] LABORATORY SERVICES - [facility] HEMATOCRIT 35.7 35.5 - 44.0 % 08/02/2020 3:16 PM [facility] LABORATORY SERVICES - [facility] MCV 91.1 82.0 - 99.0 fL 08/02/2020 3:16 PM [facility] LABORATORY SERVICES - [facility] MCH 28.8 27.2 - 32.6 pg 08/02/2020 3:16 PM [facility] LABORATORY SERVICES - [facility] MCHC 31.7 31.5 - 35.5 g/dL 08/02/2020 3:16 PM GREASE MAN [facility] LABORATORY SERVICES - [facility] RDW 13.1 11.5 - 14.5 % 08/02/2020 3:16 PM GREASE MAN [facility] LABORATORY SERVICES - [facility] RDW-STDEV 42.7 37.1 - 48.7 fL 08/02/2020 3:16 PM GREASE MAN [facility] LABORATORY SERVICES - [facility] PLATELETS 329 140 - 350 K/uL 08/02/2020 3:16 PM [facility] LABORATORY SERVICES - [facility] MPV 10.5 9.3 - 12.4 fL 08/02/2020 3:16 PM [facility] LABORATORY [facility] NEUTROPHILS 76 % 08/02/2020 3:16 PM [facility] LABOR[facility]ORY [facility] LYMPHOCYTES 14 % 08/02/2020 3:16 PM [facility] LAB[facility]ORY [facility] MONOCYTES 8 % 08/02/2020 3:16 PM [facility]ORY [facility] EOSINOPHILS 1 % 08/02/2020 3:16 PM [facility]ORY [facility] BASOPHILS 0 % 08/02/2020 3:16 PM [facility] IMMATURE GRANULOCYTES 1 % 08/02/2020 3:16 PM [facility] Comment:IG (Immature Granulo cyte) count includes Metamyelocytes, Myelocytes, and Promyelocytes NEUTROPHIL ABSOLUTE 7.76(H) 1.90 - 7.00 K/uL 08/02/2020 3:16 PM [facility]ORY [facility] LYMPHOCYTE ABSOLUTE 1.41 0.70 - 4.50 K/uL 08/02/2020 3:16 PM [facility]ORY [facility] MONOCYTE ABSOLUTE 0.79 0.10 - 1.30 K/uL 08/02/2020 3:16 PM [facility]ORY [facility] EOSINOPHIL ABSOLUTE 0.09 0.00 - 0.70 K/uL 08/02/2020 3:16 PM [facility]ORY [facility] BASOPHILS ABSOLUTE 0.04 0.00 - 0.20 K/uL 08/02/2020 3:16 PM [facility] IMMATURE GRANULOCYTES ABSOLUTE 0.07(H) 0.00 - 0.03 K/uL 08/02/2020 3:16 PM [facility] Blood Venipuncture / Unknown 08/02/2020 2:31 PM GREASE MAN 08/02/2020 2:42 PM GREASE MAN Izabella Juarez MD HEMATOLOGY ORDERABL ES [facility] CLIA# [id number] [address] [place] [address] * TSH REFLEXIVE (08/02/2020 2:31 PM GREASE MAN) TSH 1.61 0.27 - 4.20 uIU/mL 08/02/2020 3:54 PM GREASE MAN [facility] Blood Venipuncture / Unknown 08/02/2020 2:31 PM GREASE MAN 08/02/2020 2:42 PM GREASE MAN Izabella Juarez MD CHEMISTRY ORDERABLE S Performing Organization Address [facility] Co de Phone Number [facility] CLIA# [id number] [address] [place] [place] [address] * HEPATITIS C ANTIBODY W REFLEX (08/02/2020 2:31 PM GREASE MAN) Pathologist [facility] HEPATITIS C AB NON-REACTI VE Non-react zulema 08/02/2020 4:01 PM GREASE MAN [facility] Comment:If a patient is know n to be at high risk for HCV infection, or is symptomatic, and the physician's suspicion of HCV infection is high, HCV RNA testing is often employed and is of diagnostic value, even after an initial negative anti-HCV test result. Signal to cutoff index is <1.00. Blood Venipuncture / Unknown 08/02/2020 2:31 PM GREASE MAN 08/02/2020 2:42 PM GREASE MAN Izabella Juarez MD CHEMISTRY ORDERABLE S Performing Organization Address [facility]/ZIP Co de Phone Number [facility] CLIA# [id number] [address] [place] [address] documented in this encounter Visit Diagnoses Diagnosis Missed menses Absence of menstruation care in second trimester documented in this encounter
--- OUTSIDE RECORDS SUMMARY | 2024-06-09 02:44 | XMS_ITS | Encounter Summary ---
Author Organization [facility] Address [address] [place] [address] Care Team Providers Care Flux Plant Operator Name Role Phone Unavailable Primary Care Provider Unavailabl e Reason for Visit * Reason Onset Date Comments Needs Form Or Letter Filled Out 07/29/2020 NEW OB- PT IS ALREADY 19 WEEKS- NO PRIOR CARE Encounter Details Date Type Department Care Team (Late st Contact Info) Description 07/29/2020 Telephone [facility] GLASS FRAME FITTER - [id number] [address] Izabella Juarez MD NO ADDRESS ON FILE Needs Form Or Letter Filled Out (NEW OB- PT IS ALREADY 19 WEEKS- NO PRIOR CARE) Social History Tobacco Use Types Packs/Day Years [...] COVID-19? No / Unsure 07/29/2020 1:44 PM PARCEL POST CLERK documented as of this encounter Plan of Treatment Not on file documented as of this encounter Visit Diagnoses Not on filedocumented in this encounter
--- OUTSIDE RECORDS SUMMARY | 2024-06-09 02:44 | XMS_ITS | Encounter Summary ---
Author Organization [facility] Address [address] [place] [address] Care Team Providers Care Review Rn Name Role Phone Unavailable Primary Care Provider Unavailabl e Encounter Details Date Type Department Care Team (Late st Contact Info) Description 08/02/2020 Orders Only [facility] CNC SET UP OPERATOR - [id number] [id number] Izabella Juarez MD NO ADDRESS ON FILE [...] COVID-19? No / Unsure 08/02/2020 10:37 AM DELIVERY TABLE OPERATOR documented as of this encounter Plan of Treatment Not on file documented as of this encounter Visit Diagnoses Not on filedocumented in this encounter
--- OUTSIDE RECORDS SUMMARY | 2024-06-09 02:44 | XMS_ITS | Encounter Summary ---
Author Organization [facility] Address [address] [place] [address] Care Team Providers Care Concrete Pump Operator Helper Name Role Phone Unavailable Primary Care Provider Unavailabl e Reason for Referral * Radiology Services (Routine) - Closed Specialty Diagnoses / Procedures Referred By Contac t Referred To Contact Diagnoses Encounter for supervision of with insufficient care Procedures US OB 14+ WKS SINGLE GEST Lara Juarez MD NO ADDRESS ON FILE Referral ID Status Reason Start Date Expiration Date V isits Requested Visits Authorized [id number] Closed [facility] CTS 07/29/2020 08/29/2020 1 1 COUNSELOR Reason for Visit * Reason Onset Date Comments Question 07/29/2020 Encounter Details Date Type Department Care Team (Late st Contact Info) Description 07/29/2020 Telephone [facility] FRONT END ENGINEER - [id number] [facility] [address] [address] Lara Juarez MD NO ADDRESS ON FILE Question Social History Tobacco Use Types Packs/Day Years Used Date Smoking Tobacco: Never Assessed Sex and Gender Information Value Date Recorded Sex Assigned at Not on file Gender Identity Not on file Sexual Orientation Not on file documented as of this encounter Miscellaneous Notes * Telephone Encounter - Devi Argueta RN - 07/29/2020 1:37 PM JOB COUNSELOR Pt coming for first care visit at 19 weeks. Needs us in PNL for anatomy scan per Dr. Juarez protocol. Order entered. Pt notified by scheduling staff to schedule US prior to visit with Dr. Juarez. COUNSELOR documented in this encounter Plan of Treatment Not on file documented as of this encounter Results * US OB 14+ WKS SINGLE GEST (08/02/2020 11:32 AM JOB COUNSELOR) Anatomical Region Laterality Modality Pelvis Ultrasound 08/02/2020 11:0 0 AM JOB COUNSELOR Impressions 08/02/2020 11:35 AM JOB COUNSELOR IMPRESSION ----- 1. Single living fetus with a gestational age of 19w1d based on the reported clinical dates. 2. Current growth parameters are consistent with the stated EDC. The fetus is appropriate for gestational age in size. 3. Basic anatomic survey is unremarkable. No gross structural abnormalities noted. No sonographic markers for aneuploidy noted. 4. Amniotic fluid volume is normal for gestational age. 5. The cervical length is within normal range for gestational age. 6. The right ovary appear normal in size and shape. The left ovary is suboptimally visualized. 7. Anterior placenta. No previa/not low-lying. Comments: We reviewed the sonographic findings and limitations of ultrasound. The presence of a normal anatomic survey does not rule-out genetic, chromosomal or structural anomalies. The current normal ultrasound eliminates the majority of important structural defects. Recommendations: -Recommend ultrasound at 28 weeks to evaluate interval growth given today being the patient's initial ultrasound of this . Thank you for allowing us to participate in the care of this patient. Narrative 08/02/2020 11:35 AM JOB COUNSELOR ST[facility] Basic ----- Pat. Name: CAROL KIM Study Date: 08/02/2020 11:00am Pat. NO: [id number] Referring ??MD: LARA JUAREZ MD Site: [facility] Boat Designer: Lauren Tobias : 1985 Age: 35 ----- INDICATION ----- Encounter for anatomic survey ?No Genetics CODING ----- Diagnosis ? Z36: Encounter for screening of mother ?Z3A.19: Weeks Gestation of Procedures ?83170: OB greater than 14 wks (1st Basic) HISTORY ----- OB History ? 2. Para 1 MATERNAL ASSESSMENT ----- Physical Exam ? Weight 64 kg. BMI 22.60 kg/m?. METHOD ----- Transabdominal ultrasound examination ----- Hamilton . Number of fetuses: 1. DATING ----- Method of dating: based on the LMP LMP on: 03/21/2020 Cycle: regular cycle GA by LMP 19 w + 1 d JAMEEL by LMP: 12/26/2020 Ultrasound examination on: 08/02/2020 GA by U/S based upon: AC, BPD, EFW, Femur, HC GA by U/S 20 w + 2 d JAMEEL by U/S: 12/18/2020 Assigned: Dating performed on 08/02/2020, based on the LMP Assigned GA 19 w + 1 d Assigned JAMEEL: 12/26/2020 BIOMETRY ----- Main Biometry: BPD ? 48.3 ? mm ? 20w 4d ?95% ? Hadlock HC ?175.4 ?mm ? 20w 0d ?83% ? Hadlock Cerebellum tr ? 21.4 ? mm ? 21w 0d ?84% ? Gairbay AC ?152.5 ?mm ? 20w 3d ?85% ? Hadlock Femur ? 32.8 ? mm ? 20w 2d ?81% ? Hadlock Humerus ? 31.9 ? mm ? 20w 5d ?93% ? Raul HC / AC ? 1.15 ?30% ? Nicolaides Weight Calculation: EFW ? 348 ?g ?20w 2d ?96% ? Hadlock EFW (lb,oz) ? 0 lb 12 ?oz EFW by ? Hadlock ([id number]) Head / Face / Neck Biometry: Manager Security And Safety ?4.9 ?mm ? CM ?4.4 ?mm ? 37% ? Nicolaides Outer IOD ? 30.9 ? mm ? 20w 0d ?45% ? Raul Nuchal fold ? 3.6 ?mm ? Extremities / Bony Struc Biometry: FL / BPD ?0.68 ?49% ? Hadlock FL / HC ? 0.19 ?81% ? Hadlock FL / AC ? 0.22 ?56% ? Hadlock Other Structures Biometry: AF MVP ?3.9 ?cm ? FHR ? 158 ?bpm ? GENERAL EVALUATION ----- Cardiac activity present. FHR 158 bpm. movements visualized. Presentation cephalic. Placenta Placental site: anterior, no previa. Umbilical cord Cord vessels: 3 vessel cord. Cord insertion: placental insertion: normal. Amniotic fluid Amount of AF: normal amount. MVP 3.9 cm. ANATOMY ----- The following structures appear normal: Head / Neck ? Cranium. Lateral ventricles. Choroid plexus. Midline falx. Cavum septi pellucidi. Cerebellum. Cisterna ?magna. ?Nuchal fold. Face ?Lips. Profile. Nose. Palate. Orbits. Heart / Thorax ?4-chamber view. RVOT view. LVOT view. Situs. Aortic arch view. Ductal arch view. Superior vena cava. ?Inferior vena cava. High short axis view. 3- vessel view. 9-acwcpj-rbycoln view. Cardiac rhythm. ?Diaphragm. Abdomen ? Abdominal wall. Stomach. Kidneys. Bladder. Spine ? Cervical spine. Thoracic spine. Lumbar spine. Sacral spine. Extremities / ? Right hand. Left hand. Right foot. Left foot. Skeleton Gender: male. MATERNAL STRUCTURES ----- Uterus ?Fibroid(s) Left lateral wall. Size 78 mm x 52 mm x 50 mm. Mean 60.0 mm. Vol 106,186 mm? Cervix ?Visualized ?Approach - Transabdominal: Cervical length 40.5 mm Right Ovary ? Visualized ?Size 32 mm x 30 mm x 20 mm. Mean 2.8 cm. Vol 10.5 cm? Left Ovary ?Suboptimal COMMENT ----- Patient's name and date of were confirmed by the repair service clerk prior to the exam Procedure Note Evelyn Gaston MD - 08/02/2020 [facility] Basic ----- Pat. Name:Jennifer KIM Date:08/02/2020 11:00am Pat. NO: [id number] MD:LARA JUAREZ MD [facility] Tobias :1985Age:35 ----- INDICATION ----- Encounter for anatomic survey No Genetics CODING ----- Diagnosis Z36: Encounter for screening of mother Z3A.19: Weeks Gestation of Procedures 50420: OB greater than 14 wks (1st Basic) HISTORY ----- OB History 2. Para 1 MATERNAL ASSESSMENT ----- Physical Exam Weight 64 kg. BMI 22.60 kg/m?. METHOD ----- Transabdominal ultrasound examination ----- Hamilton . Number of fetuses: 1. DATING ----- Method of dating:based on the LMP LMP on:03/21/2020 Cycle:regular cycle GA by LMP19 w + 1 d JAMEEL by LMP:12/26/2020 Ultrasound examination on:08/02/2020 GA by U/S based upon:AC, BPD, EFW, Femur, HC GA by U/S20 w + 2 d JAMEEL by U/S:12/18/2020 Assigned:Dating performed on 08/02/2020, based on the LMP Assigned GA19 w + 1 d Assigned JAMEEL:12/26/2020 BIOMETRY ----- Main Biometry: BPD 48.3 mm 20w 4d95% Hadlock HC 175.4 mm 20w 0d83% Hadlock Cerebellum tr 21.4 mm 21w 0d84% Garibay AC 152.5 mm 20w 3d85% Hadlock Femur 32.8 mm 20w 2d81% Hadlock Humerus 31.9 mm 20w 5d93% Raul HC / AC 1.1530% Nicolaides Weight Calculation: EFW 348 g 20w 2d96% Hadlock EFW (lb,oz) 0 lb 12 oz EFW by Hadlock ([id number]) Head / Face / Neck Biometry: Manager Security And Safety 4.9 mm CM 4.4 mm37% Nicolaides Outer IOD 30.9 mm 20w 0d45% Raul Nuchal fold 3.6 mm Extremities / Bony Struc Biometry: FL / BPD 0.6849% Hadlock FL / HC 0.1981% Hadlock FL / AC 0.2256% Hadlock Other Structures Biometry: AF MVP 3.9 cm FHR 158 bpm GENERAL EVALUATION ----- Cardiac activity present. FHR 158 bpm. movements visualized. Presentation cephalic. Placenta Placental site: anterior, no previa. Umbilical cord Cord vessels: 3 vessel cord. Cord insertion: placentalinsertion: normal. Amniotic fluid Amount of AF: normal amount. MVP 3.9 cm. ANATOMY ----- The following structures appear normal: Head / Neck Cranium. Lateral ventricles. Choroid plexus.Midline falx. Cavum septi pellucidi. Cerebellum. Cisterna magna. Nuchal fold. Face Lips. Profile. Nose. Palate. Orbits. Heart / Thorax 4-chamber view. RVOT view. LVOT view. Situs.Aortic arch view. Ductal arch view. Superior vena cava. Inferior vena cava. High short axis view. 3-vesselview. 4-mtsvgn-btagyxe view. Cardiac rhythm. Diaphragm. Abdomen Abdominal wall. Stomach. Kidneys. Bladder. Spine Cervical spine. Thoracic spine. Lumbar spine.Sacral spine. Extremities / Right hand. Left hand. Right foot. Left foot. Skeleton Gender: male. MATERNAL STRUCTURES ----- Uterus Fibroid(s) Left lateral wall. Size 78 mm x 52 mm x50 mm. Mean 60.0 mm. Vol 106,186 mm? Cervix Visualized Approach - Transabdominal: Cervical length 40.5mm Right Ovary Visualized Size 32 mm x 30 mm x 20 mm. Mean 2.8 cm. Vol 10.5cm? Left Ovary Suboptimal COMMENT ----- Patient's name and date of were confirmed by the repair service clerk priorto the exam IMPRESSION ----- 1. Single living fetus with a gestational age of 19w1d based on thereported clinical dates. 2. Current growth parameters are consistent with the stated EDC. The fetusis appropriate for gestational age in size. 3. Basic anatomic survey is unremarkable. No gross structuralabnormalities noted. No sonographic markers for aneuploidy noted. 4. Amniotic fluid volume is normal for gestational age. 5. The cervical length is within normal range for gestational age. 6. The right ovary appear normal in size and shape. The left ovary issuboptimally visualized. 7. Anterior placenta. No previa/not low-lying. Comments: We reviewed the sonographic findings and limitations of ultrasound. Thepresence of a normal anatomic survey does not rule-out genetic, chromosomal or structural anomalies. The current normalultrasound eliminates the majority of important structural defects. Recommendations: -Recommend ultrasound at 28 weeks to evaluate interval growth giventoday being the patient's initial ultrasound of this . Thank you for allowing us to participate in the care of this patient. Lara Juarez MD US ORDERABLES documented in this encounter Visit Diagnoses Diagnosis Encounter for supervision of with insufficient care- Primary Encounter for supervision of with insufficient care documented in this encounter
--- OUTSIDE RECORDS SUMMARY | 2024-06-09 02:44 | XMS_ITS | Encounter Summary ---
Author Organization [employer] [facility] Address [address] [place] [address] Care Team Providers Care Dynamics Ax Solution Architect Name Role Phone Unavailable Primary Care Provider Unavailabl e Reason for Referral * Radiology Services (Routine) - Closed Specialty Diagnoses / Procedures Referred By Tad garcia Referred To Contact Diagnoses Encounter for supervision of with insufficient care Procedures US OB 14+ WKS SINGLE GEST Lara Juarez MD NO ADDRESS ON FILE Referral ID Status Reason Start Date Expiration Date V isits Requested Visits Authorized [id number] Closed [facility] CTS 07/29/2020 08/29/2020 1 1 BIOLOGIST Reason for Visit * Auth/Cert Specialty Diagnoses / Procedures Referred By Tad garcia Referred To Contact Radiology [facility] [address] [place] [address] Referral ID Status Reason Start Date Expiration Date Visits Re quested Visits Authorized [id number] 1 1 Encounter Details Date Type Department Care Team (Latest Contact Info) Description 08/02/2020 10:45 AM CELL BIOLOGIST - 08/02/2020 11:59 PM CELL BIOLOGIST Hospital Encounter [facility] Maternal and Ground Floor [address] [place] [address] [place] [address] Lara Juarez MD NO ADDRESS ON FILE Discharge [...] COVID-19? No / Unsure 08/02/2020 10:37 AM CELL BIOLOGIST documented as of this encounter Plan of Treatment Not on file documented as of this encounter Procedures Procedure Name Priority Date/Time Associated Diagnosis Comments US OB 14+ WKS SINGLE GEST Routine 08/02/2020 11:32 AM CELL BIOLOGIST Encounter for supervision of with insufficient care documented in this encounter Results * US OB 14+ WKS SINGLE GEST (08/02/2020 11:32 AM CELL BIOLOGIST) Anatomical Region Laterality Modality Pelvis Ultrasound 08/02/2020 11:0 0 AM CELL BIOLOGIST Impressions 08/02/2020 11:35 AM CELL BIOLOGIST IMPRESSION ----- 1. Single living fetus with [...] of this patient. Narrative 08/02/2020 11:35 AM CELL BIOLOGIST STL Basic ----- Pat. Name: CAROL KIM Study Date: 08/02/2020 11:00am Pat. NO: [id number] Referring ??MD: LARA JUAREZ MD Site: [facility] Attendant: Lauren Tobias : 1985 Age: 35 ----- INDICATION ----- Encounter for anatomic survey ?No Genetics CODING ----- Diagnosis ? Z36: Encounter for screening of mother ?Z3A.19: Weeks Gestation of Procedures ?60678: OB greater than 14 wks (1st Basic) [...] ? mm ? 21w 0d ?84% ? Garibay AC ?152.5 ?mm ? 20w 3d ?85% ? Hadlock Femur ? 32.8 ? mm ? 20w 2d ?81% ? Hadlock Humerus ? 31.9 ? mm ? 20w 5d ?93% ? Raul HC / AC ? 1.15 ?30% ? Nicolaides Weight Calculation: EFW ? 348 ?g ?20w 2d ?96% ? Hadlock EFW (lb,oz) ? 0 lb 12 ?oz EFW by ? Hadlock ([id number]) Head / Face / Neck Biometry: Crusher Feeder ?4.9 ?mm ? CM ?4.4 ?mm ? [...] High short axis view. 3- vessel view. 2-edspbc-koatjxm view. Cardiac rhythm. ?Diaphragm. Abdomen ? Abdominal [...] and date of were confirmed by the attendance officer prior to the exam Procedure Note Evelyn Gaston MD - 08/02/2020 [facility] Basic ----- Pat. Name:Jennifer KIM Date:08/02/2020 11:00am Pat. NO: [id number] :LARA JUAREZ MD [facility]der Lauren :1985Age:35 ----- INDICATION ----- Encounter for anatomic survey No Genetics CODING ----- Diagnosis Z36: Encounter for screening of mother Z3A.19: Weeks Gestation of Procedures 96432: OB greater than 14 wks (1st Basic) [...] 0 lb 12 oz EFW by Hadlock ([id number]) Head / Face / Neck Biometry: Crusher Feeder 4.9 mm CM 4.4 mm37% Nicolaides Outer [...] vena cava. High short axis view. 3-vesselview. 7-iffyll-ygjiolj view. Cardiac rhythm. Diaphragm. Abdomen Abdominal wall. [...] and date of were confirmed by the attendance officer priorto the exam IMPRESSION ----- 1. Single [...] care of this patient. Lara Juarez MD ORDERABLES documented in this encounter Visit Diagnoses Diagnosis Encounter for supervision of with insufficient care documented in this encounter
--- OUTSIDE RECORDS SUMMARY | 2024-06-09 03:26 | XMS_ITS | Encounter Summary ---
Author Organization [facility] Address [address] [place] [address]. [place] [address] [place] [address] Care Team Providers Care Assistant Branch Operations Manager Name Role Phone Tamiko Manzano NP Primary Care Provider [phone] Encounter Details Date Type Department Care Team (Late st Contact Info) Description 02/22/2022 1:20 PM CDT Laboratory Only [facility] Family [facility] Internal Medicine [address] [address] Tamiko Manzano, FAHEEM [address] [place], [place] [address] Social History Tobacco Use Types Packs/Day Years [...] as of this encounter Progress Notes * Neema Hagan MA - 02/22/2022 1:20 PM CDTAddended [...] a test for HCV RNA (test code 42634) is suggested. For additional information please refer to http://education.PalsUniverse.com/faq/YJO60k3 (This link is being provided for informational/ educational purposes only.) 02/22/2022 1:05 PM CDT 02/23/2022 9:06 PM CDT us Tamiko Manzano NP LABORATORY Final Res ult [facility] [address] [address] documented in this encounter Visit Diagnoses Diagnosis Need for hepatitis C screening test- Primary Special screening examination for other specified viral diseases Annual physical exam Routine general medical examination at a health care facility Screening for lipoid disorders Screening for thyroid disorder documented in this encounter Care Teams Assistant Branch Operations Manager Relationship Specialty Start Date End Date Tamiko Manzano NP [address] [place] [address] PCP - General NURSE PRACTITIONER 02/09/22 documented as of this encounter
--- OUTSIDE RECORDS SUMMARY | 2024-06-09 03:26 | XMS_ITS | Encounter Summary ---
Author Organization [facility] Address [address] [place] [address]. [place] [address] [place] [address] Care Team Providers Care Field Test Engineer Name Role Phone Tamiko Manzano FLOOR COVERER Primary Care Provider [phone] Encounter Details Date Type Department Care Team [...] on filedocumented in this encounter Care Teams Field Test Engineer Relationship Specialty Start Date End Date Tamiko Manzano NP [address] [place] [address] PCP - General NURSE PRACTITIONER 02/09/22 documented as of this encounter
--- OUTSIDE RECORDS SUMMARY | 2024-06-09 03:26 | XMS_ITS | Clinical Summary ---
Author Organization [facility] Address [address] [place] [address]. [place] [address] [place] [address] Care Team Providers Care Er Rn Name Role Phone Tamiko Manzano NP Primary Care Provider [phone] Allergies No known active allergies Medications rizatriptan [...] Department Care Team Description 06/04/2024 2:00 PM GLASS LINED TANK REPAIRER Office Visit [facility] [address] [place] [address] [address] [place] [address] Tamiko Manzano NP ER F/U (Patient presents for an ER follow up, she fell 06/02/24 and hit left elbow) 06/04/2024 Travel 04/30/2024 Telephone [facility] [address] [facility] [address] [place] [address] Tamiko Manzano NP Headache from Last 3 Months Immunizations Name Administration Dates Next Due Tdap (Generic) 10/25/2022,12/04/2020 Family History Medical History Relation Comments Hypertension Father Cancer Mother 12/27 with brain and lung cancer, had breast cancer from radiation from [employer] when she was younger, in 20/30s. Relation [...] Comments Blood Pressure 102/66 06/04/2024 1:57 PM GLASS LINED TANK REPAIRER Pulse 80 06/04/2024 1:57 PM GLASS LINED TANK REPAIRER Temperature 36.2 ??C (97.1 ??F) 06/04/2024 1:57 PM CS T Respiratory Rate 16 06/04/2024 1:57 PM GLASS LINED TANK REPAIRER Oxygen Saturation 98% 06/04/2024 1:57 PM GLASS LINED TANK REPAIRER Inhaled Oxygen Concentration - - Weight 74.8 kg (165 lb) 06/04/2024 1:57 PM GLASS LINED TANK REPAIRER Height 165.1 cm (5' 5 ) 06/04/2024 1:57 PM GLASS LINED TANK REPAIRER Body Mass Index 27.46 06/04/2024 1:57 PM GLASS LINED TANK REPAIRER Plan of Treatment Health Maintenance Due Date [...] a test for HCV RNA (test code 66232) is suggested. For additional information please refer to http://education.Allovue/faq/VOW87f2 (This link is being provided for informational/ educational purposes only.) 02/22/2022 1:05 PM CDT 02/23/2022 9:06 PM CDT us Tamiko Manzano T [facility] Final Res ult [facility] [address] [place] [address] * PAP SMEAR WITH HPV (01/21/2021) 01/21/2021 Narrative 01/21/2021 Ordered by an unspecified provider. us Documents Scanned SCANNING Final Result from Last 3 Months or Most Recently Relevant to Health Maintenance [place] [id number] [facility] Care Teams Er Rn Relationship Specialty Start Date End Date Tamiko Manzano NP [address] [place] [address] PCP - General NURSE PRACTITIONER 02/09/22
--- OUTSIDE RECORDS SUMMARY | 2024-06-09 03:26 | XMS_ITS | Encounter Summary ---
Author Organization [facility] Address [address] [place] [address]. [place] [address] [place] [address] Care Team Providers Care Suspender Cutter Name Role Phone Tamiko Manzano NP Primary Care Provider +1 -[phone] Reason for Visit * Reason Comments Meet and Greet Provider Patient presents for an adult routine exam Encounter Details Date Type Department Care Team (Late st Contact Info) Description 02/15/2022 11:00 AM CDT Office Visit [facility] Family Medicine [facility] [address] [id number] Tamiko Manzano, CHEMIST BIOLOGICAL [address] [phone] Meet and Greet Provider (Patient presents for [...] 37- year old female who presents to [facility] to establish care, annual physical examination. Recently moved to [place], [place] with her significant other and her [...] headache when she was on vacation in [place]. Patient has not needed to take any abortive medications often and has not been on any preventative medications. Dental exam- up to date Eye exam-needs to schedule Diet- Healthy, well balanced Exercise- Stays active Sleep-well at night Follows with business services director for her well women care at [facility]. Will discuss with patient what preventive [...] cancer, had breast cancer from radiation from [facility] whenshe was younger, in 20/30s. ??? Hypertension [...] C screening test - HEPATITIS C AB ([facility] ONLY); Future Encourage following a low [...] or as needed, will notify pt through [employer] with test results Health Maintenance Topic Date [...] Years) Aged Out Pap- 01/21/21- follows with business services director at [facility] Routine labs- orders placed STI screen- [...] 1:04 PM CDT) TSH 2.58 mIU/L [facility] Comment: ?Reference Range ?> or = 20 Years ??0.40-4.50 ? Ranges ?First trimester ?0.26-2.66 ?Second trimester ?? 0.55-2.73 ?Third trimester ?0.43-2.91 02/22/2022 1:04 PM CDT 02/23/2022 8:32 AM CDT us Tamiko Manzano CHEMIST BIOLOGICAL LABORATORY Final Res ult [facility] [address] [address] [place] [phone] * (ABNORMAL) LIPID PANEL (02/22/2022 1:04 PM [...] LDL-C. Dion ESTRADA et al. JORGE. 2013;310(19): 0434-6137 (http://education.BlueWare.ConnectNigeria.com/faq/ZTE968) CHOL/HDL RATIO 3.2 <5.0 (calc) [facility] NON HDL CHOLESTEROL 139(H) <130 mg/dL (calc) [facility] Comment: For patients with diabetes plus 1 major ASCVD risk factor, treating to a non-HDL-C goal of <100 mg/dL (LDL-C of <70 mg/dL) is considered a therapeutic option. 02/22/2022 1:04 PM CDT 02/23/2022 8:32 AM CDT us Tamiko Manzano CHEMIST BIOLOGICAL LABORATORY Final Res ult [facility] [address] [place] [phone] * (ABNORMAL) COMPREHENSIVE METABOLIC PANEL (02/22/2022 1:04 PM CDT) GLUCOSE 86 65 - 99 mg/dL [facility] Comment: ? Fasting reference interval BUN 13 7 - 25 mg/dL [facility] CREATININE S/P/B 0.70 0.50 - 0.97 mg/dL [facility] GFR ESTIMATE 116 > OR = 60 mL/min/1. 73m2 [facility] Comment: The eGFR is based on the CKD-EPI 2020 equation. To calculate the new eGFR from a previous Creatinine or Cystatin C result, go to https://www.kidney.org/professionals/ kdoqi/gfr%5Fcalculator BUN CREATININE RATIO NOT APPLICABLE 6 - 22 (calc) [facility] SODIUM S/P/B 138 135 - 146 mmol/L [facility] POTASSIUM S/P/B 4.5 3.5 - 5.3 mmol/L [facility] CHLORIDE S/P/B 104 98 - 110 mmol/L [facility] CO2 27 20 - 32 mmol/L [facility] CALCIUM S/P/B 9.4 8.6 - 10.2 mg/dL [facility] TOTAL PROTEIN S/P/B 7.0 6.1 - 8.1 g/dL [facility] ALBUMIN S/P/B 4.7 3.6 - 5.1 g/dL [facility] GLOBULIN 2.3 1.9 - 3.7 g/dL (calc) [facility] ALBUMIN/GLOBULI N RATIO 2.0 1.0 - 2.5 (calc) [facility] BILIRUBIN TOTAL S/P/B 1.5(H) 0.2 - 1.2 mg/dL [facility] ALKALINE PHOSPHATASE S/P/B 60 31 - 125 U/L [facility] AST 13 10 - 30 U/L [facility] ALT 8 6 - 29 U/L [facility] 02/22/2022 1:04 PM CDT 02/23/2022 8:32 AM CDT us Tamiko Manzano CHEMIST BIOLOGICAL LABORATORY Final Res ult [facility] [address] [address] [place] [phone] * (ABNORMAL) CBC W/DIFF AUTOMATED (02/22/2022 1:04 [...] ult [facility] [address] [place] [phone] documented in this encounter Visit Diagnoses Diagnosis [...] diseases documented in this encounter Care Teams Suspender Cutter Relationship Specialty Start Date End Date Tamiko Manzano NP [address] [place] [address] [place] [address] PCP - General NURSE PRACTITIONER 02/09/22 documented as of this encounter
--- OUTSIDE RECORDS SUMMARY | 2024-06-09 03:26 | XMS_ITS | Encounter Summary ---
Author Organization [facility] Address [address] [place] [address]. [place] [address] [place] [address] Care Team Providers Care Lightning Rod Installer Name Role Phone Tamiko Manzano PLASTER MOLDER Primary Care Provider +1 [phone] Encounter Details Date Type Department Care Team [...] on filedocumented in this encounter Care Teams Lightning Rod Installer Relationship Specialty Start Date End Date Tamiko Manzano NP [address] [place] [address] PCP - General NURSE PRACTITIONER 02/09/22 documented as of this encounter
--- OUTSIDE RECORDS SUMMARY | 2024-06-09 03:26 | XMS_ITS | Encounter Summary ---
Author Organization [facility] Address [address] [place] [address]. [place] [address] [place] [address] Care Team Providers Care Mine Equipment Design Engineer Name Role Phone Tamiko Manzano NP Primary Care Provider [phone] -[phone] Reason for Visit * Reason Comments Physical Encounter Details Date Type Department Care Team (Late st Contact Info) Description 02/21/2023 9:00 AM CDT Office Visit [facility] Family Medicine [facility] [address] [facility] [address] [place] [address] Tamiko Manzano, WELL SERVICES OPERATOR [address] [place] [phone] Physical Social History Tobacco Use Types Packs/Day [...] cancer, had breast cancer from radiation from [employer] whenshe was younger, in 20/30s. Hypertension Father [...] (ABNORMAL) LIPID PANEL (02/26/2023 9:09 AM CDT) [facility] CHOLESTEROL 248(H) <200 MG/DL 02/26/2023 4:16 PM CDT [facility] TRIGLYCERIDES 99 <150 MG/DL 02/26/2023 4:16 PM T [facility] HDL 72 >40 MG/DL 02/26/2023 4:16 PM CDT [facility] LDL-C 156(H) <100 MG/DL 02/26/2023 4:16 PM T [facility] VLDL CALCULATION 20 5 - 28 MG/DL 02/26/2023 4:16 PM CDT [facility] CHOL/HDL RATIO 3.4 0.0 - 4.0 02/26/2023 4:16 PM T [facility] LDL/HDL 2.2(H) 0.41 - 2.13 02/26/2023 4:16 PM T [facility] NON HDL CHOLESTEROL 176(H) <140 MG/DL 02/26/2023 4:16 PM CDT [facility] [place] 02/26/2023 9:09 AM CDT Tamiko Manzano WELL SERVICES OPERATOR LABORATORY Final Res ult [facility] [place] [address] [facility] [place] [address], documented in this encounter Visit Diagnoses Diagnosis Annual physical exam Routine general medical examination at a health care facility Screening for lipoid disorders documented in this encounter Care Teams Mine Equipment Design Engineer Relationship Specialty Start Date End Date Tamiko Manzano NP [address] [place] [address] PCP - General NURSE PRACTITIONER 02/09/22 documented as of this encounter
--- OUTSIDE RECORDS SUMMARY | 2024-06-09 03:26 | XMS_ITS | Encounter Summary ---
Author Organization [facility] Address [address] [place] [address]. [place] [address] [place] [address] Care Team Providers Care Cargo Handler Name Role Phone Tamiko Manzano NP Primary Care Provider +1 [phone] Encounter Details Date Type Department Care Team [...] on filedocumented in this encounter Care Teams Cargo Handler Relationship Specialty Start Date End Date Tamiko Manzano, FAHEEM [address] [place], [place] [address] PCP - General NURSE PRACTITIONER 02/09/22 documented as of this encounter
--- OUTSIDE RECORDS SUMMARY | 2024-06-09 03:26 | XMS_ITS | Encounter Summary ---
Author Organization [facility] Address [address] [place] [address]. [place] [address] [place] [address] Care Team Providers Care Cadd Instructor Name Role Phone Tamiko Manzano INDUSTRIAL SOCIOLOGIST Primary Care Provider +1 -[phone] Encounter Details Date Type Department Care Team [...] on filedocumented in this encounter Care Teams Cadd Instructor Relationship Specialty Start Date End Date Tamiko Manzano NP [address] [place] [address] PCP - General NURSE PRACTITIONER 02/09/22 documented as of this encounter
--- OUTSIDE RECORDS SUMMARY | 2024-06-09 03:26 | XMS_ITS | Encounter Summary ---
Author Organization [facility] Address [address] [place] [address]. [place] [address] [place] [address] Care Team Providers Care Jewellery Designer Name Role Phone Tamiko Manzano NP Primary Care Provider +1 -[phone] Encounter Details Date Type Department Care Team [...] on filedocumented in this encounter Care Teams Jewellery Designer Relationship Specialty Start Date End Date Tamiko Manzano, FAHEEM [address] [place], [place] [address] PCP - General NURSE PRACTITIONER 02/09/22 documented as of this encounter
--- OUTSIDE RECORDS SUMMARY | 2024-06-09 03:26 | XMS_ITS | Encounter Summary ---
Author Organization [facility] Address [address] [place] [address]. [place] [address] [place] [address] Care Team Providers Care Senior Games Technician Name Role Phone Tamiko Manzano LEATHER FINISHER Primary Care Provider +1 -[phone] Encounter Details Date Type Department Care Team [...] on filedocumented in this encounter Care Teams Senior Games Technician Relationship Specialty Start Date End Date Tamiko Manzano NP [address] [place] [address] PCP - General NURSE PRACTITIONER 02/09/22 documented as of this encounter
--- OUTSIDE RECORDS SUMMARY | 2024-06-09 03:26 | XMS_ITS | Encounter Summary ---
Author Organization [facility] Address [address] [place] [address]. [place] [address] [place] [address] Care Team Providers Care Solutions Developer Name Role Phone Tamiko Manzano NP Primary Care Provider [phone] -[phone] Reason for Visit * Reason Onset Date Comments Record Request 03/01/2023 Encounter Details Date Type Department Care Team (Late st Contact Info) Description 03/01/2023 Telephone [facility] Medical [facility] Family Medicine - [place] [address] [phone] Tamiko Manzano, ORACLE EBS CONSULTANT [address] [place] [address] [place] [address] [phone] Record Request Social History Tobacco Use Types [...] on filedocumented in this encounter Care Teams Solutions Developer Relationship Specialty Start Date End Date Tamiko Manzano NP [address] [place] [address] PCP - General NURSE PRACTITIONER 02/09/22 documented as of this encounter
--- OUTSIDE RECORDS SUMMARY | 2024-06-09 03:26 | XMS_ITS | Encounter Summary ---
Author Organization [facility] Address [address] [place] [address]. [place] [address] [place] [address] Care Team Providers Care Steward Dishwasher Name Role Phone Tamiko Manzano NP Primary Care Provider +1 -[phone] Encounter Details Date Type Department Care Team (Late st Contact Info) Description 02/26/2023 9:00 AM CDT Laboratory Only [facility] Medical Group Family & Internal Medicine [address] [address] Tamiko Manzano, FAHEEM [address] [facility] [address] [place], [place] [address] Social History Tobacco Use Types Packs/Day Years [...] 248(H) <200 MG/DL 02/26/2023 4:16 PM CDT [facility] TRIGLYCERIDES 99 <150 MG/DL 02/26/2023 4:16 PM CDT [facility] HDL 72 >40 MG/DL 02/26/2023 4:16 PM CDT [facility] LDL-C 156(H) <100 MG/DL 02/26/2023 4:16 PM CDT [facility] VLDL CALCULATION 20 5 - 28 MG/DL 02/26/2023 4:16 PM CDT [facility] CHOL/HDL RATIO 3.4 0.0 - 4.0 02/26/2023 4:16 PM CDT [facility] LDL/HDL 2.2(H) 0.41 - 2.13 02/26/2023 4:16 PM CDT [facility] NON HDL CHOLESTEROL 176(H) <140 MG/DL 02/26/2023 4:16 PM CDT [facility] 02/26/2023 9:09 AM CDT us Tamiko Manzano NP LABORATORY [facility] Res [facility] [address] [facility] [place] [address], [place] [phone] documented in this encounter Visit Diagnoses Diagnosis Screening for lipoid disorders documented in this encounter Care Teams Steward Dishwasher Relationship Specialty Start Date End Date Tamiko Manzano NP [address] [place] [address] PCP - General NURSE PRACTITIONER 02/09/22 documented as of this encounter
--- OUTSIDE RECORDS SUMMARY | 2024-06-09 03:26 | XMS_ITS | Encounter Summary ---
Author Organization [facility] Address [address] [place] [address]. [place] [address] [place] [address] Care Team Providers Care Knitter Machine Name Role Phone Tamiko Manzano NP Primary Care Provider +1 [phone] Encounter Details Date Type Department Care Team (Late st Contact Info) Description 02/14/2022 NICOt Message Enc [facility] Family Medicine - [place] [address] [facility] [address] [place], [place] [phone] Tamiko Manzano, FAHEEM [address] [place] [address] [place], [place] [address] Physical Form Social History Tobacco Use Types [...] I printed form to be completed at [facility] documented in this encounter Plan of Treatment Not on file documented as of this encounter Visit Diagnoses Not on filedocumented in this encounter Care Teams Knitter Machine Relationship Specialty Start Date End Date Tamiko Manzano NP [address] [place] [address] [place] [address] PCP - General NURSE PRACTITIONER 02/09/22 documented as of this encounter
--- OUTSIDE RECORDS SUMMARY | 2024-06-09 03:26 | XMS_ITS | Encounter Summary ---
Author Organization [facility] Address [address] [place] [address]. [place] [address] [place] [address] Care Team Providers Care Sales Representative Business Courses Name Role Phone Tamiko Manzano NP Primary Care Provider +1 -[phone] Reason for Visit * Reason Onset Date Comments Headache 04/30/2024 Encounter Details Date Type Department Care Team (Late st Contact Info) Description 04/30/2024 Telephone [facility] Medical Group Family Medicine - [place] [address] [facility] [address] [place] [phone] Tamiko Manzano NP [address] [place] [address] [place] [phone] Headache Social History Tobacco Use Types Packs/Day [...] seen and can be given proper treatment. R AWAY * Sandra Zapata MA - 04/30/2024 3:10 [...] to discuss migraine preventions. She voiced understanding R AWAY documented in this encounter Plan of Treatment Not on file documented as of this encounter Visit Diagnoses Not on filedocumented in this encounter Care Teams Sales Representative Business Courses Relationship Specialty Start Date End Date Tamiko Manzano NP [address] [place] [address] PCP - General NURSE PRACTITIONER 02/09/22 documented as of this encounter
--- OUTSIDE RECORDS SUMMARY | 2024-06-09 03:26 | XMS_ITS | Encounter Summary ---
Author Organization [facility] Address [address] [place] [address]. [place] [address] [place] [address] Care Team Providers Care Manager Heart Failure Name Role Phone Tamiko Manzano NP Primary Care Provider +1 -[phone] Reason for Visit * Reason Comments Lab Draw Encounter Details Date Type Department Care Team (Late st Contact Info) Description 03/06/2024 8:40 AM CDT Allied Health/Nurse Visit [facility] Family Medicine [facility] [address] [phone] Tamiko Manzano, FAHEEM [address] [address] Lab Draw Social History Tobacco Use Types [...] - 10.80 x10'3/uL 03/06/2024 2:51 PM CDT [facility] RBC 4.82 4.10 - 5.40 x10'6/uL 03/06/2024 2:51 PM CDT [facility] HGB 14.1 12.0 - 16.0 G/DL 03/06/2024 2:51 PM CDT [facility] HCT 43.2 36.0 - 47.0 % 03/06/2024 2:51 PM CDT [facility] MCV 89.6 78.0 - 100.0 FL 03/06/2024 2:51 PM CDT [facility] MCH 29.3 27.0 - 31.0 PG 03/06/2024 2:51 PM CDT [facility] MCHC 32.6(L) 33.0 - 36.0 G/DL 03/06/2024 2:51 PM CDT [facility] RDW 12.3 11.5 - 14.5 % 03/06/2024 2:51 PM CDT [facility] PLT 410(H) 150 - 350 x10'3/uL 03/06/2024 2:51 PM CDT -[facility] MPV 10.7(H) 7.4 - 10.4 FL 03/06/2024 2:51 PM CDT -[facility] DIFFERENTIAL TYPE AUTOMATED DIFFERENTIAL 03/06/2024 2:51 PM CDT [facility] NEUTROPHILS % 61.8 % 03/06/2024 2:51 PM CDT [facility] LYMPHOCYTES % 27.4 % 03/06/2024 2:51 PM CDT [facility] MONOCYTES % 8.6 % 03/06/2024 2:51 PM CDT [facility] EOSINOPHILS % 1.5 % 03/06/2024 2:51 PM CDT [facility] BASOPHILS % 0.5 % 03/06/2024 2:51 PM CDT [facility] IMMATURE GRANS % 0.2 % 03/06/2024 2:51 PM CDT [facility] ABS. NEUTROPHILS 4.11 1.60 - 8.30 x10'3/uL 03/06/2024 2:51 PM CDT [facility] ABS. LYMPHOCYTES 1.82 0.80 - 4.70 x10'3/uL 03/06/2024 2:51 PM CDT [facility] ABS. MONOCYTES 0.57 0.00 - 1.50 x10'3/uL 03/06/2024 2:51 PM CDT [facility] ABS. EOSINOPHILS 0.10 0.00 - 0.40 x10'3/uL 03/06/2024 2:51 PM CDT [facility] ABS. BASOPHILS 0.03 0.00 - 0.20 x10'3/uL 03/06/2024 2:51 PM CDT [facility] ABS. IMMATURE GRANULOCYTES 0.01 0.00 - 0.03 x10'3/uL 03/06/2024 2:51 PM [facility] [place] 03/06/2024 8:01 AM CDT Tamiko Manzano CLINICAL TRIALS NURSE LABORATORY Final Res ult -[facility] [place] [address] [place] [address], * (ABNORMAL) COMPREHENSIVE METABOLIC PANEL (03/06/2024 8:01 AM CDT) Pathologist [facility] SODIUM S/P/B 141 136 - 145 MMOL/L 03/06/2024 3:24 PM CDT [facility] POTASSIUM S/P/B 5.0 3.5 - 5.1 MMOL/L 03/06/2024 3:24 PM CDT [facility] CHLORIDE S/P/B 105 98 - 107 MMOL/L 03/06/2024 3:24 PM CDT [facility] CO2 28.4 21 - 32 MMOL/L 03/06/2024 3:24 PM CDT -[facility] GLUCOSE 91 70 - 99 MG/DL 03/06/2024 3:24 PM CDT -[facility] BUN 15 7 - 18 MG/DL 03/06/2024 3:24 PM CDT -[facility] CREATININE S/P/B 0.83 0.55 - 1.02 MG/DL 03/06/2024 3:24 PM CDT [facility] CALCIUM S/P/B 9.2 8.4 - 10.5 MG/DL 03/06/2024 3:24 PM CDT [facility] BILIRUBIN TOTAL S/P/B 1.3(H) 0.2 - 1.0 MG/DL 03/06/2024 3:24 PM CDT [facility] ALKALINE PHOSPHATASE S/P/B 72 37 - 98 U/L 03/06/2024 3:24 PM CDT [facility] AST 11(L) 15 - 37 U/L 03/06/2024 3:24 PM CDT [facility] ALT 15 14 - 59 U/L 03/06/2024 3:24 PM CDT [facility] TOTAL PROTEIN S/P/B 6.9 6.4 - 8.2 G/DL 03/06/2024 3:24 PM CDT [facility] ALBUMIN S/P/B 3.7 3.4 - 5.0 G/DL 03/06/2024 3:24 PM CDT [facility] ANION GAP 7.6 5 - 15 MMOL/L 03/06/2024 3:24 PM CDT [facility] Comment:REFERENCE RANGE NOT ESTABLISHED OSMOLALITY (CALC) 292 MOSM/KG 024 3:24 PM CDT [facility] Comment:REFERENCE RANGE NOT ESTABLISHED GFR ESTIMATE >90 >90 ML/MIN/1. 73 M2 03/06/2024 3:24 PM T [facility] GFR NOTES GFR REFERENCE S: 03/06/2024 3:24 PM T [facility] Comment: THE ESTIMATED GFR IS CALCULATED [...] NP LABORATORY Final Res ult [facility] [place] [address] [place] [address], [place] [phone] * (ABNORMAL) LIPID PANEL (03/06/2024 8:01 AM CDT) CHOLESTEROL 194 <200 MG/DL 03/06/2024 3:24 PM CDT [facility] TRIGLYCERIDES 138 <150 MG/DL 03/06/2024 3:24 PM CDT [facility] HDL 56 >40 MG/DL 03/06/2024 3:24 PM CDT [facility] LDL-C 110(H) <100 MG/DL 03/06/2024 3:24 PM CDT [facility] VLDL CALCULATION 28 5 - 28 MG/DL 03/06/2024 3:24 PM CDT [facility] CHOL/HDL RATIO 3.5 0.0 - 4.0 03/06/2024 3:24 PM CDT [facility] LDL/HDL 2.0 0.41 - 2.13 03/06/2024 3:24 PM CDT [facility] NON HDL CHOLESTEROL 138 <140 MG/DL 03/06/2024 3:24 PM CDT [facility] 03/06/2024 8:01 AM CDT Tamiko Manzano NP LABORATORY Final Res ult [facility] [place] [address] [place] [address], [place] [phone] documented in this encounter Visit Diagnoses Diagnosis Screening for hyperlipidemia Screening for lipoid disorders Elevated bilirubin Jaundice, unspecified, not of Screening for endocrine, metabolic and immunity disorder documented in this encounter Care Teams Manager Heart Failure Relationship Specialty Start Date End Date Tamiko Manzano NP [address] [place] [address] [place] [address] PCP - General NURSE PRACTITIONER 02/09/22 documented as of this encounter
--- OUTSIDE RECORDS SUMMARY | 2024-06-09 03:26 | XMS_ITS | Encounter Summary ---
Author Organization [facility] Address [address] [place] [address]. [place] [address] [place] [address] Care Team Providers Care Crankshaft Balancer Name Role Phone Tamiko Manzano NP Primary Care Provider +1 -[phone] Reason for Visit * Reason Comments Pathology (SCAN) Encounter Details Date Type Department Care Team ([facility] Contact Info) Description 01/21/2021 Scan HEALTH INFO [...] on filedocumented in this encounter Care Teams Crankshaft Balancer Relationship Specialty Start Date End Date Tamiko Manzano NP [address] [place] [address] PCP - General NURSE PRACTITIONER 02/09/22 documented as of this encounter
--- OUTSIDE RECORDS SUMMARY | 2024-06-09 03:26 | XMS_ITS | Encounter Summary ---
Author Organization [facility] Address [address] [place] [address]. [place] [address] [place] [address] Care Team Providers Care Electro Tech Name Role Phone Tamiko Manzano NP Primary Care Provider [phone] Reason for Visit * Reason Comments Annual Patient presents for an adult routine exam Encounter Details Date Type Department Care Team (Late st Contact Info) Description 02/25/2024 10:40 AM CDT Office Visit [facility] [address] [facility] [address] [place] [phone] Tamiko Manzano, METROLOGY SPECIALIST [address] [id number] Annual (Patient presents for an adult routine [...] for an adult routine exam SUBJECTIVE: Bushra Kim is a 39-year-old female who presents for [...] cancer, had breast cancer from radiation from [facility] whenshe was younger, in 20/30s. Hypertension Father [...] cancer screening up to date, follows with teletypewriter operator Dr. Toledo 2022 pap completed last - [...] (ABNORMAL) LIPID PANEL (03/06/2024 8:01 AM CDT) [facility] CHOLESTEROL 194 <200 MG/DL 03/06/2024 3:24 PM CDT [facility] WINSOME [place] TRIGLYCERIDES 138 <150 MG/DL 03/06/2024 3:24 PM CDT [facility] HDL 56 >40 MG/DL 03/06/2024 3:24 PM CDT [facility] LDL-C 110(H) <100 MG/DL 03/06/2024 3:24 PM CDT [facility] VLDL CALCULATION 28 5 - 28 MG/DL 03/06/2024 3:24 PM CDT [facility] CHOL/HDL RATIO 3.5 0.0 - 4.0 03/06/2024 3:24 PM CDT [facility] LDL/HDL 2.0 0.41 - 2.13 03/06/2024 3:24 PM CDT [facility] NON HDL CHOLESTEROL 138 <140 MG/DL 03/06/2024 3:24 PM CDT [facility] 03/06/2024 8:01 AM CDT us Tamiko Manzano METROLOGY SPECIALIST LABORATORY Final Res ult [facility] [address] [place] [address], * (ABNORMAL) COMPREHENSIVE METABOLIC PANEL (03/06/2024 8:01 AM CDT) SODIUM S/P/B 141 136 - 145 MMOL/L 03/06/2024 3:24 PM CDT [facility] POTASSIUM S/P/B 5.0 3.5 - 5.1 MMOL/L 03/06/2024 3:24 PM CDT [facility] CHLORIDE S/P/B 105 98 - 107 MMOL/L 03/06/2024 3:24 PM CDT [facility] CO2 28.4 21 - 32 MMOL/L 03/06/2024 3:24 PM CDT [facility] GLUCOSE 91 70 - 99 MG/DL 03/06/2024 3:24 PM CDT [facility] BUN 15 7 - 18 MG/DL 03/06/2024 3:24 PM CDT [facility] CREATININE S/P/B 0.83 0.55 - 1.02 MG/DL 03/06/2024 3:24 PM CDT [facility] CALCIUM S/P/B 9.2 8.4 - 10.5 MG/DL 03/06/2024 3:24 PM CDT [facility] BILIRUBIN TOTAL S/P/B 1.3(H) 0.2 - 1.0 MG/DL 03/06/2024 3:24 PM CDT [facility] ALKALINE PHOSPHATASE S/P/B 72 37 - 98 U/L 03/06/2024 3:24 PM CDT [facility] AST 11(L) 15 - 37 U/L 03/06/2024 3:24 PM CDT [facility] ALT 15 14 - 59 U/L 03/06/2024 3:24 PM CDT [facility] TOTAL PROTEIN S/P/B 6.9 6.4 - 8.2 G/DL 03/06/2024 3:24 PM CDT [facility] ALBUMIN S/P/B 3.7 3.4 - 5.0 G/DL 03/06/2024 3:24 PM CDT [facility] ANION GAP 7.6 5 - 15 MMOL/L 03/06/2024 3:24 PM CDT [facility] Comment:REFERENCE RANGE NOT ESTABLISHED OSMOLALITY (CALC) 292 MOSM/KG 024 3:24 PM CDT [facility] Comment:REFERENCE RANGE NOT ESTABLISHED GFR ESTIMATE >90 >90 ML/MIN/1. 73 M2 03/06/2024 3:24 PM CDT [facility] GFR NOTES GFR REFERENCE S: 03/06/2024 3:24 PM T [facility] Comment: THE ESTIMATED GFR IS CALCULATED USING [...] 03/06/2024 8:01 AM CDT us Tamiko Manzano METROLOGY SPECIALIST LABORATORY Final Res ult [facility] [address] [place] [address], * (ABNORMAL) CBC W/DIFF AUTOMATED (03/06/2024 8:01 AM CDT) WBC 6.64 4.00 - 10.80 x10'3/uL 03/06/2024 2:51 PM CDT [facility] RBC 4.82 4.10 - 5.40 x10'6/uL 03/06/2024 2:51 PM CDT [facility] HGB 14.1 12.0 - 16.0 G/DL 03/06/2024 2:51 PM CDT [facility] HCT 43.2 36.0 - 47.0 % 03/06/2024 2:51 PM CDT [facility] MCV 89.6 78.0 - 100.0 FL 03/06/2024 2:51 PM CDT [facility] MCH 29.3 27.0 - 31.0 PG 03/06/2024 2:51 PM CDT [facility] MCHC 32.6(L) 33.0 - 36.0 G/DL 03/06/2024 2:51 PM CDT [facility] RDW 12.3 11.5 - 14.5 % 03/06/2024 2:51 PM CDT [facility] PLT 410(H) 150 - 350 x10'3/uL 03/06/2024 2:51 PM CDT [facility] MPV 10.7(H) 7.4 - 10.4 FL 03/06/2024 2:51 PM CDT [facility] DIFFERENTIAL TYPE AUTOMATED DIFFERENTIAL 03/06/2024 2:51 PM CDT [facility] NEUTROPHILS % 61.8 % 03/06/2024 2:51 PM CDT [facility] LYMPHOCYTES % 27.4 % 03/06/2024 2:51 PM CDT [facility] MONOCYTES % 8.6 % 03/06/2024 2:51 PM CDT [facility] EOSINOPHILS % 1.5 % 03/06/2024 2:51 PM CDT [facility] BASOPHILS % 0.5 % 03/06/2024 2:51 PM CDT [facility] IMMATURE GRANS % 0.2 % 03/06/2024 2:51 PM CDT [facility] ABS. NEUTROPHILS 4.11 1.60 - 8.30 x10'3/uL 03/06/2024 2:51 PM CDT [facility] ABS. LYMPHOCYTES 1.82 0.80 - 4.70 x10'3/uL 03/06/2024 2:51 PM CDT [facility] ABS. MONOCYTES 0.57 0.00 - 1.50 x10'3/uL 03/06/2024 2:51 PM CDT [facility] ABS. EOSINOPHILS 0.10 0.00 - 0.40 x10'3/uL 03/06/2024 2:51 PM CDT [facility] ABS. BASOPHILS 0.03 0.00 - 0.20 x10'3/uL 03/06/2024 2:51 PM CDT [facility] ABS. IMMATURE GRANULOCYTES 0.01 0.00 - 0.03 x10'3/uL 03/06/2024 2:51 PM CDT [facility] 03/06/2024 8:01 AM CDT us Tamiko Manzano METROLOGY SPECIALIST LABORATORY Final Res ult [facility] [address] [place] [address], documented in this encounter Visit Diagnoses Diagnosis [...] Overweight documented in this encounter Care Teams Electro Tech Relationship Specialty Start Date End Date Tamiko Manzano NP [address] [place] [address] PCP - General NURSE PRACTITIONER 02/09/22 documented as of this encounter
--- OUTSIDE RECORDS SUMMARY | 2024-06-09 03:28 | XMS_ITS | Encounter Summary ---
Author Organization [facility] Address [address] [place]: Epic Prelude ADT [place] [address] Care Team Providers Care Budget Director Name Role Phone Unavailable Primary Care [...]
--- OUTSIDE RECORDS SUMMARY | 2024-06-09 03:28 | XMS_ITS | Encounter Summary ---
Author Organization [employer] [facility] Address 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 Procedures US OB FOLLOW UP PER FETUS Gifty Medrano MD [address] [place] [address] Referral ID Status Reason Start Date Expiration Date Visits Re quested Visits Authorized [id number] Closed 10/26/2020 11/26/2021 1 1 Reason for Visit * Auth/Cert Specialty Diagnoses / Procedures Referred By Contac t Referred To Contact Radiology [facility] Maternal And Hc Ground Fl [address] [place] [address] Referral ID Status Reason Start Date Expiration Date Visits Re quested Visits Authorized [id number] 1 1 Encounter Details Date Type Department Care Team (Latest Contact Info) Description 11/15/2020 2:01 PM CDT - 11/15/2020 11:59 PM CDT Hospital Encounter [facility] Maternal and Ground Floor [address] [place] [address] Gifty Medrano MD [address] [place] [address] Discharge Disposition: Home or Self Care Social [...] KIM Study Date: 11/15/2020 2:53pm Pat. NO: [id number] Referring ??MD: LARA JUAREZ MD Site: [facility] [employer] Ranger: Lauren Tobias : 1985 Age: 35 ----- INDICATION ----- Abnormal Heart Tracing Known or Suspected anomaly ? Varix Fibroids CODING ----- Diagnoses ? O77.8: Labor and delivery complicated by stress ?O35.8XX0: Maternal care for suspected abnormality. Unspecified Fetus ?O34.13: Maternal care for benign tumor of corpus uteri ?Z3A.34: Weeks Gestation of Procedures ?39019: OB follow-up/Target per fetus ?17834: BPP without NST HISTORY ----- OB History [...] and date of were verified by the rn medical surgical prior to the exam FOLLOW-UP ----- see above. Procedure Note Ayla [place] MD - 11/15/2020 [facility] ----- Pat. Name:Jennifer KIM Date:11/15/2020 2:53pm Pat. NO: [id number] MD:LARA JUAREZ MD [facility] :1985Age:35 ----- INDICATION ----- Abnormal Heart Tracing Known or Suspected anomaly Varix Fibroids CODING ----- Diagnoses O77.8: Labor and delivery complicated by fetalstress O35.8XX0: Maternal care for suspected fetalabnormality. Unspecified Fetus O34.13: Maternal care for benign tumor of corpusuteri Z3A.34: Weeks Gestation of Procedures 53231: OB follow-up/Target per fetus 04547: BPP without NST HISTORY ----- OB History 2. Para 1 MATERNAL ASSESSMENT ----- Physical Exam Weight 73 kg. BMI 26.15 kg/m? METHOD ----- Transabdominal ultrasound examination ----- [place] . Number of fetuses: 1 DATING ----- LMP on:03/21/2020 Cycle:regular cycle, regular cycle GA by [id number] w + 1 d JAMEEL by LMP:12/26/2020 GA by prior [id number] w + 1 d JAMEEL by prior [...] and date of were verified by the rn medical surgical prior tothe exam FOLLOW-UP ----- see above. [...]
--- OUTSIDE RECORDS SUMMARY | 2024-06-09 03:28 | XMS_ITS | Encounter Summary ---
Author Organization [facility] Address [address] [place] [address] Care Team Providers Care Sustainability Manager Name Role Phone Unavailable Primary Care Provider Unavailabl e Reason for Visit * Reason Comments Routine Visit Soem cramping and swelling Encounter Details Date Type Department Care Team (Latest Contact Info) Description 11/18/2020 3:15 PM CDT visit [facility] JEWELER APPRENTICE - [address] [facility] [address] [address] Izabella Juarez MD NO ADDRESS ON FILE [...] possible need for c/section. Next testing at [facility] on 11/22. I'll request growth at [...] DETECTION (11/18/2020 4:40 PM CDT) SOURCE *VAG/RECTAL [facility] B STREP BY PCR NOT DETECTED NOT DETECTED [facility] Comment: This assay was performed by [employer] GeneXpert(R) PCR. Note per CDC guidelines optimal recovery is achieved by swabbing both the lower vagina and rectum (through the anal sphincter). Test Performed at: [facility] [address] [place], [place] ??[address] Alin Kwan D.O., MPH Genital (Vaginal/rectal) 11/18/2020 4:40 PM CDT Izabella Juarez MD MICROBIOLOGY - GENE RAL ORDERABLES [facility] [address] [place] [address] documented in this encounter Visit Diagnoses Diagnosis care, antepartum- Primary Breech presentation with problem, single or unspecified fetus complicated by umbilical cord varix, antepartum Excessive growth affecting management of in second trimester, single or unspecified fetus documented in this encounter
--- OUTSIDE RECORDS SUMMARY | 2024-06-09 03:28 | XMS_ITS | Encounter Summary ---
Author Organization [facility] Address [address] [place] [address] Care Team Providers Care Manager Of Tires Sales Name Role Phone Unavailable Primary Care Provider Unavailabl e Reason for Visit * Reason Comments Post- Care 12/01/20 Encounter Details Date Type Department Care Team (Latest Contact Info) Description 01/21/2021 2:45 PM CDT Office Visit [facility] DATABASE SUPPORT - [address] [facility] [address] [address] Izabella Juarez MD NO ADDRESS ON FILE [...] Where can you learn more? Go to https://www.Survaturewise.net/patiented Enter U972 in the search box to learn more about Pap Test: Care Instructions. Current as of: May 13, 2020?Content Version: 12.8 ?? [employer]. Care instructions adapted under license by your healthcare professional. If you have questions about a medical condition or this instruction, always ask your healthcare professional. These instructions may not represent the values of this healthcare organization. [employer] disclaims any warranty or liability for your [...] eating high-fiber foods. Ask your doctor about halj-pen-fregdfj stool softeners. ?? Cleanse yourself with a [...] few days after delivery. ?? Plan for child care centre director if you have other children. ?? Stay [...] Where can you learn more? Go to https://www.Friendsee.net/patiented Enter A461 in the search box to learn more about After Your Delivery (the Period): CareInstructions. Current as of: March 04, 2020?Content Version: 12.8 ?? [id number] [employer]. Care instructions adapted under license by your healthcare professional. If you have questions about a medical condition or this instruction, always ask your healthcare professional. These instructions may not represent the values of this healthcare organization. [employer] disclaims any warranty or liability for your [...] has been evaluated with computer assisted technology. ADDICTION THERAPIST: [facility] Comment: DDS, CT(ASCP) CT screening location: [place] [address] [place] [address] EXPLANATORY NOTE [facility] Comment: EXPLANATORY NOTE: The Pap is a [...] information. HPV E6/E7 Not Detected Not Detected [facility] Comment: Methodology: Furniture Crater-Mediated Amplification This assay detects E6/E7 viral messenger RNA (mRNA) from 14 high-risk HPV types (16,18,31,33,35,39,45,51,52,56,58,59,66,68). The analytical performance characteristics of this assay have been determined by [employer]. The modifications have not been cleared or approved by the FDA. This assay has been validated pursuant to the CLIA regulations and is used for clinical purposes. For additional information, please refer to http://education.Affectv.Zola/faq/GFL271h5 (This link if provided for information/ educational purposes only.) Test Performed at: [facility] [address] [place], [place] ??[address] Alin Kwan D.O., MPH SL Genital SWAB OF ENDOCERVIX / Unknown 01/21/2021 3:12 PM CDT 01/22/2021 12:37 AM CDT Izabella Juarez MD PATHOLOGY/CYTOLOGY ORDERABLES Performing Organization Address City/State/[facility] Co de Phone Number [facility] [address] [place] [address] documented in this encounter Visit Diagnoses Diagnosis Routine follow-up- Primary Screening for cervical cancer Screening for malignant neoplasm of the cervix Special screening examination for human papillomavirus (HPV) Placental abnormality in third trimester documented in this encounter
--- OUTSIDE RECORDS SUMMARY | 2024-06-09 03:28 | XMS_ITS | Encounter Summary ---
Author Organization [facility] Address [address] [place]: Epic Prelude ADT [place] [address] Care Team Providers Care Button Maker And Installer Name Role Phone Unavailable Primary Care [...]
--- OUTSIDE RECORDS SUMMARY | 2024-06-09 03:28 | XMS_ITS | Encounter Summary ---
Author Organization [facility] Address [address] [place]: Epic Prelude ADT [place] [address] Care Team Providers Care Mechanical Tech Name Role Phone Unavailable Primary Care Provider [...]
--- OUTSIDE RECORDS SUMMARY | 2024-06-09 03:28 | XMS_ITS | Encounter Summary ---
Author Organization [facility] Address [address] [place] [address] Care Team Providers Care Divorce Mediator Name Role Phone Unavailable Primary Care Provider Unavailabl e Reason for Referral * Radiology Services (Routine) - Closed Specialty Diagnoses / Procedures Referred By Contac t Referred To Contact Diagnoses complicated by umbilical cord varix, antepartum Fibroid Procedures US OB FOLLOW UP PER FETUS Eduardo Kern MD [address] [place] [address] Referral ID Status Reason Start Date Expiration Date V isits Requested Visits Authorized [id number] Closed [facility] 09/27/2020 10/28/2020 1 1 Reason for Visit * Auth/Cert Specialty Diagnoses / Procedures Referred By Contac t Referred To Contact Radiology [facility] [address] [place] [address] Referral ID Status Reason Start Date Expiration Date Visits Re quested Visits Authorized [id number] 1 1 Encounter Details Date Type Department Care Team (Latest Contact Info) Description 10/26/2020 3:30 PM CDT - 10/26/2020 11:59 PM CDT Hospital Encounter [facility] Maternal and Ground Floor [address] [place] [address] Eduardo Kern MD [address] [place] [phone] Discharge Disposition: Home or Self Care Social [...] HUSAIN Study Date: 10/26/2020 4:03pm Pat. NO: [id number] Referring ??MD: LARA VIDAL MD Site: [facility] Concert Promoter: Rhiannon Osorio : 1985 Age: 35 ----- INDICATION ----- Known or Suspected anomaly ? Umbilical vein varix Maternal Fibroids ?Left lateral Suspected Macrosomia/Large for Dates CODING ----- Diagnoses ? O35.8XX0: Maternal care for suspected abnormality. Unspecified Fetus ?O34.13: Maternal care for benign tumor of corpus uteri ?Z3A.31: Weeks Gestation of ?O36.63X0: Maternal care for excessive growth. Unspecified Fetus Procedures ?53477: OB follow-up/Target per fetus HISTORY ----- OB [...] lb 15 ? oz EFW by ?Hadlock ([id number]) Head / Face / Neck Biometry: Cephalic [...] and date of were verified by the dedicated driver prior to the exam Procedure Note Gifty Medrano MD - 10/26/2020 [facility] FOLLOW UP ----- Pat. Name:Jennifer HUSAIN Date:10/26/2020 4:03pm Pat. NO: [id number] MD:LARA VIDAL MD [facility]iannon Osorio :1985Age:35 ----- INDICATION ----- Known or Suspected anomaly Umbilical veinvarix Maternal Fibroids Left lateral Suspected Macrosomia/Large for Dates CODING ----- Diagnoses O35.8XX0: Maternal care for suspected fetalabnormality. Unspecified Fetus O34.13: Maternal care for benign tumor of corpusuteri Z3A.31: Weeks Gestation of O36.63X0: Maternal care for excessive fetalgrowth. Unspecified Fetus Procedures 49568: OB follow-up/Target per fetus HISTORY ----- OB History 2. Para 1 MATERNAL ASSESSMENT ----- Physical Exam Weight 73 kg. BMI 26.15 kg/m? METHOD ----- Transabdominal ultrasound examination ----- [place] . Number of fetuses: 1 DATING ----- LMP on:03/21/2020 Cycle:regular cycle GA by [id number] w + 2 d JAMEEL by LMP:12/26/2020 GA by prior [id number] w + 2 d JAMEEL by prior [...] 4 lb 15 oz EFW by [employer]lock ([id number]) Head / Face / Neck Biometry: Cephalic [...] and date of were verified by the dedicated driver prior tothe exam IMPRESSION ----- Hamilton @ [...]
--- OUTSIDE RECORDS SUMMARY | 2024-06-09 03:28 | XMS_ITS | Encounter Summary ---
Author Organization [facility] Address [address] [place] [address] Care Team Providers Care Correspondence Section Supervisor Name Role Phone Unavailable Primary Care Provider Unavailabl e Reason for Visit * Auth/Cert Specialty Diagnoses / Procedures Referred By Contac t Referred To Contact Obstetrics Diagnoses EDC: 12/21/20 Primary Breech Cord verix MFM Recommendation Procedures SECTION [facility] Mother Baby 5c [address] [facility] [place] [address] Referral ID Status Reason Start Date Expiration Date Visits Re quested Visits Authorized [id number] 1 1 Encounter Details Date Type Department Care Team (Latest Contact Info) Description 12/01/2020 11:57 AM CDT - 12/05/2020 2:22 PM CDT Hospital Encounter [facility] Mother/Baby 5C [address] [place] [address] Izabella Juarez MD NO ADDRESS [...] Information for the patient's : Jimi Richardson [[id number]] male General diet Routine instructions. Medication List [...] Your Medications [address] [place] [address] Hours: Retail 8 AM - 12 AM [...] feeding ?? For advice call: information line [phone] IF BOTTLE FEEDING ?? Avoid breast stimulation, [...] information, please contact our Intake Office at [phone]. After hours: [phone]. NEED SUPPORT AFTER YOU ARE HOME? [facility] now offers outpatient consult appointments. An International Board-Certified Landscape Artist is available to help if you need support after you and your arehome. Appointments are approximately one hour long and take place in the Department of Ser vices (second floor of [facility] near the NICU) Many insurance plans offer coverage for this service. Please call [phone], our Information line, to schedule your appointment or to get support by phone. Same or next day appointments are often available. Where can you learn more? Go to [email or web address] Enter G069 in the search box to learn more about Your at Home: Care Instructions. Enter Y708 in the search box to learn more about Learning About Rescue Breathing and CPR for Babies Under 1 Year. / Resources During Covid-19 Phone Consults & Visits Call [phone] to ask questions about . If needed, our team can schedule a video visit with you. Virtual with Confidence On Wednesdays, 1-2 pm., join us for a group meeting via videoconference facilitated by a professional. Ask questions, get advice! To register: Visit [employer] and select [facility] / View Classes / Support Once [...] leave a message for the nurse at [phone]. Please note these messages are picked up [...] Dia Chin DO OBGYN PGY1 Pager # [phone] C MD Larry * Savannah Pearson MD [...] hours s/p section Savannah Pearson MD PGY1 WOOL HAT FINISHER Pager: [phone] * Jazmín Kelsey RN - 12/01/2020 6:42 [...] 12/01/2020 12:54 PM CDT Pt admitted to [place] [address] for primary c/s. Dr Juarez notified of [...] FEELING WELL; NEITHER HAVE RECEIVED COVID VACCINATIONS Media Relations Coordinator required: N/A Teri Chavez RN documented in this encounter H&P Notes * Izabella uJarez MD - 12/01/2020 2:00 PM CDT OB [...] 130, mod variability, +accels, isolated variable decel [place]: rare labs: O neg, Rub imm / [...] Dia Chin DO OBGYN PGY1 Pager # [phone] documented in this encounter OR Notes * [...] Izabella Juarez MD Surgeon: Izabella Juarez MD Gumming Machine Operator: Dr. Colleen Bella MD PGY4, Dr. Dia [...] Delivery: 12/01/2020 Time of Delivery: 2:28 PM [place] Sex: Male Delivery Type: , Low Transverse [...] stable condition. Dia REDDY PGY1 Pager # [phone] documented in this encounter Miscellaneous Notes * [...] 12/02/2020 2:36 PM CDT Chart review completed. Doyline scores are pending. Please consult Case Management/Social Work for any needs that arise for discharge planning especially if Doyline scores are a 10 or above. If so, a full assessment will be completed at that time. Day 1 - Current ([place] [facility]: Adult and Obstetrics) Patient, family, or healthcare designee is participating in individual care plan process Outcome: Met Problem: Discharge Planning Goal: Identify discharge needs upon admission and through discharge Description: Outcome: Progressing Katlin MCKEON, technical support assistant II [phone] * Note - Venus Renae RN - [...] pump if needed prior to discharge Insurance-Payor: [facility] / Plan: [facility] CHOICE [id number] / Product Type: PPO / General Information: [...] (s). Phone number verified and entered into TimeCaptain Wise system and hand outs given. Encouraged mother [...] the original note were not included. ? [facility] Adult Influenza and Pneumococcal Vaccine Protocol [facility] Approved by: [facility] - Medical Executive Committee Approval Date: 02/12/2020 [...] mL IM one timeSTL LB Pre-Operative Protocol [facility] Approved by: [facility] - Medical Executive Committee Approval Date: 11/19/2019 [...] after physician consultation. STL LB Vaginal Protocol [facility] Approved by: [facility] - Medical Executive Committee Approval Date: 11/19/2019 [...] differential 2. * Treatment Plan - Kae Laecy - 12/01/2020 1:04 PM CDT Images from the original note were not included. ? [facility] Adult Influenza and Pneumococcal Vaccine Protocol [facility] Approved by: [facility] - Medical Executive Committee Approval Date: 02/12/2020 [...] mL IM one timeSTL LB Pre-Operative Protocol [facility] Approved by: [facility] - Medical Executive Committee Approval Date: 11/19/2019 [...] after physician consultation. STL LB Vaginal Protocol [facility] Approved by: [facility] - Medical Executive Committee Approval Date: 11/19/2019 [...] CASE REPORT Surgical Pathology Report ? Case: [id number] ? Authorizing Provider: ??Izabella Juarez MD ? Collected: ? 12/01/2020 02:34 PM ? Ordering Location: ? [facility] ?Received: ?12/02/2020 09:39 AM ? Labor & ? Pathologist: ? Zoe Jaffe MD ? Specimen: ?Placenta, IUP @ 37w 1d uterine fibroid and umbilical cord varix ? 12/06/2020 5:44 PM T [facility] [employer] SERVICES - [facility] FINAL DIAGNOSIS Placenta, section: -Third trimester placenta, 566 g. -Three-vessel umbilical cord with no pathologic diagnosis. -Chorioamnionic membranes with no pathologic diagnosis. -Intervillous thrombohematomas and infarction, approximately 2% of parenchyma. 12/06/2020 5:44 PM CDT [facility] [employer] SERVICES [facility] S DESCRIPTION The specimen is received in [...] The lesions occupy 1% of the tissue. Ink Maker sections are submitted as follows: A1-membrane; A2-umbilical cord; A3-subchorionic lesion; A4-parenchymal lesions; A5 through A7-central placenta. [facility] 12/06/2020 5:44 PM [facility] [employer] [facility] MICROSCOPIC DESCRIPTION The slides are labeled [id number] and Sheryl Kim. Sections of placenta reveal a three-vessel umbilical cord with no evidence of vasculitis or thrombosis. Sections of the chorioamnionic membranes reveal no evidence of acute inflammation. The chorionic villi are small, well vascularized and mature with intervillous thrombohematomas and an area of infarction with no evidence of acute villitis. 12/06/2020 5:44 PM [facility] [employer] [facility] OPERATIVE PROCEDURE 1: SECTION 12/06/2020 5:44 PM [facility] [employer] [facility] CLINICAL INFORMATION EDC: 12/21/20 Primary Breech Cord Varix MFM Recommendation 12/06/2020 5:44 PM [facility] [employer] [facility] COMMENT Special stain and/or immunohistochemical results are interpreted with controls that demonstrate appropriate staining reactions. Note on use of immunocytochemistry reagents: This test was developed and its performance characteristics determined by [facility], Department of Laboratory Medicine. It has not [...] part or completely in the following laboratories: [facility], CLIA #[id number] [address] [place] [address] [facility], CLIA #[id number] [address] [place] [address] [facility], CLIA #[id number] [address] [place] [address] 12/06/2020 5:44 PM CDT [facility] Tissue SPECIMEN FROM PLACENTA / Unknown Collection / Unknown 12/01/2020 2:34 PM CDT 12/02/2020 9:39 AM CDT Izabella Juarez MD PATHOLOGY/CYTOLOGY ORDERABLES Performing Organization Address City/State/[facility] Co de Phone Number [facility] CLIA# [id number] [address] [place] [address] * (ABNORMAL) CBC WITH DIFFERENTIAL (12/01/2020 12:44 PM CDT) WBC 8.2 4.0 - 9.8 K/uL 12/01/2020 1:18 PM CDT [facility] RBC 3.85(L) 3.90 - 4.90 M/uL 12/01/2020 1:18 PM CDT [facility] HEMOGLOBIN 11.6(L) 11.8 - 14.8 g/dL 12/01/2020 1:18 PM CDT [facility] HEMATOCRIT 34.4(L) 35.5 - 44.0 % 12/01/2020 1:18 PM CDT [email or web address] - [facility] MCV 89.4 82.0 - 99.0 fL 12/01/2020 1:18 PM CDT [email or web address] - [facility] MCH 30.1 27.2 - 32.6 pg 12/01/2020 1:18 PM CDT [email or web address] - [facility] MCHC 33.7 31.5 - 35.5 g/dL 12/01/2020 1:18 PM CDT [email or web address] - [facility] RDW 13.4 11.5 - 14.5 % 12/01/2020 1:18 PM CDT [email or web address] - [facility] RDW-STDEV 43.3 37.1 - 48.7 fL 12/01/2020 1:18 PM CDT [employer] LABORATORY SERVICES - [facility] PLATELETS 258 140 - 350 K/uL 12/01/2020 1:18 PM CDT [employer] [facility]ORATORY SERVICES - [facility] MPV 10.6 9.3 - 12.4 fL 12/01/2020 1:18 PM CDT [employer] LABORATORY SERVICES - . [facility] NEUTROPHILS 71 % 12/01/2020 1:18 PM CDT [email or web address] [facility] SERVICES - . [facility] LYMPHOCYTES 16 % 12/01/2020 1:18 PM CDT [email or web address] LABORATORY SERVICES - . [facility] MONOCYTES 11 % 12/01/2020 1:18 PM CDT [employer] LABORATORY SERVICES - . [facility] EOSINOPHILS 1 % 12/01/2020 1:18 PM CDT [employer] LABORATORY SERVICES - . [facility] BASOPHILS 1 % 12/01/2020 1:18 PM CDT [employer] LABORATORY SERVICES - . [facility] IMMATURE GRANULOCYTES 1 % 12/01/2020 1:18 PM CDT [email or web address] SERVICES - . [facility] Comment:IG (Immature Granulo cyte) count includes Metamyelocytes, Myelocytes, and Promyelocytes NEUTROPHIL ABSOLUTE 5.85 1.90 - 7.00 K/uL 12/01/2020 1:18 PM CDT [email or web address]AT[facility] SERVICES - . [facility] LYMPHOCYTE ABSOLUTE 1.33 0.70 - 4.50 K/uL 12/01/2020 1:18 PM CDT [employer] LABORATORY SERVICES - . [facility] MONOCYTE ABSOLUTE 0.86 0.10 - 1.30 K/uL 12/01/2020 1:18 PM CDT [facility] LABORATORY SERVICES - [facility] EOSINOPHIL ABSOLUTE 0.05 0.00 - 0.70 K/uL 12/01/2020 1:18 PM CDT [facility] LABORATORY SERVICES - . [place] BASOPHILS ABSOLUTE 0.06 0.00 - 0.20 K/uL 12/01/2020 1:18 PM CDT [facility] LABORATORY SERVICES - . [facility] IMMATURE GRANULOCYTES ABSOLUTE 0.07(H) 0.00 - 0.03 K/uL 12/01/2020 1:18 PM CDT [facility] SERVICES - [facility] Blood Venipuncture / Unknown 12/01/2020 12:44 PM CDT 12/01/2020 12:53 PM CDT Izabella Juarez MD HEMATOLOGY ORDERABL ES [facility] [employer] SERVICES - [facility] CLIA# [id number] [address] [place] [address] * TYPE AND SCREEN (12/01/2020 12:44 PM CDT) ABO GROUP O 12/01/2020 2:04 PM CDT [facility] LAB[facility]ATORY SERVICES -- [facility] RH (D) TYPE Negative 12/01/2020 2:04 PM CDT [facility] -- [facility] ANTIBODY SCREEN Negative 12/01/2020 2:04 PM CDT [facility] -- [facility] Blood Venipuncture / Unknown 12/01/2020 12:44 PM CDT 12/01/2020 12:53 PM CDT Izabella Juarez MD BLOOD BANK ORDERABL ES [facility] [employer] [facility] -- [facility] CLIA# [id number] [address] [place] [address] documented in this encounter Visit Diagnoses Diagnosis [...] Shanti Tobias, EMILY)[phone] (Given - Provider: Shanti Tobisa RN)[phone] (Given - Provider: Juanita Quevedo, EMILY) [...]
--- OUTSIDE RECORDS SUMMARY | 2024-06-09 03:28 | XMS_ITS | Encounter Summary ---
Author Organization [facility] Address [address] [place]: Epic Prelude ADT [place] [address] Care Team Providers Care Safety Clothing And Equipment Developer Name Role Phone Unavailable Primary Care [...]
--- OUTSIDE RECORDS SUMMARY | 2024-06-09 03:28 | XMS_ITS | Encounter Summary ---
Author Organization [facility] Address 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 Procedures US OB FOLLOW UP PER FETUS Gifty Medrano MD [address] [place] [address] Referral ID Status Reason Start Date Expiration Date Visits Re quested Visits Authorized [id number] Closed 10/26/2020 11/26/2021 1 1 Reason for Visit * Auth/Cert Specialty Diagnoses / Procedures Referred By Contac t Referred To Contact Radiology [facility] Maternal And Hc Ground Fl [address] [place] [address] Referral ID Status Reason Start Date Expiration Date Visits Re quested Visits Authorized [id number] 1 1 Encounter Details Date Type Department Care Team (Latest Contact Info) Description 11/22/2020 9:45 AM CDT - 11/22/2020 11:59 PM CDT Hospital Encounter [facility] Maternal and Ground Floor [address] [place] [address] Gifty Medrano MD [address] [place] [address] Discharge Disposition: Home or Self Care Social [...] US OB FOLLOW UP PER FETUS Routine 11/22/2020 10:26 AM CDT 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 Single living fetus with a gestational age of 35w1d, based on the reported clinical dates. 2. Current growth parameters continue to be LARGE for gestational age at 97th percentile or 3 weeks ahead. 3. Unremarkable limited anatomy noted. Umbilical varix measures 1.5cm which is essentially stable appearing from 11/15 on side by side comparison. 4. The amniotic fluid is normal for gestational age, 21cm. 5. Breech presentation. Comments: I had the pleasure of seeing your patient in follow-up for the above mentioned indications. We reviewed the overall sonographic findings and the limitations associated with ultrasound evaluations. Recommendations: - Continue testing through delivery - Induction is scheduled for next week, however if fetus remains breech version or would be recommended. - We discussed the data regarding late steroids, we discussed risks of late delivery. Consider MFM consultation if desired for steroid use. At this time, there is not a strong recommendation for steroids as this baby would be at risk for hypoglycemia based on the babies risk of hypoglycemia from LGA etc. - Discussed that an umbilical varix is not a contraindication to vaginal delivery and size is expected to be <4000gm at time of delivery. Thank you for allowing us to participate in the care of this patient. Narrative 11/22/2020 10:31 AM CDT [facility] FOLLOW UP ----- Pat. Name: SHERYL KIM Study Date: 11/22/2020 10:17am Pat. NO: [id number] Referring ??MD: LARA VIDAL MD Site: [facility] Shook Machine Operator: Nya Watson : 1985 Age: 35 ----- INDICATION ----- Known or Suspected anomaly ? umbilical vein varix Maternal Fibroids ?low left lateral Suspected Macrosomia/Large for Dates CODING ----- Diagnoses ? O35.8XX0: Maternal care for suspected abnormality. Unspecified Fetus ?O34.13: Maternal care for benign tumor of corpus uteri ?Z3A.35: Weeks Gestation of ?O36.63X0: Maternal care for excessive growth. Unspecified Fetus Procedures ?67798: OB follow-up/Target per fetus HISTORY ----- OB History ? 2. Para 1 MATERNAL ASSESSMENT ----- Physical Exam ? Weight 76 kg. BMI 27.12 kg/m? METHOD ----- Transabdominal ultrasound examination ----- [place] . Number of fetuses: 1 DATING ----- LMP on: 03/21/2020 Cycle: regular cycle, regular cycle GA by LMP 35 w + 1 d JAMEEL by LMP: 12/26/2020 GA by prior assessment 35 w + 1 d JAMEEL by prior assessment: 12/26/2020 Ultrasound examination on: 11/22/2020 GA by U/S based upon: AC, BPD, EFW, Femur, HC GA by U/S 37 w + 4 d JAMEEL by U/S: 12/09/2020 Method of dating: Restore dating from previous exam Assigned: based on stated JAMEEL, selected on 11/15/2020 Assigned GA 35 w + 1 d Assigned JAMEEL: 12/26/2020 BIOMETRY ----- BPD ?88.5 ?mm ?35w 5d ?71% ?Hadlock OFD ?121.8 ? mm ?-/- ?>99% ?Raul HC ? 335.7 ? mm ?38w 3d ?90% ?Hadlock AC ? 345.6 ? mm ?38w 3d ?>99% ?Hadlock Femur ?71.8 ?mm ?36w 5d ?83% ?Hadlock HC / AC ?0.97 ?17% ?Nicolaides Weight Calculation: EFW ? 3,295 ? g ? 38w 2d ?97% ?Hadlock EFW (lb,oz) ? 7 lb 4 ?oz EFW by ?Hadlock ([id number]) Head / Face / Neck Biometry: Cephalic index ?0.73 ?<1% ?Nicolaides Extremities / Bony Struc Biometry: FL / BPD ?0.81 FL / HC ? 0.21 FL / AC ? 0.21 GENERAL EVALUATION ----- Cardiac activity present. FHR 142 bpm. movements: present. Presentation: breech Placenta: anterior Umbilical cord: Cord vessels: 3 vessel cord. Insertion site: placental insertion: normal Amniotic fluid: Amount of AF: normal amount. MVP 8.1 cm. FRIDA 21.4 cm. Q1 8.1 cm, Q2 3.8 cm, Q3 4.2 cm, Q4 5.4 cm ANATOMY ----- The following structures appear abnormal: Abdomen ? Cord insertion: umb. vein varix 1.59cm. The following structures appear normal: Head / Neck ? Cranium. Midline falx. Cavum septi pellucidi. Cerebellum. Cisterna magna. Heart / Thorax ?4-chamber view. RVOT view. Cardiac rhythm. ?Diaphragm. Abdomen ? Stomach. Kidneys. Bladder. sex: male. COMMENT ----- Patient's name and date of were verified by the shipping/receiving manager prior to the exam Procedure Note Xochitl Hagan MD - 11/22/2020 [facility] FOLLOW UP ----- Pat. Name:Jennifer KIM Date:11/22/2020 10:17am Pat. NO: [id number] :LARA VIDAL MD [facility] Watson :1985Age:35 ----- INDICATION ----- Known or Suspected anomaly umbilical veinvarix Maternal Fibroids low left lateral Suspected Macrosomia/Large for Dates CODING ----- Diagnoses O35.8XX0: Maternal care for suspected fetalabnormality. Unspecified Fetus O34.13: Maternal care for benign tumor of corpusuteri Z3A.35: Weeks Gestation of O36.63X0: Maternal care for excessive fetalgrowth. Unspecified Fetus Procedures 49962: OB follow-up/Target per fetus HISTORY ----- OB History 2. Para 1 MATERNAL ASSESSMENT ----- Physical Exam Weight 76 kg. BMI 27.12 kg/m? METHOD ----- Transabdominal ultrasound examination ----- [place] . Number of fetuses: 1 DATING ----- LMP on:03/21/2020 Cycle:regular cycle, regular cycle GA by LMP35 w + 1 d JAMEEL by LMP:12/26/2020 GA by prior w + 1 d JAMEEL by prior assessment:12/26/2020 Ultrasound examination on:11/22/2020 GA by U/S based upon:AC, BPD, EFW, Femur, HC GA by U/S37 w + 4 d JAMEEL by U/S:12/09/2020 Method of dating:Restore dating from previous exam Assigned:based on stated JAMEEL, selected on 11/15/2020 Assigned GA35 w + 1 d Assigned JAMEEL:12/26/2020 BIOMETRY ----- BPD 88.5 mm 35w 5d 71%Hadlock OFD 121.8 mm -/- >99%Raul HC 335.7 mm 38w 3d 90%Hadlock AC 345.6 mm 38w 3d >99%Hadlock Femur 71.8 mm 36w 5d 83%Hadlock HC / AC 0.97 17%Nicolaides Weight Calculation: EFW 3,295 g 38w 2d97% Hadlock EFW (lb,oz) 7 lb 4 oz EFW by Hadlock ([id number]) Head / Face / Neck Biometry: Cephalic index 0.73 <1%Nicolaides Extremities / Bony Struc Biometry: FL / BPD 0.81 FL / HC 0.21 FL / AC 0.21 GENERAL EVALUATION ----- Cardiac activity present. FHR 142 bpm. movements: present.Presentation: breech Placenta: anterior Umbilical cord: Cord vessels: 3 vessel cord. Insertion site: placentalinsertion: normal Amniotic fluid: Amount of AF: normal amount. MVP 8.1 cm. FRIDA 21.4 cm. Q18.1 cm, Q2 3.8 cm, Q3 4.2 cm, Q4 5.4 cm ANATOMY ----- The following structures appear abnormal: Abdomen Cord insertion: umb. vein varix 1.59cm. The following structures appear normal: Head / Neck Cranium. Midline falx. Cavum septi pellucidi.Cerebellum. Cisterna magna. Heart / Thorax 4-chamber view. RVOT view. Cardiac rhythm. Diaphragm. Abdomen Stomach. Kidneys. Bladder. sex: male. COMMENT ----- Patient's name and date of were verified by the shipping/receiving manager prior tothe exam IMPRESSION ----- 1. Single living fetus with a gestational age of 35w1d, based on thereported clinical dates. 2. Current growth parameters continue to be LARGE for gestational age at97th percentile or 3 weeks ahead. 3. Unremarkable limited anatomy noted. Umbilical varix measures1.5cm which is essentially stable appearing from 11/15 on side by side comparison. 4. The amniotic fluid is normal for gestational age, 21cm. 5. Breech presentation. Comments: I had the pleasure of seeing your patient in follow-up for theabove mentioned indications. We reviewed the overall sonographic findings and the limitations associated with ultrasoundevaluations. Recommendations: - Continue testing through delivery - Induction is scheduled for next week, however if fetus remains breechversion or would be recommended. - We discussed the data regarding late steroids, we discussedrisks of late delivery. Consider MFM consultation if desired for steroid use. At this time, there is not a strongrecommendation for steroids as this baby would be at risk for hypoglycemia based on the babies risk of hypoglycemia from LGAetc. - Discussed that an umbilical varix is not a contraindication to vaginaldelivery and size is expected to be <4000gm at time of delivery. Thank you for allowing us to participate in the care of this patient. 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
--- OUTSIDE RECORDS SUMMARY | 2024-06-09 03:28 | XMS_ITS | Encounter Summary ---
Author Organization [facility] Address [address] [place] [address] Care Team Providers Care Deckhand Fishing Vessel Name Role Phone Unavailable Primary Care Provider Unavailabl e Reason for Visit * Reason Comments Post- Care Del:12/01/2020, C-se ction, 3Weeks PP Encounter Details Date Type Department Care Team (Late st Contact Info) Description 12/21/2020 10:45 AM CDT Office Visit [facility] ELECTRIC MOTOR REPAIRING SUPERVISOR - [address] [facility] [address] [address] Izabella Juarez MD NO ADDRESS ON FILE [...]
--- OUTSIDE RECORDS SUMMARY | 2024-06-09 03:28 | XMS_ITS | Encounter Summary ---
Author Organization [facility] Address [address] [place]a: Epic Prelude ADT RONNA GUZMAN [address] Care Team Providers Care Learning And Development Intern Name Role Phone Unavailable Primary Care [...]
--- OUTSIDE RECORDS SUMMARY | 2024-06-09 03:28 | XMS_ITS | Encounter Summary ---
Author Organization [facility] Address [address] [place]: Epic Prelude ADT RONNA GUZMAN [address] Care Team Providers Care Compliance Review Specialist Name Role Phone Unavailable Primary Care [...]
--- OUTSIDE RECORDS SUMMARY | 2024-06-09 03:28 | XMS_ITS | Encounter Summary ---
Author Organization [facility] Address [address] [place] [address] Care Team Providers Care Produce Manager Name Role Phone Unavailable Primary Care Provider Unavailabl e Reason for Visit * Auth/Cert Specialty Diagnoses / Procedures Referred By Contac t Referred To Contact Obstetrics Diagnoses EDC: 12/21/20 Primary Breech Cord verix MFM Recommendation Procedures SECTION [facility] Mother Baby [address]c [address] [place] [address] Referral ID Status Reason Start Date Expiration Date Visits Re quested Visits Authorized [id number] 1 1 Encounter Details Date Type Department Care Team (Late st Contact Info) Description 12/01/2020 2:11 PM CDT Anesthesia Event [facility] Labor & [address] [place] [address] Heraclio Dupree DO [address] [place] [address] Anesthesia Record Procedure Summary Procedure [...] no longer indicated 12/01/20 1243 by Shaila Alvarez RN 12/02/20 1455 by Ivory Holcomb RN [...] Patient and Spouse. Plan discussed with Nurse Open Hearth Helper and Resident. Post-op Pain Control Plan to [...] Procedure Name Priority Date/Time Associated Diagnosis Comments [place] ANESTHESIA BLOCK PB PLACEHOLDER CHARGE Routine 12/01/2020 2:47 PM CDT documented in this encounter Results * [place] ANESTHESIA BLOCK PB PLACEHOLDER CHARGE (12/01/2020 2:47 [...]
--- OUTSIDE RECORDS SUMMARY | 2024-06-09 03:28 | XMS_ITS | Encounter Summary ---
Author Organization [facility] Address [address] [place] [address] Care Team Providers Care Box Sealing Machine Operator Name Role Phone Unavailable Primary Care Provider Unavailabl e Reason for Referral * Eval and Treat (Urgent) - Closed Specialty Diagnoses / Procedures Referred By Contac t Referred To Contact Neurology Diagnoses Syncope, unspecified syncope type Izabella Juarez MD NO ADDRESS ON FILE [facility] Neurology [facility] [address] [facility] [place] [address] Referral ID Status Reason Start Date Expiration Date Visits Re quested Visits Authorized [id number] Closed 10/27/2020 10/27/2021 1 1 Encounter Details Date Type Department Care Team (Late st Contact Info) Description 10/27/2020 Orders Only [facility] DIRECTOR CLINICAL RESEARCH - [address] [facility] [address] [address] Izabella Juarez MD NO ADDRESS [...]
--- OUTSIDE RECORDS SUMMARY | 2024-06-09 03:28 | XMS_ITS | Encounter Summary ---
Author Organization [facility] Address [address] [place]ovea: Epic Prelude ADT RONNA GUZMAN [address] Care Team Providers Care Disabilities Caregiver Name Role Phone Unavailable Primary Care Provider [...]
--- OUTSIDE RECORDS SUMMARY | 2024-06-09 03:28 | XMS_ITS | Encounter Summary ---
Author Organization [facility] Address [address] [place] [address] Care Team Providers Care Manager Floor Name Role Phone Unavailable Primary Care Provider Unavailabl e Reason for Visit * Reason Comments Routine Visit Encounter Details Date Type Department Care Team (Latest Contact Info) Description 11/23/2020 4:15 PM CDT visit [facility] DEATH CLAIM CLERK - [address] [facility] [address] [id number] Izabella Juarez MD NO ADDRESS ON FILE [...]
--- OUTSIDE RECORDS SUMMARY | 2024-06-09 03:28 | XMS_ITS | Encounter Summary ---
Author Organization [facility] Address [address] [place]: Epic Prelude ADT RONNA GUZMAN [address] Care Team Providers Care Supervisor Fine Grading Name Role Phone Unavailable Primary Care Provider [...]
--- OUTSIDE RECORDS SUMMARY | 2024-06-09 03:28 | XMS_ITS | Encounter Summary ---
Author Organization [facility] Address [address] [place] [address] Care Team Providers Care Buildings And Grounds Supervisor Name Role Phone Unavailable Primary Care [...] CDT - 10/23/2020 8:01 PM CDT Emergency [facility] Emergency Department [address] [place] [address] Jaswinder Tafoya MD [address] [facility] [place] [address] Syncope, unspecified syncope type (Primary [...] be sent through Care Everywhere. * Fainting ([place]) documented in this encounter Medications at Time [...] intracranial hemorrhage DICTATION LOCATION: Location 1 - [facility] The examination was performed with the adjustment [...] 7:33 PM: I spoke with Dr. Mtz (CONE TENDER on-call for Dr. Juarez) who agrees with [...] discharge home. She will follow-up with her CONE TENDER but also recommend getting a primary care doc tor to see if further testing is needed return instructions were discussed the patient. I have reviewed previous: notes I have reviewed current: labs, ECG and imaging I have reviewed nursing notes related to past medical history, social history, and review of systems and agree, unless otherwise noted. Consults: CONE TENDER Discharge Medication List as of 10/23/2020 7:56 [...] ??No acute intracranial hemorrhage DICTATION LOCATION: Location [address] [place] [address] The examination was performed with the adjustment [...] unremarkable. INCIDENTAL FINDINGS: ??None. Procedure Note Leatha Graza MD - 10/23/2020 CT HEAD WITHOUT IV [...] acute intracranial hemorrhage DICTATION LOCATION: Location 1 [facility] The examination was performed with the adjustment of mA according to the patient size and/or the use of Iterative Reconstruction Technique. Jaswinder Tafoya MD CT ORDERABLES * EKG 12-LEAD (10/23/2020 5:18 PM CDT) 10/23/2020 5:18 PM CDT Narrative INTERFACE SYSTEM - 10/23/2020 10:10 PM CDT ? Stationary ECG Study ? [facility] ? Test Date: ?10/23/2020 5:18 PM Pat Name: ? SHERYL KIM ? Department: ?? 37 ?Room: ? H03 Gender: ? F ?Material Preparation Worker: ?? [email or web address] : ?1985 ? Requested By: ?? Order Number: [id number] ?Reading MD: ?? Mitul Hardy ? Measurements Intervals ?[place] ? Rate: ? 67 ? P: ?2 DE: ? 149 ?QRS: ?0 QRSD: ? 88 ? T: ?14 QT: ? 372 ? QTc: ?393 ? Interpretive Statements ? Sinus rhythm Low voltage, precordial leads Electronically Signed On 10-23-2020 22:10:36 CDT by Mitul Hardy Procedure Note Mitul Hardy MD - 10/23/2020 Stationary ECG Study [facility] Test Date: 10/23/2020 5:18 PM Pat Name: SHERYL KIM Department: 37 Room: H03 Gender: F Material Preparation Worker: [email or web address] : 1985 Requested By: Order Number: [id number] Reading MD: Mitul Hardy Measurements Intervals [place] Rate: 67 P: 2 DE: 149 QRS: 0 QRSD: 88 T: 14 [...]
--- OUTSIDE RECORDS SUMMARY | 2024-06-09 03:28 | XMS_ITS | Encounter Summary ---
Author Organization [facility] Address [address] [place] [address] Care Team Providers Care Fire Alarm Inspector Name Role Phone Unavailable Primary Care Provider Unavailabl e Reason for Visit * Auth/Cert Specialty Diagnoses / Procedures Referred By Contac t Referred To Contact Obstetrics Diagnoses EDC: 12/21/20 Primary Breech Cord verix MFM Recommendation Procedures SECTION [facility] Mother Baby 5c [address] [place] [address] Referral ID Status Reason Start Date Expiration Date Visits Re quested Visits Authorized [id number] 1 1 Encounter Details Date Type Department Care Team (Late st Contact Info) Description 12/01/2020 2:00 PM CDT - 12/01/2020 3:30 PM CDT Surgery [facility] Labor & [address] [place] [address] Izabella Juarez MD NO ADDRESS [...] Information for the patient's : Jimi Richardson [[id number]] male General diet Routine instructions. Medication List [...] Your Medications These medications were sent to [address], [facility] [address] Hours: Retail 8 AM - 12 AM [...] feeding ?? For advice call: information line [phone] IF BOTTLE FEEDING ?? Avoid breast stimulation, [...] can help. Sometimes medicine can also help [facility] offers an Intensive Outpatient Program for women with mood disorder and depression. This supportive environment gives mothers a chance to talk with other mothers who face similar challenges. Families and partners will also learn new ways to support you. For more information, please contact our Intake Office at [phone]. After hours: [phone]. NEED SUPPORT AFTER YOU ARE HOME? [facility] now offers outpatient consult appointments. An International Board-Certified Automotive Refinisher is available to help if you need support after you and your arehome. Appointments are approximately one hour long and take place in the Department of Ser vices (second floor of [facility] near the NICU) Many insurance plans offer coverage for this service. Please call [phone], our Information line, to schedule your appointment or to get support by phone. Same or next day appointments are often available. Where can you learn more? Go to [email or web address] Enter G069 in the search box to learn more about Your at Home: Care Instructions. Enter Y708 in the search box to learn more about Learning About Rescue Breathing and CPR for Babies Under 1 Year. / Resources During Covid-19 Phone Consults & Visits Call [phone] to ask questions about . If needed, our team can schedule a video visit with you. Virtual with Confidence On Wednesdays, 1-2 pm., join us for a group meeting via videoconference facilitated by a professional. Ask questions, get advice! To register: Visit [employer]be[employer] and select [facility] Birthplace / View Classes / Support [...] leave a message for the nurse at [phone]. Please note these messages are picked up [...] Dia Chin DO OBGYN PGY1 Pager # [phone] C MD Larry * Savannah Pearson MD [...] hours s/p section Savannah Pearson MD PGY1 COMMUNICATIONS COORDINATOR Pager: [phone] * Jazmín Kelsey RN - 12/01/2020 6:42 [...] FEELING WELL; NEITHER HAVE RECEIVED COVID VACCINATIONS Wood Last Maker required: N/A Teri Chavez RN documented in [...] 130, mod variability, +accels, isolated variable decel [place]: rare labs: O neg, Rub imm / [...] Dia Chin DO OBGYN PGY1 Pager # [phone] documented in this encounter OR Notes * [...] vomiting Narrative No apparent Anesthesia related complications eYyo Talbot DO 12/02/2020 10:35 AM * Operative [...] Izabella Juarez MD Surgeon: Izabella Juarez MD Remelt Worker: Dr. Colleen Bella MD PGY4, Dr. Dia [...] Dia Chin DO MAYATIAGOMary PGY1 Pager # [phone] documented in this encounter Miscellaneous Notes * [...] Time 10 minutes ?? Jenniffer Bush RN, [facility] * Note - Beckie Velez RN - [...] 12/02/2020 2:36 PM CDT Chart review completed. [place] scores are pending. Please consult Case Management/Social Work for any needs that arise for discharge planning especially if [place] scores are a 10 or above. If so, a full assessment will be completed at that time. Day 1 - Current ([place] Pathway: Adult and Obstetrics) Patient, family, or healthcare designee is participating in individual care plan process Outcome: Met Problem: Discharge Planning Goal: Identify discharge needs upon admission and through discharge Description: Outcome: Progressing Katlin MCKEON, payment rep II [phone] * Note - Venus Renae RN - [...] pump if needed prior to discharge Insurance-Payor: [facility] / Plan: [facility] CHOICE [id number] / Product Type: PPO / General Information: [...] (s). Phone number verified and entered into [employer] system and hand outs given. Encouraged mother [...] the original note were not included. ? [facility] Adult Influenza and Pneumococcal Vaccine Protocol [facility] Approved by: [facility] - Medical Executive Committee Approval Date: 02/12/2020 [...] mL IM one timeSTL LB Pre-Operative Protocol [facility] Approved by: [facility] - Medical Executive Committee Approval Date: 11/19/2019 [...] after physician consultation. STL LB Vaginal Protocol [facility] Approved by: [facility] - Medical Executive Committee Approval Date: 11/19/2019 [...] CARO Adult Influenza and Pneumococcal Vaccine Protocol [facility] Approved by: [facility] - Medical Executive Committee Approval Date: 02/12/2020 [...] mL IM one timeSTL LB Pre-Operative Protocol [facility] Approved by: [facility] - Medical Executive Committee Approval Date: 11/19/2019 [...] after physician consultation. STL LB Vaginal Protocol [facility] Approved by: [facility] - Medical Executive Committee Approval Date: 11/19/2019 [...] CASE REPORT Surgical Pathology Report ? Case: [id number] ? Authorizing Provider: ??Izabella Juarez MD ? Collected: ? 12/01/2020 02:34 PM ? Ordering Location: ? [facility] ?Received: ?12/02/2020 09:39 AM ? Labor & ? Pathologist: ? Zoe Jaffe MD ? Specimen: ?Placenta, IUP @ 37w 1d uterine fibroid and umbilical cord varix ? 12/06/2020 5:44 PM CDT [facility] FINAL DIAGNOSIS Placenta, section: -Third trimester placenta, 566 g. -Three-vessel umbilical cord with no pathologic diagnosis. -Chorioamnionic membranes with no pathologic diagnosis. -Intervillous thrombohematomas and infarction, approximately 2% of parenchyma. 12/06/2020 5:44 PM [facility] [employer] [facility] S DESCRIPTION The specimen is received in [...] The lesions occupy 1% of the tissue. Tube Dispatcher sections are submitted as follows: A1-membrane; A2-umbilical cord; A3-subchorionic lesion; A4-parenchymal lesions; A5 through A7-central placenta. [facility] 12/06/2020 5:44 PM [facility] [employer] [facility] MICROSCOPIC DESCRIPTION The slides are labeled [id number] and Sheryl Kim. Sections of placenta reveal a three-vessel umbilical cord with no evidence of vasculitis or thrombosis. Sections of the chorioamnionic membranes reveal no evidence of acute inflammation. The chorionic villi are small, well vascularized and mature with intervillous thrombohematomas and an area of infarction with no evidence of acute villitis. 12/06/2020 5:44 PM [facility] [employer] [facility] OPERATIVE PROCEDURE 1: SECTION 12/06/2020 5:44 PM [facility] CLINICAL INFORMATION EDC: 12/21/20 Primary Breech Cord Varix MFM Recommendation 12/06/2020 5:44 PM CDT [facility] COMMENT Special stain and/or immunohistochemical results are interpreted with controls that demonstrate appropriate staining reactions. Note on use of immunocytochemistry reagents: This test was developed and its performance characteristics determined by [facility], Department of Laboratory Medicine. It has not [...] part or completely in the following laboratories: [facility], CLIA #[id number] [address] [place] [address] [facility] CLIA #[id number] [address] [place] [address] [facility], CLIA #[id number] [address] [place] [address] 12/06/2020 5:44 PM CDT [facility] Tissue SPECIMEN FROM PLACENTA / Unknown Collection / Unknown 12/01/2020 2:34 PM CDT 12/02/2020 9:39 AM CDT Izabella Juarez MD PATHOLOGY/CYTOLOGY ORDERABLES Performing Organization Address [facility] Co de Phone Number [facility] CLIA# [id number] [address] [place] [address] * (ABNORMAL) CBC WITH DIFFERENTIAL (12/01/2020 12:44 PM CDT) WBC 8.2 4.0 - 9.8 K/uL 12/01/2020 1:18 PM CDT [facility] RBC 3.85(L) 3.90 - 4.90 M/uL 12/01/2020 1:18 PM CDT [facility] HEMOGLOBIN 11.6(L) 11.8 - 14.8 g/dL 12/01/2020 1:18 PM CDT [facility] HEMATOCRIT 34.4(L) 35.5 - 44.0 % 12/01/2020 1:18 PM CDT [facility] MCV 89.4 82.0 - 99.0 fL 12/01/2020 1:18 PM CDT [facility] MCH 30.1 27.2 - 32.6 pg 12/01/2020 1:18 PM CDT [facility] MCHC 33.7 31.5 - 35.5 g/dL 12/01/2020 1:18 PM CDT [facility] RDW 13.4 11.5 - 14.5 % 12/01/2020 1:18 PM CDT [facility] RDW-STDEV 43.3 37.1 - 48.7 fL 12/01/2020 1:18 PM CDT [facility] PLATELETS 258 140 - 350 K/uL 12/01/2020 1:18 PM CDT [facility] MPV 10.6 9.3 - 12.4 fL 12/01/2020 1:18 PM CDT [facility] - . [facility] NEUTROPHILS 71 % 12/01/2020 1:18 PM CDT [facility] . [facility] LYMPHOCYTES 16 % 12/01/2020 1:18 PM CDT [facility] . [facility] MONOCYTES 11 % 12/01/2020 1:18 PM CDT [facility] - . [place] EOSINOPHILS 1 % 12/01/2020 1:18 PM CDT [facility] - . [place] BASOPHILS 1 % 12/01/2020 1:18 PM CDT [facility] . [facility] IMMATURE GRANULOCYTES 1 % 12/01/2020 1:18 PM CDT [facility] - . [facility] Comment:IG (Immature Granulo cyte) count includes Metamyelocytes, Myelocytes, and Promyelocytes NEUTROPHIL ABSOLUTE 5.85 1.90 - 7.00 K/uL 12/01/2020 1:18 PM CDT [facility] . [facility] LYMPHOCYTE ABSOLUTE 1.33 0.70 - 4.50 K/uL 12/01/2020 1:18 PM CDT [facility] - [facility] MONOCYTE ABSOLUTE 0.86 0.10 - 1.30 K/uL 12/01/2020 1:18 PM CDT [facility] [place] EOSINOPHIL ABSOLUTE 0.05 0.00 - 0.70 K/uL 12/01/2020 1:18 PM CDT [facility] - . [place] BASOPHILS ABSOLUTE 0.06 0.00 - 0.20 K/uL 12/01/2020 1:18 PM CDT [facility] - . [facility] IMMATURE GRANULOCYTES ABSOLUTE 0.07(H) 0.00 - 0.03 K/uL 12/01/2020 1:18 PM CDT [facility] Blood Venipuncture / Unknown 12/01/2020 12:44 PM CDT 12/01/2020 12:53 PM CDT Izabella Juarez MD HEMATOLOGY ORDERABL ES [facility] CLIA# [id number] [address] [place] [address] * TYPE AND SCREEN (12/01/2020 12:44 PM CDT) ABO GROUP O 12/01/2020 2:04 PM CDT [facility] RH (D) TYPE Negative 12/01/2020 2:04 PM CDT [facility] ANTIBODY SCREEN Negative 12/01/2020 2:04 PM CDT [facility] Blood Venipuncture / Unknown 12/01/2020 12:44 PM CDT 12/01/2020 12:53 PM CDT Izabella Juarez MD BLOOD BANK ORDERABL ES [facility] CLIA# [id number] [address] [place] [address] documented in this encounter Visit Diagnoses Not [...]
--- OUTSIDE RECORDS SUMMARY | 2024-06-09 03:28 | XMS_ITS | Encounter Summary ---
Author Organization [facility] Address [address] [place]: Epic Prelude ADT RONNA GUZMAN [address] Care Team Providers Care School Office Manager Name Role Phone Unavailable Primary Care [...]
--- OUTSIDE RECORDS SUMMARY | 2024-06-09 03:28 | XMS_ITS | Encounter Summary ---
Author Organization [facility] Address [address] [place] [address] Care Team Providers Care Meat Carrier Name Role Phone Unavailable Primary Care Provider Unavailabl e Reason for Visit * Auth/Cert Specialty Diagnoses / Procedures Referred By Contac t Referred To Contact Radiology [facility] Maternal And Hc Ground Fl [address] [place] [address] Referral ID Status Reason Start Date Expiration Date Visits Re quested Visits Authorized [id number] 1 1 Encounter Details Date Type Department Care Team (Latest Contact Info) Description 11/03/2020 12:44 PM CDT - 11/03/2020 11:59 PM CDT Hospital Encounter [facility] Maternal and Ground Floor S [facility] [address] [place] [address] Gifty Medrano MD [address] [facility] [address] [place] [address] Discharge Disposition: Home or Self [...] KIM Study Date: 11/03/2020 1:45pm Pat. NO: [id number] Referring ??MD: LARA VIDAL MD Site: [facility] Showroom Manager: : 1985 Age: 35 ----- INDICATION ----- Known or Suspected anomaly ? Umbilical Vein Varix Maternal Fibroids Suspected Macrosomia/Large for Dates ? 96% CODING ----- Diagnoses ? O35.8XX0: Maternal care for suspected abnormality. Unspecified Fetus ?O34.13: Maternal care for benign tumor of corpus uteri ?Z3A.32: Weeks Gestation of ?O36.63X0: Maternal care for excessive growth. Unspecified Fetus Procedures ?25247: BPP with NST HISTORY ----- OB History [...] Q4 3.0 cm FRIDA per Lauren Tobias [facility], see Target ultrasound report BIOPHYSICAL PROFILE ----- 2: breathing movements 2: Gross body movements 2: tone 2: Amniotic fluid volume NST: non-reactive 01/04 Biophysical profile score COMMENT ----- Nursing notes: Patient reports + movement and no bleeding, leaking or tommy. Patient scheduled twice weekly. [facility] specialist, Dr. Kern, reviewed findings prior to discharge. BPP ordered and completed. [facility] instructions given to patient. Procedure Note Eduardo Kern MD - 11/03/2020 BPP WITH NST STUDY ----- Pat. Name:Jennifer KIM Date:11/03/2020 1:45pm Pat. NO: [id number] MD:LARA VIDAL [facility]1985Age:35 ----- INDICATION ----- Known or Suspected anomaly Umbilical VeinVarix Maternal Fibroids Suspected Macrosomia/Large for Dates 96% CODING ----- Diagnoses O35.8XX0: Maternal care for suspected fetalabnormality. Unspecified Fetus O34.13: Maternal care for benign tumor of corpusuteri Z3A.32: Weeks Gestation of O36.63X0: Maternal care for excessive fetalgrowth. Unspecified Fetus Procedures 70942: BPP with NST HISTORY ----- OB History 2. Para 1 MATERNAL ASSESSMENT ----- Physical Exam Weight 73 kg. BMI 26.15 kg/m?. Blood gyqjcvqm615/69 mmHg. Heart rate 96 bpm METHOD ----- EFM, EFM, Transabdominal ultrasound examination. View: Good view ----- [place] . Number of fetuses: 1 DATING ----- LMP on:03/21/2020 Cycle:regular cycle, regular cycle GA by [id number] w + 3 d JAMEEL by LMP:12/26/2020 GA by prior [id number] w + 3 d JAMEEL by prior [...] Q4 3.0 cm FRIDA per Lauren Tobias [facility], see Target ultrasound report BIOPHYSICAL PROFILE ----- [...]
--- OUTSIDE RECORDS SUMMARY | 2024-06-09 03:28 | XMS_ITS | Encounter Summary ---
Author Organization [facility] Address [address] [place]ovea: Epic Prelude ADT RONNA GUZMAN [address] Care Team Providers Care Pest Control Worker Name Role Phone Unavailable Primary Care Provider [...]
--- OUTSIDE RECORDS SUMMARY | 2024-06-09 03:28 | XMS_ITS | Encounter Summary ---
Author Organization [facility] Address [address] [place]a: Epic Prelude ADT RONNA GUZMAN [address] Care Team Providers Care Managed Care Analyst Name Role Phone Unavailable Primary Care Provider [...]
--- OUTSIDE RECORDS SUMMARY | 2024-06-09 03:28 | XMS_ITS | Encounter Summary ---
Author Organization [facility] Address [address] [place]a: Epic Prelude ADT RONNA GUZMAN [address] Care Team Providers Care Airline Customer Service Agent Name Role Phone Unavailable Primary Care [...]
--- OUTSIDE RECORDS SUMMARY | 2024-06-09 03:28 | XMS_ITS | Encounter Summary ---
Author Organization [facility] Address [address] [place] [address] Care Team Providers Care Aniline Press Worker Name Role Phone Unavailable Primary Care Provider Unavailabl e Reason for Visit * Reason Onset Date Comments follow up 11/19/2020 Encounter Details Date Type Department Care Team (Late st Contact Info) Description 11/19/2020 Telephone [facility] AGRICULTURE ENGINEER - [address] [address] Izabella Juarez MD NO ADDRESS ON FILE [...] growth measurements at her next appt at [facility] on 11/22. Thanks. Confirmed with [facility] staff that growth measurements will be done. documented in this encounter Plan of Treatment Not on file documented as of this encounter Visit Diagnoses Not on filedocumented in this encounter
--- OUTSIDE RECORDS SUMMARY | 2024-06-09 03:28 | XMS_ITS | Encounter Summary ---
Author Organization [facility] Address [address] [place]a: Epic Prelude ADT RONNA GUZMAN [address] Care Team Providers Care Bottom Turning Lathe Turner Name Role Phone Unavailable Primary Care Provider [...]
--- OUTSIDE RECORDS SUMMARY | 2024-06-09 03:28 | XMS_ITS | Encounter Summary ---
Author Organization [facility] Address [address] [place] [address] Care Team Providers Care Lathe Set Up Operator Name Role Phone Unavailable Primary Care Provider Unavailabl e Reason for Visit * Reason Comments Routine Visit On sunday she h ad some issues where she passed out and her arms went numb. Encounter Details Date Type Department Care Team (Latest Contact Info) Description 10/26/2020 3:00 PM CDT visit [facility] REEL WORKER - [address] [address] Izabella Juarez MD NO ADDRESS ON FILE [...] se. She has an appt now at [facility] and well-being will be confirmed there. Umbilical [...]
--- OUTSIDE RECORDS SUMMARY | 2024-06-09 03:28 | XMS_ITS | Encounter Summary ---
Author Organization [employer] Address 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 Procedures US OB LIMITED + NST MS NON-STRESS TEST CHG US, UTERUS,LIMITED, 1/> FETUSES Gifty Medrano MD [address] [facility] [place] [address] Referral ID Status Reason Start Date Expiration Date Visits Re quested Visits Authorized [id number] Closed 10/26/2020 11/26/2021 1 1 Reason for Visit * Auth/Cert Specialty Diagnoses / Procedures Referred By Contac t Referred To Contact Radiology [facility] Maternal And Hc Ground Fl [address] [place] [address] Referral ID Status Reason Start Date Expiration Date Visits Re quested Visits Authorized [id number] 1 1 Encounter Details Date Type Department Care Team (Latest Contact Info) Description 11/18/2020 12:57 PM CDT - 11/18/2020 11:59 PM CDT Hospital Encounter [facility] Maternal and Ground Floor S [facility] [address] [place] [address] Gifty Medrano MD [address] [facility] [address] [place] [address] Discharge Disposition: Home or Self Care Social [...] KIM Study Date: 11/18/2020 1:10pm Pat. NO: [id number] Referring ??MD: LARA VIDAL MD Site: [facility] Farm Field Manager: : 1985 Age: 35 ----- INDICATION ----- Known or Suspected anomaly ? Umbilical vein varix Fibroids Large for Dates CODING ----- Diagnoses ? O35.8XX0: Maternal care for suspected abnormality. Unspecified Fetus ?O34.13: Maternal care for benign tumor of corpus uteri ?O36.63X0: Maternal care for excessive growth. Unspecified Fetus ?Z3A.34: Weeks Gestation of Procedures ?42133: NST/ monitoring ?40343: Limited 1 or more - FRIDA, FHR, [...] Pat. Name:Jennifer KIM Date:11/18/2020 1:10pm Pat. NO: [id number] MD:LARA VIDAL MD [facility]1985Age:35 ----- INDICATION ----- Known or Suspected anomaly Umbilical veinvarix Fibroids Large for Dates CODING ----- Diagnoses O35.8XX0: Maternal care for suspected fetalabnormality. Unspecified Fetus O34.13: Maternal care for benign tumor of corpusuteri O36.63X0: Maternal care for excessive fetalgrowth. Unspecified Fetus Z3A.34: Weeks Gestation of Procedures 39822: NST/ monitoring 05866: Limited 1 or more - FRIDA, FHR, [...] d JAMEEL by LMP:12/26/2020 GA by prior [id number] w + 4 d JAMEEL by prior [...]
--- OUTSIDE RECORDS SUMMARY | 2024-06-09 03:28 | XMS_ITS | Encounter Summary ---
Author Organization [facility] Address [address] [place]a: Epic Prelude ADT RONNA GUZMAN [address] Care Team Providers Care Labor Employment Associate Name Role Phone Unavailable Primary Care [...]
--- OUTSIDE RECORDS SUMMARY | 2024-06-09 03:28 | XMS_ITS | Encounter Summary ---
Author Organization [facility] Address [address] [place]a: Epic Prelude ADT RONNA GUZMAN [address] Care Team Providers Care Ski Patrol Officer Name Role Phone Unavailable Primary Care Provider [...]
--- OUTSIDE RECORDS SUMMARY | 2024-06-09 03:28 | XMS_ITS | Encounter Summary ---
Author Organization [facility] Address [address] [place] [address] Care Team Providers Care Senior Communications Engineer Name Role Phone Unavailable Primary Care Provider Unavailabl e Reason for Visit * Auth/Cert Specialty Diagnoses / Procedures Referred By Contac t Referred To Contact Radiology [facility] Maternal And Hc Ground Fl [address] [place] [address] Referral ID Status Reason Start Date Expiration Date Visits Re quested Visits Authorized [id number] 1 1 Encounter Details Date Type Department Care Team (Latest Contact Info) Description 11/15/2020 2:01 PM CDT - 11/15/2020 11:59 PM CDT Hospital Encounter [facility] Maternal and Ground Floor S [facility] [address] [place] [address] Gifty Medrano MD [address] [facility] [address] [place] [address] Discharge Disposition: Home or Self [...] KIM Study Date: 11/15/2020 2:27pm Pat. 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 O35.8XX0: Maternal care for suspected abnormality. Unspecified Fetus ?O34.13: Maternal care for benign tumor of corpus uteri ?Z3A.34: Weeks Gestation of ?O36.63X0: Maternal care for excessive growth. Unspecified Fetus Procedures ?47376: NST/ monitoring HISTORY ----- OB History ? [...] Pat. Name:Jennifer KIM Date:11/15/2020 2:27pm Pat. NO: [id number] :LARA VIDAL MD [facility]1985Age:35 ----- INDICATION ----- Known or Suspected anomaly umbilical veinvarix Maternal Fibroids Suspected Macrosomia/Large for Dates CODING ----- Diagnoses O35.8XX0: Maternal care for suspected fetalabnormality. Unspecified Fetus O34.13: Maternal care for benign tumor of corpusuteri Z3A.34: Weeks Gestation of O36.63X0: Maternal care for excessive fetalgrowth. Unspecified Fetus Procedures 24182: NST/ monitoring HISTORY ----- OB History 2. Para 1 MATERNAL ASSESSMENT ----- Physical Exam Blood pressure 109/64 mmHg. Heart rate 81 bpm METHOD ----- EFM. ----- [place] . Number of fetuses: 1 DATING ----- LMP on:03/21/2020 Cycle:regular cycle, regular cycle GA by [id number] w + 1 d JAMEEL by LMP:12/26/2020 Method of dating:based on stated JAMEEL GA by prior [id number] w + 1 d JAMEEL by prior [...]
--- OUTSIDE RECORDS SUMMARY | 2024-06-09 03:28 | XMS_ITS | Encounter Summary ---
Author Organization [employer] [facility] Address 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 Procedures US MONITORING NST Gifty Medrano MD [address] [place] [address] Referral ID Status Reason Start Date Expiration Date Visits Re quested Visits Authorized [id number] Closed 10/26/2020 11/26/2021 1 1 Reason for Visit * Auth/Cert Specialty Diagnoses / Procedures Referred By Contac t Referred To Contact Radiology [facility] Maternal And Hc Ground Fl [address] [place] [address] Referral ID Status Reason Start Date Expiration Date Visits Re quested Visits Authorized [id number] 1 1 Encounter Details Date Type Department Care Team (Latest Contact Info) Description 11/22/2020 10:15 AM CDT - 11/22/2020 11:59 PM CDT Hospital Encounter [facility] Maternal and Ground Floor [address] [place] [address] Gifty Medrano MD [address] [place] [address] Discharge Disposition: Home or Self Care Social [...] this patient. Narrative 11/22/2020 11:03 AM CDT [facility] NST ----- Dinorah. Name: SHERYL KIM Study Date: 11/22/2020 10:32am Pat. NO: [id number] Referring ??MD: LARA VIDAL MD Site: [facility] Intelligence Engineer: : 1985 Age: 35 ----- INDICATION ----- Maternal Fibroids Macrosomia-Large for Dates Abnormal US Findings ? umbilical vein varix CODING ----- Diagnoses ? O34.13: Maternal care for benign tumor of corpus uteri ?O36.63X0: Maternal care for excessive growth. Unspecified Fetus ?R93.8: Abnormal US Findings ?Z3A.35: Weeks Gestation of Procedures ?31030: NST/ monitoring HISTORY ----- OB History ? [...] Pat. Name:Jennifer KIM Date:11/22/2020 10:32am Pat. NO: [id number] :LARA VIDAL MD [facility]1985Age:35 ----- INDICATION ----- Maternal Fibroids Macrosomia-Large for Dates Abnormal US Findings umbilical veinvarix CODING ----- Diagnoses O34.13: Maternal care for benign tumor of corpusuteri O36.63X0: Maternal care for excessive fetalgrowth. Unspecified Fetus R93.8: Abnormal US Findings Z3A.35: Weeks Gestation of Procedures 12386: NST/ monitoring HISTORY ----- OB History 2. Para 1 MATERNAL ASSESSMENT ----- Physical Exam Weight 76 kg. BMI 27.12 kg/m?. Blood qgqsiuwu869/77 mmHg. Heart rate 84 bpm METHOD ----- EFM ----- [place] . Number of fetuses: 1 DATING ----- LMP on:03/21/2020 Cycle:regular cycle, regular cycle GA by [id number] w + 1 d JAMEEL by LMP:12/26/2020 GA by prior [id number] w + 1 d JAMEEL by prior [...]
--- OUTSIDE RECORDS SUMMARY | 2024-06-09 03:28 | XMS_ITS | Encounter Summary ---
Author Organization [facility] Address [address] [place]ovea: Epic Prelude ADT RONNA GUZMAN [address] Care Team Providers Care Jockey Valet Name Role Phone Unavailable Primary Care Provider [...]
--- OUTSIDE RECORDS SUMMARY | 2024-06-09 03:28 | XMS_ITS | Encounter Summary ---
Author Organization [facility] Address [address] Govea: Epic Prelude ADT RONNA GUZMAN [address] Care Team Providers Care Gravure Press Set Up Operator Name Role Phone Unavailable [...]
--- OUTSIDE RECORDS SUMMARY | 2024-06-09 03:28 | XMS_ITS | Encounter Summary ---
Author Organization [facility] Address [address] [place]a: Epic Prelude ADT RONNA GUZMAN [address] Care Team Providers Care Pension Agent Name Role Phone Unavailable Primary Care [...]
--- OUTSIDE RECORDS SUMMARY | 2024-06-09 03:28 | XMS_ITS | Encounter Summary ---
Author Organization [facility] Address 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 Procedures US OB FOLLOW UP PER FETUS Gifty Medrano MD [address] [place] [address] Referral ID Status Reason Start Date Expiration Date Visits Re quested Visits Authorized [id number] Closed 10/26/2020 11/26/2021 1 1 Reason for Visit * Auth/Cert Specialty Diagnoses / Procedures Referred By Contac t Referred To Contact Radiology [facility] Maternal And Hc Ground Fl [address] [place] [address] Referral ID Status Reason Start Date Expiration Date Visits Re quested Visits Authorized [id number] 1 1 Encounter Details Date Type Department Care Team (Latest Contact Info) Description 11/03/2020 12:44 PM CDT - 11/03/2020 11:59 PM CDT Hospital Encounter [facility] Maternal and Ground Floor [address] [place] [address] Gifty Medrano MD [address] [place] [address] Discharge Disposition: Home or Self Care Social [...] KIM Study Date: 11/03/2020 12:53pm Pat. NO: [id number] Referring ??: LARA VIDAL MD Site: [facility] Sales Administration Specialist: Lauren Tobias : 1985 Age: 35 ----- INDICATION ----- Known or Suspected anomaly ? Umbilical Vein Varix Maternal Fibroids Suspected Macrosomia/Large for Dates CODING ----- Diagnoses ? O35.8XX0: Maternal care for suspected abnormality. Unspecified Fetus ?O34.13: Maternal care for benign tumor of corpus uteri ?Z3A.32: Weeks Gestation of ?O36.63X0: Maternal care for excessive growth. Unspecified Fetus Procedures ?15376: OB follow-up/Target per fetus HISTORY ----- OB [...] and date of were verified by the hybrid car mechanic prior to the exam Procedure Note Eduardo Kern MD - 11/03/2020 [facility] TARGET ----- Pat. Name:Jennifer KIM Date:11/03/2020 12:53pm Pat. NO: [id number] MD:LARA VIDAL MD [facility]Lauren Tobias :1985Age:35 ----- INDICATION ----- Known or Suspected anomaly Umbilical VeinVarix Maternal Fibroids Suspected Macrosomia/Large for Dates CODING ----- Diagnoses O35.8XX0: Maternal care for suspected fetalabnormality. Unspecified Fetus O34.13: Maternal care for benign tumor of corpusuteri Z3A.32: Weeks Gestation of O36.63X0: Maternal care for excessive fetalgrowth. Unspecified Fetus Procedures 22811: OB follow-up/Target per fetus HISTORY ----- OB History 2. Para 1 MATERNAL ASSESSMENT ----- Physical Exam Weight 73 kg. BMI 26.15 kg/m? METHOD ----- Transabdominal ultrasound examination ----- [place] . Number of fetuses: 1 DATING ----- LMP on:03/21/2020 Cycle:regular cycle GA by [id number] w + 3 d JAMEEL by LMP:12/26/2020 GA by prior w + 3 d JAMEEL by prior [...] and date of were verified by the hybrid car mechanic prior tothe exam IMPRESSION ----- Viable at [...]
--- OUTSIDE RECORDS SUMMARY | 2024-06-09 03:28 | XMS_ITS | Encounter Summary ---
Author Organization [employer] Address 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 Procedures US OB LIMITED + NST ID NON-STRESS TEST CHG US, UTERUS,LIMITED, 1/> FETUSES Gifty Medrano MD [address] [facility] [place] [address] Referral ID Status Reason Start Date Expiration Date Visits Re quested Visits Authorized [id number] Closed 10/26/2020 11/26/2021 1 1 Reason for Visit * Auth/Cert Specialty Diagnoses / Procedures Referred By Contac t Referred To Contact Radiology [facility] Maternal And Hc Ground Fl [address] [place] [address] Referral ID Status Reason Start Date Expiration Date Visits Re quested Visits Authorized [id number] 1 1 Encounter Details Date Type Department Care Team (Latest Contact Info) Description 11/26/2020 9:39 AM CDT - 11/26/2020 11:59 PM CDT Hospital Encounter [facility] Maternal and Ground Floor S [facility] [address] [place] [address] Gifty Medrano MD [address] [facility] [address] [place] [address] Discharge Disposition: Home or Self Care Social [...] CDT Narrative 11/26/2020 10:57 AM CDT MODIFIED [facility] STUDY ----- Pat. Name: SHERYL KIM Study Date: 11/26/2020 10:04am Pat. NO: [id number] Referring ??MD: LARA VIDAL MD Site: [facility] Mini Lab Operator: : 1985 Age: 35 ----- INDICATION ----- Known or Suspected anomaly ? Umbilical Vein Varix Fibroids Large for Dates CODING ----- Diagnoses ? O35.8XX0: Maternal care for suspected abnormality. Unspecified Fetus ?O34.13: Maternal care for benign tumor of corpus uteri ?O36.63X0: Maternal care for excessive growth. Unspecified Fetus ?Z3A.35: Weeks Gestation of Procedures ?40697: Limited 1 or more - FRIDA, FHR, position (modifier 59 for MBPP) ?68688: NST/ monitoring HISTORY ----- OB History ? [...] Pat. Name:Jennifer KIM Date:11/26/2020 10:04am Pat. NO: [id number] MD:LARA VIDAL MD [facility]1985Age:35 ----- INDICATION ----- Known or Suspected anomaly Umbilical VeinVarix Fibroids Large for Dates CODING ----- Diagnoses O35.8XX0: Maternal care for suspected fetalabnormality. Unspecified Fetus O34.13: Maternal care for benign tumor of corpusuteri O36.63X0: Maternal care for excessive fetalgrowth. Unspecified Fetus Z3A.35: Weeks Gestation of Procedures 26513: Limited 1 or more - FRIDA, FHR, position(modifier 59 for MBPP) 54871: NST/ monitoring HISTORY ----- OB History 2. Para 1 MATERNAL ASSESSMENT ----- Physical Exam Weight 77 kg. BMI 27.44 kg/m??. Blood vobhpdfc835/75 mmHg. Heart rate 102 bpm METHOD ----- EFM; Transabdominal ultrasound examination ----- [place] . Number of fetuses: 1 DATING ----- LMP on:03/21/2020 Cycle:regular cycle, regular cycle GA by [id number] w + 5 d JAMEEL by LMP:12/26/2020 GA by prior [id number] w + 5 d JAMEEL by prior [...]
--- OUTSIDE RECORDS SUMMARY | 2024-06-09 03:29 | XMS_ITS | Encounter Summary ---
Author Organization [facility] Address [address] [place]a: Epic Prelude ADT RONNA GUZMAN [address] Care Team Providers Care Stock Shaper Name Role Phone Unavailable Primary Care Provider [...]
--- OUTSIDE RECORDS SUMMARY | 2024-06-09 03:29 | XMS_ITS | Encounter Summary ---
Author Organization [facility] Address [address] [place]ovea: Epic Prelude ADT RONNA GUZMAN [address] Care Team Providers Care Marketing Systems Manager Name Role Phone Unavailable Primary Care [...]
--- OUTSIDE RECORDS SUMMARY | 2024-06-09 03:29 | XMS_ITS | Encounter Summary ---
Author Organization [employer] [facility] Address [address] [place] [address] Care Team Providers Care Director Volunteer Services Name Role Phone Unavailable Primary Care Provider Unavailabl e Reason for Referral * Radiology Services (Routine) - Closed Specialty Diagnoses / Procedures Referred By Tad gracia Referred To Contact Diagnoses Encounter for supervision of with insufficient care Procedures US OB 14+ WKS SINGLE GEST Lara Juarez MD NO ADDRESS ON FILE Referral ID Status Reason Start Date Expiration Date V isits Requested Visits Authorized [id number] Closed [facility] CTS 07/29/2020 08/29/2020 1 1 CONDUCTOR ENGINEER Reason for Visit * Auth/Cert Specialty Diagnoses / Procedures Referred By Tad garcia Referred To Contact Radiology [facility] [address] [place] [address] Referral ID Status Reason Start Date Expiration Date Visits Re quested Visits Authorized [id number] 1 1 Encounter Details Date Type Department Care Team (Latest Contact Info) Description 08/02/2020 10:45 AM SEMICONDUCTOR ENGINEER - 08/02/2020 11:59 PM SEMICONDUCTOR ENGINEER Hospital Encounter [facility] Maternal and Ground Floor [address] [place] [address] Lara Juarez MD NO ADDRESS [...] COVID-19? No / Unsure 08/02/2020 10:37 AM SEMICONDUCTOR ENGINEER documented as of this encounter Plan of Treatment Not on file documented as of this encounter Procedures Procedure Name Priority Date/Time Associated Diagnosis Comments US OB 14+ WKS SINGLE GEST Routine 08/02/2020 11:32 AM SEMICONDUCTOR ENGINEER Encounter for supervision of with insufficient care documented in this encounter Results * US OB 14+ WKS SINGLE GEST (08/02/2020 11:32 AM SEMICONDUCTOR ENGINEER) Anatomical Region Laterality Modality Pelvis Ultrasound 08/02/2020 11:0 0 AM SEMICONDUCTOR ENGINEER Impressions 08/02/2020 11:35 AM SEMICONDUCTOR ENGINEER IMPRESSION ----- 1. Single living fetus with [...] of this patient. Narrative 08/02/2020 11:35 AM SEMICONDUCTOR ENGINEER ST[facility] Basic ----- Pat. Name: CAROL KIM Study Date: 08/02/2020 11:00am Pat. NO: [id number] Referring ??MD: LARA JUAREZ MD Site: [facility] Investment Officer: Lauren Tobias : 1985 Age: 35 ----- INDICATION ----- Encounter for anatomic survey ?No Genetics CODING ----- Diagnosis ? Z36: Encounter for screening of mother ?Z3A.19: Weeks Gestation of Procedures ?20733: OB greater than 14 wks (1st Basic) [...] lb 12 ?oz EFW by ? Hadlock ([id number]) Head / Face / Neck Biometry: Curator Horticultural Museum ?4.9 ?mm ? CM ?4.4 ?mm ? [...] High short axis view. 3- vessel view. 6-axcmpk-vpyevcm view. Cardiac rhythm. ?Diaphragm. Abdomen ? Abdominal [...] and date of were confirmed by the engineering illustrator prior to the exam Procedure Note Evelyn Gaston MD - 08/02/2020 [facility] Basic ----- Pat. Name:Jennifer KIM Date:08/02/2020 11:00am Pat. NO: [id number] :LARA JUAREZ [facility] Lauren :1985Age:35 ----- INDICATION ----- Encounter for anatomic survey No Genetics CODING ----- Diagnosis Z36: Encounter for screening of mother Z3A.19: Weeks Gestation of Procedures 72892: OB greater than 14 wks (1st Basic) [...] 0 lb 12 oz EFW by Hadlock ([id number]) Head / Face / Neck Biometry: Curator Horticultural Museum 4.9 mm CM 4.4 mm37% Nicolaides Outer [...] vena cava. High short axis view. 3-vesselview. 2-xsubkc-juklmyi view. Cardiac rhythm. Diaphragm. Abdomen Abdominal wall. [...] and date of were confirmed by the engineering illustrator priorto the exam IMPRESSION ----- 1. Single [...]
--- OUTSIDE RECORDS SUMMARY | 2024-06-09 03:29 | XMS_ITS | Encounter Summary ---
Author Organization [employer] [facility] Address [address] [place] [address] Care Team Providers Care Building Inspector Name Role Phone Unavailable Primary Care Provider Unavailabl e Reason for Referral * Radiology Services (Routine) - Closed Specialty Diagnoses / Procedures Referred By Contac t Referred To Contact Diagnoses Fibroids Procedures US OB FOLLOW UP PER FETUS Evelyn Gaston MD [address] [place] [address] Referral ID Status Reason Start Date Expiration Date V isits Requested Visits Authorized [id number] Closed [facility] CTS 08/02/2020 09/02/2021 1 1 Reason for Visit * Auth/Cert Specialty Diagnoses / Procedures Referred By Contac t Referred To Contact Radiology [facility] [address] [place] [address] Referral ID Status Reason Start Date Expiration Date Visits Re quested Visits Authorized [id number] 1 1 Encounter Details Date Type Department Care Team (Latest Contact Info) Description 09/27/2020 9:57 AM CDT - 09/27/2020 11:59 PM CDT Hospital Encounter [facility] Maternal and Ground Floor [address] [place] [address] Evelyn Gaston MD [address] [place] [address] Discharge Disposition: Home or Self [...] KIM Study Date: 09/27/2020 10:07am Pat. NO: [id number] Referring ??MD: LARA VIDAL MD Site: [facility] Admissions Consultant: Shila Stewart : 1985 Age: 35 ----- INDICATION ----- Maternal Fibroids ?left low lateral CODING ----- Diagnosis ? O34.12: Maternal care for benign tumor of corpus uteri ?Z3A.27: Weeks Gestation of Procedures ?75879: OB follow-up/Target per fetus HISTORY ----- OB [...] lb 15 ?oz EFW by ? Hadlock ([id number]) Head / Face / Neck Biometry: Cephalic [...] and date of were verified by the steel inspector prior to the exam Procedure Note Eduardo Kern MD - 09/27/2020 [facility] Follow Up ----- Pat. Name:Jennifer KIM Date:09/27/2020 10:07am Pat. NO: [id number] MD:LARA VIDAL MD [facility] Lawnographer:Shila Stewart :1985Age:35 ----- INDICATION ----- Maternal Fibroids left low lateral CODING ----- Diagnosis O34.12: Maternal care for benign tumor of corpusuteri Z3A.27: Weeks Gestation of Procedures 16796: OB follow-up/Target per fetus HISTORY ----- OB [...] 2 lb 15 oz EFW by Hadlock ([id number]) Head / Face / Neck Biometry: Cephalic [...] x 63 mm. Mean 67.7 mm. Vol 161,905 mm? ANATOMY ----- The following structures appear normal: Head / Neck Cranium. Lateral ventricles. Choroid plexus.Midline falx. Cavum septi pellucidi. Cerebellum. Cisterna magna. Heart / Thorax 4-chamber view. RVOT view. LVOT view. Diaphragm. Abdomen Stomach. Kidneys. Bladder. Gender: male. umbilical vein varix : 1.02 cm COMMENT ----- Patient's name and date of were verified by the steel inspector prior tothe exam IMPRESSION ----- at 27 [...]
--- OUTSIDE RECORDS SUMMARY | 2024-06-09 03:29 | XMS_ITS | Encounter Summary ---
Author Organization [facility] Address [address] Govea: Epic Prelude ADT RONNA GUZMAN [address] Care Team Providers Care Bowling Pin Setters Installer Name Role Phone Unavailable Primary Care [...]
--- OUTSIDE RECORDS SUMMARY | 2024-06-09 03:29 | XMS_ITS | Encounter Summary ---
Author Organization [facility] Address [address] [place] [address] Care Team Providers Care Welt Butter Hand Name Role Phone Unavailable Primary Care Provider Unavailabl e Encounter Details Date Type Department Care Team (Late st Contact Info) Description 09/28/2020 Orders Only [facility] MACHINE TACK PULLER - [address] [phone] Izabella Juarez MD NO ADDRESS ON FILE [...]
--- OUTSIDE RECORDS SUMMARY | 2024-06-09 03:29 | XMS_ITS | Encounter Summary ---
Author Organization [facility] Address [address] [place] [address] Care Team Providers Care Diabetes Territory Manager Name Role Phone Unavailable Primary Care Provider Unavailabl e Encounter Details Date Type Department Care Team (Late st Contact Info) Description 09/01/2020 Abstract [facility] OUTSIDE PROPERTY AGENT - [address] [facility] [address] [phone] Nadia Levin Social History Tobacco Use Types [...]
--- OUTSIDE RECORDS SUMMARY | 2024-06-09 03:29 | XMS_ITS | Encounter Summary ---
Author Organization [facility] Address [address] [place]ovea: Epic Prelude ADT [place]ON[place] GUZMAN [address] Care Team Providers Care Aerospace Products Sales Engineer Name Role Phone Unavailable Primary Care [...] No / Unsure 07/29/2020 1:44 PM CONSULTING SOLUTION MANAGER documented as of this encounter Plan of Treatment Not on file documented as of this encounter Visit Diagnoses Not on filedocumented in this encounter
--- OUTSIDE RECORDS SUMMARY | 2024-06-09 03:29 | XMS_ITS | Encounter Summary ---
Author Organization [facility] Address [address] [place]a: Epic Prelude ADT [place]ON[place] GUZMAN [address] Care Team Providers Care Tapper Helper Name Role Phone Unavailable Primary Care [...]
--- OUTSIDE RECORDS SUMMARY | 2024-06-09 03:29 | XMS_ITS | Encounter Summary ---
Author Organization [facility] Address [address] [place] [address] Care Team Providers Care Stitcher Operator Name Role Phone Unavailable Primary Care Provider Unavailabl e Reason for Visit * Reason Onset Date Comments Results 08/05/2020 lab work Encounter Details Date Type Department Care Team (Late st Contact Info) Description 08/05/2020 Telephone [facility] LOCOMOTIVE OPERATOR HELPER - [address] [facility] [address] [phone] Izabella Juarez MD NO ADDRESS ON FILE [...] COVID-19? No / Unsure 08/02/2020 10:37 AM FIELD GEOLOGIST documented as of this encounter Miscellaneous Notes * Telephone Encounter - Devi Argueta RN - 08/05/2020 9:43 AM FIELD GEOLOGIST ----- Message from Izabella Juarez MD sent at 08/04/2020 4:20 PM FIELD GEOLOGIST ----- Notify int ob labs show that she's O neg, so she should receive rhogam (explain). Also, she's mildly anemic, so she should start slowfe one daily. LM Pt advised. States she takes one daily already. Advised to start BID with stool softener. D GEOLOGIST documented in this encounter Plan of Treatment Not on file documented as of this encounter Visit Diagnoses Not on filedocumented in this encounter
--- OUTSIDE RECORDS SUMMARY | 2024-06-09 03:29 | XMS_ITS | Encounter Summary ---
Author Organization [facility] Address [address] [place] [address] Care Team Providers Care Organ Installer Name Role Phone Unavailable Primary Care Provider Unavailabl e Reason for Visit * Reason Onset Date Comments Needs Form Or Letter Filled Out 07/29/2020 NEW OB- PT IS ALREADY 19 WEEKS- NO PRIOR CARE Encounter Details Date Type Department Care Team (Late st Contact Info) Description 07/29/2020 Telephone [facility] GWOT IA/ILO INTELLIGENCE SUPPORT - [address] [facility] [address] [address] Izabella Juarez MD NO ADDRESS ON FILE [...] COVID-19? No / Unsure 07/29/2020 1:44 PM DISTRICT MANAGER documented as of this encounter Plan of Treatment Not on file documented as of this encounter Visit Diagnoses Not on filedocumented in this encounter
--- OUTSIDE RECORDS SUMMARY | 2024-06-09 03:29 | XMS_ITS | Encounter Summary ---
Author Organization [facility] Address [address] [place] [address] Care Team Providers Care Internal Controls Manager Name Role Phone Unavailable Primary Care Provider Unavailabl e Reason for Visit * Reason Comments Routine Visit Encounter Details Date Type Department Care Team (Latest Contact Info) Description 08/26/2020 11:00 AM CDT visit [facility] DOCTOR OF NURSE ANESTHESIA - [address] [facility] [address] [phone] Izabella Juarez MD NO ADDRESS ON FILE [...]
--- OUTSIDE RECORDS SUMMARY | 2024-06-09 03:29 | XMS_ITS | Encounter Summary ---
Author Organization [facility] Address [address] [place] [address] Care Team Providers Care Insulation Engineman Name Role Phone Unavailable Primary Care Provider [...] Expiration Date V isits Requested Visits Authorized [id number] Closed [facility] CTS 07/29/2020 08/29/2020 1 1 ICIAN RECRUITER Reason for Visit * Reason Onset Date Comments Question 07/29/2020 Encounter Details Date Type Department Care Team (Late st Contact Info) Description 07/29/2020 Telephone [facility] INSTALLMENT DEALER - [address] [address] Lara Juarez MD NO ADDRESS ON FILE Question Social History Tobacco Use Types Packs/Day Years Used Date Smoking Tobacco: Never Assessed Sex and Gender Information Value Date Recorded Sex Assigned at Not on file Gender Identity Not on file Sexual Orientation Not on file documented as of this encounter Miscellaneous Notes * Telephone Encounter - Devi Argueta RN - 07/29/2020 1:37 PM PHYSICIAN RECRUITER Pt coming for first care visit at 19 weeks. Needs us in PNL for anatomy scan per Dr. Juarez protocol. Order entered. Pt notified by scheduling staff to schedule US prior to visit with Dr. Juarez. ICIAN RECRUITER documented in this encounter Plan of Treatment Not on file documented as of this encounter Results * US OB 14+ WKS SINGLE GEST (08/02/2020 11:32 AM PHYSICIAN RECRUITER) Anatomical Region Laterality Modality Pelvis Ultrasound 08/02/2020 11:0 0 AM PHYSICIAN RECRUITER Impressions 08/02/2020 11:35 AM PHYSICIAN RECRUITER IMPRESSION ----- 1. Single living fetus with [...] of this patient. Narrative 08/02/2020 11:35 AM PHYSICIAN RECRUITER STL Basic ----- Pat. Name: CAROL KIM Study Date: 08/02/2020 11:00am Pat. NO: [id number] Referring ??MD: LARA JUAREZ MD Site: [facility] Butcherette: Lauren Tobias : 1985 Age: 35 ----- INDICATION ----- Encounter for anatomic survey ?No Genetics CODING ----- Diagnosis ? Z36: Encounter for screening of mother ?Z3A.19: Weeks Gestation of Procedures ?67965: OB greater than 14 wks (1st Basic) [...] lb 12 ?oz EFW by ? Hadlock ([id number]) Head / Face / Neck Biometry: Horse Racer ?4.9 ?mm ? CM ?4.4 ?mm ? [...] High short axis view. 3- vessel view. 5-mbuhis-yenthfk view. Cardiac rhythm. ?Diaphragm. Abdomen ? Abdominal [...] and date of were confirmed by the glass smoother prior to the exam Procedure Note Evelyn Gaston MD - 08/02/2020 [facility] Basic ----- Pat. Name:Jennifer KIM Date:08/02/2020 11:00am Pat. NO: [id number] MD:LARA JUAREZ MD [facility] Tobias :1985Age:35 ----- INDICATION ----- Encounter for anatomic survey No Genetics CODING ----- Diagnosis Z36: Encounter for screening of mother Z3A.19: Weeks Gestation of Procedures 49061: OB greater than 14 wks (1st Basic) [...] 0 lb 12 oz EFW by Hadlock ([id number]) Head / Face / Neck Biometry: Horse Racer 4.9 mm CM 4.4 mm37% Nicolaides Outer [...] vena cava. High short axis view. 3-vesselview. 4-sbinwf-qcjopyr view. Cardiac rhythm. Diaphragm. Abdomen Abdominal wall. [...] and date of were confirmed by the glass smoother priorto the exam IMPRESSION ----- 1. Single [...]
--- OUTSIDE RECORDS SUMMARY | 2024-06-09 03:29 | XMS_ITS | Encounter Summary ---
Author Organization [facility] Address [address] [place]a: Epic Prelude ADT [place]ON[place] GUZMAN [address] Care Team Providers Care Sulfuric Acid Plant Operator Name Role Phone Unavailable Primary [...]
--- OUTSIDE RECORDS SUMMARY | 2024-06-09 03:29 | XMS_ITS | Encounter Summary ---
Author Organization [facility] Address [address] [place] [address] Care Team Providers Care Hides Inspector Name Role Phone Unavailable Primary Care Provider Unavailabl e Reason for Visit * Auth/Cert Specialty Diagnoses / Procedures Referred By Tda t Referred To Contact Obstetrics Diagnoses blacked out [facility] Ob Triage [address] [place] [address] Referral ID Status Reason Start Date Expiration Date Visits Re quested Visits Authorized [id number] 1 1 Encounter Details Date Type Department Care Team (Latest Contact Info) Description 10/23/2020 1:17 PM CDT - 10/23/2020 5:10 PM CDT Hospital Encounter [facility] OB Triage [address] [place] [address] Izabella Juarez MD NO ADDRESS [...] 0 0 # Outcome Date GA Lbr Rodirgo/2nd Weight Sex Delivery Anes PTL Lv 2 Current 1 Term 12/10/11 40w0d 3345 g (7 lb 6 oz) F 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 [...] FHR: 140, mod variability, +accels, no decels Lynch: quiet Bedside US: vtx, 1966g (66%), ant [...] ?Room: ? 1288 1 Gender: ? F ?Accounting Specialist: ?? earle2 : ?1985 ? Requested By: IZABELLA Velazquez Order Number: [id number] ?Reading MD: ?? Mitul Hardy ? Measurements Intervals ?[place] ? Rate: ? 68 ? P: ?-14 OH: ? 154 ?QRS: ?-8 QRSD: ? 85 ? T: ?2 QT: ? 379 ? QTc: ?404 ? Interpretive Statements ? Sinus rhythm Low voltage, precordial leads Abnormal R wave across precordium, late transition Electronically Signed On 10-23-2020 22:10:13 CDT by Mitul Hardy Procedure Note Mitul Hardy MD - 10/23/2020 Stationary ECG Study [facility] Test Date: 10/23/2020 4:09 PM Pat Name: SHERYL KIM Department: 45 Room: 1288 1 Gender: F Accounting Specialist: avani : 1985 Requested By: IZABELLA Velazquez Order Number: [id number] Reading MD: Mitul Hardy Measurements Intervals [place] Rate: 68 P: -14 OH: 154 QRS: -8 QRSD: 85 T: 2 QT: 379 QTc: 404 Interpretive Statements Sinus rhythm Low voltage, precordial leads Abnormal R wave across precordium, late transition Electronically Signed On 10-23-2020 22:10:13 CDT by Mitul Hardy Izabella Juarez MD ECG ORDERABLES Performing Organization Address City/[facility]/ZIP Co de Phone Number INTERFACE SYSTEM Refer to clinic/hospital department * URINE CULTURE (10/23/2020 2:06 PM CDT) CULTURE No growth at 24 hours 10/24/2020 11:55 AM CDT [facility] Urine URINE SPECIMEN OBTAINED BY CLEAN CATCH PROCEDURE / Unknown Collection / Unknown 10/23/2020 2:06 PM CDT 10/23/2020 2:40 PM CDT Izabella Juarez MD MICROBIOLOGY - GENE RAL ORDERABLES Performing Organization Address [facility] Co de Phone Number [facility] CLCT# [id number] [address] [place] [address] * (ABNORMAL) URINALYSIS WITH REFLEX CULTURE (10/23/2020 2:06 PM CDT) COLOR UA Yellow Pale to Dark Yellow 10/23/2020 2:41 PM CDT [facility] CLARITY UA Slightly Cloudy(A) Clear 10/23/2020 2:41 PM CDT [facility] SPECIFIC GRAVITY UA 1.013 1.003 - 1.035 10/23/2020 2:41 PM CDT [facility] PH UA 6.0 5.0 - 8.0 10/23/2020 2:41 PM CDT [facility] LEUKOCYTE ESTERASE UA 2+(A) Negative 10/23/2020 2:41 PM CDT [facility] NITRITE UA Negative Negative 10/23/2020 2:41 PM CDT [facility] PROTEIN UA Negative Negative 10/23/2020 2:41 PM CDT [facility] GLUCOSE UA Negative Negative 10/23/2020 2:41 PM CDT [facility] KETONES UA Negative Negative 10/23/2020 2:41 PM CDT [facility] UROBILINOGEN UA Normal <2.0 mg/dL 2:41 PM CDT [facility] BILIRUBIN UA Negative Negative 10/23/2020 2:41 PM CDT [facility] BLOOD UA Negative Negative 10/23/2020 2:41 PM CDT [facility] Comment:Ascorbic acid may ca use false negative results for blood. A microscopic review was reflexed to rule out this interference. WBC UA 11-25(A) 0 - 2 /hpf 10/23/2020 2:41 PM CDT [facility] RBC UA 0-2 0 - 2 /hpf 10/23/2020 2:41 PM CDT [facility] BACTERIA UA 1+(A) Negative /hpf 10/23/2020 2:41 PM CDT [facility] EPITHELIAL CELLS, URINE 6-10(A) 0 - 5 /hpf 10/23/2020 2:41 PM CDT [facility] Ascorbic Acid UA Positive(A) Negative 021 2:41 PM T [facility] Urine URINE SPECIMEN OBTAINED BY CLEAN CATCH PROCEDURE / Unknown Collection / Unknown 10/23/2020 2:06 PM CDT 10/23/2020 2:14 PM CDT Narrative [facility] - 10/23/2020 2:41 PM CDT Based on results, a urine culture has been reflexed. Izabella Juarez MD URINE ORDERABLES [facility] CLIA# [id number] [address] [address] * PROTEIN/CREATININE RATIO, URINE (10/23/2020 2:06 PM CDT) PROTEIN CONCENTRATION 11 0 - 20 mg/dL 10/23/2020 2:51 PM CDT [facility] CREATININE, URINE 91.4 29.0 - 226.0 mg/dL 10/23/2020 2:51 PM CDT [facility] Comment:Reference Range vari es with fluid intake and diet. PROTEIN/CREAT RATIO, URINE 0.12 0.00 - 0.19 mg/mg Creatinine 10/23/2020 2:51 PM CDT [facility] Urine URINE SPECIMEN OBTAINED BY CLEAN CATCH PROCEDURE / Unknown Collection / Unknown 10/23/2020 2:06 PM CDT 10/23/2020 2:14 PM CDT Narrative [facility] - 10/23/2020 2:51 PM CDT The ACOG 2013 Guidelines recommend using a cutoff of >/= 0.30 protein/creatinine ratio for the diagnosis and management of preeclampsia. Izabella Juarez MD URINE ORDERABLES [id number] [address] [place] [address] * LACTATE DEHYDROGENASE (10/23/2020 2:06 PM CDT) Pathologist [facility] LD (LACTATE DEHYDROGENASE) 164 135 - 214 U/L 10/23/2020 3:20 PM CDT [facility] Blood Venipuncture / Unknown 10/23/2020 2:06 PM CDT 10/23/2020 2:14 PM CDT Izabella Juarez MD CHEMISTRY ORDERABLE S [facility] [id number] [address] [place] [address] * URIC ACID (10/23/2020 2:06 PM CDT) Pathologist [facility] URIC ACID 5.0 2.4 - 5.7 mg/dL 10/23/2020 3:18 PM CDT [facility] Blood Venipuncture / Unknown 10/23/2020 2:06 PM CDT 10/23/2020 2:14 PM CDT Izabella Juarez MD CHEMISTRY ORDERABLE S [facility] CLIA# [id number] [facility] [place] [address] * (ABNORMAL) COMPREHENSIVE METABOLIC PANEL (10/23/2020 2:06 PM CDT) SODIUM 134(L) 136 - 145 mmol/L 10/23/2020 3:18 PM CDT [facility] POTASSIUM 3.8 3.5 - 5.0 mmol/L 10/23/2020 3:18 PM CDT [facility] CHLORIDE 101 98 - 107 mmol/L 10/23/2020 3:18 PM CDT [facility] CO2 22 22 - 29 mmol/L 10/23/2020 3:18 PM CDT [facility] CALCIUM 9.3 8.6 - 10.2 mg/dL 10/23/2020 3:18 PM CDT [facility] BUN 9 6 - 20 mg/dL 10/23/2020 3:18 PM CDT [facility] CREATININE 0.59 0.51 - 0.95 mg/dL 10/23/2020 3:18 PM CDT [facility] GLUCOSE 103(H) 74 - 99 mg/dL 10/23/2020 3:18 PM CDT [facility] TOTAL PROTEIN 6.1(L) 6.7 - 8.6 g/dL 10/23/2020 3:18 PM CDT [facility] ALBUMIN 3.5 3.5 - 5.2 g/dL 10/23/2020 3:18 PM CDT [facility] BILIRUBIN TOTAL 0.7 0.3 - 1.2 mg/dL 10/23/2020 3:18 PM CDT [facility] ALKALINE PHOSPHATASE 100 35 - 104 U/L 10/23/2020 3:18 PM CDT [facility] AST 15 <33 U/L 10/23/2020 3:18 PM CDT [facility] ALT 10 <34 U/L 10/23/2020 3:18 PM CDT [facility] GFR >60 mL/min/1.7 3 sq meter 10/23/2020 3:18 PM CDT [facility] Comment: eGFR has not been validated for [...] 3 sq meter 10/23/2020 3:18 PM CDT [facility] ANION GAP 11 8 - 16 mmol/L 10/23/2020 3:18 PM CDT [facility] Blood Venipuncture / Unknown 10/23/2020 2:06 PM CDT 10/23/2020 2:14 PM CDT Narrative [facility] - 10/23/2020 3:18 PM CDT Samples containing indocyanine green cause interferences on Total and/or Direct Bilirubin and must not be measured. Izabella Juarez MD CHEMISTRY ORDERABLE S [facility] [id number] [address] [facility] [place] [address] * (ABNORMAL) CBC WITH DIFFERENTIAL (10/23/2020 2:06 [...] % 10/23/2020 3:04 PM CDT [facility] Comment:IG (Immature Granulo cyte) count includes Metamyelocytes, Myelocytes, and Promyelocytes NEUTROPHIL ABSOLUTE 8.65(H) 1.90 - 7.00 K/uL 10/23/2020 3:04 PM CDT [facility] LYMPHOCYTE ABSOLUTE 1.17 0.70 - 4.50 K/uL 10/23/2020 3:04 PM CDT [facility] MONOCYTE ABSOLUTE 0.97 0.10 - 1.30 K/uL 10/23/2020 3:04 PM CDT [facility] EOSINOPHIL ABSOLUTE 0.06 0.00 - 0.70 K/uL 10/23/2020 3:04 PM CDT [facility] BASOPHILS ABSOLUTE 0.05 0.00 - 0.20 K/uL 10/23/2020 3:04 PM CDT [facility] IMMATURE GRANULOCYTES ABSOLUTE 0.21(H) 0.00 - 0.03 K/uL 10/23/2020 3:04 PM CDT [facility] Blood Venipuncture / Unknown 10/23/2020 2:06 PM CDT 10/23/2020 2:14 PM CDT Izabella Juarez MD HEMATOLOGY ORDERABL ES [facility]# [id number] [facility] [place] [address] documented in this encounter Visit Diagnoses Not [...]
--- OUTSIDE RECORDS SUMMARY | 2024-06-09 03:29 | XMS_ITS | Encounter Summary ---
Author Organization [facility] Address [address] [place] [address] Care Team Providers Care Cafeteria Worker Name Role Phone Unavailable Primary Care Provider Unavailabl e Reason for Visit * Reason Comments Routine Visit Encounter Details Date Type Department Care Team (Latest Contact Info) Description 09/23/2020 3:00 PM CDT visit [facility] COT[facility] FARMER - [address] [facility] [address] [address] Izabella Juarez MD NO ADDRESS ON FILE [...] - 14.8 g/dL 09/28/2020 11:47 AM CDT [facility] HEMATOCRIT 35.8 35.5 - 44.0 % 09/28/2020 11:47 AM CDT [facility] Blood Venipuncture / Unknown 09/28/2020 11:27 AM CDT 09/28/2020 11:33 AM CDT Izabella Juarez MD HEMATOLOGY ORDERABL ES [facility] [employer] [facility] [id number] [address] [place] [address] * GLUCOSE TOLERANCE 1 HR GESTATIONAL (09/28/2020 11:27 AM CDT) GLUCOSE DOSE 50 Gram 09/28/2020 12:14 PM CDT [facility] GLUCOSE 1 HR OBSTETRIC 112 65 - 139 mg/dL 09/28/2020 12:14 PM CDT [facility] Blood Venipuncture / Unknown 09/28/2020 11:27 AM CDT 09/28/2020 11:32 AM CDT Izabella Juarez MD CHEMISTRY ORDERABLE S [facility] [employer] [facility] CLIA# [id number] [address] [place] [address] documented in this encounter Visit Diagnoses Diagnosis care in second trimester- Primary documented in this encounter
--- OUTSIDE RECORDS SUMMARY | 2024-06-09 03:29 | XMS_ITS | Encounter Summary ---
Author Organization [facility] Address [address] [place] [address] Care Team Providers Care Director Of Nursing Name Role Phone Unavailable Primary Care Provider Unavailabl e Encounter Details Date Type Department Care Team (Late st Contact Info) Description 08/02/2020 Orders Only [facility] DIRECT MARKETING ANALYST - [address] [facility] [address] [phone] Izabella Juarez MD NO ADDRESS ON FILE [...] COVID-19? No / Unsure 08/02/2020 10:37 AM DOCTOR OF NATUROPATHIC MEDICINE documented as of this encounter Plan of Treatment Not on file documented as of this encounter Visit Diagnoses Not on filedocumented in this encounter
--- OUTSIDE RECORDS SUMMARY | 2024-06-09 03:29 | XMS_ITS | Encounter Summary ---
Author Organization [facility] Address [address] [place] [address] Care Team Providers Care Bell Spinner Name Role Phone Unavailable Primary Care Provider Unavailabl e Encounter Details Date Type Department Care Team (Latest Contact Info) Description 09/28/2020 10:17 AM CDT - 09/28/2020 11:59 PM CDT Hospital Encounter [facility] [address] [facility], [place] [address] Izabella Juarez MD NO ADDRESS [...] - 14.8 g/dL 09/28/2020 11:47 AM CDT [facility] HEMATOCRIT 35.8 35.5 - 44.0 % 09/28/2020 11:47 AM CDT [facility] Blood Venipuncture / Unknown 09/28/2020 11:27 AM CDT 09/28/2020 11:33 AM CDT Izabella Juarez MD HEMATOLOGY ORDERABL ES [facility]# [id number] [address] [place] [address] * GLUCOSE TOLERANCE 1 HR GESTATIONAL (09/28/2020 11:27 AM CDT) GLUCOSE DOSE 50 Gram 09/28/2020 12:14 PM CDT [facility] GLUCOSE 1 HR OBSTETRIC 112 65 - 139 mg/dL 09/28/2020 12:14 PM CDT [facility] [employer] [facility] Blood Venipuncture / Unknown 09/28/2020 11:27 AM CDT 09/28/2020 11:32 AM CDT Izabella Juarez MD CHEMISTRY ORDERABLE S [facility]# [id number] [address] [place] [address] documented in this encounter Visit Diagnoses Diagnosis care in second trimester documented in this encounter
--- OUTSIDE RECORDS SUMMARY | 2024-06-09 03:29 | XMS_ITS | Encounter Summary ---
Author Organization [facility] Address [address] [place]: Epic Prelude ADT [place] [address] Care Team Providers Care Cold Mill Inspector Name Role Phone Unavailable Primary Care [...]
--- OUTSIDE RECORDS SUMMARY | 2024-06-09 03:29 | XMS_ITS | Encounter Summary ---
Author Organization [facility] Address [address] [place] [address] Care Team Providers Care Ballet Professor Name Role Phone Unavailable Primary Care Provider Unavailabl e Reason for Visit * Reason Comments Initial Visit Encounter Details Date Type Department Care Team (Latest Contact Info) Description 08/02/2020 1:30 PM MATCHER OPERATOR Initial [facility] MAGICIAN/ILLUSIONIST - [address] [facility] [address] [phone] Izabella Juarez MD NO ADDRESS ON FILE [...] COVID-19? No / Unsure 08/02/2020 10:37 AM MATCHER OPERATOR documented as of this encounter Last Filed Vital Signs Vital Sign Reading Time Taken Comments Blood Pressure 115/71 08/02/2020 1:41 PM MATCHER OPERATOR Pulse - - Temperature - - Respiratory Rate - - Oxygen Saturation - - Inhaled Oxygen Concentration - - Weight 68.5 kg (151 lb) 08/02/2020 1:41 PM MATCHER OPERATOR Height 167.6 cm (5' 6 ) 08/02/2020 1:41 PM MATCHER OPERATOR Body Mass Index 24.37 08/02/2020 1:41 PM MATCHER OPERATOR documented in this encounter Progress Notes * Izabella Juarez MD - 08/07/2020 8:58 PM CST Initial OB. Instructions given. On pnv ad iron. Will need pap at post visit. Had US at [facility] which confirmed edc. Normal anatomic survey. Maternal fibroid on left. Scheduled to repeat US in 8 wks. INT OB labs today. Discussed covid vaccine and precautions. HER OPERATOR documented in this encounter Plan of Treatment Not on file documented as of this encounter Results * GC/CHLAMYDIA, URINE (08/02/2020 2:37 PM MATCHER OPERATOR) Pathologist [facility] CHLAMYDIA DNA AMPLIFICATION NOT DETECTED Not Detected 08/03/2020 12:24 PM MATCHER OPERATOR [facility] GC DNA AMPLIFICATION NOT DETECTED Not Detected 08/03/2020 12:24 PM MATCHER OPERATOR [facility] Urine URINE SPECIMEN / Unknown Collection / Unknown 08/02/2020 2:37 PM MATCHER OPERATOR 08/02/2020 2:43 PM MATCHER OPERATOR Narrative [facility] - 08/03/2020 12:24 PM MATCHER OPERATOR Results should not be used for the evaluation of suspected sexual abuse or for other medico-legal indications. The only legally accepted results are from culture. Results cannot be used to assess therapeutic success or failure since nucleic acids may persist following antimicrobial therapy. Izabella Juarez MD URINE ORDERABLES CO M [facility]# [id number] [address] [facility] [address] [place] [id number] * URINE CULTURE (08/02/2020 2:37 PM MATCHER OPERATOR) Pathologist [facility] CULTURE No growth 08/03/2020 12:39 PM MATCHER OPERATOR [facility] Urine URINE SPECIMEN OBTAINED BY CLEAN CATCH PROCEDURE / Unknown Collection / Unknown 08/02/2020 2:37 PM MATCHER OPERATOR 08/02/2020 2:43 PM MATCHER OPERATOR Izabella Juarez MD MICROBIOLOGY - GENE RAL ORDERABLES [facility]# [id number] [address] [place] [address] * TSH REFLEXIVE (08/02/2020 2:31 PM MATCHER OPERATOR) Pathologist [facility] TSH 1.61 0.27 - 4.20 uIU/mL 08/02/2020 3:[address] [facility] Blood Venipuncture / Unknown 08/02/2020 2:31 PM MATCHER OPERATOR 08/02/2020 2:42 PM MATCHER OPERATOR Izabella Juarez MD CHEMISTRY ORDERABLE S Performing Organization Address [facility] [address]/[facility] Co dc Phone Number [facility]# [id number] [address] [place] [address] * HEPATITIS C ANTIBODY W REFLEX (08/02/2020 2:31 PM MATCHER OPERATOR) Pathologist [facility] HEPATITIS C AB NON-REACTI VE Non-react zulema 08/02/2020 4:[address] [facility] Comment:If a patient is know n to be at high risk for HCV infection, or is symptomatic, and the physician's suspicion of HCV infection is high, HCV RNA testing is often employed and is of diagnostic value, even after an initial negative anti-HCV test result. Signal to cutoff index is <1.00. Blood Venipuncture / Unknown 08/02/2020 2:31 PM MATCHER OPERATOR 08/02/2020 2:42 PM MATCHER OPERATOR Izabella Juarez MD CHEMISTRY ORDERABLE S Performing Organization Address City/[facility] [address]/ZIP Co de Phone Number [facility]# [id number] [address] [place] [address] documented in this encounter Visit Diagnoses Diagnosis Missed menses- Primary Absence of menstruation care in second trimester care, antepartum documented in this encounter
--- OUTSIDE RECORDS SUMMARY | 2024-06-09 03:29 | XMS_ITS | Encounter Summary ---
Author Organization [facility] Address [address] [place] [address] Care Team Providers Care Mold Shifter Name Role Phone Unavailable Primary Care Provider Unavailabl e Encounter Details Date Type Department Care Team (Late st Contact Info) Description 09/28/2020 Orders Only [facility] FINANCIAL SERVICES AUDITOR - [address] [facility] [address] [phone] Izabella Juarez MD NO ADDRESS ON FILE [...]
--- OUTSIDE RECORDS SUMMARY | 2024-06-09 03:29 | XMS_ITS | Encounter Summary ---
Author Organization [facility] Address [address] [place] [address] Care Team Providers Care Machine Package Sealer Name Role Phone Unavailable Primary Care Provider Unavailabl e Encounter Details Date Type Department Care Team (Late st Contact Info) Description 09/01/2020 Abstract [facility] MANAGER TRANSPORTATION - [address] [facility] [address] [address] Izabella Juarez MD NO ADDRESS ON FILE [...]
--- OUTSIDE RECORDS SUMMARY | 2024-06-09 03:29 | XMS_ITS | Encounter Summary ---
Author Organization [facility] Address [address] [place] [address] Care Team Providers Care Mental Hygienist Name Role Phone Unavailable Primary Care Provider Unavailabl e Encounter Details Date Type Department Care Team (Late st Contact Info) Description 09/01/2020 Abstract [facility] TECHNICAL LABORATORY ASST - [address] [facility] [address] [phone] Nadia Levin Social History Tobacco Use Types [...]
--- OUTSIDE RECORDS SUMMARY | 2024-06-09 03:29 | XMS_ITS | Encounter Summary ---
Author Organization [facility] Address [address] [place]: Epic Prelude ADT [place] [address] Care Team Providers Care Offset Press Operator Name Role Phone Unavailable Primary Care [...]
--- OUTSIDE RECORDS SUMMARY | 2024-06-09 03:29 | XMS_ITS | Encounter Summary ---
Author Organization [facility] Address [address] [place]: Epic Prelude ADT [place] [address] Care Team Providers Care Transaction Coordinator Name Role Phone Unavailable Primary Care Provider Unavailabl e Encounter Details Date Type Department Care Team (Latest Contact Info) Description 08/02/2020 Travel Social History Tobacco Use Types Packs/Day [...] COVID-19? No / Unsure 08/02/2020 10:37 AM TABLE GAMES SUPERVISOR documented as of this encounter Plan of Treatment Not on file documented as of this encounter Visit Diagnoses Not on filedocumented in this encounter
--- OUTSIDE RECORDS SUMMARY | 2024-06-09 03:29 | XMS_ITS | Encounter Summary ---
Author Organization [facility] Address [address] [place] [address] Care Team Providers Care Education Associate Name Role Phone Unavailable Primary Care Provider Unavailabl e Encounter Details Date Type Department Care Team (Latest Contact Info) Description 08/02/2020 2:23 PM SAILING MASTER - 08/02/2020 11:59 PM SAILING MASTER Hospital Encounter [facility] [place] [address], [place] [address] Izabella Juarez MD NO ADDRESS [...] COVID-19? No / Unsure 08/02/2020 10:37 AM SAILING MASTER documented as of this encounter Miscellaneous Notes * Result Encounter Note - Izabella Juarez MD - 08/02/2020 2:25 PM SAILING MASTER Notify int ob labs show that she's O neg, so she should receive rhogam (explain). Also, she's mildly anemic, so she should start slowfe one daily. ING MASTER documented in this encounter Plan of Treatment Not on file documented as of this encounter Procedures Procedure Name Priority Date/Time Associated Diagnosis Comments TRICHOMONAS VAGINALIS BY NUCLEIC ACID AMP Routine 08/02/2020 2:37 PM SAILING MASTER Missed menses care in second trimester TRICHOMONAS VAGINALIS BY NUCLEIC ACID AMP (FEMALE) Routine 08/02/2020 2:37 PM SAILING MASTER Missed menses care in second trimester GC/CHLAMYDIA, URINE Routine 08/02/2020 2 :37 PM SAILING MASTER Missed menses care in second trimester URINE CULTURE Routine 08/02/2020 2:37 PM SAILING MASTER Missed menses care in second trimester HIV DETECTION W/REFLX CONFIRMATION Routine 08/02/2020 2:31 PM SAILING MASTER Missed menses care in second trimester TYPE AND SCREEN, Routine 08/02/2020 2:31 PM SAILING MASTER Missed menses care in second trimester TSH REFLEXIVE Routine 08/02/2020 2:31 PM SAILING MASTER Missed menses care in second trimester HEPATITIS B SURFACE ANTIGEN Routine 08/02/2020 2:31 PM SAILING MASTER Missed menses care in second trimester RUBELLA IGG Routine 08/02/2020 2:31 PM SAILING MASTER Missed menses care in second trimester HEPATITIS C ANTIBODY Routine 08/02/2020 2:31 PM SAILING MASTER Missed menses care in second trimester CBC WITH DIFFERENTIAL Routine 08/02/2020 2:31 PM SAILING MASTER Missed menses care in second trimester RPR Routine 08/02/2020 2:31 PM SAILING MASTER Missed menses care in second trimester OBSTETRIC PANEL Routine 08/02/2020 2:31 PM SAILING MASTER Missed menses care in second trimester documented in this encounter Results * TRICHOMONAS VAGINALIS BY NUCLEIC ACID AMP (FEMALE) (08/02/2020 2:37 PM SAILING MASTER) TRICHOMONAS VAGINALIS BY PCR Not Detected Not Detected 08/02/2020 4:39 PM SAILING MASTER [facility] Other, specify URINE SPECIMEN / Unknown Collection / Unknown 08/02/2020 2:37 PM SAILING MASTER 08/02/2020 2:43 PM SAILING MASTER Izabella Juarez MD MICROBIOLOGY - [facility]ENE RAL [facility]AB[id number] [address] [place] [address] * GC/CHLAMYDIA, URINE (08/02/2020 2:37 PM SAILING MASTER) Pathologist [facility] CHLAMYDIA DNA AMPLIFICATION NOT DETECTED Not Detected 08/03/2020 12:24 PM SAILING MASTER [facility] GC DNA AMPLIFICATION NOT DETECTED Not Detected 08/03/2020 12:24 PM SAILING MASTER [facility] Urine URINE SPECIMEN / Unknown Collection / Unknown 08/02/2020 2:37 PM SAILING MASTER 08/02/2020 2:43 PM SAILING MASTER Narrative [facility] - 08/03/2020 12:24 PM SAILING MASTER Results should not be used for the evaluation of suspected sexual abuse or for other medico-legal indications. The only legally accepted results are from culture. Results cannot be used to assess therapeutic success or failure since nucleic acids may persist following antimicrobial therapy. Izabella Juarez MD URINE ORDERABLES [facility]# [id number] [address] [place] [address] * URINE CULTURE (08/02/2020 2:37 PM SAILING MASTER) CULTURE No growth 08/03/2020 12:39 PM SAILING MASTER [facility] Urine URINE SPECIMEN OBTAINED BY CLEAN CATCH PROCEDURE / Unknown Collection / Unknown 08/02/2020 2:37 PM SAILING MASTER 08/02/2020 2:43 PM SAILING MASTER Izabella Juarez MD MICROBIOLOGY - GENE RAL ORDERABLES [facility] LABORATORY [facility]# [id number] [address] [place] [address] * HIV DETECTION W/REFLX CONFIRMATION (08/02/2020 2:31 PM SAILING MASTER) HIV-1 AND 2 ABS AND HIV-1 AG Non-reacti ve Non-reacti ve 08/03/2020 5:47 PM SAILING MASTER [facility] LABORATORY SERVICES - [facility] Blood Venipuncture / Unknown 08/02/2020 2:31 PM SAILING MASTER 08/02/2020 2:42 PM SAILING MASTER Narrative [facility] LABORATORY SERVICES - [facility] - 08/03/2020 5:47 PM SAILING MASTER Initial HIV testing was performed by [employer] on the Katelin Juarez e602 module. Values obtained with different assay methods cannot be used interchangeably. Non- Reactive results does not rule out HIV infection. If acute HIV-1 infection is suspected, submit plasma specimen for HIV-1 RNA quantification test (HIVQU). Izabella Juarez MD CHEMISTRY ORDERABLE S Performing Organization Address City/[facility]/ZIP Co de Phone Number [facility] [employer] [facility]# [id number] [address] [place] [address] * TYPE AND SCREEN, (08/02/2020 2:31 PM SAILING MASTER) ABO GROUP O 08/02/2020 5:20 PM SAILING MASTER [facility] LABORATORY SERVICES -- [facility] RH (D) TYPE Negative 08/02/2020 5:20 PM SAILING MASTER [facility] ANTIBODY SCREEN Negative 08/02/2020 5:20 PM SAILING MASTER [facility] LABORATORY SERVICES -- [facility] Blood Venipuncture / Unknown 08/02/2020 2:31 PM SAILING MASTER 08/02/2020 2:42 PM SAILING MASTER Izabella Juarez MD BLOOD BANK ORDERABL ES Performing Organization Address [facility] Co de Phone Number [facility] CLIA# [id number] [address] [place], [place] [address] * RUBELLA IGG (08/02/2020 2:31 PM SAILING MASTER) RUBELLA IGG IMMUNE Immune - Positive 08/02/2020 3:54 PM SAILING MASTER [facility] LABORATORY [facility] Blood Venipuncture / Unknown 08/02/2020 2:31 PM SAILING MASTER 08/02/2020 2:42 PM SAILING MASTER Narrative [facility] LABORATORY [facility] - 08/02/2020 3:54 PM SAILING MASTER A positive result suggests response to immunization or prior exposure to the virus. Izabella Juarez MD CHEMISTRY ORDERABLE S Performing Organization Address [facility] Co de Phone Number [facility] CLNM# [id number] [address] [place], [place] [address] * RPR (08/02/2020 2:31 PM SAILING MASTER) Pathologist [facility] RPR NON-REACTI VE Non-Reacti ve 08/03/2020 8:13 AM SAILING MASTER [facility] Blood Venipuncture / Unknown 08/02/2020 2:31 PM SAILING MASTER 08/02/2020 2:42 PM SAILING MASTER Izabella Juarez MD CHEMISTRY ORDERABLE S Performing Organization Address [facility] Co de Phone Number [facility] [employer] [id number] [address] [place] [address] * HEPATITIS B SURFACE ANTIGEN (08/02/2020 2:31 PM SAILING MASTER) Pathologist [facility] HEPATITIS B SURFACE AG NON-REACTI VE Non-reacti ve 08/02/2020 4:01 PM SAILING MASTER [employer] LABORATORY SERVICES - [facility] Blood Venipuncture / Unknown 08/02/2020 2:31 PM SAILING MASTER 08/02/2020 2:42 PM SAILING MASTER Izabella Juarez MD CHEMISTRY ORDERABLE S [employer] Prix[employer] SERVICES [facility] CLIA# [id number] [address] [facility] [place] [address] [facility] [place] [address] * (ABNORMAL) CBC WITH DIFFERENTIAL (08/02/2020 2:31 PM SAILING MASTER) WBC 10.2(H) 4.0 - 9.8 K/uL 08/02/2020 3:16 PM SAILING MASTER [employer] LABORATORY SERVICES - [facility] RBC 3.92 3.90 - 4.90 M/uL 08/02/2020 3:16 PM [employer] LABORATORY SERVICES - [facility] HEMOGLOBIN 11.3(L) 11.8 - 14.8 g/dL 08/02/2020 3:16 PM [employer] LABORATORY SERVICES - [facility] HEMATOCRIT 35.7 35.5 - 44.0 % 08/02/2020 3:16 PM [employer] LABORATORY SERVICES - . [facility] MCV 91.1 82.0 - 99.0 fL 08/02/2020 3:16 PM [employer] LABORATORY SERVICES - [facility] MCH 28.8 27.2 - 32.6 pg 08/02/2020 3:16 PM [employer] LABORATORY SERVICES - [facility] MCHC 31.7 31.5 - 35.5 g/dL 08/02/2020 3:16 PM SAILING MASTER [employer] LABORATORY SERVICES - [facility] RDW 13.1 11.5 - 14.5 % 08/02/2020 3:16 PM SAILING MASTER [employer] LABORATORY SERVICES - [facility] RDW-STDEV 42.7 37.1 - 48.7 fL 08/02/2020 3:16 PM SAILING MASTER [employer] LABORATORY SERVICES - [facility] PLATELETS 329 140 - 350 K/uL 08/02/2020 3:16 PM [employer] LABORATORY SERVICES - [facility] MPV 10.5 9.3 - 12.4 fL 08/02/2020 3:16 PM [facility] LABORATORY [facility] NEUTROPHILS 76 % 08/02/2020 3:16 PM [facility] LABOR[facility] LYMPHOCYTES 14 % 08/02/2020 3:16 PM [facility] MONOCYTES 8 % 08/02/2020 3:16 PM [facility] EOSINOPHILS 1 % 08/02/2020 3:16 PM [facility] LABOR[facility] BASOPHILS 0 % 08/02/2020 3:16 PM [facility] [place] IMMATURE GRANULOCYTES 1 % 08/02/2020 3:16 PM [facility] [place] Comment:IG (Immature Granulo cyte) count includes Metamyelocytes, Myelocytes, and Promyelocytes NEUTROPHIL ABSOLUTE 7.76(H) 1.90 - 7.00 K/uL 08/02/2020 3:16 PM [facility] LYMPHOCYTE ABSOLUTE 1.41 0.70 - 4.50 K/uL 08/02/2020 3:16 PM [facility] LAB[facility] MONOCYTE ABSOLUTE 0.79 0.10 - 1.30 K/uL 08/02/2020 3:16 PM [facility] LABOR[facility] EOSINOPHIL ABSOLUTE 0.09 0.00 - 0.70 K/uL 08/02/2020 3:16 PM [facility] BASOPHILS ABSOLUTE 0.04 0.00 - 0.20 K/uL 08/02/2020 3:16 PM [facility] IMMATURE GRANULOCYTES ABSOLUTE 0.07(H) 0.00 - 0.03 K/uL 08/02/2020 3:16 PM [facility] [employer] [facility] Blood Venipuncture / Unknown 08/02/2020 2:31 PM SAILING MASTER 08/02/2020 2:42 PM SAILING MASTER Izabella Juarez MD HEMATOLOGY ORDERABL ES [facility] CLIA# [id number] [address] [place] [address] * TSH REFLEXIVE (08/02/2020 2:31 PM SAILING MASTER) TSH 1.61 0.27 - 4.20 uIU/mL 08/02/2020 3:54 PM SAILING MASTER [facility] Blood Venipuncture / Unknown 08/02/2020 2:31 PM SAILING MASTER 08/02/2020 2:42 PM SAILING MASTER Izabella Juarez MD CHEMISTRY ORDERABLE S Performing Organization Address [facility] Co de Phone Number [facility] CLIA# [id number] [address] [place] [address] * HEPATITIS C ANTIBODY W REFLEX (08/02/2020 2:31 PM SAILING MASTER) Pathologist [facility] HEPATITIS C AB NON-REACTI VE Non-react zulema 08/02/2020 4:01 PM SAILING MASTER [facility] Comment:If a patient is know n to be at high risk for HCV infection, or is symptomatic, and the physician's suspicion of HCV infection is high, HCV RNA testing is often employed and is of diagnostic value, even after an initial negative anti-HCV test result. Signal to cutoff index is <1.00. Blood Venipuncture / Unknown 08/02/2020 2:31 PM SAILING MASTER 08/02/2020 2:42 PM SAILING MASTER Izabella Juarez MD CHEMISTRY ORDERABLE S Performing Organization Address [facility]/ZIP Co de Phone Number [facility] CLIA# [id number] [address] [place] [address] documented in this encounter Visit Diagnoses Diagnosis Missed menses Absence of menstruation care in second trimester documented in this encounter
--- OUTSIDE RECORDS SUMMARY | 2024-06-09 03:29 | XMS_ITS | Encounter Summary ---
Author Organization [facility] Address [address] [place] [address] Care Team Providers Care Harbor Boat Pilot Name Role Phone Unavailable Primary Care Provider Unavailabl e Encounter Details Date Type Department Care Team (Late st Contact Info) Description 10/14/2020 Chart Note [facility] - [id number] [facility] [address] [facility] [address] [id number] Izabella Juarez MD NO ADDRESS ON FILE [...]
--- OUTSIDE RECORDS SUMMARY | 2024-06-09 03:29 | XMS_ITS | Encounter Summary ---
Author Organization [facility] Address [address] [place] [address] Care Team Providers Care Apparatus Repair Mechanic Name Role Phone Unavailable Primary Care Provider Unavailabl e Reason for Referral * Radiology Services (Routine) - Closed Specialty Diagnoses / Procedures Referred By Contac t Referred To Contact Diagnoses complicated by umbilical cord varix, antepartum Fibroid Procedures US OB FOLLOW UP PER FETUS Eduardo Kern MD [address] [place] [address] Referral ID Status Reason Start Date Expiration Date V isits Requested Visits Authorized [id number] Closed [facility] CTS 09/27/2020 10/28/2020 1 1 Reason for Visit * Auth/Cert Specialty Diagnoses / Procedures Referred By Contac t Referred To Contact Radiology [facility] [address] [place] [address] Referral ID Status Reason Start Date Expiration Date Visits Re quested Visits Authorized [id number] 1 1 Encounter Details Date Type Department Care Team (Latest Contact Info) Description 10/11/2020 3:10 PM CDT - 10/11/2020 11:59 PM CDT Hospital Encounter [facility] Maternal and Ground Floor [address] [place] [address] Eduardo Kern MD [address] [place] [phone] Discharge Disposition: Home or Self Care Social [...] HUSAIN Study Date: 10/11/2020 3:18pm Pat. 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 O35.8XX0: Maternal care for suspected abnormality. 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 Procedure Note Ayla Lambert MD - 10/11/2020 [facility] TARGET ----- Pat. Name:Jennifer HUSAIN Date:10/11/2020 3:18pm Pat. 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 Unspecified Fetus O34.13: Maternal care for benign tumor of corpusuteri Z3A.29: Weeks Gestation of Procedures [id number]: OB follow-up/Target per fetus HISTORY ----- OB [...] and date of were verified by the outside repairer special prior tothe exam FOLLOW-UP ----- see above. [...]
== END 2024-06-02 17:48 | disposition home or self-care (01) ==
PROVIDERS: Emergency Provider Physician Assistant
DX: S59.902A Unspecified injury of left elbow, initial encounter (principal); W00.0XXA Fall on same level due to ice and snow, initial encounter
CPT/HCPCS: 73080; 99283; A4565; A9270